=== PATIENT | female | born 1970 | race Hispanic/Latino ===

== ENCOUNTER 2017-02-16 06:41 | Inpatient (IN) | payer MEDICARE ==
[2017-02-10 08:12] VITALS: BMI 14.6
--- NOTE | 2017-02-16 07:49 | CP.PCM.HP ---
History of Present Illness - History of Present Illness History of Present Illness: 46 y/o female with PMHx of adrenal insufficiency, COPD, anxiety and history of MRSA seen in [facility] to go to OR at 12:30pm for left total knee replacement. Pt states she fell in April and fractured and displaced her tibia. Pt was treated conservatively in several rehab facilities but did not have any improvement. Pt states she has not been able to walk normally and it is difficult to ambulate or bear weight due to the displacement of her leg at her knee. Pt denies any F/C/N/V/SOB. PSH: abdominal resection, partial colon resection, repair of rectal prolapse, R knee arthroscopy, wound debridement of hands (MRSA) All: NKDA Social: (+) cigarette smoker Present on Admission - Present on Admission Any Indicators Present on Admission: No History of DVT/PE: No History of Uncontrolled Diabetes: No Urinary Catheter: No Decubitus Ulcer Present: No History Surgical Site Infection Following: None Review of Systems - Review of Systems All systems: reviewed and no additional remarkable complaints except (per HPI) - Constitutional Constitutional: As Per HPI Past Patient History - Infectious Disease Hx of Infectious Diseases: MRSA - Past Social History Smoking Status: Heavy Smoker > 10 Cigarettes Daily - CARDIAC Hx Cardiac Disorders: Yes Hx Hypertension: Yes Other/Comment: IRRAGULA HEARTBEAT - PULMONARY Hx Respiratory Disorders: Yes Hx Chronic Obstructive Pulmonary Disease (COPD): Yes Other/Comment: HX OF PNEUMONIA - NEUROLOGICAL Hx Neurological Disorder: No - HEENT Hx HEENT Problems: Yes Other/Comment: RETINA - RENAL Hx Chronic Kidney Disease: No - ENDOCRINE/METABOLIC Hx Endocrine Disorders: No - HEMATOLOGICAL/ONCOLOGICAL Hx Blood Disorders: Yes Hx Anemia: Yes - INTEGUMENTARY Hx Dermatological Problems: No - MUSCULOSKELETAL/RHEUMATOLOGICAL Hx Musculoskeletal Disorders: Yes Hx Arthritis: Yes Hx Back Pain: Yes Hx Osteoarthritis: Yes Other/Comment: MUSCLE WEAKNESS .LIMIT JOINT MOTION .RIGHT HAND WEAKNESS - GASTROINTESTINAL Hx Gastrointestinal Disorders: No Other/Comment: HX OF CONSTIPATION - GENITOURINARY/GYNECOLOGICAL Hx Genitourinary Disorders: No - PSYCHIATRIC Hx Psychophysiologic Disorder: Yes Hx Anxiety: Yes Hx Depression: Yes - SURGICAL HISTORY Hx Surgeries: Yes Hx Arthroscopy: Yes (RIGHT KNEE) Other/Comment: SX FOR BOWEL OBSTRUCTION - ANESTHESIA Hx Anesthesia: Yes Hx Anesthesia Reactions: No Hx Malignant Hyperthermia: No Has any member of the family had a problem w/ anesthesia?: No Meds Allergies/Adverse Reactions: Allergies Allergy/AdvReac Type Severity Reaction Status Date / Time No Known Allergies Allergy Verified 02/10/17 08:12 Physical Exam - Constitutional Appears: Well, Non-toxic, No Acute Distress - Extremities Exam Additional comments: Left lower extremity focused examination: Leg is laterally displaced on knee joint. No breaks in skin or soft tissue noted. No edema or ecchymosis noted. No tenderness elicited upon palpation of knee joint. Patient able to perform active flexion and extension at knee joint without difficulty. 1.0 x 1x0 x 0.1cm bruise with overlying scar noted to dorsomedial aspect of knee. Assessment & Plan - Assessment and Plan (Free Text) Assessment: 46 y/o female in SDS with left tibial plateau fracture to go to OR for L total knee replacement Plan: Pt seen and evaluated in [facility] Discussed plan in detail with attending Dr. Tinsley labs, EKG and CXR in chart Pt confirms NPO status after midnight last night All of patient's questions and concerns addressed and answered Pt to go to OR at 12:30pm for left TKR with Dr. Cole Pt to be admitted for rehab following sx Will continue to follow patient while in house
[2017-02-16] MEDS ORDERED: Lactated Ringer's 500 ML IV ONE (10:30)
--- NOTE | 2017-02-16 12:54 | RAD ---
PROCEDURE: Left Knee Radiographs. HISTORY: Pain. COMPARISON: None. FINDINGS: BONES: There is a transverse displaced impacted fracture in the proximal tibia with 1.3 cm distraction of fracture fragments and lateral angulation. There is mild sclerosis of the fracture margins. There is also a subacute healing fracture in the proximal fibula with lateral angulation. JOINTS: Normal. No osteoarthritis. JOINT EFFUSION: None. OTHER FINDINGS: None. IMPRESSION: Suspect subacute transverse distracted fracture in the proximal tibia with lateral angulation. Subacute healing laterally angulated fracture in the proximal fibula.
[2017-02-16] MEDS ORDERED: Rocuronium 10 mg/ml (5 ml) ONE (14:07)
[2017-02-16] MEDS ORDERED: Succinylcholine 200 mg/10 ml Inj IV ONE (14:07)
[2017-02-16] MEDS ORDERED: Midazolam 2 MG/2 ML VIAL ONE (14:08)
[2017-02-16] MEDS ORDERED: Ropivacaine 0.5% 30ML IV ONE (14:08)
[2017-02-16] MEDS ORDERED: Propofol 10 mg/ml Inj (20 ML) ONE (14:09)
[2017-02-16] MEDS ORDERED: Patient's Own Med (Buprenorphine Hcl/Naloxone Hcl [Suboxone 8 Mg-2 Mg Sl Film] 1 EACH) SCH (17:00)
--- NOTE | 2017-02-16 17:07 | CP.PCM.CON ---
History of Present Illness - History of Present Illness History of Present Illness: ID: 46 yo female CC: Pain and severe (approx 80 degrees varus)- deformity L lower ext; pt present sfor surgical correction HPI 46 yo ex substance abuser presents with pain and deforimity L Lower ext- pt with marked disomcfort paina and restricted ROM since a fall last eb Pt has been ambulating on fx for approx 1 yr Pt presents for surgical correction, but presents with bilateral lower ext cellulitis and ? vascular problem L lower ext Pt to be admitted for iV abios and vascular eval Past Patient History - Infectious Disease Hx of Infectious Diseases: MRSA - Past Social History Smoking Status: Heavy Smoker > 10 Cigarettes Daily - CARDIAC Hx Cardiac Disorders: Yes Hx Hypertension: Yes Other/Comment: IRRAGULA HEARTBEAT - PULMONARY Hx Respiratory Disorders: Yes Hx Chronic Obstructive Pulmonary Disease (COPD): Yes Other/Comment: HX OF PNEUMONIA - NEUROLOGICAL Hx Neurological Disorder: No - HEENT Hx HEENT Problems: Yes Other/Comment: RETINA - RENAL Hx Chronic Kidney Disease: No - ENDOCRINE/METABOLIC Hx Endocrine Disorders: No - HEMATOLOGICAL/ONCOLOGICAL Hx Blood Disorders: Yes Hx Anemia: Yes - INTEGUMENTARY Hx Dermatological Problems: No - MUSCULOSKELETAL/RHEUMATOLOGICAL Hx Musculoskeletal Disorders: Yes Hx Arthritis: Yes Hx Back Pain: Yes Hx Osteoarthritis: Yes Other/Comment: MUSCLE WEAKNESS .LIMIT JOINT MOTION .RIGHT HAND WEAKNESS - GASTROINTESTINAL Hx Gastrointestinal Disorders: No Other/Comment: HX OF CONSTIPATION - GENITOURINARY/GYNECOLOGICAL Hx Genitourinary Disorders: No - PSYCHIATRIC Hx Psychophysiologic Disorder: Yes Hx Anxiety: Yes Hx Depression: Yes - SURGICAL HISTORY Hx Surgeries: Yes Hx Arthroscopy: Yes (RIGHT KNEE) Other/Comment: SX FOR BOWEL OBSTRUCTION - ANESTHESIA Hx Anesthesia: Yes Hx Anesthesia Reactions: No Hx Malignant Hyperthermia: No Has any member of the family had a problem w/ anesthesia?: No Meds Allergies/Adverse Reactions: Allergies Allergy/AdvReac Type Severity Reaction Status Date / Time No Known Allergies Allergy Verified 02/16/17 08:07 Physical Exam - Additional Findings Additional findings: Physical exam systemic exam HEENT- poor dentition chest and lungs clear Cardiac- as per DR Luna abdominal exam benign Musculoskeletal stance/gait- defrred pt with 82 dgree varus angualtion at fx Decreased dorsalis pedis pulse L foot bilateral erythem and cellulitis L lower ext Results - Vital Signs Recent Vital Signs: Last Vital Signs Temp 98.8 F 02/16/17 16:43 Pulse 80 02/16/17 16:43 Resp 20 02/16/17 16:43 BP 123/84 02/16/17 16:43 Pulse Ox 100 02/16/17 16:43 - Labs Labs: Laboratory Results - last 24 hr 02/16/17 02/16/17 08:00 08:45 Blood Type A POSITIVE Blood Type Confirm A POSITIVE Antibody Screen Negative BBK History Checked No verified bt - Impressions Impression: Xrays- reveal non union prox tibia fx excessive varus angulation at fgx(82 degrees) Assessment & Plan - Assessment and Plan (Free Text) Assessment: A- 1) NON union L prox tibia fx 2)vascular compromise L Lower ext (?0) after corredction- DR Adames to eval\ 3) bilateral lower ext cellulitis P- vasc comsult cardiologic consult endocrine consult ID consult P- for stabilization , then clearance for possible ORIF/possible hinged joint replacement
[2017-02-16] MEDS: POLYETHYLENE GLYCOL 3350 17 GM/Dose PACKET PO SCH (17:32)
[2017-02-16] MEDS: Sodium Chloride 0.9% 1,000 ML IV SCH ×2 (18:55→18:59)
[2017-02-16] MEDS: Hydrocortisone- 100 MG in Sodium Chloride 0.9% 100 ML IV SCH (18:55)
[2017-02-17] MEDS: Hydrocortisone- 100 MG in Sodium Chloride 0.9% 100 ML IV SCH (01:56)
--- NOTE | 2017-02-17 05:23 | CP.PCM.CON ---
History of Present Illness - History of Present Illness History of Present Illness: Vascular surgery consult for Dr. Adames Consulted for: possible vascular disease of the left lower leg Patient is a 46F with PMH positive for COPD, 30pack year smoking history, HTN, and hypothyroidism with an improperly healed left tib-fib fracture. Patient states that 9 months ago she got out of bed and her leg "went out from underneath her" and she broke her leg. Since then patient has been non- weightbearing, using only a wheelchair. Patient was scheduled for an elective repair with orthopedics yesterday, but it was postponed for further evaluation. Patient report bilateral constant diffuse leg pain but otherwise denies any symptoms. Denies any history of chronic ulcers, cellulitis, paralysis, numbness , focal weakness, infections, SOB, chest pain, fevers, chills, or any other symptoms. Review of Systems - Review of Systems All systems: reviewed and no additional remarkable complaints except (as per HPI ) - Constitutional Constitutional: absent: Chills, Fever - Cardiovascular Cardiovascular: absent: Chest Pain, Chest Pain at Rest, Dyspnea - Respiratory Respiratory: absent: Cough, Dyspnea, Dyspnea on Exertion - Gastrointestinal Gastrointestinal: absent: Abdominal Pain, Nausea, Vomiting - Neurological Neurological: absent: Dizziness, Numbness Additional comments: bilateral neuropathies Past Patient History - Infectious Disease Hx of Infectious Diseases: MRSA - Past Social History Smoking Status: Heavy Smoker > 10 Cigarettes Daily - CARDIAC Hx Cardiac Disorders: Yes Hx Hypertension: Yes Other/Comment: IRREGULAR HEARTBEAT - PULMONARY Hx Respiratory Disorders: Yes Hx Chronic Obstructive Pulmonary Disease (COPD): Yes Other/Comment: HX OF PNEUMONIA - NEUROLOGICAL Hx Neurological Disorder: No - HEENT Hx HEENT Problems: Yes Other/Comment: RETINA - RENAL Hx Chronic Kidney Disease: No - ENDOCRINE/METABOLIC Hx Endocrine Disorders: No - HEMATOLOGICAL/ONCOLOGICAL Hx Blood Disorders: Yes Hx Anemia: Yes - INTEGUMENTARY Hx Dermatological Problems: No - MUSCULOSKELETAL/RHEUMATOLOGICAL Hx Musculoskeletal Disorders: Yes Hx Arthritis: Yes Hx Back Pain: Yes Hx Osteoarthritis: Yes Other/Comment: MUSCLE WEAKNESS .LIMIT JOINT MOTION .RIGHT HAND WEAKNESS - GASTROINTESTINAL Hx Gastrointestinal Disorders: No Other/Comment: HX OF CONSTIPATION - GENITOURINARY/GYNECOLOGICAL Hx Genitourinary Disorders: No - PSYCHIATRIC Hx Psychophysiologic Disorder: Yes Hx Anxiety: Yes Hx Depression: Yes - SURGICAL HISTORY Hx Surgeries: Yes Hx Arthroscopy: Yes (RIGHT KNEE) Other/Comment: SX FOR BOWEL OBSTRUCTION - ANESTHESIA Hx Anesthesia: Yes Hx Anesthesia Reactions: No Hx Malignant Hyperthermia: No Has any member of the family had a problem w/ anesthesia?: No Meds Allergies/Adverse Reactions: Allergies Allergy/AdvReac Type Severity Reaction Status Date / Time No Known Allergies Allergy Verified 02/16/17 08:07 - Medications Medications: Current Medications Acetaminophen (Tylenol 325mg Tab) 650 mg PO Q6 PRN PRN Reason: Fever >100.4 F Acetaminophen (Tylenol 325mg Tab) 650 mg PO Q4 PRN PRN Reason: Pain, moderate (4-7) Amlodipine Besylate (Norvasc) 5 mg PO DAILY [facility] Baclofen (Lioresal) 20 mg PO TID [facility] Last Admin: 02/16/17 17:32 Dose: 20 mg Bisacodyl (Dulcolax) 10 mg [place] DAILY PRN PRN Reason: Constipation Docusate Sodium (Colace) 100 mg PO BID [facility] Docusate Sodium (Colace) 100 mg PO HS [facility] Last Admin: 02/16/17 22:58 Dose: 100 mg Duloxetine HCl (Cymbalta) 60 mg PO HS [facility] Last Admin: 02/16/17 22:59 Dose: 60 mg Enoxaparin Sodium (Lovenox) 40 mg SC DAILY [facility] PRN Reason: Protocol Ferrous Sulfate (Feosol) 325 mg PO BID [facility] Last Admin: 02/16/17 17:32 Dose: 325 mg Gabapentin (Neurontin) 600 mg PO TID [facility] Last Admin: 02/16/17 17:32 Dose: 600 mg Home Med (Buprenorphine Hcl/Naloxone Hcl [Suboxone 8 Mg-2 Mg Sl Film]) 1 each .ROUTE BID [facility] Sodium Chloride (Sodium Chloride 0.9%) 1,000 mls @ 100 mls/hr IV .Q10H [facility] Last Admin: 02/16/17 18:59 Dose: 100 mls/hr Ibuprofen (Motrin Tab) 600 mg PO Q6 PRN PRN Reason: Pain, moderate (4-7) Last Admin: 02/16/17 17:34 Dose: 600 mg Levothyroxine Sodium (Synthroid) 100 mcg PO DAILY@0630 [facility] Lisinopril (Zestril) 20 mg PO DAILY [facility] Lorazepam (Ativan) 1 mg PO BID [facility] Last Admin: 02/16/17 18:54 Dose: 1 mg Multivitamins/Minerals (Therapeutic-M Tab) 1 tab PO DAILY [facility] Nicotine (Nicoderm Cq) 1 patch TD DAILY [facility] Ondansetron HCl (Zofran Inj) 4 mg IVP Q6 PRN PRN Reason: Nausea/Vomiting Pantoprazole Sodium (Protonix Ec Tab) 40 mg PO DAILY [facility] Polyethylene Glycol (Miralax) 17 gm PO BID [facility] Last Admin: 02/16/17 17:32 Dose: 17 gm Quetiapine Fumarate (Seroquel) 100 mg PO HS [facility] Last Admin: 02/16/17 23:02 Dose: Not Given Quetiapine Fumarate (Seroquel) 50 mg PO BID [facility] Last Admin: 02/16/17 17:33 Dose: 50 mg Sennosides (Senokot Tab) 8.6 mg PO BID [facility] Last Admin: 02/16/17 17:33 Dose: 8.6 mg Trazodone HCl (Desyrel) 100 mg PO HS PRN PRN Reason: Restlessness Last Admin: 02/16/17 23:03 Dose: 100 mg Physical Exam - Constitutional Appears: Non-toxic, No Acute Distress, Older Than Stated Age, Chronically Ill - Head Exam Head Exam: ATRAUMATIC, NORMOCEPHALIC - Eye Exam Eye Exam: Normal appearance. absent: Conjunctival injection, Scleral icterus - ENT Exam ENT Exam: Mucous Membranes Moist - Respiratory Exam Respiratory Exam: NORMAL BREATHING PATTERN. absent: Accessory Muscle Use, Respiratory Distress - Cardiovascular Exam Cardiovascular Exam: RRR - GI/Abdominal Exam GI & Abdominal Exam: Soft. absent: Distended, Tenderness - Extremities Exam Extremities exam: Positive for: normal capillary refill, pedal pulses present ( DP and TP present and equal bilaterally). Negative for: calf tenderness, pedal edema, tenderness Additional comments: left lower leg with gross bony deformity with distal lower leg angled medially. Feet and toes warm and normal color - Neurological Exam Neurological exam: Alert, Oriented x3 - Psychiatric Exam Psychiatric exam: Normal Affect, Normal Mood - Skin Skin Exam: Dry, Intact, Normal Color, Warm Additional comments: Negative: areas of chronic skin breakdown Results - Vital Signs Recent Vital Signs: Last Vital Signs Temp 98.5 F 02/17/17 00:00 Pulse 73 02/17/17 00:00 Resp 19 02/17/17 00:00 BP 140/68 02/17/17 00:00 Pulse Ox 96 02/17/17 00:00 - Labs Labs: Laboratory Results - last 24 hr 02/16/17 02/16/17 08:00 08:45 Blood Type A POSITIVE Blood Type Confirm A POSITIVE Antibody Screen Negative BBK History Checked No verified bt Assessment & Plan - Assessment and Plan (Free Text) Assessment: 46F with PMH of tobacco use, COPD and chronic displaced Left tib-fib fracture Plan: - No indication for vascular surgical intervention at this time - No overt signs of vascular compromise in the lower extremities - Will discuss with Dr. Adames for further work up recommendations - Continue care per primary and orthopedics at this time Thank you for this consult Will discuss with Dr. Rosangela Case, PGY2
--- NOTE | 2017-02-17 05:29 | CON ---
ENDOCRINOLOGY CONSULT LOCATION: Room 651 HISTORY OF PRESENT ILLNESS: This is a 46-year-old female who was admitted for surgical correction of a fractured and displaced patella and tibia, which has been there for almost a year to the present time and underwent surgical correction with orthopedic and is now being referred for endocrine evaluation because of known history of adrenal insufficiency and hypothyroidism. PAST MEDICAL HISTORY: As mentioned above, history of hypothyroidism, currently on levothyroxine at 100 mcg daily, history of hypoadrenalism with hydrocortisone given orally on the outpatient as Cortef taken 20 mg b.i.d. as ordered. History of hypertensive cardiovascular disease and dyslipidemia, history of generalized anxiety and depression with underlying bipolar disorder; on psychotropic medications, history of chronic obstructive lung disease with nicotine dependence, history of chronic anemia, history of peripheral polyneuropathy and muscle weakness with gait dysfunction and apparently also has left lower extremity, vasculopathy undergoing current evaluation at this time. Also history of restricted ambulation and is wheelchair-bound actually as noted. She is also scheduled for possible total left knee replacement with Dr. Cole, the orthopedic doctor with this admission. History of chronic constipation and had previous sigmoid resection 7 years ago. FAMILY HISTORY: Positive for hypertension and heart disease. SOCIAL HISTORY: The patient has supportive family and actually was in a care home for rehabilitation therapy for the last 9 months since her accidental fall a year ago. The patient admits to nicotine dependence and consumes a pack and a half of cigarettes for many years now. No other known substance use. REVIEW OF SYSTEMS: As mentioned above. Admits to generalized body weakness with easy fatigability and tiredness and suboptimal energy level. Also admits to episodic bouts of dizziness and lightheadedness with bifrontal headaches. No chest pains or palpitations, but admits to progressive shortness of breath especially with minimal exertion. Her oral intake is variable and suboptimal at this time with nausea, dyspepsia, and persistent chronic constipation. Also admits to lower extremity paresthesias especially in the left lower extremity with painful and restricted ambulation because of underlying fracture as noted and mentioned. PHYSICAL EXAMINATION: GENERAL: This is an average built female in no apparent distress. VITAL SIGNS: Blood pressure of 140/80, pulse of 70 beats per minute and regular, temperature 98, respirations 20. Height is 5 feet 5 inches, weight is 88 pounds. HEENT: Head normocephalic. Eyes anicteric with pink conjunctivae. Funduscopy not possible at this time. Ears, nose, are throat otherwise normal. NECK: Supple. Thyroid gland is normal in size. No carotid bruits or any cervical adenopathy. CARDIOPULMONARY: Some adynamic precordium. S1 and S2 is rapid and regular. LUNGS: Clear to auscultation. ABDOMEN: Flat, soft, with positive bowel sounds. EXTREMITIES: There is +1 bipedal edema. Pulses are +2 bilaterally. LABORATORY DATA: The chemistries are pending at this time. No cortisol level has been obtained otherwise. 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 She apparently has longstanding history of the upper mentioned dual entities with long-term oral replacement therapy with steroids and levothyroxine therapy as mentioned. At this time, she has been placed postoperatively on intravenous steroids as noted. As mentioned above, she has a fracture and displacement of the left patella and fibular area and underwent surgical correction today as noted. PLAN OF MANAGEMENT: We will obtain a comprehensive thyroid hormonal profile with a total T3, T4, and TSH, and also serum cortisol and ACTH level with a hemoglobin A1c for tomorrow morning. We will adjust her dose regimen accordingly depending upon her clinical and metabolic status pending the availability of her hormonal profile reports by tomorrow morning. Serial chemistries reveal pending and they will be supplemented accordingly as needed. We will also taper down her IV steroids if her clinical status improves accordingly. We will follow. Shayna Russo MD
[2017-02-17] MEDS: Levothyroxine 100 MCG TAB PO SCH (05:32)
[2017-02-17] MEDS: Sodium Chloride 0.9% 1,000 ML IV SCH ×2 (06:34→06:49)
[2017-02-17] MEDS ORDERED: Hydrocortisone- 100 MG in Sodium Chloride 0.9% 100 ML IV ONE ×2 (06:41→10:00)
[2017-02-17 06:43] LABS: ALB/GLOB RATIO 1.4 (1.0-2.1); ALKALINE PHOSPHATASE 52 U/L (38-126); ALT/SGPT 20 U/L (9-52); AST/SGOT 21 U/L (14-36); BILIRUBIN,TOTAL 0.5 mg/dl (0.2-1.3); BLOOD UREA NITROGEN 12 mg/dl (7-17); CALCIUM 8.6 mg/dL (8.4-10.2); CARBON DIOXIDE 22 mmol/L (22-30); CHLORIDE 112 mmol/L (98-107); GFR AFRICAN-AMERICAN > 60; GLUCOSE,RANDOM 97 mg/dL (65-105); SODIUM 146 mmol/l (132-148)
[2017-02-17 06:52] LABS: T4 6.22 ug/dl (5.5-11.0)
[2017-02-17 07:05] LABS: THYROID STIMULATING HORMONE 1.68 mIU/ML (0.46-4.68)
[2017-02-17] MEDS ORDERED: Enoxaparin 40 mg Syringe SC SCH (09:00)
[2017-02-17] MEDS ORDERED: Levothyroxine 100 MCG TAB PO SCH (09:00)
--- NOTE | 2017-02-17 09:27 | CP.PCM.PN ---
Addendum entered and electronically signed by Anh Dean DPM 02/17/17 15:23 : Physical Exam (continued) Resp: no rales, no wheezing. Lungs clear on auscultation Cardio: no JVD. S1 and S2 sounds normal. Derm: Extensor surface erythema to B/L hands. Discoloration of nails noted to all 4 extremities. 1.0 x 1.0cm bruise with overlying scar noted to medial aspect of L anterior knee. 3.0 x 4.0 cm ecchymosis to distal medial leg with no surrounding erythema, no breaks in skin or soft tissue. Assessment and Plan: 1) Left tibia and fibula fracture with patellar dislocation -to go to OR for left TKR with Dr. Cole, possibly pending clearance -cardiac clearance in chart -vascular sx to perform arteriogram for LLE to evaluate blood flow 2) Adrenal insufficiency and hypothyroidism with Bill syndrome -pt to receive stress dose of hydrocortisone 100 mg, will be given pre op and post op. one dose given 02/16 -currently on Cortef 20mg -Endocrine consulted -will monitor cortisol, TSH, T3 and T4 levels -continue Synthroid 3) Hypertension -HTN controlled at this time -continue home meds 4) Anemia -controlled at this time -continue ferrous sulfate supplements 5) Neuropathy -Continue gabapentin and suboxone 6) Gait dysfunction -physical therapy evaluation following left TKR surgery -pt to go to [facility] post-op for rehabilitation 7) Constipation -continue Sennosides, Dulcolax, Docusate and polyethylene glycol 8) COPD -O2 saturation good, no need for additional O2 at this time -no acute infiltrates noted on CXR 9) Bipolar disorder -continue psych meds -no suicidal ideations or depression 10) DVT prophylaxis -Continue Lovenox -Continue SCDs 11) Suspected cellulitis with erythema and excoriation of right lower leg -empiric tx with Vanco per ID 12) Cachexia -will consult porter head to evaluate and recommend supplements Original Note: Subjective - Date & Time of Evaluation Date of Evaluation: 02/17/17 Time of Evaluation: 09:26 - Subjective Subjective: 46 y/o female seen at bedside this morning, in house for medical optimization with vascular and endocrine evaluation prior to left total knee replacement surgery. Pt denies any acute events overnight. Pt states she has taken her resumed home medications. Pt states she is experiencing diffuse pain but that this is normal for her. Pt is getting relief from Motrin. Pt denies F/C/N/V/ SOB. Pt admits to constipation which is chronic. Objective - Vital Signs/Intake and Output Vital Signs (last 24 hours): Temp Pulse Resp BP Pulse Ox 98.7 F 65 20 148/79 98 02/17/17 07:55 02/17/17 07:55 02/17/17 07:55 02/17/17 07:55 02/17/17 07:55 - Medications Medications: Current Medications Acetaminophen (Tylenol 325mg Tab) 650 mg PO Q6 PRN PRN Reason: Fever >100.4 F Acetaminophen (Tylenol 325mg Tab) 650 mg PO Q4 PRN PRN Reason: Pain, moderate (4-7) Amlodipine Besylate (Norvasc) 5 mg PO DAILY [facility] Baclofen (Lioresal) 20 mg PO TID [facility] Last Admin: 02/16/17 17:32 Dose: 20 mg Bisacodyl (Dulcolax) 10 mg [place] DAILY PRN PRN Reason: Constipation Docusate Sodium (Colace) 100 mg PO BID [facility] Docusate Sodium (Colace) 100 mg PO HS [facility] Last Admin: 02/16/17 22:58 Dose: 100 mg Duloxetine HCl (Cymbalta) 60 mg PO HS [facility] Last Admin: 02/16/17 22:59 Dose: 60 mg Enoxaparin Sodium (Lovenox) 40 mg SC DAILY [facility] PRN Reason: Protocol Ferrous Sulfate (Feosol) 325 mg PO BID [facility] Last Admin: 02/16/17 17:32 Dose: 325 mg Gabapentin (Neurontin) 600 mg PO TID [facility] Last Admin: 02/16/17 17:32 Dose: 600 mg Home Med (Buprenorphine Hcl/Naloxone Hcl [Suboxone 8 Mg-2 Mg Sl Film]) 1 each .ROUTE BID [facility] Sodium Chloride (Sodium Chloride 0.9%) 1,000 mls @ 50 mls/hr IV .Q20H [facility] Last Admin: 02/17/17 06:49 Dose: Not Given Hydrocortisone Sodium Succinate 100 mg/ Sodium Chloride 100 mls @ 100 mls/hr IV ONCE ONE Stop: 02/17/17 10:59 Ibuprofen (Motrin Tab) 600 mg PO Q6 PRN PRN Reason: Pain, moderate (4-7) Last Admin: 02/17/17 05:31 Dose: 600 mg Levothyroxine Sodium (Synthroid) 100 mcg PO DAILY@0630 [facility] Last Admin: 02/17/17 05:32 Dose: 100 mcg Lisinopril (Zestril) 20 mg PO DAILY [facility] Lorazepam (Ativan) 1 mg PO BID [facility] Last Admin: 02/16/17 18:54 Dose: 1 mg Multivitamins/Minerals (Therapeutic-M Tab) 1 tab PO DAILY [facility] Nicotine (Nicoderm Cq) 1 patch TD DAILY [facility] Ondansetron HCl (Zofran Inj) 4 mg IVP Q6 PRN PRN Reason: Nausea/Vomiting Pantoprazole Sodium (Protonix Ec Tab) 40 mg PO DAILY [facility] Polyethylene Glycol (Miralax) 17 gm PO BID [facility] Last Admin: 02/16/17 17:32 Dose: 17 gm Quetiapine Fumarate (Seroquel) 100 mg PO HS [facility] Last Admin: 02/16/17 23:02 Dose: Not Given Quetiapine Fumarate (Seroquel) 50 mg PO BID [facility] Last Admin: 02/16/17 17:33 Dose: 50 mg Sennosides (Senokot Tab) 8.6 mg PO BID [facility] Last Admin: 02/16/17 17:33 Dose: 8.6 mg Trazodone HCl (Desyrel) 100 mg PO HS PRN PRN Reason: Restlessness Last Admin: 02/16/17 23:03 Dose: 100 mg - Labs Labs: 02/17/17 05:20 PT 10.6 Seconds (9.8-13.1) 02/17/17 05:20 INR 1.0 (0.9-1.2) 02/17/17 05:20 - Constitutional Appears: Well, Non-toxic, No Acute Distress, Older Than Stated Age - Head Exam Head Exam: ATRAUMATIC, NORMOCEPHALIC - Eye Exam Eye Exam: EOMI, PERRL Pupil Exam: PERRL - Respiratory Exam Respiratory Exam: NORMAL BREATHING PATTERN - Cardiovascular Exam Cardiovascular Exam: REGULAR RHYTHM - GI/Abdominal Exam GI & Abdominal Exam: Soft, Tenderness, Normal Bowel Sounds - Extremities Exam Additional comments: Neuro- gross sensation intact B/L Left lower extremity exam shows lateral 50+ degree leg displacement at knee joint. Pt able to perform active flexion and extension at knee joint without tenderness. Gait unable to assess due to pt inability to bear weight. Pulses are palpable. Right distal medial leg exhibits 3.0 x 4.0 cm ecchymosis with no open lesions, no surrounding erythema, no cellulitic changes, no increased warmth. - Neurological Exam Neurological Exam: Alert, Awake, Oriented x3 - Psychiatric Exam Psychiatric exam: Normal Affect, Normal Mood - Skin Skin Exam: Intact, Normal Color Assessment and Plan - Assessment and Plan (Free Text) Assessment: Patient seen at bedside and plan discussed with attending Dr. Tinsley Await recs from endocrine and vascular prior to surgery Pt to resume Cortef 20mg po BID as per PMD for adrenal insufficiencu will give Hydrocortisone 100 mfg IV Q8, first dose before surgery Will follow while in house
[2017-02-17] MEDS: POLYETHYLENE GLYCOL 3350 17 GM/Dose PACKET PO SCH ×2 (09:50→17:12)
[2017-02-17] MEDS: Pantoprazole 40 mg EC Tab PO SCH (09:52)
[2017-02-17] MEDS: Multivitamin With Minerals Tab PO SCH (09:53)
--- NOTE | 2017-02-17 10:17 | CP.PCM.CON ---
History of Present Illness - History of Present Illness History of Present Illness: 46 y/o female with history of fall April 2016, fractured and displaced patella and tibia , not ambulatory ( on wheelchair for the last 9 months ) presented via [facility] for left TKR by Dr. Crane Found to have left leg cellulitis ID consulted for this PMH COPD , smoker 1 and 1/2 PPD, adrenal insufficiency, hypothyroidism, anxiety , bipolar disorder , HTN,anemia,neuropathy, muscle weakness , gait dysfunction , constipation , GERD with history of fall April 2016, fractured and displaced patella and tibia Medications; ativan, seroquel, gabapentin, suboxan, baclofen, synthroid , amlodipine , colace,cymbalta, ferrous sulfate, cortef ,lisinopril, omeprazole, miralax, senna, trazodone,motrin Social history ; has 1 son and mother, surrogate decision maker is mother, has been in [place] for rehab for the last 9 months since fall, unable to walk due to left knee separation since April, smoker ,denies ETOH abuse , disability ROS ; 14 point review of system is negative except what mentioned on H&P PSH: abdominal resection, partial colon resection, repair of rectal prolapse, R knee arthroscopy, wound debridement of hands (MRSA) Review of Systems - Constitutional Constitutional: As Per HPI. absent: Chills, Fever - EENT Eyes: absent: As Per HPI, Blind Spots, Blurred Vision, Change in Vision, Decreased Night Vision, Diplopia, Discharge, Dry Eye, Exophthalmos, Floaters, Irritation, Itchy Eyes, Loss of Peripheral Vision, Pain, Photophobia, Requires Corrective Lenses, Sees Flashes, Spots in Vision, Tunnel Vision, Other Visual Disturbances, Loss of Vision, Other Ears: absent: As Per HPI, Decreased Hearing, Ear Discharge, Ear Pain, Tinnitus, Abnormal Hearing, Disequilibrium, Dizziness, Other Nose/Mouth/Throat: absent: As Per HPI, Epistaxis, Nasal Congestion, Nasal Discharge, Nasal Obstruction, Nasal Trauma, Nose Pain, Post Nasal Drip, Sinus Pain, Sinus Pressure, Bleeding Gums, Change in Voice, Dental Pain, Dry Mouth, Dysphagia, Halitosis, Hoarsness, Lip Swelling, Mouth Lesions, Mouth Pain, Odynophagia, Sore Throat, Throat Swelling, Tongue Swelling, Facial Pain, Neck Pain, Neck Mass, Other - Breasts Breasts: absent: As Per HPI, Change in Shape, Mass, Pain, Nipple Discharge, Nipple Inversion, Skin Changes, Swelling, Other - Cardiovascular Cardiovascular: absent: As Per HPI, Acrocyanosis, Chest Pain, Chest Pain at Rest , Chest Pain with Activity, Claudication, Diaphoresis, Dyspnea, Dyspnea on Exertion, Edema, Irregular Heart Rhythm, Pain Radiating to Arm/Neck/Jaw, Leg Edema, Leg Ulcers, Lightheadedness, Orthopnea, Palpitations, Paroxysmal Nocturnal Dyspnea, Pedal Edema, Radiating Pain, Rapid Heart Rate, Slow Heart Rate, Syncope, Other - Respiratory Respiratory: absent: As Per HPI, Cough, Dyspnea, Hemoptysis, Dyspnea on Exertion , Wheezing, Snoring, Stridor, Pain on Inspiration, Chest Congestion, Excessive Mucous Production, Change in Mucous Color, Pain with Coughing, Other - Gastrointestinal Gastrointestinal: absent: As Per HPI, Abdominal Pain, Belching, Bloating, Change in Bowel Habits, Change in Stool Character, Coffee Ground Emesis, Constipation, Cramping, Diarrhea, Dyspepsia, Dysphagia, Early Satiety, Excessive Flatus, Fecal Incontinence, Heartburn, Hematemesis, Hematochezia, Loose Stools, Melena, Nausea, Odynophagia, Temesmus, Vomiting, Other - Genitourinary Genitourinary: absent: As Per HPI, Change in Urinary Stream, Difficulty Urinating, Dysuria, Flank Pain, Hematuria, Pyuria, Nocturia, Urinary Incontinence, Urinary Frequency, Urinary Hesitance, Urinary Urgency, Voiding Freq/Small Amts, Freq UTI, Hx Renal/Bladder Calculi, Hx /Renal Surgery, Bladder Distension, Other - Reproductive: Female Reproductive:Female: absent: As Per HPI, Amenorrhea, Amenorrhea/ Control, Currently Menstual, Cycle <21 Days, Cycle >35 Days, Cycle Variable, Menses 1-7 Days, Menses >/= 8 Days, Menses Variable, Cycle > 4 Weeks Between, No Menses for 6 Months, Heavy Menses, Light Menses, Normal Menses, Spotting Between Cycles , S/P Hysterectomy, Menopausal, Post Menopausal, Premenarche, Abnormal Vaginal Bleeding, Dysmenorrhea, Dyspareunia, Genital Lesions, Genital Pruritis, Pelvic Pain, Prolapse Symptoms, Sexual Dysfunction, Vaginal Discharge, Vaginal Dryness , Vaginal Odor, Vaginal Pruritis, Other - Menstruation Menstruation: absent: As Per HPI, Amenorrhea, Amenorrhea/ Control, Currently Menstual, Cycle <21 Days, Cycle >35 Days, Cycle Variable, Menses 1-7 Days, Menses >/= 8 Days, Menses Variable, Cycle > 4 Weeks Between, No Menses for 6 Months, Heavy Menses, Light Menses, Normal Menses, Spotting Between Cycles , S/P Hysterectomy, Menopausal, Post Menopausal, Premenarche, Abnormal Vaginal Bleeding, Dysmenorrhea, Other - Musculoskeletal Musculoskeletal: absent: As Per HPI, Abnormal Gait, Arthralgias, Atrophy, Back Pain, Deformity, Joint Swelling, Limited Range of Motion, Loss of Height, Muscle Cramps, Muscle Weakness, Myalgias, Neck Pain, Numbness, Radiating Pain into Limb, Stiffness, Tingling, Other - Integumentary Integumentary: absent: As Per HPI, Acne, Alopecia, Bleeding Lesions, Change in Hair, Change in Nails, Change in Pigmentation, Changing Lesions, Dry Skin, Erythema, Furuncle, Hirsutism, Lesions, New Lesions, Non-Healing Lesions, Photosensitivity, Pruritus, Rash, Skin Pain, Skin Ulcer, Sores, Striae, Swelling , Unusual Bruising, Wounds, Jaundice, Other - Neurological Neurological: absent: As Per HPI, Abnormal Gait, Abnormal Hearing, Abnormal Movements, Abnormal Speech, Behavioral Changes, Burning Sensations, Confusion, Convulsions, Disequilibrium, Dizziness, Numbness, Focal Weakness, Frequent Falls , Headaches, Lack of Coordination, Loss of Vision, Memory Loss, Paresthesias, Radicular Pain, Restless Legs, Sensory Deficit, Syncope, Tingling, Tremor, Vertigo, Weakness, Other Visual Disturbances, Other - Psychiatric Psychiatric: absent: As Per HPI, Abnormal Sleep Pattern, Anhedonia, Anxiety, Auditory Hallucinations, Behavioral Changes, Change in Appetite, Change in Libido, Confusion, Depression, Difficulty Concentrating, Hallucinations, Homicidal Ideation, Hopelessness, Irritability, Memory Loss, Mood Swings, Panic Attacks, Paranoia, Suicidal Ideation, Visual Hallucinations, Tactile Hallucinations, Other - Endocrine Endocrine: absent: As Per HPI, Change in Body Appearance, Change in Libido, Cold Intolorance, Deepening of Voice, Excessive Sweating, Fatigue, Flushing, Heat Intolorance, Increase in Ring/Shoe/Hat Size, Palpitations, Polydipsia, Polyphagia, Polyuria, Other - Hematologic/Lymphatic Hematologic: absent: As Per HPI, Easy Bleeding, Easy Bruising, Lymphadenopathy, Other Past Patient History - Infectious Disease Hx of Infectious Diseases: MRSA - Past Social History Smoking Status: Heavy Smoker > 10 Cigarettes Daily - CARDIAC Hx Cardiac Disorders: Yes Hx Hypertension: Yes Other/Comment: IRREGULAR HEARTBEAT - PULMONARY Hx Respiratory Disorders: Yes Hx Chronic Obstructive Pulmonary Disease (COPD): Yes Other/Comment: HX OF PNEUMONIA - NEUROLOGICAL Hx Neurological Disorder: No - HEENT Hx HEENT Problems: Yes Other/Comment: RETINA - RENAL Hx Chronic Kidney Disease: No - ENDOCRINE/METABOLIC Hx Endocrine Disorders: No - HEMATOLOGICAL/ONCOLOGICAL Hx Blood Disorders: Yes Hx Anemia: Yes - INTEGUMENTARY Hx Dermatological Problems: No - MUSCULOSKELETAL/RHEUMATOLOGICAL Hx Musculoskeletal Disorders: Yes Hx Arthritis: Yes Hx Back Pain: Yes Hx Osteoarthritis: Yes Other/Comment: MUSCLE WEAKNESS .LIMIT JOINT MOTION .RIGHT HAND WEAKNESS - GASTROINTESTINAL Hx Gastrointestinal Disorders: No Other/Comment: HX OF CONSTIPATION - GENITOURINARY/GYNECOLOGICAL Hx Genitourinary Disorders: No - PSYCHIATRIC Hx Psychophysiologic Disorder: Yes Hx Anxiety: Yes Hx Depression: Yes - SURGICAL HISTORY Hx Surgeries: Yes Hx Arthroscopy: Yes (RIGHT KNEE) Other/Comment: SX FOR BOWEL OBSTRUCTION - ANESTHESIA Hx Anesthesia: Yes Hx Anesthesia Reactions: No Hx Malignant Hyperthermia: No Has any member of the family had a problem w/ anesthesia?: No Meds Allergies/Adverse Reactions: Allergies Allergy/AdvReac Type Severity Reaction Status Date / Time No Known Allergies Allergy Verified 02/16/17 08:07 - Medications Medications: Current Medications Acetaminophen (Tylenol 325mg Tab) 650 mg PO Q6 PRN PRN Reason: Fever >100.4 F Acetaminophen (Tylenol 325mg Tab) 650 mg PO Q4 PRN PRN Reason: Pain, moderate (4-7) Amlodipine Besylate (Norvasc) 5 mg PO DAILY [facility] Last Admin: 02/17/17 09:51 Dose: 5 mg Baclofen (Lioresal) 20 mg PO TID [facility] Last Admin: 02/17/17 09:50 Dose: 20 mg Bisacodyl (Dulcolax) 10 mg [place] DAILY PRN PRN Reason: Constipation Docusate Sodium (Colace) 100 mg PO BID [facility] Last Admin: 02/17/17 09:49 Dose: 100 mg Docusate Sodium (Colace) 100 mg PO HS [facility] Last Admin: 02/16/17 22:58 Dose: 100 mg Duloxetine HCl (Cymbalta) 60 mg PO HS [facility] Last Admin: 02/16/17 22:59 Dose: 60 mg Enoxaparin Sodium (Lovenox) 40 mg SC DAILY [facility] PRN Reason: Protocol Ferrous Sulfate (Feosol) 325 mg PO BID [facility] Last Admin: 02/17/17 09:49 Dose: 325 mg Gabapentin (Neurontin) 600 mg PO TID [facility] Last Admin: 02/17/17 09:50 Dose: 600 mg Home Med (Buprenorphine Hcl/Naloxone Hcl [Suboxone 8 Mg-2 Mg Sl Film]) 1 each .ROUTE BID [facility] Sodium Chloride (Sodium Chloride 0.9%) 1,000 mls @ 50 mls/hr IV .Q20H [facility] Last Admin: 02/17/17 06:49 Dose: Not Given Hydrocortisone Sodium Succinate 100 mg/ Sodium Chloride 100 mls @ 100 mls/hr IV ONCE ONE Stop: 02/17/17 10:59 Last Admin: 02/17/17 09:52 Dose: 100 mls/hr Ibuprofen (Motrin Tab) 600 mg PO Q6 PRN PRN Reason: Pain, moderate (4-7) Last Admin: 02/17/17 05:31 Dose: 600 mg Levothyroxine Sodium (Synthroid) 100 mcg PO DAILY@0630 [facility] Last Admin: 02/17/17 05:32 Dose: 100 mcg Lisinopril (Zestril) 20 mg PO DAILY [facility] Last Admin: 02/17/17 09:53 Dose: 20 mg Lorazepam (Ativan) 1 mg PO BID [facility] Last Admin: 02/17/17 09:49 Dose: 1 mg Multivitamins/Minerals (Therapeutic-M Tab) 1 tab PO DAILY [facility] Last Admin: 02/17/17 09:53 Dose: 1 tab Nicotine (Nicoderm Cq) 1 patch TD DAILY [facility] Last Admin: 02/17/17 09:50 Dose: 1 patch Ondansetron HCl (Zofran Inj) 4 mg IVP Q6 PRN PRN Reason: Nausea/Vomiting Pantoprazole Sodium (Protonix Ec Tab) 40 mg PO DAILY [facility] Last Admin: 02/17/17 09:52 Dose: 40 mg Polyethylene Glycol (Miralax) 17 gm PO BID [facility] Last Admin: 02/17/17 09:50 Dose: 17 gm Quetiapine Fumarate (Seroquel) 100 mg PO HS [facility] Last Admin: 02/16/17 23:02 Dose: Not Given Quetiapine Fumarate (Seroquel) 50 mg PO BID [facility] Last Admin: 02/17/17 09:52 Dose: 50 mg Sennosides (Senokot Tab) 8.6 mg PO BID [facility] Last Admin: 02/17/17 09:52 Dose: 8.6 mg Trazodone HCl (Desyrel) 100 mg PO HS PRN PRN Reason: Restlessness Last Admin: 02/16/17 23:03 Dose: 100 mg Physical Exam - Constitutional Appears: Non-toxic - Head Exam Head Exam: NORMOCEPHALIC - Eye Exam Eye Exam: PERRL - ENT Exam ENT Exam: Mucous Membranes Dry, Normal External Ear Exam - Neck Exam Neck exam: Negative for: Lymphadenopathy - Respiratory Exam Respiratory Exam: Decreased Breath Sounds, Clear to Auscultation Bilateral - Cardiovascular Exam Cardiovascular Exam: REGULAR RHYTHM, +S1, +S2 - GI/Abdominal Exam GI & Abdominal Exam: Diminished Bowel Sounds, Soft. absent: Tenderness - Rectal Exam Rectal Exam: Deferred - Exam Exam: NORMAL INSPECTION - Extremities Exam Extremities exam: Positive for: pedal pulses present. Negative for: calf tenderness, pedal edema, tenderness - Back Exam Back exam: absent: CVA tenderness (L), CVA tenderness (R) - Neurological Exam Neurological exam: Alert, CN II-XII Intact, Oriented x3, Reflexes Normal - Psychiatric Exam Psychiatric exam: Normal Mood - Skin Skin Exam: Dry - Additional Findings Additional findings: Ext ; left knee deformity with femur to tib-fib angle around 50 degree towards the right , no edema, pulses present, upper extremity bilateral hand extensor surface erythema, small area of erythema / excoraiation lower leg Results - Vital Signs Recent Vital Signs: Last Vital Signs Temp 98.7 F 02/17/17 07:55 Pulse 65 02/17/17 09:53 Resp 20 02/17/17 07:55 BP 148/79 02/17/17 09:53 Pulse Ox 98 02/17/17 07:55 - Labs Result Diagrams: 02/17/17 05:20 Labs: Laboratory Results - last 24 hr 02/17/17 02/17/17 05:20 05:20 PT 10.6 INR 1.0 Sodium 146 Potassium 4.0 Chloride 112 H Carbon Dioxide 22 Anion Gap 16 BUN 12 Creatinine 0.5 L Est GFR ( Amer) > 60 Est GFR (Non-Af Amer) > 60 Random Glucose 97 Calcium 8.6 Total Bilirubin 0.5 AST 21 ALT 20 Alkaline Phosphatase 52 Total Protein 6.0 L Albumin 3.5 Globulin 2.5 Albumin/Globulin Ratio 1.4 Thyroxine (T4) 6.22 TSH 3rd Generation 1.68 Assessment & Plan - Assessment and Plan (Free Text) Assessment: 46 y/o female with PMHx of adrenal insufficiency, COPD, anxiety and history of MRSA for left total knee replacement. Pt states she fell in April and fractured and displaced her tibia. Pt was treated conservatively in several rehab facilities but did not have any improvement. Pt states she has not been able to walk normally and it is difficult to ambulate or bear weight due to the displacement of her leg at her knee. will treat for cellulitis as per Dr Cole
--- NOTE | 2017-02-17 11:09 | CP.PCM.CON ---
History of Present Illness - History of Present Illness History of Present Illness: THE PATIENT IS A 46 YEAR OLD FEMALE WHO FELL LAST APRIL AND HAD A LEFT KNEE TIBIAL AND PATELLA FRACTURE AND WAS ADMITTED TO SAME DAY SURGERY YESTERDAY BUT SURGERY WAS DELAYED DUE TO CELLULITIS. SHE ALSO HAS A HISTORY OF HYPERTENSION, ADRENAL INSUFFICIENCY, ANXIETY AND BIPOLAR DISEASE. CARDIOLOGY WAS ASKED TO SEE AND FOLLOW HER. SHE DENIED ANY CARDIAC DISEASE TO ME SUCH CHEST PAIN OR SD IN THE PAST. BUT, SHE TOLD ANOTHER DOCTOR THAT SHE SOMETIMES FELT SKIPPED BEATS. Past Patient History - Infectious Disease Hx of Infectious Diseases: MRSA - Past Social History Smoking Status: Heavy Smoker > 10 Cigarettes Daily - CARDIAC Hx Cardiac Disorders: Yes Hx Hypertension: Yes Other/Comment: IRREGULAR HEARTBEAT - PULMONARY Hx Respiratory Disorders: Yes Hx Chronic Obstructive Pulmonary Disease (COPD): Yes Other/Comment: HX OF PNEUMONIA - NEUROLOGICAL Hx Neurological Disorder: No - HEENT Hx HEENT Problems: Yes Other/Comment: RETINA - RENAL Hx Chronic Kidney Disease: No - ENDOCRINE/METABOLIC Hx Endocrine Disorders: No - HEMATOLOGICAL/ONCOLOGICAL Hx Blood Disorders: Yes Hx Anemia: Yes - INTEGUMENTARY Hx Dermatological Problems: No - MUSCULOSKELETAL/RHEUMATOLOGICAL Hx Musculoskeletal Disorders: Yes Hx Arthritis: Yes Hx Back Pain: Yes Hx Osteoarthritis: Yes Other/Comment: MUSCLE WEAKNESS .LIMIT JOINT MOTION .RIGHT HAND WEAKNESS - GASTROINTESTINAL Hx Gastrointestinal Disorders: No Other/Comment: HX OF CONSTIPATION - GENITOURINARY/GYNECOLOGICAL Hx Genitourinary Disorders: No - PSYCHIATRIC Hx Psychophysiologic Disorder: Yes Hx Anxiety: Yes Hx Depression: Yes - SURGICAL HISTORY Hx Surgeries: Yes Hx Arthroscopy: Yes (RIGHT KNEE) Other/Comment: SX FOR BOWEL OBSTRUCTION - ANESTHESIA Hx Anesthesia: Yes Hx Anesthesia Reactions: No Hx Malignant Hyperthermia: No Has any member of the family had a problem w/ anesthesia?: No Meds Home Medications: Home Medication List Medication Instructions Recorded Confirmed Type Acetaminophen [Tylenol 325mg tab] 650 mg PO Q6 PRN tab 02/19/17 Rx Docusate [Colace] 100 mg PO BID cap 02/19/17 Rx Enoxaparin [Lovenox] 40 mg [place] DAILY syr 02/19/17 Rx Hydrocortisone [Cortef] 20 mg PO BID tab 02/19/17 Rx Nicotine 21 mg/24 hr [Nicoderm Cq] 1 patch TD DAILY patch 02/19/17 Rx Ondansetron [Zofran Inj] 4 mg IVP Q6 PRN vial 02/19/17 Rx Pantoprazole [Protonix EC Tab] 40 mg PO DAILY ect 02/19/17 Rx Vancomycin 500mg in NS 500 mg IVPB Q12 #8 bag 02/19/17 Rx Allergies/Adverse Reactions: Allergies Allergy/AdvReac Type Severity Reaction Status Date / Time No Known Allergies Allergy Verified 02/16/17 08:07 - Medications Medications: Current Medications Acetaminophen (Tylenol 325mg Tab) 650 mg PO Q6 PRN PRN Reason: Fever >100.4 F Acetaminophen (Tylenol 325mg Tab) 650 mg PO Q4 PRN PRN Reason: Pain, moderate (4-7) Amlodipine Besylate (Norvasc) 5 mg PO DAILY [facility] Last Admin: 02/17/17 09:51 Dose: 5 mg Baclofen (Lioresal) 20 mg PO TID [facility] Last Admin: 02/17/17 09:50 Dose: 20 mg Bisacodyl (Dulcolax) 10 mg [place] DAILY PRN PRN Reason: Constipation Docusate Sodium (Colace) 100 mg PO BID [facility] Last Admin: 02/17/17 09:49 Dose: 100 mg Docusate Sodium (Colace) 100 mg PO HS [facility] Last Admin: 02/16/17 22:58 Dose: 100 mg Duloxetine HCl (Cymbalta) 60 mg PO HS [facility] Last Admin: 02/16/17 22:59 Dose: 60 mg Enoxaparin Sodium (Lovenox) 40 mg SC DAILY [facility] PRN Reason: Protocol Ferrous Sulfate (Feosol) 325 mg PO BID [facility] Last Admin: 02/17/17 09:49 Dose: 325 mg Gabapentin (Neurontin) 600 mg PO TID [facility] Last Admin: 02/17/17 09:50 Dose: 600 mg Home Med (Buprenorphine Hcl/Naloxone Hcl [Suboxone 8 Mg-2 Mg Sl Film]) 1 each .ROUTE BID [facility] Sodium Chloride (Sodium Chloride 0.9%) 1,000 mls @ 50 mls/hr IV .Q20H [facility] Last Admin: 02/17/17 06:49 Dose: Not Given Vancomycin HCl 500 mg/ Sodium (Chloride) 100 mls @ 100 mls/hr IVPB Q12H [facility] Ibuprofen (Motrin Tab) 600 mg PO Q6 PRN PRN Reason: Pain, moderate (4-7) Last Admin: 02/17/17 05:31 Dose: 600 mg Levothyroxine Sodium (Synthroid) 100 mcg PO DAILY@0630 [facility] Last Admin: 02/17/17 05:32 Dose: 100 mcg Lisinopril (Zestril) 20 mg PO DAILY [facility] Last Admin: 02/17/17 09:53 Dose: 20 mg Lorazepam (Ativan) 1 mg PO BID [facility] Last Admin: 02/17/17 09:49 Dose: 1 mg Multivitamins/Minerals (Therapeutic-M Tab) 1 tab PO DAILY [facility] Last Admin: 02/17/17 09:53 Dose: 1 tab Nicotine (Nicoderm Cq) 1 patch TD DAILY [facility] Last Admin: 02/17/17 09:50 Dose: 1 patch Ondansetron HCl (Zofran Inj) 4 mg IVP Q6 PRN PRN Reason: Nausea/Vomiting Pantoprazole Sodium (Protonix Ec Tab) 40 mg PO DAILY [facility] Last Admin: 02/17/17 09:52 Dose: 40 mg Polyethylene Glycol (Miralax) 17 gm PO BID [facility] Last Admin: 02/17/17 09:50 Dose: 17 gm Quetiapine Fumarate (Seroquel) 100 mg PO HS [facility] Last Admin: 02/16/17 23:02 Dose: Not Given Quetiapine Fumarate (Seroquel) 50 mg PO BID [facility] Last Admin: 02/17/17 09:52 Dose: 50 mg Sennosides (Senokot Tab) 8.6 mg PO BID [facility] Last Admin: 02/17/17 09:52 Dose: 8.6 mg Trazodone HCl (Desyrel) 100 mg PO HS PRN PRN Reason: Restlessness Last Admin: 02/16/17 23:03 Dose: 100 mg Physical Exam - Respiratory Exam Respiratory Exam: Clear to Auscultation Bilateral - Cardiovascular Exam Cardiovascular Exam: REGULAR RHYTHM, +S1, +S2 - Extremities Exam Additional comments: LEFT KNEE DEFORMITY MILD CELLULITIS - Additional Findings Additional findings: EKG NSR, POOR R WAVE PROGRESSION IN THE CHEST LEADS ORTHO NOTE REVIEWED ID NOTE REVIEWED Results - Vital Signs Recent Vital Signs: Last Vital Signs Temp 98.7 F 02/17/17 07:55 Pulse 65 02/17/17 09:53 Resp 20 02/17/17 07:55 BP 148/79 02/17/17 09:53 Pulse Ox 98 02/17/17 07:55 - Labs Result Diagrams: 02/19/17 05:25 02/19/17 05:25 Labs: Laboratory Results - last 24 hr 02/17/17 02/17/17 05:20 05:20 PT 10.6 INR 1.0 Sodium 146 Potassium 4.0 Chloride 112 H Carbon Dioxide 22 Anion Gap 16 BUN 12 Creatinine 0.5 L Est GFR ( Amer) > 60 Est GFR (Non-Af Amer) > 60 Random Glucose 97 Calcium 8.6 Total Bilirubin 0.5 AST 21 ALT 20 Alkaline Phosphatase 52 Total Protein 6.0 L Albumin 3.5 Globulin 2.5 Albumin/Globulin Ratio 1.4 Thyroxine (T4) 6.22 TSH 3rd Generation 1.68 Assessment & Plan - Assessment and Plan (Free Text) Assessment: FALL WITH LEFT KNEE FRACTURE HYPERTENSION ANXIETY BIPOLAR DISEASE Plan: CONTINUE LISINOPRIL AND ATORVASTATIN SHE IS ON STEROIDS, LOVENOX AND ANTIBIOTICS ID HAS SEEN PATIENT ENDOCRINE TO SEE SHE IS CLEARED FOR SURGERY FROM THE CARDIAC VIEWPOINT
[2017-02-17] MEDS: Enoxaparin 40 mg Syringe SC SCH (12:16)
[2017-02-17 12:45] LABS: CORTISOL AM 52.8 ug/dL (4.46-22.7)
--- NOTE | 2017-02-17 14:52 | PQF GENQUE ---
Dr. Tinsley, 2(two) queries as follows: In agreement with the BMI:14.6? listed in the EMR; if yes: (1) Please include the BMI in your next progress note (2) Please include an associated diagnosis: i.e Underweight etc. OR: Disagree OR: Other explanation of clinical finding EMR: 5ft 5 in BMI:14.6 Heart Healthy Diet This form is a permanent part of the medical record Clarification of your documentation is requested to better reflect the severity of illness and intensity of treatment of your patient. Indicators present [] Specify: [] [] Specify: [] [] Specify: [] [] Specify: [] Location in the medical record that reflects the above clinical findings: [] Treatment Provided: [] PHYSICIAN'S RESPONSE Based on your medical judgment of the clinical indicators outlined above please clarify the following: [] Practitioner response [] If unable to determine, please check the box, sign and date. Present On Admission (POA) Indicator: [] Present at the time of admission [] Not present at the time of admission [] Clinically Undetermined In responding to this query, please exercise your independent professional judgment. The fact that a question is asked does not imply that any particular answer is desired or expected. Thank you for your clarification on this documentation. If you have any questions please call. * Thank you, Mary Adame RN ext. #[phone]: Nu Galan RN MTDD
--- NOTE | 2017-02-17 22:08 | PN ---
ENDO FOLLOWUP NOTE LOCATION: Room #651. SUBJECTIVE: This is a 46-year-old female with known history of hypothyroidism and hypoadrenalism, on long-term replacement therapy, admitted here for surgical correction of a left patellar and tibial displaced fracture and is now being followed closely for metabolic management. Her electrolytes levels have improved and the latest chemistry today showed a BUN of 12, sodium 146, potassium 4.0, chloride 112, CO2 of 22, glucose 97, and creatinine 0.5. Her serum cortisol level is now 52.8 mcg/dL with a T4 of 6.22 and a TSH of 1.68. Her liver function studies are normal as noted. Her hemoglobin A1c is 5.9 indicative of early prediabetes, expected with long-term thyroid replacement therapy. So, at this time, we will taper down her IV steroid therapy and switch her over to oral steroid, starting tonight as ordered. We will start her with hydrocortisone, given 20 mg p.o. b.i.d. as ordered. We will obtain serial chemistries and supplement accordingly as needed. We will also continue the same dose regimen of levothyroxine, given 100 mcg daily as ordered. We will follow. Shayna Russo MD
--- NOTE | 2017-02-18 01:17 | CARD ---
APPROVED REPORT EKG Measurement Heart [id number] CT [id number] <Conclusion> Normal sinus rhythm Possible Anterior infarct, age undetermined Abnormal ECG
[2017-02-18] MEDS: Sodium Chloride 0.9% 1,000 ML IV SCH (03:00)
[2017-02-18] MEDS: Levothyroxine 100 MCG TAB PO SCH (06:07)
[2017-02-18 06:30] LABS: HEMATOCRIT 34.8 % (34.0-47.0); MEAN CELL VOLUME 99.3 fl (81.0-99.0); MEAN CORPUSCULAR HEMOGLOBIN 33.1 pg (27.0-31.0); MEAN CORPUSCULAR HGB CONC 33.4 g/dL (33.0-37.0); RED CELL DISTRIBUTION WIDTH 15.1 % (11.5-14.5); WHITE BLOOD COUNT 11.5 K/uL (4.8-10.8)
[2017-02-18 06:52] LABS: BLOOD UREA NITROGEN 12 mg/dl (7-17); CALCIUM 8.7 mg/dL (8.4-10.2); CARBON DIOXIDE 22 mmol/L (22-30); CHLORIDE 111 mmol/L (98-107); GFR AFRICAN-AMERICAN > 60; GLUCOSE,RANDOM 84 mg/dL (65-105); POTASSIUM 3.8 MMOL/L (3.6-5.0); SODIUM 145 mmol/l (132-148)
[2017-02-18] MEDS: Enoxaparin 40 mg Syringe SC SCH ×3 (08:41→16:41)
[2017-02-18] MEDS: POLYETHYLENE GLYCOL 3350 17 GM/Dose PACKET PO SCH ×2 (08:41→16:50)
[2017-02-18] MEDS: Pantoprazole 40 mg EC Tab PO SCH ×2 (08:42→15:03)
[2017-02-18] MEDS: Multivitamin With Minerals Tab PO SCH ×3 (08:42→16:46)
--- NOTE | 2017-02-18 08:43 | CP.PCM.PN ---
Subjective - Date & Time of Evaluation Date of Evaluation: 02/18/17 Time of Evaluation: 08:43 - Subjective Subjective: 46 y/o female seen at bedside this morning, currently in house for medical optimization with vascular and endocrine evaluation prior to left total knee replacement surgery. Pt understands that she is not supposed to eat or drink anything prior to her vascular test this morning but states that she wants coffee and may go ahead and drink it anyway. Pt states she is feeling overall unwell at this time, stating this is her normal level of discomfort. Pt denies any acute events overnight. Pt states she was able to pass a bowel movement yesterday afternoon, but is still experiencing a moderate level of constipation. Pt denies being able to pass gas, which is normal for her. Pt denies any F/C/N/V/SOB/CP at this time. Objective - Vital Signs/Intake and Output Vital Signs (last 24 hours): Temp Pulse Resp BP Pulse Ox 97.1 F L 62 19 114/73 98 02/18/17 07:36 02/18/17 07:36 02/18/17 07:36 02/18/17 07:36 02/18/17 07:36 - Medications Medications: Current Medications Acetaminophen (Tylenol 325mg Tab) 650 mg PO Q6 PRN PRN Reason: Fever >100.4 F Acetaminophen (Tylenol 325mg Tab) 650 mg PO Q4 PRN PRN Reason: Pain, moderate (4-7) Amlodipine Besylate (Norvasc) 5 mg PO DAILY [facility] Last Admin: 02/17/17 09:51 Dose: 5 mg Baclofen (Lioresal) 20 mg PO TID [facility] Last Admin: 02/18/17 08:41 Dose: Not Given Bisacodyl (Dulcolax) 10 mg [place] DAILY PRN PRN Reason: Constipation Docusate Sodium (Colace) 100 mg PO BID [facility] Last Admin: 02/18/17 08:41 Dose: Not Given Docusate Sodium (Colace) 100 mg PO HS [facility] Last Admin: 02/17/17 21:39 Dose: 100 mg Duloxetine HCl (Cymbalta) 60 mg PO HS [facility] Last Admin: 02/17/17 21:40 Dose: 60 mg Enoxaparin Sodium (Lovenox) 40 mg SC DAILY [facility] PRN Reason: Protocol Last Admin: 02/18/17 08:41 Dose: Not Given Ferrous Sulfate (Feosol) 325 mg PO BID [facility] Last Admin: 02/18/17 08:41 Dose: Not Given Gabapentin (Neurontin) 600 mg PO TID [facility] Last Admin: 02/18/17 08:42 Dose: Not Given Home Med (Buprenorphine Hcl/Naloxone Hcl [Suboxone 8 Mg-2 Mg Sl Film]) 1 each .ROUTE BID [facility] Hydrocortisone (Cortef) 20 mg PO BID [facility] Last Admin: 02/18/17 08:41 Dose: Not Given Sodium Chloride (Sodium Chloride 0.9%) 1,000 mls @ 50 mls/hr IV .Q20H [facility] Last Admin: 02/18/17 03:00 Dose: Not Given Vancomycin HCl 500 mg/ Sodium (Chloride) 100 mls @ 100 mls/hr IVPB Q12H [facility] Last Admin: 02/17/17 21:53 Dose: 100 mls/hr Ibuprofen (Motrin Tab) 600 mg PO Q6 PRN PRN Reason: Pain, moderate (4-7) Last Admin: 02/18/17 06:07 Dose: 600 mg Levothyroxine Sodium (Synthroid) 100 mcg PO DAILY@0630 [facility] Last Admin: 02/18/17 06:07 Dose: 100 mcg Lisinopril (Zestril) 20 mg PO DAILY [facility] Last Admin: 02/18/17 08:42 Dose: Not Given Lorazepam (Ativan) 1 mg PO BID [facility] Last Admin: 02/18/17 08:42 Dose: Not Given Multivitamins/Minerals (Therapeutic-M Tab) 1 tab PO DAILY [facility] Last Admin: 02/18/17 08:42 Dose: Not Given Nicotine (Nicoderm Cq) 1 patch TD DAILY [facility] Last Admin: 02/17/17 09:50 Dose: 1 patch Ondansetron HCl (Zofran Inj) 4 mg IVP Q6 PRN PRN Reason: Nausea/Vomiting Pantoprazole Sodium (Protonix Ec Tab) 40 mg PO DAILY [facility] Last Admin: 02/18/17 08:42 Dose: Not Given Polyethylene Glycol (Miralax) 17 gm PO BID [facility] Last Admin: 02/18/17 08:41 Dose: Not Given Quetiapine Fumarate (Seroquel) 100 mg PO HS [facility] Last Admin: 02/17/17 21:52 Dose: Not Given Quetiapine Fumarate (Seroquel) 50 mg PO BID [facility] Last Admin: 02/18/17 08:42 Dose: Not Given Sennosides (Senokot Tab) 8.6 mg PO BID [facility] Last Admin: 02/18/17 08:42 Dose: Not Given Trazodone HCl (Desyrel) 100 mg PO HS PRN PRN Reason: Restlessness Last Admin: 02/17/17 21:52 Dose: 100 mg - Labs Labs: 02/18/17 05:35 02/18/17 05:35 PT 10.6 Seconds (9.8-13.1) 02/17/17 05:20 INR 1.0 (0.9-1.2) 02/17/17 05:20 - Constitutional Appears: Well, Non-toxic, No Acute Distress, Older Than Stated Age, Cachectic - Head Exam Head Exam: ATRAUMATIC, NORMOCEPHALIC - Eye Exam Eye Exam: EOMI, PERRL - ENT Exam ENT Exam: Mucous Membranes Moist - Neck Exam Neck Exam: Full ROM, Normal Inspection Additional comments: no JVD present. Neck supple on exam - Respiratory Exam Respiratory Exam: NORMAL BREATHING PATTERN Additional comments: negative for rales or wheezing. Breathing is normal and not labored at this time. - Cardiovascular Exam Cardiovascular Exam: REGULAR RHYTHM, +S1, +S2 Additional comments: no abnormal heart sounds, no murmurs - GI/Abdominal Exam GI & Abdominal Exam: Soft, Tenderness, Normal Bowel Sounds Additional comments: Constipated - Extremities Exam Additional comments: Vasc: pulses are palpable to B/L lower extremities. Temperature gradient warm to cool from proximal at knee joint extending distally down leg and foot B/L. Ortho/MSK: Left lower extremity shows lateral 50+ degree leg displacement at knee joint. Pt able to perform active flexion and extension at knee joint without tenderness. Gait unable to assess due to pt inability to bear weight. Derm: Extensor surface erythema to B/L hands. Discoloration of nails noted to all 4 extremities. 1.0 x 1.0cm bruise with overlying scar noted to medial aspect of L anterior knee. 3.0 x 4.0 cm ecchymosis to distal medial right leg with no surrounding erythema, no breaks in skin or soft tissue, no increased warmth, no cellulitic changes to peripheral skin. Neuro- gross protective sensation intact B/L - Neurological Exam Neurological Exam: Alert, Awake, Oriented x3 - Psychiatric Exam Psychiatric exam: Normal Affect, Normal Mood - Skin Additional comments: Extensor surface erythema to B/L hands. Discoloration of nails noted to all 4 extremities. 1.0 x 1.0cm bruise with overlying scar noted to medial aspect of L anterior knee. 3.0 x 4.0 cm ecchymosis to distal medial right leg with no surrounding erythema, no breaks in skin or soft tissue, no increased warmth, no cellulitic changes to peripheral skin. Assessment and Plan (1) Closed fracture of left tibia and fibula Assessment & Plan: Subacute fracture of left proximal tibia and fibula with lateral angulation over 50 degrees Plan: -Pt to go to OR for left TKR with Dr. Cole, possibly pending clearance -cardiac clearance in chart -vascular sx to perform arteriogram today to evaluate vascularity of lower extremities prior to surgery Status: Acute (2) Bill syndrome Assessment & Plan: -pt to resume hydrocortisone 20mg po BID due to elevated cortisol levels -continue levothyroxine 100mcg daily -endocrine on board -will monitor cortisol, TSH, T3 and T4 levels Status: Chronic (3) Cachexia Assessment & Plan: BMI at 14.6 program management analyst consult Status: Chronic (4) DVT prophylaxis Assessment & Plan: -Continue Lovenox 40mg SC daily -Continue SCDs Status: Acute (5) Constipation Assessment & Plan: -continue Sennosides, Dulcolax, Docusate and polyethylene glycol Status: Chronic (6) COPD (chronic obstructive pulmonary disease) Assessment & Plan: -O2 saturation good, no need for additional O2 currently -no acute infiltrates noted on CXR, no active disease Status: Chronic (7) Bipolar disorder Assessment & Plan: -continue psych meds -no suicidal ideations or depression Status: Chronic (8) Anemia, iron deficiency Assessment & Plan: -controlled at this time -continue ferrous sulfate supplements Status: Chronic (9) Hypertension Assessment & Plan: HTN controlled at this time -continue home meds Status: Chronic (10) Neuropathy Assessment & Plan: -Continue gabapentin and suboxone Status: Chronic - Assessment and Plan (Free Text) Assessment: Additional diagnoses: 1)Gait dysfunction -physical therapy evaluation following left TKR surgery -pt to go to [facility] post-op for rehabilitation 2_ Suspected cellulitis with erythema and excoriation of right lower leg -empiric tx with Vanco per ID -continue to monitor site
--- NOTE | 2017-02-18 11:50 | CP.PCM.PN ---
Subjective - Date & Time of Evaluation Date of Evaluation: 02/18/17 Time of Evaluation: 09:30 - Subjective Subjective: NO COMPLAINTS OF CHEST PAIN OR SOB Objective - Vital Signs/Intake and Output Vital Signs (last 24 hours): Temp Pulse Resp BP Pulse Ox 97.1 F L 62 19 114/73 98 02/18/17 07:36 02/18/17 07:36 02/18/17 07:36 02/18/17 07:36 02/18/17 07:36 - Medications Medications: Current Medications Acetaminophen (Tylenol 325mg Tab) 650 mg PO Q6 PRN PRN Reason: Fever >100.4 F Acetaminophen (Tylenol 325mg Tab) 650 mg PO Q4 PRN PRN Reason: Pain, moderate (4-7) Amlodipine Besylate (Norvasc) 5 mg PO DAILY [facility] Last Admin: 02/18/17 10:32 Dose: Not Given Baclofen (Lioresal) 20 mg PO TID [facility] Last Admin: 02/18/17 08:41 Dose: Not Given Bisacodyl (Dulcolax) 10 mg [place] DAILY PRN PRN Reason: Constipation Docusate Sodium (Colace) 100 mg PO BID [facility] Last Admin: 02/18/17 08:41 Dose: Not Given Docusate Sodium (Colace) 100 mg PO [facility] Last Admin: 02/17/17 21:39 Dose: 100 mg Duloxetine HCl (Cymbalta) 60 mg PO HS [facility] Last Admin: 02/17/17 21:40 Dose: 60 mg Enoxaparin Sodium (Lovenox) 40 mg SC DAILY [facility] PRN Reason: Protocol Last Admin: 02/18/17 08:41 Dose: Not Given Ferrous Sulfate (Feosol) 325 mg PO BID [facility] Last Admin: 02/18/17 08:41 Dose: Not Given Gabapentin (Neurontin) 600 mg PO TID [facility] Last Admin: 02/18/17 08:42 Dose: Not Given Home Med (Buprenorphine Hcl/Naloxone Hcl [Suboxone 8 Mg-2 Mg Sl Film]) 1 each .ROUTE BID [facility] Hydrocortisone (Cortef) 20 mg PO BID [facility] Last Admin: 02/18/17 08:41 Dose: Not Given Sodium Chloride (Sodium Chloride 0.9%) 1,000 mls @ 50 mls/hr IV .Q20H [facility] Last Admin: 02/18/17 03:00 Dose: Not Given Vancomycin HCl 500 mg/ Sodium (Chloride) 100 mls @ 100 mls/hr IVPB Q12H [facility] Last Admin: 02/18/17 10:36 Dose: 100 mls/hr Ibuprofen (Motrin Tab) 600 mg PO Q6 PRN PRN Reason: Pain, moderate (4-7) Last Admin: 02/18/17 11:32 Dose: 600 mg Levothyroxine Sodium (Synthroid) 100 mcg PO DAILY@0630 [facility] Last Admin: 02/18/17 06:07 Dose: 100 mcg Lisinopril (Zestril) 20 mg PO DAILY [facility] Last Admin: 02/18/17 08:42 Dose: Not Given Lorazepam (Ativan) 1 mg PO BID [facility] Last Admin: 02/18/17 08:42 Dose: Not Given Multivitamins/Minerals (Therapeutic-M Tab) 1 tab PO DAILY [facility] Last Admin: 02/18/17 08:42 Dose: Not Given Nicotine (Nicoderm Cq) 1 patch TD DAILY [facility] Last Admin: 02/18/17 08:44 Dose: 1 patch Ondansetron HCl (Zofran Inj) 4 mg IVP Q6 PRN PRN Reason: Nausea/Vomiting Pantoprazole Sodium (Protonix Ec Tab) 40 mg PO DAILY [facility] Last Admin: 02/18/17 08:42 Dose: Not Given Polyethylene Glycol (Miralax) 17 gm PO BID [facility] Last Admin: 02/18/17 08:41 Dose: Not Given Quetiapine Fumarate (Seroquel) 100 mg PO HS [facility] Last Admin: 02/17/17 21:52 Dose: Not Given Quetiapine Fumarate (Seroquel) 50 mg PO BID [facility] Last Admin: 02/18/17 08:42 Dose: Not Given Sennosides (Senokot Tab) 8.6 mg PO BID [facility] Last Admin: 02/18/17 08:42 Dose: Not Given Trazodone HCl (Desyrel) 100 mg PO HS PRN PRN Reason: Restlessness Last Admin: 02/17/17 21:52 Dose: 100 mg - Labs Labs: 02/18/17 05:35 02/18/17 05:35 PT 10.6 Seconds (9.8-13.1) 02/17/17 05:20 INR 1.0 (0.9-1.2) 02/17/17 05:20 - Respiratory Exam Respiratory Exam: Clear to Ausculation Bilateral - Cardiovascular Exam Cardiovascular Exam: REGULAR RHYTHM, +S1, +S4 Assessment and Plan - Assessment and Plan (Free Text) Assessment: LEFT KNEE FRACTURE CELLULITIS HYPERTENSION ADRENAL INSUFFICIENCY Plan: CONTINUE ATORVASTATIN, LISINOPRIL, LOVENOX AND ANTIBIOTICS FOR LEFT KNEE SURGERY
--- NOTE | 2017-02-18 13:45 | CP.PCM.PN ---
Subjective - Date & Time of Evaluation Date of Evaluation: 02/18/17 Time of Evaluation: 08:00 - Subjective Subjective: events noted vascular exam pending iv rx in progress Objective - Vital Signs/Intake and Output Vital Signs (last 24 hours): Temp Pulse Resp BP Pulse Ox 97.1 F L 62 19 114/73 98 02/18/17 07:36 02/18/17 07:36 02/18/17 07:36 02/18/17 07:36 02/18/17 07:36 - Medications Medications: Current Medications Acetaminophen (Tylenol 325mg Tab) 650 mg PO Q6 PRN PRN Reason: Fever >100.4 F Acetaminophen (Tylenol 325mg Tab) 650 mg PO Q4 PRN PRN Reason: Pain, moderate (4-7) Amlodipine Besylate (Norvasc) 5 mg PO DAILY [facility] Last Admin: 02/18/17 10:32 Dose: Not Given Baclofen (Lioresal) 20 mg PO TID [facility] Last Admin: 02/18/17 08:41 Dose: Not Given Bisacodyl (Dulcolax) 10 mg [place] DAILY PRN PRN Reason: Constipation Docusate Sodium (Colace) 100 mg PO BID [facility] Last Admin: 02/18/17 08:41 Dose: Not Given Docusate Sodium (Colace) 100 mg PO [facility] Last Admin: 02/17/17 21:39 Dose: 100 mg Duloxetine HCl (Cymbalta) 60 mg PO HS [facility] Last Admin: 02/17/17 21:40 Dose: 60 mg Enoxaparin Sodium (Lovenox) 40 mg SC DAILY [facility] PRN Reason: Protocol Last Admin: 02/18/17 08:41 Dose: Not Given Ferrous Sulfate (Feosol) 325 mg PO BID [facility] Last Admin: 02/18/17 08:41 Dose: Not Given Gabapentin (Neurontin) 600 mg PO TID [facility] Last Admin: 02/18/17 08:42 Dose: Not Given Home Med (Buprenorphine Hcl/Naloxone Hcl [Suboxone 8 Mg-2 Mg Sl Film]) 1 each .ROUTE BID [facility] Hydrocortisone (Cortef) 20 mg PO BID [facility] Last Admin: 02/18/17 08:41 Dose: Not Given Vancomycin HCl 500 mg/ Sodium (Chloride) 100 mls @ 100 mls/hr IVPB Q12H [facility] Last Admin: 02/18/17 10:36 Dose: 100 mls/hr Dextrose/Sodium Chloride (Dextrose 5%-0.45% Ns 500 Ml) 500 mls @ 80 mls/hr IV .Q6H15M [facility] Stop: 02/19/17 13:04 Ibuprofen (Motrin Tab) 600 mg PO Q6 PRN PRN Reason: Pain, moderate (4-7) Last Admin: 02/18/17 11:32 Dose: 600 mg Levothyroxine Sodium (Synthroid) 100 mcg PO DAILY@0630 [facility] Last Admin: 02/18/17 06:07 Dose: 100 mcg Lisinopril (Zestril) 20 mg PO DAILY [facility] Last Admin: 02/18/17 08:42 Dose: Not Given Lorazepam (Ativan) 1 mg PO BID [facility] Last Admin: 02/18/17 08:42 Dose: Not Given Multivitamins/Minerals (Therapeutic-M Tab) 1 tab PO DAILY [facility] Last Admin: 02/18/17 08:42 Dose: Not Given Nicotine (Nicoderm Cq) 1 patch TD DAILY [facility] Last Admin: 02/18/17 08:44 Dose: 1 patch Ondansetron HCl (Zofran Inj) 4 mg IVP Q6 PRN PRN Reason: Nausea/Vomiting Pantoprazole Sodium (Protonix Ec Tab) 40 mg PO DAILY [facility] Last Admin: 02/18/17 08:42 Dose: Not Given Polyethylene Glycol (Miralax) 17 gm PO BID [facility] Last Admin: 02/18/17 08:41 Dose: Not Given Quetiapine Fumarate (Seroquel) 100 mg PO HS [facility] Last Admin: 02/17/17 21:52 Dose: Not Given Quetiapine Fumarate (Seroquel) 50 mg PO BID [facility] Last Admin: 02/18/17 08:42 Dose: Not Given Sennosides (Senokot Tab) 8.6 mg PO BID [facility] Last Admin: 02/18/17 08:42 Dose: Not Given Trazodone HCl (Desyrel) 100 mg PO HS PRN PRN Reason: Restlessness Last Admin: 02/17/17 21:52 Dose: 100 mg - Labs Labs: 02/18/17 05:35 02/18/17 05:35 PT 10.6 Seconds (9.8-13.1) 02/17/17 05:20 INR 1.0 (0.9-1.2) 02/17/17 05:20 - Constitutional Appears: Non-toxic, Chronically Ill - Head Exam Head Exam: NORMOCEPHALIC - Eye Exam Eye Exam: PERRL - ENT Exam ENT Exam: Mucous Membranes Dry - Neck Exam Neck Exam: absent: Lymphadenopathy - Respiratory Exam Respiratory Exam: Decreased Breath Sounds - Cardiovascular Exam Cardiovascular Exam: REGULAR RHYTHM - GI/Abdominal Exam GI & Abdominal Exam: Distended, Soft - Rectal Exam Rectal Exam: Deferred - Exam Exam: NORMAL INSPECTION Assessment and Plan (1) Closed fracture of left tibia and fibula Status: Acute
--- NOTE | 2017-02-18 14:29 | PN ---
ENDOCRINOLOGY FOLLOWUP NOTE LOCATION: Room #651. SUMMARY: This is a 46-year-old female with recent surgical correction of her left patellar fracture and tibial and fibular bone fracture, and is now being followed closely postoperatively for metabolic and endocrine followup. 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 She was initially started on IV hydrocortisone given as 100 mg every 8 hours pre and postoperatively as noted. Her repeat chemistries are much improved at this time with a serum cortisol done showing a level of 52.8 mcg/dL. Her thyroid study showed a T4 of 6.22 with a TSH of 1.68 and she really remains clinically and biochemically euthyroid at this time. Her latest chemistry showed a BUN of 12, sodium 145, potassium 3.8, chloride 111, CO2 22, glucose 84, and creatinine 0.5. So at this time, we will discontinue the IV steroid therapy and switch her over to oral steroids given as hydrocortisone at 20 mg p.o. b.i.d. after meals as ordered. We will also continue the levothyroxine given as 100 mcg once daily before breakfast as ordered. We will titrate incrementally as indicated to optimize metabolic control. We will also continue the serial chemistries to be obtained and we will supplement accordingly as needed. We will follow. Shayna Russo MD
--- NOTE | 2017-02-18 16:07 | CP.PCM.PN ---
Subjective - Date & Time of Evaluation Date of Evaluation: 02/18/17 Time of Evaluation: 15:00 - Subjective Subjective: Vascular Surgery Pt S&E, NAEO. Complaining about wanting to eat. Smoking cigarettes in room yesterday. No other complaints at this time. Objective - Vital Signs/Intake and Output Vital Signs (last 24 hours): Temp Pulse Resp BP Pulse Ox 97.1 F L 62 19 114/73 98 02/18/17 07:36 02/18/17 15:02 02/18/17 07:36 02/18/17 15:02 02/18/17 07:36 - Medications Medications: Current Medications Acetaminophen (Tylenol 325mg Tab) 650 mg PO Q6 PRN PRN Reason: Fever >100.4 F Acetaminophen (Tylenol 325mg Tab) 650 mg PO Q4 PRN PRN Reason: Pain, moderate (4-7) Amlodipine Besylate (Norvasc) 5 mg PO DAILY [facility] Last Admin: 02/18/17 15:02 Dose: 5 mg Baclofen (Lioresal) 20 mg PO TID [facility] Last Admin: 02/18/17 15:03 Dose: 20 mg Bisacodyl (Dulcolax) 10 mg [place] DAILY PRN PRN Reason: Constipation Docusate Sodium (Colace) 100 mg PO BID [facility] Last Admin: 02/18/17 08:41 Dose: Not Given Docusate Sodium (Colace) 100 mg PO [facility] Last Admin: 02/17/17 21:39 Dose: 100 mg Duloxetine HCl (Cymbalta) 60 mg PO [facility] Last Admin: 02/17/17 21:40 Dose: 60 mg Enoxaparin Sodium (Lovenox) 40 mg SC DAILY [facility] PRN Reason: Protocol Last Admin: 02/18/17 15:01 Dose: 40 mg Ferrous Sulfate (Feosol) 325 mg PO BID [facility] Last Admin: 02/18/17 08:41 Dose: Not Given Gabapentin (Neurontin) 600 mg PO TID [facility] Last Admin: 02/18/17 15:04 Dose: 600 mg Home Med (Buprenorphine Hcl/Naloxone Hcl [Suboxone 8 Mg-2 Mg Sl Film]) 1 each .ROUTE BID [facility] Hydrocortisone (Cortef) 20 mg PO BID [facility] Last Admin: 02/18/17 15:03 Dose: 20 mg Vancomycin HCl 500 mg/ Sodium (Chloride) 100 mls @ 100 mls/hr IVPB Q12H [facility] Last Admin: 02/18/17 10:36 Dose: 100 mls/hr Dextrose/Sodium Chloride (Dextrose 5%-0.45% Ns 500 Ml) 500 mls @ 80 mls/hr IV .Q6H15M [facility] Stop: 02/19/17 13:04 Last Admin: 02/18/17 14:07 Dose: 80 mls/hr Ibuprofen (Motrin Tab) 600 mg PO Q6 PRN PRN Reason: Pain, moderate (4-7) Last Admin: 02/18/17 11:32 Dose: 600 mg Levothyroxine Sodium (Synthroid) 100 mcg PO DAILY@0630 [facility] Last Admin: 02/18/17 06:07 Dose: 100 mcg Lisinopril (Zestril) 20 mg PO DAILY [facility] Last Admin: 02/18/17 08:42 Dose: Not Given Lorazepam (Ativan) 1 mg PO BID [facility] Last Admin: 02/18/17 16:01 Dose: Not Given Multivitamins/Minerals (Therapeutic-M Tab) 1 tab PO DAILY [facility] Last Admin: 02/18/17 15:03 Dose: 1 tab Nicotine (Nicoderm Cq) 1 patch TD DAILY [facility] Last Admin: 02/18/17 08:44 Dose: 1 patch Ondansetron HCl (Zofran Inj) 4 mg IVP Q6 PRN PRN Reason: Nausea/Vomiting Pantoprazole Sodium (Protonix Ec Tab) 40 mg PO DAILY [facility] Last Admin: 02/18/17 15:03 Dose: 40 mg Polyethylene Glycol (Miralax) 17 gm PO BID [facility] Last Admin: 02/18/17 08:41 Dose: Not Given Quetiapine Fumarate (Seroquel) 100 mg PO HS [facility] Last Admin: 02/17/17 21:52 Dose: Not Given Quetiapine Fumarate (Seroquel) 50 mg PO BID [facility] Last Admin: 02/18/17 16:03 Dose: Not Given Sennosides (Senokot Tab) 8.6 mg PO BID [facility] Last Admin: 02/18/17 08:42 Dose: Not Given Trazodone HCl (Desyrel) 100 mg PO HS PRN PRN Reason: Restlessness Last Admin: 02/17/17 21:52 Dose: 100 mg - Labs Labs: 02/18/17 05:35 10/04/17 05:35 PT 10.6 Seconds (9.8-13.1) 02/17/17 05:20 INR 1.0 (0.9-1.2) 02/17/17 05:20 - Constitutional Appears: Non-toxic, No Acute Distress - Head Exam Head Exam: ATRAUMATIC, NORMOCEPHALIC - Eye Exam Eye Exam: EOMI. absent: Scleral icterus - Respiratory Exam Respiratory Exam: NORMAL BREATHING PATTERN. absent: Respiratory Distress - GI/Abdominal Exam GI & Abdominal Exam: Soft. absent: Tenderness - Extremities Exam Additional comments: left lower leg with gross bony deformity with distal lower leg angled medially. Feet and toes warm and normal color. Palpable pulses. - Neurological Exam Neurological Exam: Alert, Awake - Skin Skin Exam: Dry, Warm Assessment and Plan - Assessment and Plan (Free Text) Assessment: 46F with chronic displaced Left tib-fib fracture for vascular evaluation for surgery. Plan: Great Saphenous vein mapping CT of LLE with contrast For pts orthopedic surgery, vascular surgery should be on site to respond if there are any issues. D/W Dr. Rosangela Rader PGY4
--- NOTE | 2017-02-18 19:03 | US ---
PROCEDURE: Bilateral lower extremity venous duplex Doppler. HISTORY: vein mapping of great saphenous vein COMPARISON: None available. TECHNIQUE: Bilateral common femoral, superficial femoral, popliteal and posterior tibial veins were evaluated. Flow was assessed with color Doppler, compressibility, assessment of phasic flow and augmentation response. FINDINGS: COMMON FEMORAL VEIN: Right CFV: Unremarkable. Left CFV: Unremarkable. SUPERFICIAL FEMORAL VEIN: Right SFV: Unremarkable. Left SFV: Unremarkable. POPLITEAL VEIN: Right Popliteal: Unremarkable. Left Popliteal: Unremarkable. POSTERIOR TIBIAL VEIN: Right PTV: Unremarkable. Left PTV: Unremarkable. OTHER FINDINGS: The right great saphenous vein measures at the proximal portion 58 millimeter, midportion 45 millimeter and distal portion 37 millimeter in the upper leg. The right great saphenous vein measures in the lower portion of the right leg 27 millimeter in the proximal portion. The left great saphenous vein measures in the upper leg 51 millimeter in the proximal portion 42 millimeter in the midportion and 35 millimeter in the distal portion. IMPRESSION: No evidence of deep venous thrombosis. The bilateral great saphenous veins have good diameter in the upper legs as described above.
--- NOTE | 2017-02-18 20:08 | CP.PCM.PN ---
Subjective - Date & Time of Evaluation Date of Evaluation: 02/18/17 Time of Evaluation: 08:05 - Subjective Subjective: +S- pain and restricted ROM L knee/pt wants a cigarette Objective - Vital Signs/Intake and Output Vital Signs (last 24 hours): Temp Pulse Resp BP Pulse Ox 98.8 F 77 20 129/75 96 02/18/17 16:27 02/18/17 16:27 02/18/17 16:27 02/18/17 16:27 02/18/17 16:27 - Medications Medications: Current Medications Acetaminophen (Tylenol 325mg Tab) 650 mg PO Q6 PRN PRN Reason: Fever >100.4 F Acetaminophen (Tylenol 325mg Tab) 650 mg PO Q4 PRN PRN Reason: Pain, moderate (4-7) Amlodipine Besylate (Norvasc) 5 mg PO DAILY [facility] Last Admin: 02/18/17 15:02 Dose: 5 mg Baclofen (Lioresal) 20 mg PO TID [facility] Last Admin: 02/18/17 16:49 Dose: 20 mg Bisacodyl (Dulcolax) 10 mg [place] DAILY PRN PRN Reason: Constipation Docusate Sodium (Colace) 100 mg PO BID [facility] Last Admin: 02/18/17 16:49 Dose: 100 mg Docusate Sodium (Colace) 100 mg PO [facility] Last Admin: 02/17/17 21:39 Dose: 100 mg Duloxetine HCl (Cymbalta) 60 mg PO HS [facility] Last Admin: 02/17/17 21:40 Dose: 60 mg Enoxaparin Sodium (Lovenox) 40 mg SC DAILY [facility] PRN Reason: Protocol Last Admin: 02/18/17 16:41 Dose: Not Given Ferrous Sulfate (Feosol) 325 mg PO BID [facility] Last Admin: 02/18/17 16:51 Dose: Not Given Gabapentin (Neurontin) 600 mg PO TID [facility] Last Admin: 02/18/17 16:49 Dose: 600 mg Home Med (Buprenorphine Hcl/Naloxone Hcl [Suboxone 8 Mg-2 Mg Sl Film]) 1 each .ROUTE BID [facility] Hydrocortisone (Cortef) 20 mg PO BID [facility] Last Admin: 02/18/17 16:49 Dose: 20 mg Vancomycin HCl 500 mg/ Sodium (Chloride) 100 mls @ 100 mls/hr IVPB Q12H [facility] Last Admin: 02/18/17 10:36 Dose: 100 mls/hr Dextrose/Sodium Chloride (Dextrose 5%-0.45% Ns 500 Ml) 500 mls @ 80 mls/hr IV .Q6H15M [facility] Stop: 02/19/17 13:04 Last Admin: 02/18/17 14:07 Dose: 80 mls/hr Ibuprofen (Motrin Tab) 600 mg PO Q6 PRN PRN Reason: Pain, moderate (4-7) Last Admin: 02/18/17 18:30 Dose: 600 mg Levothyroxine Sodium (Synthroid) 100 mcg PO DAILY@0630 [facility] Last Admin: 02/18/17 06:07 Dose: 100 mcg Lisinopril (Zestril) 20 mg PO DAILY [facility] Last Admin: 02/18/17 08:42 Dose: Not Given Lorazepam (Ativan) 1 mg PO BID [facility] Last Admin: 02/18/17 16:01 Dose: Not Given Multivitamins/Minerals (Therapeutic-M Tab) 1 tab PO DAILY [facility] Last Admin: 02/17/17 09:53 Dose: 1 tab Nicotine (Nicoderm Cq) 1 patch TD DAILY [facility] Last Admin: 02/18/17 08:44 Dose: 1 patch Ondansetron HCl (Zofran Inj) 4 mg IVP Q6 PRN PRN Reason: Nausea/Vomiting Pantoprazole Sodium (Protonix Ec Tab) 40 mg PO DAILY [facility] Last Admin: 02/18/17 15:03 Dose: 40 mg Polyethylene Glycol (Miralax) 17 gm PO BID [facility] Last Admin: 02/18/17 16:50 Dose: 17 gm Quetiapine Fumarate (Seroquel) 100 mg PO HS [facility] Last Admin: 02/17/17 21:52 Dose: Not Given Quetiapine Fumarate (Seroquel) 50 mg PO BID [facility] Last Admin: 02/18/17 16:03 Dose: Not Given Sennosides (Senokot Tab) 8.6 mg PO BID [facility] Last Admin: 02/18/17 16:50 Dose: 8.6 mg Trazodone HCl (Desyrel) 100 mg PO HS PRN PRN Reason: Restlessness Last Admin: 02/17/17 21:52 Dose: 100 mg - Labs Labs: 02/18/17 05:35 02/18/17 05:35 PT 10.6 Seconds (9.8-13.1) 02/17/17 05:20 INR 1.0 (0.9-1.2) 02/17/17 05:20 - Skin Additional comments: Obj systemic-unchanged pt severely depressed Musculosleltal unchaged sever varus dformity L knee and prox tibial plateau fx site N/V intact Pt still with cellulitis both lower extrfem,ities case discussed with vascular (DR Mancini) Assessment and Plan - Assessment and Plan (Free Text) Assessment: A- Nonunion/malunion tibial plateau fx with possible impenidng vasc compropmise when fx is corrected/and or knee repl;aced cellulits pewrsists P- case discussed with Dr Gab Busby- wishes surg to be done when cellulitis resolves and vascular can be in attendance/ availbel attiome of surg - continue IV abios surgery cancelled for tomorrow- DR Gab Mancini in agreement -
[2017-02-19] MEDS: Levothyroxine 100 MCG TAB PO SCH (05:59)
[2017-02-19 06:24] LABS: HEMATOCRIT 35.1 % (34.0-47.0); MEAN CELL VOLUME 99.6 fl (81.0-99.0); MEAN CORPUSCULAR HEMOGLOBIN 32.7 pg (27.0-31.0); MEAN CORPUSCULAR HGB CONC 32.9 g/dL (33.0-37.0); RED CELL DISTRIBUTION WIDTH 15.2 % (11.5-14.5); WHITE BLOOD COUNT 13.3 K/uL (4.8-10.8)
[2017-02-19] MEDS: Patient's Own Med (Buprenorphine Hcl/Naloxone Hcl [Suboxone 8 Mg-2 Mg Sl Film] 1 EACH) SCH ×2 (09:56→16:37)
[2017-02-19 09:58] LABS: ALB/GLOB RATIO 1.4 (1.0-2.1); ALKALINE PHOSPHATASE 46 U/L (38-126); ALT/SGPT 27 U/L (9-52); AST/SGOT 39 U/L (14-36); BILIRUBIN,TOTAL 0.4 mg/dl (0.2-1.3); BLOOD UREA NITROGEN 22 mg/dl (7-17); CALCIUM 8.9 mg/dL (8.4-10.2); CARBON DIOXIDE 22 mmol/L (22-30); CHLORIDE 112 mmol/L (98-107); GFR AFRICAN-AMERICAN > 60; GLUCOSE,RANDOM 99 mg/dL (65-105); POTASSIUM 3.4 MMOL/L (3.6-5.0); SODIUM 148 mmol/l (132-148); TOTAL PROTEIN 5.8 G/DL (6.3-8.2)
[2017-02-19] MEDS: Enoxaparin 40 mg Syringe SC SCH (09:58)
[2017-02-19] MEDS: POLYETHYLENE GLYCOL 3350 17 GM/Dose PACKET PO SCH ×2 (09:59→16:35)
[2017-02-19] MEDS: Pantoprazole 40 mg EC Tab PO SCH (10:00)
[2017-02-19] MEDS: Multivitamin With Minerals Tab PO SCH (10:00)
[2017-02-19 10:14] LABS: T4 6.88 ug/dl (5.5-11.0)
--- NOTE | 2017-02-19 10:18 | CP.PCM.PN ---
Subjective - Date & Time of Evaluation Date of Evaluation: 02/19/17 Time of Evaluation: 09:00 - Subjective Subjective: 46 y/o female seen at bedside this morning with attending Dr. Srinivasan. Pt in house for medical optimization prior to left total knee replacement surgery and left lower extremity cellulitis. Pt is frustrated that the surgery is not going today and says that the antibiotics are making it even harder for her to pass a bowel movement. Pt says she does not want to stay until Thursday and is tired of waiting for her surgery to be done so she can walk again. Pt is experiencing discomfort in the knee and continues to experience chronic constipation. Pt denies any F/C/N/V/SOB/CP at this time. Objective - Vital Signs/Intake and Output Vital Signs (last 24 hours): Temp Pulse Resp BP Pulse Ox 99.4 F 65 18 150/77 96 02/19/17 08:38 02/19/17 08:47 02/19/17 08:38 02/19/17 08:47 02/19/17 08:38 - Medications Medications: Current Medications Acetaminophen (Tylenol 325mg Tab) 650 mg PO Q6 PRN PRN Reason: Fever >100.4 F Acetaminophen (Tylenol 325mg Tab) 650 mg PO Q4 PRN PRN Reason: Pain, moderate (4-7) Amlodipine Besylate (Norvasc) 5 mg PO DAILY [facility] Last Admin: 02/19/17 08:43 Dose: 5 mg Baclofen (Lioresal) 20 mg PO TID [facility] Last Admin: 02/19/17 09:58 Dose: 20 mg Bisacodyl (Dulcolax) 10 mg [place] DAILY PRN PRN Reason: Constipation Docusate Sodium (Colace) 100 mg PO BID [facility] Last Admin: 02/19/17 09:57 Dose: 100 mg Docusate Sodium (Colace) 100 mg PO HS [facility] Last Admin: 02/18/17 21:19 Dose: 100 mg Duloxetine HCl (Cymbalta) 60 mg PO HS [facility] Last Admin: 02/18/17 21:18 Dose: 60 mg Enoxaparin Sodium (Lovenox) 40 mg SC DAILY [facility] PRN Reason: Protocol Last Admin: 02/19/17 09:58 Dose: 40 mg Ferrous Sulfate (Feosol) 325 mg PO BID [facility] Last Admin: 02/19/17 09:58 Dose: 325 mg Gabapentin (Neurontin) 600 mg PO TID [facility] Last Admin: 02/19/17 09:59 Dose: 600 mg Home Med (Buprenorphine Hcl/Naloxone Hcl [Suboxone 8 Mg-2 Mg Sl Film]) 1 each .ROUTE BID [facility] Last Admin: 02/19/17 09:56 Dose: 1 each Hydrocortisone (Cortef) 20 mg PO BID [facility] Last Admin: 02/19/17 09:58 Dose: 20 mg Vancomycin HCl 500 mg/ Sodium (Chloride) 100 mls @ 100 mls/hr IVPB Q12H [facility] Last Admin: 02/19/17 10:01 Dose: 100 mls/hr Dextrose/Sodium Chloride (Dextrose 5%-0.45% Ns 500 Ml) 500 mls @ 80 mls/hr IV .Q6H15M [facility] Stop: 02/19/17 13:04 Last Admin: 02/19/17 09:58 Dose: Not Given Ibuprofen (Motrin Tab) 600 mg PO Q6 PRN PRN Reason: Pain, moderate (4-7) Last Admin: 02/19/17 10:11 Dose: 600 mg Levothyroxine Sodium (Synthroid) 100 mcg PO DAILY@0630 [facility] Last Admin: 02/19/17 05:59 Dose: Not Given Lisinopril (Zestril) 20 mg PO DAILY [facility] Last Admin: 02/19/17 08:47 Dose: 20 mg Lorazepam (Ativan) 1 mg PO BID [facility] Last Admin: 02/19/17 09:56 Dose: 1 mg Multivitamins/Minerals (Therapeutic-M Tab) 1 tab PO DAILY [facility] Last Admin: 02/19/17 10:00 Dose: 1 tab Nicotine (Nicoderm Cq) 1 patch TD DAILY [facility] Last Admin: 02/19/17 08:43 Dose: 1 patch Ondansetron HCl (Zofran Inj) 4 mg IVP Q6 PRN PRN Reason: Nausea/Vomiting Pantoprazole Sodium (Protonix Ec Tab) 40 mg PO DAILY [facility] Last Admin: 02/19/17 10:00 Dose: 40 mg Polyethylene Glycol (Miralax) 17 gm PO BID [facility] Last Admin: 02/19/17 09:59 Dose: 17 gm Quetiapine Fumarate (Seroquel) 100 mg PO HS [facility] Last Admin: 02/18/17 23:01 Dose: 100 mg Quetiapine Fumarate (Seroquel) 50 mg PO BID [facility] Last Admin: 02/19/17 10:00 Dose: 50 mg Sennosides (Senokot Tab) 8.6 mg PO BID [facility] Last Admin: 02/19/17 10:00 Dose: 8.6 mg Trazodone HCl (Desyrel) 100 mg PO HS PRN PRN Reason: Restlessness Last Admin: 02/18/17 21:59 Dose: 100 mg - Labs Labs: 02/19/17 05:25 02/19/17 05:25 PT 10.6 Seconds (9.8-13.1) 02/17/17 05:20 INR 1.0 (0.9-1.2) 02/17/17 05:20 - Constitutional Appears: Well, Non-toxic, Older Than Stated Age, Agitated, Cachectic - Head Exam Head Exam: ATRAUMATIC, NORMOCEPHALIC - Eye Exam Eye Exam: EOMI, Normal appearance, PERRL Pupil Exam: PERRL - ENT Exam ENT Exam: Mucous Membranes Moist - Neck Exam Additional comments: supple, non tender, no swollen lymph nodes - Respiratory Exam Respiratory Exam: NORMAL BREATHING PATTERN Additional comments: (-) for rales or wheezing. breathing normal, not labored - Cardiovascular Exam Cardiovascular Exam: REGULAR RHYTHM, +S1, +S2 Additional comments: no murmur, no gallop - GI/Abdominal Exam GI & Abdominal Exam: Soft, Normal Bowel Sounds Additional comments: non-tender - Extremities Exam Additional comments: Vasc: pulses are palpable to B/L lower extremities. Temperature gradient warm to cool from proximal at knee joint extending distally down leg and foot B/L. Ortho/MSK: Left lower extremity shows lateral 50+ degree leg displacement at knee joint. Pt able to perform active flexion and extension at knee joint without tenderness. Gait unable to assess due to pt inability to bear weight. Derm: Extensor surface erythema to B/L hands. Discoloration of nails noted to all 4 extremities. 1.0 x 1.0cm bruise with overlying scar noted to medial aspect of L anterior knee. Mild cellulitis noted to anterior aspect of L leg distal to knee joint, extending to level of ankle. 3.0 x 4.0 cm ecchymosis to distal medial right leg with no surrounding erythema, no breaks in skin or soft tissue, no increased warmth, no cellulitic changes to peripheral skin. Neuro- gross protective sensation intact B/L Assessment and Plan (1) Closed fracture of left tibia and fibula Assessment & Plan: Vasc sx on board - to perform Great Saphenous vein mapping Vasc ordered CT of LLE with contrast Orthopedic surgery for left TKR to be performed Thursday pending results of vascular tests Status: Acute (2) Bill syndrome Status: Chronic (3) Cachexia Status: Chronic (4) DVT prophylaxis Status: Acute (5) Constipation Status: Chronic (6) COPD (chronic obstructive pulmonary disease) Status: Chronic (7) Bipolar disorder Status: Chronic (8) Anemia, iron deficiency Status: Chronic (9) Hypertension Status: Chronic (10) Neuropathy Status: Chronic
[2017-02-19 10:30] LABS: THYROID STIMULATING HORMONE 4.51 mIU/ML (0.46-4.68)
--- NOTE | 2017-02-19 11:10 | CP.PCM.PN ---
Subjective - Date & Time of Evaluation Date of Evaluation: 02/19/17 Time of Evaluation: 10:00 - Subjective Subjective: NO CHEST PAIN OR SOB Objective - Vital Signs/Intake and Output Vital Signs (last 24 hours): Temp Pulse Resp BP Pulse Ox 99.4 F 65 18 150/77 96 02/19/17 08:38 02/19/17 08:47 02/19/17 08:38 02/19/17 08:47 02/19/17 08:38 - Medications Medications: Current Medications Acetaminophen (Tylenol 325mg Tab) 650 mg PO Q6 PRN PRN Reason: Fever >100.4 F Acetaminophen (Tylenol 325mg Tab) 650 mg PO Q4 PRN PRN Reason: Pain, moderate (4-7) Amlodipine Besylate (Norvasc) 5 mg PO DAILY [facility] Last Admin: 02/19/17 08:43 Dose: 5 mg Baclofen (Lioresal) 20 mg PO TID [facility] Last Admin: 02/19/17 09:58 Dose: 20 mg Bisacodyl (Dulcolax) 10 mg [place] DAILY PRN PRN Reason: Constipation Docusate Sodium (Colace) 100 mg PO BID [facility] Last Admin: 02/19/17 09:57 Dose: 100 mg Docusate Sodium (Colace) 100 mg PO HS [facility] Last Admin: 02/18/17 21:19 Dose: 100 mg Duloxetine HCl (Cymbalta) 60 mg PO HS [facility] Last Admin: 02/18/17 21:18 Dose: 60 mg Enoxaparin Sodium (Lovenox) 40 mg SC DAILY [facility] PRN Reason: Protocol Last Admin: 02/19/17 09:58 Dose: 40 mg Ferrous Sulfate (Feosol) 325 mg PO BID [facility] Last Admin: 02/19/17 09:58 Dose: 325 mg Gabapentin (Neurontin) 600 mg PO TID [facility] Last Admin: 02/19/17 09:59 Dose: 600 mg Home Med (Buprenorphine Hcl/Naloxone Hcl [Suboxone 8 Mg-2 Mg Sl Film]) 1 each .ROUTE BID [facility] Last Admin: 02/19/17 09:56 Dose: 1 each Hydrocortisone (Cortef) 20 mg PO BID [facility] Last Admin: 02/19/17 09:58 Dose: 20 mg Vancomycin HCl 500 mg/ Sodium (Chloride) 100 mls @ 100 mls/hr IVPB Q12H [facility] Last Admin: 02/19/17 10:01 Dose: 100 mls/hr Dextrose/Sodium Chloride (Dextrose 5%-0.45% Ns 500 Ml) 500 mls @ 80 mls/hr IV .Q6H15M [facility] Stop: 02/19/17 13:04 Last Admin: 02/19/17 09:58 Dose: Not Given Ibuprofen (Motrin Tab) 600 mg PO Q6 PRN PRN Reason: Pain, moderate (4-7) Last Admin: 02/19/17 10:11 Dose: 600 mg Levothyroxine Sodium (Synthroid) 100 mcg PO DAILY@0630 [facility] Last Admin: 02/19/17 05:59 Dose: Not Given Lisinopril (Zestril) 20 mg PO DAILY [facility] Last Admin: 02/19/17 08:47 Dose: 20 mg Lorazepam (Ativan) 1 mg PO BID [facility] Last Admin: 02/19/17 09:56 Dose: 1 mg Multivitamins/Minerals (Therapeutic-M Tab) 1 tab PO DAILY [facility] Last Admin: 02/19/17 10:00 Dose: 1 tab Nicotine (Nicoderm Cq) 1 patch TD DAILY [facility] Last Admin: 02/19/17 08:43 Dose: 1 patch Ondansetron HCl (Zofran Inj) 4 mg IVP Q6 PRN PRN Reason: Nausea/Vomiting Pantoprazole Sodium (Protonix Ec Tab) 40 mg PO DAILY [facility] Last Admin: 02/19/17 10:00 Dose: 40 mg Polyethylene Glycol (Miralax) 17 gm PO BID [facility] Last Admin: 02/19/17 09:59 Dose: 17 gm Quetiapine Fumarate (Seroquel) 100 mg PO HS [facility] Last Admin: 02/18/17 23:01 Dose: 100 mg Quetiapine Fumarate (Seroquel) 50 mg PO BID [facility] Last Admin: 02/19/17 10:00 Dose: 50 mg Sennosides (Senokot Tab) 8.6 mg PO BID [facility] Last Admin: 02/19/17 10:00 Dose: 8.6 mg Trazodone HCl (Desyrel) 100 mg PO HS PRN PRN Reason: Restlessness Last Admin: 02/18/17 21:59 Dose: 100 mg - Labs Labs: 02/19/17 05:25 02/19/17 05:25 PT 10.6 Seconds (9.8-13.1) 02/17/17 05:20 INR 1.0 (0.9-1.2) 02/17/17 05:20 - Respiratory Exam Respiratory Exam: Clear to Ausculation Bilateral - Cardiovascular Exam Cardiovascular Exam: REGULAR RHYTHM - Additional Findings Additional findings: DR MANRIQUEZ'S NOTE SEEN Assessment and Plan - Assessment and Plan (Free Text) Assessment: HYPERTENSION LEFT KNEE FRACTURE CELLULITIS Plan: CONTINUE AMLODIPINE, LISINOPRIL AND ANTIBIOTICS
--- NOTE | 2017-02-19 11:49 | CP.PCM.PN ---
Subjective - Date & Time of Evaluation Date of Evaluation: 02/19/17 Time of Evaluation: 09:40 - Subjective Subjective: Patient seen and examined this AM. NAEO. Patient denies any pain at this time. No other symptoms. Objective - Vital Signs/Intake and Output Vital Signs (last 24 hours): Temp Pulse Resp BP Pulse Ox 99.4 F 65 18 150/77 96 02/19/17 08:38 02/19/17 08:47 02/19/17 08:38 02/19/17 08:47 02/19/17 08:38 - Medications Medications: Current Medications Acetaminophen (Tylenol 325mg Tab) 650 mg PO Q6 PRN PRN Reason: Fever >100.4 F Acetaminophen (Tylenol 325mg Tab) 650 mg PO Q4 PRN PRN Reason: Pain, moderate (4-7) Amlodipine Besylate (Norvasc) 5 mg PO DAILY [facility] Last Admin: 02/19/17 08:43 Dose: 5 mg Baclofen (Lioresal) 20 mg PO TID [facility] Last Admin: 02/19/17 09:58 Dose: 20 mg Bisacodyl (Dulcolax) 10 mg [place] DAILY PRN PRN Reason: Constipation Docusate Sodium (Colace) 100 mg PO BID [facility] Last Admin: 02/19/17 09:57 Dose: 100 mg Docusate Sodium (Colace) 100 mg PO HS [facility] Last Admin: 02/18/17 21:19 Dose: 100 mg Duloxetine HCl (Cymbalta) 60 mg PO HS [facility] Last Admin: 02/18/17 21:18 Dose: 60 mg Enoxaparin Sodium (Lovenox) 40 mg SC DAILY [facility] PRN Reason: Protocol Last Admin: 02/19/17 09:58 Dose: 40 mg Ferrous Sulfate (Feosol) 325 mg PO BID [facility] Last Admin: 02/19/17 09:58 Dose: 325 mg Gabapentin (Neurontin) 600 mg PO TID [facility] Last Admin: 02/19/17 09:59 Dose: 600 mg Home Med (Buprenorphine Hcl/Naloxone Hcl [Suboxone 8 Mg-2 Mg Sl Film]) 1 each .ROUTE BID [facility] Last Admin: 02/19/17 09:56 Dose: 1 each Hydrocortisone (Cortef) 20 mg PO BID [facility] Last Admin: 02/19/17 09:58 Dose: 20 mg Vancomycin HCl 500 mg/ Sodium (Chloride) 100 mls @ 100 mls/hr IVPB Q12H [facility] Last Admin: 02/19/17 10:01 Dose: 100 mls/hr Dextrose/Sodium Chloride (Dextrose 5%-0.45% Ns 500 Ml) 500 mls @ 80 mls/hr IV .Q6H15M [facility] Stop: 02/19/17 13:04 Last Admin: 02/19/17 09:58 Dose: Not Given Ibuprofen (Motrin Tab) 600 mg PO Q6 PRN PRN Reason: Pain, moderate (4-7) Last Admin: 02/19/17 10:11 Dose: 600 mg Levothyroxine Sodium (Synthroid) 100 mcg PO DAILY@0630 [facility] Last Admin: 02/19/17 05:59 Dose: Not Given Lisinopril (Zestril) 20 mg PO DAILY [facility] Last Admin: 02/19/17 08:47 Dose: 20 mg Lorazepam (Ativan) 1 mg PO BID [facility] Last Admin: 02/19/17 09:56 Dose: 1 mg Multivitamins/Minerals (Therapeutic-M Tab) 1 tab PO DAILY [facility] Last Admin: 02/19/17 10:00 Dose: 1 tab Nicotine (Nicoderm Cq) 1 patch TD DAILY [facility] Last Admin: 02/19/17 08:43 Dose: 1 patch Ondansetron HCl (Zofran Inj) 4 mg IVP Q6 PRN PRN Reason: Nausea/Vomiting Pantoprazole Sodium (Protonix Ec Tab) 40 mg PO DAILY [facility] Last Admin: 02/19/17 10:00 Dose: 40 mg Polyethylene Glycol (Miralax) 17 gm PO BID [facility] Last Admin: 02/19/17 09:59 Dose: 17 gm Quetiapine Fumarate (Seroquel) 100 mg PO HS [facility] Last Admin: 02/18/17 23:01 Dose: 100 mg Quetiapine Fumarate (Seroquel) 50 mg PO BID [facility] Last Admin: 02/19/17 10:00 Dose: 50 mg Sennosides (Senokot Tab) 8.6 mg PO BID [facility] Last Admin: 02/19/17 10:00 Dose: 8.6 mg Trazodone HCl (Desyrel) 100 mg PO HS PRN PRN Reason: Restlessness Last Admin: 02/18/17 21:59 Dose: 100 mg - Labs Labs: 02/19/17 05:25 02/19/17 05:25 PT 10.6 Seconds (9.8-13.1) 02/17/17 05:20 INR 1.0 (0.9-1.2) 02/17/17 05:20 - Constitutional Appears: Non-toxic, No Acute Distress - Head Exam Head Exam: ATRAUMATIC, NORMOCEPHALIC - Eye Exam Eye Exam: Normal appearance. absent: Conjunctival injection, Scleral icterus - ENT Exam ENT Exam: Mucous Membranes Moist, Normal Oropharynx - Respiratory Exam Respiratory Exam: NORMAL BREATHING PATTERN. absent: Accessory Muscle Use, Respiratory Distress - GI/Abdominal Exam GI & Abdominal Exam: absent: Distended - Extremities Exam Extremities Exam: absent: Pedal Edema Additional comments: Mild superficial skin breakdown in small areas of the left lower leg. Left lower leg with gross bony protrusion of the proximal tibia and extreme varus angle. - Neurological Exam Neurological Exam: Alert, Awake, Oriented x3 - Psychiatric Exam Psychiatric exam: Agitated, Normal Affect - Skin Skin Exam: Dry, Normal Color, Warm Assessment and Plan - Assessment and Plan (Free Text) Assessment: 46F with improperly healed chronic tib/fib fracture of left leg Plan: -Follow CT angiogram of the lower extremities to evaluate vascular anatomy and condition. Further surgical recs after report -Follow up with Ortho recs regarding possible corrective surgery on the left lower leg -Continue current medical management -Follow up BMP tomorrow AM -PRN pain medication Further recs per Dr. Rosangela Case, PGY2
--- NOTE | 2017-02-19 13:10 | CT ---
PROCEDURE: CT left knee HISTORY: plateau L with sever angulation COMPARISON: Left knee radiograph 02/16/2017 TECHNIQUE: 2.5 mm contiguous axial sections were acquired through the knee. Sagittal and coronal images were reformatted. FINDINGS: There is an impacted comminuted fracture of the proximal tibia with severe varus angulation. There are multiple bony fragments seen at the fracture site. The margins of the major fragments appear somewhat smooth indicating subacute nature of the fracture. There is curvilinear calcifications last ossification about the medial aspect of the proximal tibia. This may represent displaced bony fragments or may represent calcifications/ossification of adjacent soft tissues. There is a healing fracture of the proximal fibular diaphysis with varus angulation. There is callus seen about the medial side of the fibular fracture. There is no joint effusion evident. IMPRESSION: Comminuted transverse proximal tibial fracture with severe varus angulation, likely subacute. Healing fracture of the proximal fibular diaphysis with varus angulation.
[2017-02-19] MEDS ORDERED: Potassium Chloride 20 mEq ER Tab PO ONE (15:04)
--- NOTE | 2017-02-19 15:16 | PN ---
ENDOCRINOLOGY FOLLOWUP NOTE DATE: LOCATION: Room #651. 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 Currently on long-term oral steroid and thyroid replacement as given. She underwent a recent surgical correction of the left tibial fracture and patellar fracture and displacement and is now being followed closely for metabolic management. LABORATORY DATA: Her latest chemistry showed BUN of 22, sodium 148, potassium 3.4, chloride 112, CO2 of 22, glucose 99, and creatinine 0.7. Her ACTH level is less than 5 with a cortisol level that is still pending, it was just obtained today as noted. The last cortisol level was 52.8 mcg/dL. PLAN: So at this time, we will continue the same levothyroxine given as 100 mcg daily as ordered. We will also continue the oral steroid replacement of hydrocortisone given as 20 mg b.i.d. as ordered. She was previously on IV steroid, which has since then been discontinued and tapered down. We will obtain serial chemistries and supplement accordingly as needed. We will follow. Shayna Russo MD
--- NOTE | 2017-02-19 16:37 | CP.PCM.DIS ---
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 Comment: malunion of Tibial Plateau fracture with poss vasculature compromise (2) Cellulitis of left lower leg Status: Acute (3) Hypothyroidism Status: Chronic (4) Bipolar disorder Status: Chronic (5) COPD (chronic obstructive pulmonary disease) Status: Chronic (6) Cachexia Status: Chronic (7) Anemia, iron deficiency Status: Chronic (8) Hypertension Status: Chronic (9) DVT prophylaxis Status: Acute (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 (11) Constipation Status: Chronic (12) Neuropathy Status: Chronic Hospital Course - Lab Results Lab Results: Most Recent Lab Values WBC 13.3 K/uL (4.8-10.8) H 02/19/17 05:25 RBC 3.53 Mil/uL (3.80-5.20) L 02/19/17 05:25 Hgb 11.5 g/dL (12.0-16.0) L 02/19/17 05:25 Hct 35.1 % (34.0-47.0) 02/19/17 05:25 MCV 99.6 fl (81.0-99.0) H 02/19/17 05:25 MCH 32.7 pg (27.0-31.0) H 02/19/17 05:25 MCHC 32.9 g/dL (33.0-37.0) L 02/19/17 05:25 RDW 15.2 % (11.5-14.5) H 02/19/17 05:25 Plt Count 302 K/uL (130-400) 02/19/17 05:25 PT 10.6 Seconds (9.8-13.1) 02/17/17 05:20 INR 1.0 (0.9-1.2) 02/17/17 05:20 Sodium 148 mmol/l (132-148) 02/19/17 05:25 Potassium 3.4 MMOL/L (3.6-5.0) L 02/19/17 05:25 Chloride 112 mmol/L (98-107) H 02/19/17 05:25 Carbon Dioxide 22 mmol/L (22-30) 02/19/17 05:25 Anion Gap 17 (10-20) 02/19/17 05:25 BUN 22 mg/dl (7-17) H 02/19/17 05:25 Creatinine 0.7 mg/dL (0.7-1.2) 02/19/17 05:25 Est GFR ( Amer) > 60 02/19/17 05:25 Est GFR (Non-Af Amer) > 60 02/19/17 05:25 POC Glucose (mg/dL) 71 mg/dL (65-110) 02/18/17 13:00 Random Glucose 99 mg/dL (65-105) 02/19/17 05:25 Hemoglobin A1c 5.9 % (4.2-6.5) 02/17/17 05:20 Calcium 8.9 mg/dL (8.4-10.2) 02/19/17 05:25 Total Bilirubin 0.4 mg/dl (0.2-1.3) 02/19/17 05:25 AST 39 U/L (14-36) H D 02/19/17 05:25 ALT 27 U/L (9-52) 02/19/17 05:25 Alkaline Phosphatase 46 U/L (38-126) 02/19/17 05:25 Total Protein 5.8 G/DL (6.3-8.2) L 02/19/17 05:25 Albumin 3.4 g/dL (3.5-5.0) L 02/19/17 05:25 Globulin 2.4 gm/dL (2.2-3.9) 02/19/17 05:25 Albumin/Globulin Ratio 1.4 (1.0-2.1) 02/19/17 05:25 Thyroxine (T4) 6.88 ug/dl (5.5-11.0) 02/19/17 05:25 TSH 3rd Generation 4.51 mIU/ML (0.46-4.68) 02/19/17 05:25 Cortisol AM Sample 52.8 ug/dL (4.46-22.7) H 02/17/17 05:20 ACTH <5 pg/mL (6-50) L 02/17/17 05:20 Blood Type A POSITIVE 02/16/17 08:00 Blood Type Confirm A POSITIVE 02/16/17 08:45 Antibody Screen Negative 02/16/17 08:00 BBK History Checked No verified bt 02/16/17 08:00 - Hospital Course Hospital Course: (1) Maunion/Nonunion of Tibial Plateau Fracture Subacute fracture of left proximal tibia and fibula with lateral angulation over 50 degrees ? vasculature compromise Ortho consulted- dr Cole - plan for Surgery on Thursday after tx of Cellulitis and eval by Vascular Surgery Vascular Surgery consult - Dr Veronica Mancini 2. Cellulitis LLE LLE with erythema and excoriations cont IV vanco ID consulted - Dr Ventura (3) Bill syndrome -pt to resume hydrocortisone 20mg po BID due to elevated cortisol levels -continue levothyroxine 100mcg daily -endocrine on board -will monitor cortisol, TSH, T3 and T4 levels (4) Cachexia BMI at 14.6 temperature logging operator consult (5) Constipation -continue Sennosides, Dulcolax, Docusate and polyethylene glycol (6) COPD (chronic obstructive pulmonary disease), chronic , stable -O2 saturation good, no need for additional O2 currently -no acute infiltrates noted on CXR, no active disease (7) Bipolar disorder -continue psych meds -no suicidal ideations or depression (8) Anemia, iron deficiency -controlled at this time -continue ferrous sulfate supplements (9) Hypertension HTN controlled at this time -continue home meds (10) Neuropathy -Continue gabapentin and suboxone 11. Gait Dysfunction due to Deformity of LLE - PT consult - will d/c to TCU for Rehab 12.DVT Proph - Lovenox Discharge Exam - Head Exam Head Exam: ATRAUMATIC, NORMAL INSPECTION, NORMOCEPHALIC - Eye Exam Eye Exam: EOMI, Normal appearance, PERRL Pupil Exam: NORMAL ACCOMODATION - ENT Exam ENT Exam: Mucous Membranes Moist, Normal External Ear Exam - Neck Exam Neck exam: Full Rom - Respiratory Exam Respiratory Exam: NORMAL BREATHING PATTERN. absent: Wheezes, Respiratory Distress - Cardiovascular Exam Cardiovascular Exam: REGULAR RHYTHM, +S1, +S2 - GI/Abdominal Exam GI & Abdominal Exam: Normal Bowel Sounds, Soft. absent: Tenderness - Extremities Exam Extremities exam: normal capillary refill, pedal pulses present Additional comments: Left LLE deformity: malunion of tibial fracture mild erythema Left lower leg - Back Exam Back exam: FULL ROM. absent: CVA tenderness (L), CVA tenderness (R) - Neurological Exam Neurological exam: Alert, CN II-XII Intact, Oriented x3, Reflexes Normal - Psychiatric Exam Psychiatric exam: Normal Affect, Normal Mood - Skin Skin Exam: Dry, Normal Color, Warm Additional comments: excoriation left lower leg Discharge Plan - Discharge Medications Prescriptions: Vancomycin 500mg in NS 500 mg IVPB Q12 #8 bag - Follow Up Plan Condition: GOOD Disposition: TRANSF TO SNF Instructions: Knee Replacement (DC) Additional Instructions: d/c pt to TCU for IV abx and Rehab Referrals: Brando Cole III, MD [Primary Care Provider] -
[2017-02-19 17:15] VITALS: BP 105/75; PULSE 111; RESP 20; TEMP 99; O2SAT 97
[2017-02-19 20:59] LABS: CORTISOL AM 7.9 ug/dL (4.46-22.7)
== END 2017-02-19 18:15 | DRG 563 ==
LOC: H.OPSURG 06:41 → H.MEDSURG1 08:16 → H.OPSURG 15:40 → H.MEDSURG1 15:40 → H.OPSURG 17:03
PROVIDERS: ADMIT Hospitalist; ATTEND Hospitalist
DX: S82.142A Displaced bicondylar fracture of left tibia, initial encounter for closed fracture (principal); R64 Cachexia; E31.0 Autoimmune polyglandular failure; E27.40 Unspecified adrenocortical insufficiency; L03.116 Cellulitis of left lower limb; I11.9 Hypertensive heart disease without heart failure; Z68.1 Body mass index [BMI] 19.9 or less, adult; G62.9 Polyneuropathy, unspecified; E03.9 Hypothyroidism, unspecified; D50.9 Iron deficiency anemia, unspecified; J44.9 Chronic obstructive pulmonary disease, unspecified; K21.9 Gastro-esophageal reflux disease without esophagitis; E78.5 Hyperlipidemia, unspecified; W19.XXXA Unspecified fall, initial encounter; F41.1 Generalized anxiety disorder; F31.9 Bipolar disorder, unspecified; K59.09 Other constipation; Z53.8 Procedure and treatment not carried out for other reasons; R26.89 Other abnormalities of gait and mobility; F17.210 Nicotine dependence, cigarettes, uncomplicated; Z86.14 Personal history of Methicillin resistant Staphylococcus aureus infection; Z87.01 Personal history of pneumonia (recurrent); Z91.81 History of falling; Z99.3 Dependence on wheelchair; Y92.9 Unspecified place or not applicable

== ENCOUNTER 2017-02-19 17:29 | Inpatient (IN) | payer OTHER ==
[2017-02-19 18:37] VITALS: BMI 15.7
[2017-02-19 22:31] VITALS: RESP 20
[2017-02-20 05:37] LABS: BLOOD UREA NITROGEN 14 mg/dl (7-17); CALCIUM 8.8 mg/dL (8.4-10.2); CARBON DIOXIDE 27 mmol/L (22-30); CHLORIDE 108 mmol/L (98-107); GFR AFRICAN-AMERICAN > 60; GLUCOSE,RANDOM 128 mg/dL (65-105); POTASSIUM 3.8 MMOL/L (3.6-5.0); SODIUM 144 mmol/l (132-148)
[2017-02-20] MEDS: Levothyroxine 100 MCG TAB PO SCH (05:51)
--- NOTE | 2017-02-20 07:44 | CP.PCM.HP ---
<Anh Dean - Last Filed: 02/20/17 08:25> History of Present Illness - History of Present Illness History of Present Illness: 46 y/o female elderly looking for her age with PMH COPD , smoker 1 and 1/2 PPD, adrenal insufficiency, hypothyroidism, anxiety, bipolar disorder , HTN,anemia, neuropathy, muscle weakness , gait dysfunction , constipation , GERD with history of fall April 2016, fractured and displaced patella and tibia , not ambulatory ( on wheelchair for the last 9 months ) seen in TCU prior to surgery on Thursday for left TKR by Dr. Cole. Pt is currently irritable and agitated that the surgery has not been done yet. Patient has medical clearance in the chart. At present she denies any CP, SOB, palpitations, PND, orthopnea, urinary symptoms. Gives history of chronic constipation and has history of sigmoid resection years ago.Last BM was 2 days ago, last meal was last night. She is a smoker but denies any SOB, has chronic cough, clearing throat, denies sputum production and not on any bronchodilators or steroid INH, saturation 100 % in RA. Family history: son has asthma Meds: ativan, seroquel, gabapentin, suboxan, baclofen, synthroid , amlodipine , colace,cymbalta, ferrous sulfate, cortef ,lisinopril, omeprazole, miralax, senna , trazodone,motrin Social history: Current smoker, denies EtOH. History of substance abuse. Pt has 1 son and mother, surrogate decision maker is mother, has been in [place] for rehab for the last 9 months since fall, unable to walk due to left knee separation since April Present on Admission - Present on Admission Any Indicators Present on Admission: No History of DVT/PE: No History of Uncontrolled Diabetes: No Review of Systems - Constitutional Constitutional: As Per HPI, Weakness - EENT Eyes: As Per HPI Ears: As Per HPI Nose/Mouth/Throat: As Per HPI - Breasts Breasts: As Per HPI - Cardiovascular Cardiovascular: As Per HPI - Respiratory Respiratory: As Per HPI - Gastrointestinal Gastrointestinal: Constipation - Genitourinary Genitourinary: As Per HPI - Reproductive: Female Reproductive:Female: As Per HPI - Menstruation Menstruation: As Per HPI - Musculoskeletal Musculoskeletal: Abnormal Gait, Deformity, Limited Range of Motion, Muscle Weakness - Integumentary Integumentary: Change in Nails, Lesions - Neurological Neurological: As Per HPI - Psychiatric Psychiatric: Depression - Endocrine Endocrine: As Per HPI Past Patient History - Infectious Disease Hx of Infectious Diseases: MRSA - Past Social History Smoking Status: Heavy Smoker > 10 Cigarettes Daily - CARDIAC Hx Cardiac Disorders: Yes Hx Hypertension: Yes Other/Comment: IRREGULAR HEARTBEAT - PULMONARY Hx Respiratory Disorders: Yes Hx Chronic Obstructive Pulmonary Disease (COPD): Yes Other/Comment: HX OF PNEUMONIA - NEUROLOGICAL Hx Neurological Disorder: No - HEENT Hx HEENT Problems: Yes Other/Comment: RETINA - RENAL Hx Chronic Kidney Disease: No - ENDOCRINE/METABOLIC Hx Endocrine Disorders: No - HEMATOLOGICAL/ONCOLOGICAL Hx Blood Disorders: Yes Hx AIDS: No Hx Anemia: Yes Hx Human Immunodeficiency Virus (HIV): No - INTEGUMENTARY Hx Dermatological Problems: No - MUSCULOSKELETAL/RHEUMATOLOGICAL Hx Musculoskeletal Disorders: Yes Hx Arthritis: Yes Hx Back Pain: Yes Hx Falls: Yes Hx Osteoarthritis: Yes Other/Comment: MUSCLE WEAKNESS .LIMIT JOINT MOTION .RIGHT HAND WEAKNESS - GASTROINTESTINAL Hx Gastrointestinal Disorders: No Hx Constipation: Yes Other/Comment: HX OF CONSTIPATION - GENITOURINARY/GYNECOLOGICAL Hx Genitourinary Disorders: No - PSYCHIATRIC Hx Psychophysiologic Disorder: Yes Hx Anxiety: Yes Hx Depression: Yes Hx Substance Use: No - SURGICAL HISTORY Hx Surgeries: Yes Hx Arthroscopy: Yes (RIGHT KNEE) Other/Comment: SX FOR BOWEL OBSTRUCTION - ANESTHESIA Hx Anesthesia: Yes Hx Anesthesia Reactions: No Hx Malignant Hyperthermia: No Meds Allergies/Adverse Reactions: Allergies Allergy/AdvReac Type Severity Reaction Status Date / Time No Known Allergies Allergy Verified 02/16/17 08:07 Physical Exam - Constitutional Appears: Well, Non-toxic, Older Than Stated Age, Agitated, Cachectic - Head Exam Head Exam: ATRAUMATIC, NORMOCEPHALIC - Eye Exam Eye Exam: EOMI, Normal appearance, PERRL Pupil Exam: PERRL - ENT Exam ENT Exam: Mucous Membranes Moist - Neck Exam Neck exam: Positive for: Normal Inspection Additional comments: supple, non tender, no JVD - Respiratory Exam Respiratory Exam: NORMAL BREATHING PATTERN Additional comments: (-) for wheezing or rales. normal breathing, not labored - Cardiovascular Exam Cardiovascular Exam: REGULAR RHYTHM, +S1, +S2 - GI/Abdominal Exam GI & Abdominal Exam: Normal Bowel Sounds, Soft - Extremities Exam Additional comments: Vasc: pulses are palpable to B/L lower extremities. Temperature gradient warm to cool from proximal at knee joint extending distally down leg and foot B/L. Ortho/MSK: Left lower extremity shows lateral 50+ degree leg displacement at knee joint. Pt able to perform active flexion and extension at knee joint without tenderness. Gait unable to assess due to pt inability to bear weight. Derm: Extensor surface erythema to B/L hands. Discoloration of nails noted to all 4 extremities. 1.0 x 1.0cm bruise with overlying scar noted to medial aspect of L anterior knee. 3.0 x 4.0 cm ecchymosis to distal medial right leg with no surrounding erythema, no breaks in skin or soft tissue. Mild increase in skin temperature with mild cellulitic changes to peripheral skin of anterior leg between L knee and L ankle. Neuro- gross protective sensation intact B/L - Neurological Exam Neurological exam: Alert, Oriented x3 - Psychiatric Exam Psychiatric exam: Agitated, Normal Affect - Skin Skin Exam: Intact, Warm Additional comments: Extensor surface erythema to B/L hands. Discoloration of nails noted to all 4 extremities. 1.0 x 1.0cm bruise with overlying scar noted to medial aspect of L anterior knee. Mild increase in skin temperature with mild cellulitic changes to peripheral skin of anterior leg between L knee and L ankle. 3.0 x 4.0 cm ecchymosis to distal medial right leg with no surrounding erythema, no breaks in skin or soft tissue, no cellulitic changes, no increased warmth. Results - Vital Signs Recent Vital Signs: Last Vital Signs Temp Pulse Resp 20 02/19/17 22:06 BP Pulse Ox 96 02/19/17 22:06 - Labs Result Diagrams: 02/20/17 04:50 Labs: Laboratory Results - last 24 hr 02/20/17 02/20/17 04:50 04:50 Sodium 144 Potassium 3.8 Chloride 108 H Carbon Dioxide 27 Anion Gap 13 BUN 14 Creatinine 0.6 L Est GFR ( Amer) > 60 Est GFR (Non-Af Amer) > 60 Random Glucose 128 H Calcium 8.8 Vancomycin Trough < 5.0 L Assessment & Plan (1) Closed fracture of left tibia and fibula Assessment and Plan: Subacute fracture of left proximal tibia and fibula with lateral angulation over 50 degrees Plan: -cardiac clearance in chart -vascular input to assess LLE vascularity with CT w/ contrast -surgery delayed due to cellulitic changes of LLE, for which pt is receiving IV Vanco --Pt to go to OR for left TKR with Dr. 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 (4) DVT prophylaxis Assessment and Plan: -Continue Lovenox 40mg SC daily -Continue SCDs Status: Acute (5) Constipation Assessment and Plan: -continue Sennosides, Dulcolax, Docusate and polyethylene glycol Status: Chronic (6) COPD (chronic obstructive pulmonary disease) Assessment and Plan: -O2 saturation good, no need for additional O2 currently -pt asymptomatic at this time -no acute infiltrates noted on CXR, no active disease Status: Chronic (7) Anemia, iron deficiency Assessment and Plan: -controlled at this time -continue ferrous sulfate supplements Status: Chronic (8) Bipolar disorder Assessment and Plan: -continue psych meds -no suicidal ideations or depression Status: Chronic (9) Cellulitis of left lower leg Assessment and Plan: -empiric tx with Vanco per ID -continue to monitor site Status: Acute (10) Hypertension Assessment and Plan: HTN controlled at this time -continue home meds Status: Chronic (11) Neuropathy Assessment and Plan: -Continue gabapentin and suboxone Status: Chronic - Assessment and Plan (Free Text) Assessment: Additional diagnosis: 1)Gait dysfunction -physical therapy evaluation following left TKR surgery -pt to go to [facility] post-op for rehabilitation <Tala Srinivasan - Last Filed: 02/20/17 18:33> Present on Admission - Present on Admission Any Indicators Present on Admission: No Results - Vital Signs Recent Vital Signs: Last Vital Signs Temp 99.0 F 02/20/17 16:16 Pulse 83 02/20/17 16:16 Resp 20 02/20/17 16:16 BP 137/86 02/20/17 16:16 Pulse Ox 98 02/20/17 16:16 - Labs Result Diagrams: 02/20/17 04:50 Labs: Laboratory Results - last 24 hr 02/20/17 02/20/17 04:50 04:50 Sodium 144 Potassium 3.8 Chloride 108 H Carbon Dioxide 27 Anion Gap 13 BUN 14 Creatinine 0.6 L Est GFR ( Amer) > 60 Est GFR (Non-Af Amer) > 60 Random Glucose 128 H Calcium 8.8 Vancomycin Trough < 5.0 L Attending/Attestation - Attestation I have personally seen and examined this patient.: Yes I have fully participated in the care of the patient.: Yes I have reviewed all pertinent clinical information: Yes
[2017-02-20] MEDS: Multivitamin With Minerals Tab PO SCH (09:16)
[2017-02-20] MEDS: Enoxaparin 40 mg Syringe SC SCH (09:17)
[2017-02-20] MEDS: Pantoprazole 40 mg EC Tab PO SCH (09:17)
[2017-02-20] MEDS: POLYETHYLENE GLYCOL 3350 17 GM/Dose PACKET PO SCH ×2 (09:18→16:33)
[2017-02-20] MEDS: Patient's Own Med (Buprenorphine Hcl/Naloxone Hcl [Suboxone 8 Mg-2 Mg Sl Film] 1 EACH) SCH ×2 (10:26→16:30)
--- NOTE | 2017-02-20 10:42 | CP.PCM.CON ---
History of Present Illness - History of Present Illness History of Present Illness: Vascular surgery consult for Dr. Adames Re: Pre Op Vasculature Evaluation HPI: 46F with an improperly healed left tib-fib fracture x ~11 months. Pt is non -weight bearing, using only a wheelchair. Came in for an elective repair with orthopedics, but it was postponed for further evaluation due to concerns of vascular issues. Currently only complains of chronic pain issues. No other symptoms. PMH: COPD, HTN, hypothyroidism, chronic pain PSH: Arthroscopy, SH: Current smoker, occasional EtOH. Denies Drug use All: NKDA Meds: See MAR Review of Systems - Review of Systems All systems: reviewed and no additional remarkable complaints except (as per HPI ) Past Patient History - Infectious Disease Hx of Infectious Diseases: MRSA - Past Social History Smoking Status: Heavy Smoker > 10 Cigarettes Daily - CARDIAC Hx Cardiac Disorders: Yes Hx Hypertension: Yes Other/Comment: IRREGULAR HEARTBEAT - PULMONARY Hx Respiratory Disorders: Yes Hx Chronic Obstructive Pulmonary Disease (COPD): Yes Other/Comment: HX OF PNEUMONIA - NEUROLOGICAL Hx Neurological Disorder: No - HEENT Hx HEENT Problems: Yes Other/Comment: RETINA - RENAL Hx Chronic Kidney Disease: No - ENDOCRINE/METABOLIC Hx Endocrine Disorders: No - HEMATOLOGICAL/ONCOLOGICAL Hx Blood Disorders: Yes Hx AIDS: No Hx Anemia: Yes Hx Human Immunodeficiency Virus (HIV): No - INTEGUMENTARY Hx Dermatological Problems: No - MUSCULOSKELETAL/RHEUMATOLOGICAL Hx Musculoskeletal Disorders: Yes Hx Arthritis: Yes Hx Back Pain: Yes Hx Falls: Yes Hx Osteoarthritis: Yes Other/Comment: MUSCLE WEAKNESS .LIMIT JOINT MOTION .RIGHT HAND WEAKNESS - GASTROINTESTINAL Hx Gastrointestinal Disorders: No Hx Constipation: Yes Other/Comment: HX OF CONSTIPATION - GENITOURINARY/GYNECOLOGICAL Hx Genitourinary Disorders: No - PSYCHIATRIC Hx Psychophysiologic Disorder: Yes Hx Anxiety: Yes Hx Depression: Yes Hx Substance Use: No - SURGICAL HISTORY Hx Surgeries: Yes Hx Arthroscopy: Yes (RIGHT KNEE) Other/Comment: SX FOR BOWEL OBSTRUCTION - ANESTHESIA Hx Anesthesia: Yes Hx Anesthesia Reactions: No Hx Malignant Hyperthermia: No Meds Allergies/Adverse Reactions: Allergies Allergy/AdvReac Type Severity Reaction Status Date / Time No Known Allergies Allergy Verified 02/16/17 08:07 - Medications Medications: Current Medications Acetaminophen (Tylenol 325mg Tab) 650 mg PO Q6 PRN PRN Reason: Fever >100.4 F Acetaminophen (Tylenol 325mg Tab) 650 mg PO Q4 PRN PRN Reason: Pain, moderate (4-7) Amlodipine Besylate (Norvasc) 5 mg PO DAILY [facility] Last Admin: 02/20/17 09:15 Dose: 5 mg Baclofen (Lioresal) 20 mg PO TID [facility] Last Admin: 02/20/17 09:16 Dose: 20 mg Bisacodyl (Dulcolax) 10 mg [place] DAILY PRN PRN Reason: Constipation Docusate Sodium (Colace) 100 mg PO BID [facility] Last Admin: 02/20/17 09:17 Dose: 100 mg Docusate Sodium (Colace) 100 mg PO HS [facility] Last Admin: 02/19/17 21:36 Dose: 100 mg Duloxetine HCl (Cymbalta) 60 mg PO HS [facility] Last Admin: 02/19/17 21:38 Dose: 60 mg Enoxaparin Sodium (Lovenox) 40 mg SC DAILY [facility] PRN Reason: Protocol Last Admin: 02/20/17 09:17 Dose: 40 mg Ferrous Sulfate (Feosol) 325 mg PO BID [facility] Last Admin: 02/20/17 09:16 Dose: 325 mg Gabapentin (Neurontin) 600 mg PO TID [facility] Last Admin: 02/20/17 09:15 Dose: 600 mg Home Med (Buprenorphine Hcl/Naloxone Hcl [Suboxone 8 Mg-2 Mg Sl Film]) 1 each .ROUTE BID [facility] Last Admin: 02/20/17 10:26 Dose: 1 each Hydrocortisone (Cortef) 20 mg PO BID [facility] Last Admin: 02/20/17 09:16 Dose: 20 mg Vancomycin HCl 500 mg/ Sodium (Chloride) 100 mls @ 100 mls/hr IVPB Q12@0500, 1700 [facility] PRN Reason: Protocol Last Admin: 02/20/17 05:48 Dose: 100 mls/hr Ibuprofen (Motrin Tab) 600 mg PO Q6 PRN PRN Reason: Muscle spasm Last Admin: 02/20/17 05:51 Dose: 600 mg Levothyroxine Sodium (Synthroid) 100 mcg PO DAILY@0630 [facility] Last Admin: 02/20/17 05:51 Dose: 100 mcg Lisinopril (Zestril) 20 mg PO DAILY [facility] Last Admin: 02/20/17 09:17 Dose: 20 mg Lorazepam (Ativan) 1 mg PO BID [facility] Last Admin: 10/06/17 09:20 Dose: 1 mg Multivitamins/Minerals (Therapeutic-M Tab) 1 tab PO DAILY [facility] Last Admin: 02/20/17 09:16 Dose: 1 tab Nicotine (Nicoderm Cq) 1 patch TD DAILY [facility] Last Admin: 02/20/17 09:15 Dose: 1 patch Ondansetron HCl (Zofran Inj) 4 mg IVP Q6 PRN PRN Reason: Nausea/Vomiting Pantoprazole Sodium (Protonix Ec Tab) 40 mg PO DAILY [facility] Last Admin: 02/20/17 09:17 Dose: 40 mg Polyethylene Glycol (Miralax) 17 gm PO BID [facility] Last Admin: 02/20/17 09:18 Dose: 17 gm Quetiapine Fumarate (Seroquel) 100 mg PO HS [facility] Last Admin: 02/19/17 21:38 Dose: 100 mg Quetiapine Fumarate (Seroquel) 50 mg PO BID [facility] Last Admin: 02/20/17 09:16 Dose: 50 mg Sennosides (Senokot Tab) 8.6 mg PO BID [facility] Last Admin: 02/20/17 09:28 Dose: 8.6 mg Trazodone HCl (Desyrel) 100 mg PO HS PRN PRN Reason: Restlessness Last Admin: 02/19/17 21:37 Dose: 100 mg Physical Exam - Constitutional Appears: Non-toxic, No Acute Distress - Head Exam Head Exam: ATRAUMATIC, NORMOCEPHALIC - Eye Exam Eye Exam: EOMI. absent: Scleral icterus - ENT Exam ENT Exam: Mucous Membranes Moist Additional comments: trachea midline - Respiratory Exam Respiratory Exam: NORMAL BREATHING PATTERN. absent: Respiratory Distress - Cardiovascular Exam Cardiovascular Exam: RRR, +S1, +S2 - GI/Abdominal Exam GI & Abdominal Exam: Soft. absent: Distended, Tenderness - Rectal Exam Rectal Exam: Deferred - Extremities Exam Extremities exam: Positive for: normal capillary refill, pedal pulses present. Negative for: calf tenderness, pedal edema Additional comments: LLE with gross bony deformity with distal lower leg angled medially. Feet and toes warm and normal color - Back Exam Back exam: absent: CVA tenderness (L), CVA tenderness (R) - Neurological Exam Neurological exam: Alert, Oriented x3 - Psychiatric Exam Psychiatric exam: Normal Affect, Normal Mood - Skin Skin Exam: Dry, Warm Results - Vital Signs Recent Vital Signs: Last Vital Signs Temp Pulse 66 02/20/17 09:17 Resp 20 02/19/17 22:06 BP 136/70 02/20/17 09:17 Pulse Ox 96 02/19/17 22:06 - Labs Result Diagrams: 02/20/17 04:50 Labs: Laboratory Results - last 24 hr 02/20/17 02/20/17 04:50 04:50 Sodium 144 Potassium 3.8 Chloride 108 H Carbon Dioxide 27 Anion Gap 13 BUN 14 Creatinine 0.6 L Est GFR ( Amer) > 60 Est GFR (Non-Af Amer) > 60 Random Glucose 128 H Calcium 8.8 Vancomycin Trough < 5.0 L - Imaging and Cardiology US - LE dopplers Status: Image reviewed by me Assessment & Plan - Assessment and Plan (Free Text) Assessment: 46F with chronic Left tib-fib fracture Plan: Awaiting CT with contrast for evaluation of vasculature. Script in chart Pt requested to go down later in the day. US venous doppler completed Recommending Vascular surgery on site during ortho surgery to be able to help with any vascular issues that may arise. D/W Dr. Rosangela Rader PGY4
--- NOTE | 2017-02-20 11:24 | CP.PCM.CON ---
History of Present Illness - History of Present Illness History of Present Illness: THE PATIENT IS A 46 YEAR OLD FEMALE WHO WAS ADMITTED TO [facility] A FEW DAYS AGO TO REPAIR A LEFT KNEE FRACTURE BUT WAS FOUND TO HAVE CELLULITIS AND IT WAS DECIDED TO DISCHARGE HER TO TCU TO FINISH A COURSE OF IV ANTIBIOTICS PRIOR TO KNEE SURGERY. SHE ALSO HAS A HISTORY OF HYPERTENSION, ANXIETY AND BIPOLAR DISEASE. CARDIOLOGY WAS ASKED TO FOLLOW HER. SHE DENIES CHEST PAIN, PALPITATIONS OR SOB. Past Patient History - Infectious Disease Hx of Infectious Diseases: MRSA - Past Social History Smoking Status: Heavy Smoker > 10 Cigarettes Daily - CARDIAC Hx Cardiac Disorders: Yes Hx Hypertension: Yes Other/Comment: IRREGULAR HEARTBEAT - PULMONARY Hx Respiratory Disorders: Yes Hx Chronic Obstructive Pulmonary Disease (COPD): Yes Other/Comment: HX OF PNEUMONIA - NEUROLOGICAL Hx Neurological Disorder: No - HEENT Hx HEENT Problems: Yes Other/Comment: RETINA - RENAL Hx Chronic Kidney Disease: No - ENDOCRINE/METABOLIC Hx Endocrine Disorders: No - HEMATOLOGICAL/ONCOLOGICAL Hx Blood Disorders: Yes Hx AIDS: No Hx Anemia: Yes Hx Human Immunodeficiency Virus (HIV): No - INTEGUMENTARY Hx Dermatological Problems: No - MUSCULOSKELETAL/RHEUMATOLOGICAL Hx Musculoskeletal Disorders: Yes Hx Arthritis: Yes Hx Back Pain: Yes Hx Falls: Yes Hx Osteoarthritis: Yes Other/Comment: MUSCLE WEAKNESS .LIMIT JOINT MOTION .RIGHT HAND WEAKNESS - GASTROINTESTINAL Hx Gastrointestinal Disorders: No Hx Constipation: Yes Other/Comment: HX OF CONSTIPATION - GENITOURINARY/GYNECOLOGICAL Hx Genitourinary Disorders: No - PSYCHIATRIC Hx Psychophysiologic Disorder: Yes Hx Anxiety: Yes Hx Depression: Yes Hx Substance Use: No - SURGICAL HISTORY Hx Surgeries: Yes Hx Arthroscopy: Yes (RIGHT KNEE) Other/Comment: SX FOR BOWEL OBSTRUCTION - ANESTHESIA Hx Anesthesia: Yes Hx Anesthesia Reactions: No Hx Malignant Hyperthermia: No Meds Allergies/Adverse Reactions: Allergies Allergy/AdvReac Type Severity Reaction Status Date / Time No Known Allergies Allergy Verified 02/16/17 08:07 - Medications Medications: Current Medications Acetaminophen (Tylenol 325mg Tab) 650 mg PO Q6 PRN PRN Reason: Fever >100.4 F Acetaminophen (Tylenol 325mg Tab) 650 mg PO Q4 PRN PRN Reason: Pain, moderate (4-7) Amlodipine Besylate (Norvasc) 5 mg PO DAILY [facility] Last Admin: 02/20/17 09:15 Dose: 5 mg Baclofen (Lioresal) 20 mg PO TID [facility] Last Admin: 02/20/17 09:16 Dose: 20 mg Bisacodyl (Dulcolax) 10 mg [place] DAILY PRN PRN Reason: Constipation Docusate Sodium (Colace) 100 mg PO BID [facility] Last Admin: 02/20/17 09:17 Dose: 100 mg Docusate Sodium (Colace) 100 mg PO HS [facility] Last Admin: 02/19/17 21:36 Dose: 100 mg Duloxetine HCl (Cymbalta) 60 mg PO HS [facility] Last Admin: 02/19/17 21:38 Dose: 60 mg Enoxaparin Sodium (Lovenox) 40 mg SC DAILY [facility] PRN Reason: Protocol Last Admin: 02/20/17 09:17 Dose: 40 mg Ferrous Sulfate (Feosol) 325 mg PO BID [facility] Last Admin: 02/20/17 09:16 Dose: 325 mg Gabapentin (Neurontin) 600 mg PO TID [facility] Last Admin: 02/20/17 09:15 Dose: 600 mg Home Med (Buprenorphine Hcl/Naloxone Hcl [Suboxone 8 Mg-2 Mg Sl Film]) 1 each .ROUTE BID [facility] Last Admin: 02/20/17 10:26 Dose: 1 each Hydrocortisone (Cortef) 20 mg PO BID [facility] Last Admin: 02/20/17 09:16 Dose: 20 mg Vancomycin HCl 500 mg/ Sodium (Chloride) 100 mls @ 100 mls/hr IVPB Q12@0500, 1700 [facility] PRN Reason: Protocol Last Admin: 02/20/17 05:48 Dose: 100 mls/hr Ibuprofen (Motrin Tab) 600 mg PO Q6 PRN PRN Reason: Muscle spasm Last Admin: 02/20/17 05:51 Dose: 600 mg Levothyroxine Sodium (Synthroid) 100 mcg PO DAILY@0630 [facility] Last Admin: 02/20/17 05:51 Dose: 100 mcg Lisinopril (Zestril) 20 mg PO DAILY [facility] Last Admin: 02/20/17 09:17 Dose: 20 mg Lorazepam (Ativan) 1 mg PO BID [facility] Last Admin: 02/20/17 09:20 Dose: 1 mg Multivitamins/Minerals (Therapeutic-M Tab) 1 tab PO DAILY [facility] Last Admin: 02/20/17 09:16 Dose: 1 tab Nicotine (Nicoderm Cq) 1 patch TD DAILY [facility] Last Admin: 02/20/17 09:15 Dose: 1 patch Ondansetron HCl (Zofran Inj) 4 mg IVP Q6 PRN PRN Reason: Nausea/Vomiting Pantoprazole Sodium (Protonix Ec Tab) 40 mg PO DAILY [facility] Last Admin: 02/20/17 09:17 Dose: 40 mg Polyethylene Glycol (Miralax) 17 gm PO BID [facility] Last Admin: 02/20/17 09:18 Dose: 17 gm Quetiapine Fumarate (Seroquel) 100 mg PO HS [facility] Last Admin: 02/19/17 21:38 Dose: 100 mg Quetiapine Fumarate (Seroquel) 50 mg PO BID [facility] Last Admin: 02/20/17 09:16 Dose: 50 mg Sennosides (Senokot Tab) 8.6 mg PO BID [facility] Last Admin: 02/20/17 09:28 Dose: 8.6 mg Trazodone HCl (Desyrel) 100 mg PO HS PRN PRN Reason: Restlessness Last Admin: 02/19/17 21:37 Dose: 100 mg Physical Exam - Respiratory Exam Respiratory Exam: Clear to Auscultation Bilateral - Cardiovascular Exam Cardiovascular Exam: REGULAR RHYTHM, +S1, +S2 Results - Vital Signs Recent Vital Signs: Last Vital Signs Temp Pulse 66 02/20/17 09:17 Resp 20 02/19/17 22:06 BP 136/70 02/20/17 09:17 Pulse Ox 96 02/19/17 22:06 - Labs Result Diagrams: 02/20/17 04:50 Labs: Laboratory Results - last 24 hr 02/20/17 02/20/17 04:50 04:50 Sodium 144 Potassium 3.8 Chloride 108 H Carbon Dioxide 27 Anion Gap 13 BUN 14 Creatinine 0.6 L Est GFR ( Amer) > 60 Est GFR (Non-Af Amer) > 60 Random Glucose 128 H Calcium 8.8 Vancomycin Trough < 5.0 L Assessment & Plan - Assessment and Plan (Free Text) Assessment: LEFT KNEE FRACTURE CELLULITIS HYPERTENSION Plan: CONTINUE AMLODIPINE 5 MGG DAILY AND LISINOPRIL 20 MGS DAILY
--- NOTE | 2017-02-20 15:01 | PN ---
ENDO FOLLOWUP NOTE DATE: LOCATION: Room [facility]. SUBJECTIVE: This is a 46-year-old female with recent surgical correction of her left tibial fracture and now is being followed postoperatively for endocrine evaluation and management. She has also known history of Bill's syndrome with combination of both hypothyroidism and hypoadrenalism, currently on hormonal replacement therapy. She has improved clinically and hemodynamically as noted thereof. Her latest chemistry showed a BUN of 14, sodium 144, potassium 3.8, chloride 108, CO2 of 27, glucose 128, and creatinine 0.6. So, at this time, we will continue the same combination of levothyroxine given as 100 mcg daily before breakfast as ordered. We will also continue the hydrocortisone given as 20 mg p.o. b.i.d. after meals as ordered. We will obtain serial cortisol and thyroid studies and will adjust her dose regimen accordingly to optimize metabolic control. We will also obtain serial chemistries and supplement accordingly as needed. We will follow. Shayna Russo MD
[2017-02-20] MEDS ORDERED: Magnesium Citrate Oral SOL (300 ml) PO ONE (20:03)
[2017-02-21] MEDS: Levothyroxine 100 MCG TAB PO SCH (05:58)
--- NOTE | 2017-02-21 07:32 | CP.PCM.PN ---
Subjective - Date & Time of Evaluation Date of Evaluation: 02/21/17 Time of Evaluation: 06:00 - Subjective Subjective: Vascular Surgery Pt S&E, NAEO. No complaints at this time. Objective - Vital Signs/Intake and Output Vital Signs (last 24 hours): Temp Pulse Resp BP Pulse Ox 98.6 F 70 20 132/81 97 02/20/17 20:40 02/20/17 20:40 02/20/17 20:40 02/20/17 20:40 02/20/17 20:40 - Medications Medications: Current Medications Acetaminophen (Tylenol 325mg Tab) 650 mg PO Q6 PRN PRN Reason: Fever >100.4 F Acetaminophen (Tylenol 325mg Tab) 650 mg PO Q4 PRN PRN Reason: Pain, moderate (4-7) Amlodipine Besylate (Norvasc) 5 mg PO DAILY [facility] Last Admin: 02/20/17 09:15 Dose: 5 mg Baclofen (Lioresal) 20 mg PO TID [facility] Last Admin: 02/20/17 16:32 Dose: 20 mg Bisacodyl (Dulcolax) 10 mg [place] DAILY PRN PRN Reason: Constipation Docusate Sodium (Colace) 100 mg PO BID [facility] Last Admin: 02/20/17 16:31 Dose: 100 mg Duloxetine HCl (Cymbalta) 60 mg PO HS [facility] Last Admin: 02/20/17 22:16 Dose: 60 mg Enoxaparin Sodium (Lovenox) 40 mg SC DAILY [facility] PRN Reason: Protocol Last Admin: 02/20/17 09:17 Dose: 40 mg Ferrous Sulfate (Feosol) 325 mg PO BID [facility] Last Admin: 02/20/17 16:31 Dose: 325 mg Gabapentin (Neurontin) 600 mg PO TID [facility] Last Admin: 02/20/17 16:32 Dose: 600 mg Home Med (Buprenorphine Hcl/Naloxone Hcl [Suboxone 8 Mg-2 Mg Sl Film]) 1 each .ROUTE BID [facility] Last Admin: 02/20/17 16:30 Dose: 1 each Hydrocortisone (Cortef) 20 mg PO BID [facility] Last Admin: 02/20/17 16:32 Dose: 20 mg Vancomycin HCl 500 mg/ Sodium (Chloride) 100 mls @ 100 mls/hr IVPB Q12@0500, 1700 [facility] PRN Reason: Protocol Last Admin: 02/21/17 05:57 Dose: 100 mls/hr Ibuprofen (Motrin Tab) 600 mg PO Q6 PRN PRN Reason: Muscle spasm Last Admin: 02/21/17 06:00 Dose: 600 mg Levothyroxine Sodium (Synthroid) 100 mcg PO DAILY@0630 [facility] Last Admin: 02/21/17 05:58 Dose: 100 mcg Lisinopril (Zestril) 20 mg PO DAILY [facility] Last Admin: 02/20/17 09:17 Dose: 20 mg Lorazepam (Ativan) 1 mg PO BID [facility] Last Admin: 02/20/17 16:35 Dose: 1 mg Multivitamins/Minerals (Therapeutic-M Tab) 1 tab PO DAILY [facility] Last Admin: 02/20/17 09:16 Dose: 1 tab Nicotine (Nicoderm Cq) 1 patch TD DAILY [facility] Last Admin: 02/20/17 09:15 Dose: 1 patch Ondansetron HCl (Zofran Inj) 4 mg IVP Q6 PRN PRN Reason: Nausea/Vomiting Pantoprazole Sodium (Protonix Ec Tab) 40 mg PO DAILY [facility] Last Admin: 02/20/17 09:17 Dose: 40 mg Polyethylene Glycol (Miralax) 17 gm PO BID [facility] Last Admin: 02/20/17 16:33 Dose: 17 gm Quetiapine Fumarate (Seroquel) 100 mg PO HS [facility] Last Admin: 02/20/17 22:16 Dose: 100 mg Quetiapine Fumarate (Seroquel) 50 mg PO BID [facility] Last Admin: 02/20/17 16:32 Dose: 50 mg Sennosides (Senokot Tab) 8.6 mg PO BID [facility] Last Admin: 02/20/17 16:34 Dose: 8.6 mg Trazodone HCl (Desyrel) 100 mg PO HS PRN PRN Reason: Restlessness Last Admin: 02/20/17 22:19 Dose: 100 mg - Labs Labs: 02/20/17 04:50 - Constitutional Appears: Non-toxic, No Acute Distress - Head Exam Head Exam: ATRAUMATIC, NORMOCEPHALIC - Eye Exam Eye Exam: absent: EOMI - Respiratory Exam Respiratory Exam: NORMAL BREATHING PATTERN. absent: Respiratory Distress - GI/Abdominal Exam GI & Abdominal Exam: Soft. absent: Tenderness - Extremities Exam Extremities Exam: absent: Calf Tenderness, Pedal Edema Additional comments: LLE with gross bony deformity with distal lower leg angled medially. Feet and toes warm and normal color - Neurological Exam Neurological Exam: Alert, Awake - Skin Skin Exam: Dry, Warm Assessment and Plan - Assessment and Plan (Free Text) Assessment: 46F with chronic Left tib-fib fracture Plan: US venous doppler and LE CT completed Recommending Vascular surgery on site during ortho surgery to be able to help with any vascular issues that may arise. D/W Dr. Rosangela Rader PGY4
[2017-02-21 07:43] LABS: ALB/GLOB RATIO 1.5 (1.0-2.1); ALKALINE PHOSPHATASE 47 U/L (38-126); ALT/SGPT 30 U/L (9-52); AST/SGOT 20 U/L (14-36); BILIRUBIN,TOTAL 0.2 mg/dl (0.2-1.3); BLOOD UREA NITROGEN 11 mg/dl (7-17); CARBON DIOXIDE 31 mmol/L (22-30); CHLORIDE 105 mmol/L (98-107); GFR AFRICAN-AMERICAN > 60; GLUCOSE,RANDOM 79 mg/dL (65-105); POTASSIUM 4.2 MMOL/L (3.6-5.0); SODIUM 146 mmol/l (132-148); TOTAL PROTEIN 5.9 G/DL (6.3-8.2)
[2017-02-21 08:00] LABS: T4 6.76 ug/dl (5.5-11.0)
[2017-02-21 08:14] LABS: THYROID STIMULATING HORMONE 7.09 mIU/ML (0.46-4.68)
[2017-02-21] MEDS: POLYETHYLENE GLYCOL 3350 17 GM/Dose PACKET PO SCH ×2 (08:40→16:04)
[2017-02-21] MEDS: Multivitamin With Minerals Tab PO SCH (08:41)
[2017-02-21] MEDS: Enoxaparin 40 mg Syringe SC SCH ×2 (08:44→16:16)
[2017-02-21] MEDS: Pantoprazole 40 mg EC Tab PO SCH (08:45)
[2017-02-21] MEDS: Patient's Own Med (Buprenorphine Hcl/Naloxone Hcl [Suboxone 8 Mg-2 Mg Sl Film] 1 EACH) SCH ×2 (10:10→16:15)
--- NOTE | 2017-02-21 16:43 | PN ---
ENDO FOLLOWUP NOTE DATE: LOCATION: Room 709. SUBJECTIVE: This is a 46-year-old female with recent surgical correction for a patellar and tibial fracture and is now being followed closely for metabolic management. 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 Her latest chemistry showed a BUN of 11, sodium 146, potassium 4.2, chloride 105, CO2 of 31, glucose 79, and creatinine 0.6. Her thyroid studies showed a T4 of 6.76 and a TSH of 7.09. Her serum cortisol level is pending at this time. So, at this time, we will continue the dual combination of Cortef or hydrocortisone given as 20 mg b.i.d. and levothyroxine given as 100 mcg once daily as ordered. We will obtain serial chemistries and supplement accordingly as needed. Shayna Russo MD
[2017-02-21] MEDS: Bacitracin OINT 15GM TOP SCH (22:11)
[2017-02-22] MEDS: Levothyroxine 100 MCG TAB PO SCH (06:04)
[2017-02-22] MEDS: Bacitracin OINT 15GM TOP SCH ×2 (08:52→16:12)
[2017-02-22] MEDS: Patient's Own Med (Buprenorphine Hcl/Naloxone Hcl [Suboxone 8 Mg-2 Mg Sl Film] 1 EACH) SCH ×2 (08:52→16:29)
[2017-02-22] MEDS: POLYETHYLENE GLYCOL 3350 17 GM/Dose PACKET PO SCH ×2 (08:54→16:12)
[2017-02-22] MEDS: Enoxaparin 40 mg Syringe SC SCH (08:54)
[2017-02-22] MEDS: Multivitamin With Minerals Tab PO SCH (08:55)
[2017-02-22] MEDS: Pantoprazole 40 mg EC Tab PO SCH (08:55)
--- NOTE | 2017-02-22 10:20 | CP.PCM.PN ---
Subjective - Date & Time of Evaluation Date of Evaluation: 02/22/17 Time of Evaluation: 07:35 - Subjective Subjective: Patient seen and examined this AM. MARIANO. Patient states she has persistent pain in her legs BL unchanged but denies any other symptoms. Objective - Vital Signs/Intake and Output Vital Signs (last 24 hours): Temp Pulse Resp BP Pulse Ox 98.2 F 88 20 124/79 97 02/22/17 08:34 02/22/17 08:55 02/22/17 08:34 02/22/17 08:55 02/22/17 08:34 - Medications Medications: Current Medications Acetaminophen (Tylenol 325mg Tab) 650 mg PO Q6 PRN PRN Reason: Fever >100.4 F Acetaminophen (Tylenol 325mg Tab) 650 mg PO Q4 PRN PRN Reason: Pain, moderate (4-7) Amlodipine Besylate (Norvasc) 5 mg PO DAILY [facility] Last Admin: 02/22/17 08:55 Dose: 5 mg Bacitracin (Bacitracin Oint) 1 applic TOP BID [facility] Last Admin: 02/22/17 08:52 Dose: 1 applic Baclofen (Lioresal) 20 mg PO TID [facility] Last Admin: 02/22/17 08:53 Dose: 20 mg Bisacodyl (Dulcolax) 10 mg [place] DAILY PRN PRN Reason: Constipation Docusate Sodium (Colace) 100 mg PO BID [facility] Last Admin: 02/22/17 08:52 Dose: 100 mg Duloxetine HCl (Cymbalta) 60 mg PO HS [facility] Last Admin: 02/21/17 22:12 Dose: 60 mg Enoxaparin Sodium (Lovenox) 40 mg SC DAILY [facility] PRN Reason: Protocol Last Admin: 02/22/17 08:54 Dose: Not Given Ferrous Sulfate (Feosol) 325 mg PO BID [facility] Last Admin: 02/22/17 08:53 Dose: 325 mg Gabapentin (Neurontin) 600 mg PO TID [facility] Last Admin: 02/22/17 08:54 Dose: 600 mg Home Med (Buprenorphine Hcl/Naloxone Hcl [Suboxone 8 Mg-2 Mg Sl Film]) 1 each .ROUTE BID [facility] Last Admin: 02/22/17 08:52 Dose: 1 each Hydrocortisone (Cortef) 20 mg PO BID [facility] Last Admin: 02/22/17 08:53 Dose: 20 mg Vancomycin HCl 500 mg/ Sodium (Chloride) 100 mls @ 100 mls/hr IVPB Q12@0500, 1700 [facility] PRN Reason: Protocol Last Admin: 02/22/17 06:00 Dose: 100 mls/hr Ibuprofen (Motrin Tab) 600 mg PO Q6 PRN PRN Reason: Muscle spasm Last Admin: 02/22/17 06:03 Dose: 600 mg Levothyroxine Sodium (Synthroid) 100 mcg PO DAILY@0630 [facility] Last Admin: 02/22/17 06:04 Dose: 100 mcg Lisinopril (Zestril) 20 mg PO DAILY [facility] Last Admin: 02/22/17 08:55 Dose: 20 mg Lorazepam (Ativan) 1 mg PO BID [facility] Last Admin: 02/22/17 08:57 Dose: 1 mg Multivitamins/Minerals (Therapeutic-M Tab) 1 tab PO DAILY [facility] Last Admin: 02/22/17 08:55 Dose: 1 tab Nicotine (Nicoderm Cq) 1 patch TD DAILY [facility] Last Admin: 02/22/17 08:52 Dose: 1 patch Ondansetron HCl (Zofran Inj) 4 mg IVP Q6 PRN PRN Reason: Nausea/Vomiting Pantoprazole Sodium (Protonix Ec Tab) 40 mg PO DAILY [facility] Last Admin: 02/22/17 08:55 Dose: 40 mg Polyethylene Glycol (Miralax) 17 gm PO BID [facility] Last Admin: 02/22/17 08:54 Dose: 17 gm Quetiapine Fumarate (Seroquel) 100 mg PO HS [facility] Last Admin: 02/21/17 22:12 Dose: 100 mg Quetiapine Fumarate (Seroquel) 50 mg PO BID [facility] Last Admin: 02/22/17 08:55 Dose: 50 mg Sennosides (Senokot Tab) 8.6 mg PO BID [facility] Last Admin: 02/22/17 08:55 Dose: 8.6 mg Trazodone HCl (Desyrel) 100 mg PO HS PRN PRN Reason: Restlessness Last Admin: 02/20/17 22:19 Dose: 100 mg - Labs Labs: 02/21/17 06:30 - Constitutional Appears: Non-toxic, No Acute Distress - Head Exam Head Exam: ATRAUMATIC, NORMOCEPHALIC - Eye Exam Eye Exam: Normal appearance. absent: Conjunctival injection, Scleral icterus - ENT Exam ENT Exam: Mucous Membranes Moist, Normal Oropharynx - Respiratory Exam Respiratory Exam: NORMAL BREATHING PATTERN. absent: Accessory Muscle Use, Respiratory Distress - GI/Abdominal Exam GI & Abdominal Exam: absent: Distended - Extremities Exam Extremities Exam: absent: Calf Tenderness, Pedal Edema Additional comments: left lower leg with gross kelli abnormality - Neurological Exam Neurological Exam: Alert, Awake, Oriented x3 - Psychiatric Exam Psychiatric exam: Normal Affect, Normal Mood - Skin Skin Exam: Dry, Normal Color, Warm Assessment and Plan - Assessment and Plan (Free Text) Assessment: 46F with chronic Left tib-fib fracture Plan: US venous doppler and LE CT completed. Patient appears to have patent vasculature in the lower extremities Recommending Vascular surgery on site during ortho surgery to be able to help with any vascular issues that may arise. Will discuss with Dr. Adames--further recs per him Yesy Case, PGY2
--- NOTE | 2017-02-22 11:07 | CP.PCM.CON ---
History of Present Illness - History of Present Illness History of Present Illness: ID: [id number] yo femle substance abuser CC: PT NOW 10 MOS S/P l TIBIAL PLATEAU FX; pt has been non compliant and as aresult, was not treated down the [place] where she has been living with her Dominic Zurita. I consulted this case as a favor to Mr Melgar. I thoroughly discussed th egrave nature of the surgical ntervention. Possiibilioty of secoindary or tertiary surgery discussed. Possibility of vascularcompromise discussed. Pt has been non compliant even during her hospital stay, refusing CT scan and other diagnostic tests, and smolking against advice Pt scheduled for ORIF possibl;e TKR L Thursday Past Patient History - Infectious Disease Hx of Infectious Diseases: MRSA - Past Social History Smoking Status: Heavy Smoker > 10 Cigarettes Daily - CARDIAC Hx Cardiac Disorders: Yes Hx Hypertension: Yes Other/Comment: IRREGULAR HEARTBEAT - PULMONARY Hx Respiratory Disorders: Yes Hx Chronic Obstructive Pulmonary Disease (COPD): Yes Other/Comment: HX OF PNEUMONIA - NEUROLOGICAL Hx Neurological Disorder: No - HEENT Hx HEENT Problems: Yes Other/Comment: RETINA - RENAL Hx Chronic Kidney Disease: No - ENDOCRINE/METABOLIC Hx Endocrine Disorders: No - HEMATOLOGICAL/ONCOLOGICAL Hx Blood Disorders: Yes Hx AIDS: No Hx Anemia: Yes Hx Human Immunodeficiency Virus (HIV): No - INTEGUMENTARY Hx Dermatological Problems: No - MUSCULOSKELETAL/RHEUMATOLOGICAL Hx Musculoskeletal Disorders: Yes Hx Arthritis: Yes Hx Back Pain: Yes Hx Falls: Yes Hx Osteoarthritis: Yes Other/Comment: MUSCLE WEAKNESS .LIMIT JOINT MOTION .RIGHT HAND WEAKNESS - GASTROINTESTINAL Hx Gastrointestinal Disorders: No Hx Constipation: Yes Other/Comment: HX OF CONSTIPATION - GENITOURINARY/GYNECOLOGICAL Hx Genitourinary Disorders: No - PSYCHIATRIC Hx Psychophysiologic Disorder: Yes Hx Anxiety: Yes Hx Depression: Yes Hx Substance Use: No - SURGICAL HISTORY Hx Surgeries: Yes Hx Arthroscopy: Yes (RIGHT KNEE) Other/Comment: SX FOR BOWEL OBSTRUCTION - ANESTHESIA Hx Anesthesia: Yes Hx Anesthesia Reactions: No Hx Malignant Hyperthermia: No Meds Allergies/Adverse Reactions: Allergies Allergy/AdvReac Type Severity Reaction Status Date / Time No Known Allergies Allergy Verified 02/16/17 08:07 - Medications Medications: Current Medications Acetaminophen (Tylenol 325mg Tab) 650 mg PO Q6 PRN PRN Reason: Fever >100.4 F Acetaminophen (Tylenol 325mg Tab) 650 mg PO Q4 PRN PRN Reason: Pain, moderate (4-7) Amlodipine Besylate (Norvasc) 5 mg PO DAILY [facility] Last Admin: 02/22/17 08:55 Dose: 5 mg Bacitracin (Bacitracin Oint) 1 applic TOP BID [facility] Last Admin: 02/22/17 08:52 Dose: 1 applic Baclofen (Lioresal) 20 mg PO TID [facility] Last Admin: 02/22/17 08:53 Dose: 20 mg Bisacodyl (Dulcolax) 10 mg [place] DAILY PRN PRN Reason: Constipation Docusate Sodium (Colace) 100 mg PO BID [facility] Last Admin: 02/22/17 08:52 Dose: 100 mg Duloxetine HCl (Cymbalta) 60 mg PO HS [facility] Last Admin: 02/21/17 22:12 Dose: 60 mg Enoxaparin Sodium (Lovenox) 40 mg SC DAILY [facility] PRN Reason: Protocol Last Admin: 02/22/17 08:54 Dose: Not Given Ferrous Sulfate (Feosol) 325 mg PO BID [facility] Last Admin: 02/22/17 08:53 Dose: 325 mg Gabapentin (Neurontin) 600 mg PO TID [facility] Last Admin: 02/22/17 08:54 Dose: 600 mg Home Med (Buprenorphine Hcl/Naloxone Hcl [Suboxone 8 Mg-2 Mg Sl Film]) 1 each .ROUTE BID [facility] Last Admin: 02/22/17 08:52 Dose: 1 each Hydrocortisone (Cortef) 20 mg PO BID [facility] Last Admin: 02/22/17 08:53 Dose: 20 mg Vancomycin HCl 500 mg/ Sodium (Chloride) 100 mls @ 100 mls/hr IVPB Q12@0500, 1700 [facility] PRN Reason: Protocol Last Admin: 02/22/17 06:00 Dose: 100 mls/hr Ibuprofen (Motrin Tab) 600 mg PO Q6 PRN PRN Reason: Muscle spasm Last Admin: 02/22/17 06:03 Dose: 600 mg Levothyroxine Sodium (Synthroid) 100 mcg PO DAILY@0630 [facility] Last Admin: 02/22/17 06:04 Dose: 100 mcg Lisinopril (Zestril) 20 mg PO DAILY [facility] Last Admin: 02/22/17 08:55 Dose: 20 mg Lorazepam (Ativan) 1 mg PO BID [facility] Last Admin: 02/22/17 08:57 Dose: 1 mg Multivitamins/Minerals (Therapeutic-M Tab) 1 tab PO DAILY [facility] Last Admin: 02/22/17 08:55 Dose: 1 tab Nicotine (Nicoderm Cq) 1 patch TD DAILY [facility] Last Admin: 02/22/17 08:52 Dose: 1 patch Ondansetron HCl (Zofran Inj) 4 mg IVP Q6 PRN PRN Reason: Nausea/Vomiting Pantoprazole Sodium (Protonix Ec Tab) 40 mg PO DAILY [facility] Last Admin: 02/22/17 08:55 Dose: 40 mg Polyethylene Glycol (Miralax) 17 gm PO BID [facility] Last Admin: 02/22/17 08:54 Dose: 17 gm Quetiapine Fumarate (Seroquel) 100 mg PO HS [facility] Last Admin: 02/21/17 22:12 Dose: 100 mg Quetiapine Fumarate (Seroquel) 50 mg PO BID [facility] Last Admin: 02/22/17 08:55 Dose: 50 mg Sennosides (Senokot Tab) 8.6 mg PO BID [facility] Last Admin: 02/22/17 08:55 Dose: 8.6 mg Trazodone HCl (Desyrel) 100 mg PO HS PRN PRN Reason: Restlessness Last Admin: 02/20/17 22:19 Dose: 100 mg Physical Exam - Additional Findings Additional findings: Musculoskekltal Both l;ower exts- evdience for resolved cellulitis( last Mondays surgery cancelled as a resuilt) ROM L knee rerstitec pt with > 75 degree varus deformity Results - Vital Signs Recent Vital Signs: Last Vital Signs Temp 98.2 F 02/22/17 08:34 Pulse 88 02/22/17 08:55 Resp 20 02/22/17 08:34 BP 124/79 02/22/17 08:55 Pulse Ox 97 02/22/17 08:34 - Labs Result Diagrams: 02/21/17 06:30 Labs: Laboratory Results - last 24 hr 02/21/17 02/22/17 06:30 07:15 Cortisol AM Sample 3.2 L Blood Type A POSITIVE Antibody Screen Negative BBK History Checked Patient has bt - Impressions Impression: Xray- established non-uni9on/malunionj prox tibia fx CT sacn- confirmatory Assessment & Plan - Assessment and Plan (Free Text) Assessment: 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
--- NOTE | 2017-02-22 13:04 | CP.PCM.CON ---
History of Present Illness - History of Present Illness History of Present Illness: 46 y/o female seen in TCU prior to surgery for left TKR by Dr. Cole. Patient had been started on IV Vanco for celliulitis left leg last week for which surgery was postponed . today Patients surgery was cancelled again due to irritation/inflammation left leg caused by skin tear from wheelchair Patient has hx of noncompliance PMH COPD , smoker 1 and 1/2 PPD, adrenal insufficiency, hypothyroidism, anxiety , bipolar disorder , HTN,anemia,neuropathy, muscle weakness , gait dysfunction , constipation , GERD with history of fall April 2016, fractured and displaced patella and tibia , not ambulatory ( on wheelchair for the last 9 months ) Family history: son has asthma Meds: ativan, seroquel, gabapentin, suboxan, baclofen, synthroid , amlodipine , colace,cymbalta, ferrous sulfate, cortef ,lisinopril, omeprazole, miralax, senna , trazodone,motrin Social history: Current smoker, denies EtOH. History of substance abuse. Pt has 1 son and mother, surrogate decision maker is mother, has been in [place] for rehab for the last 9 months since fall, unable to walk due to left knee separation since April Review of Systems - Constitutional Constitutional: As Per HPI - EENT Eyes: absent: As Per HPI, Blind Spots, Blurred Vision, Change in Vision, Decreased Night Vision, Diplopia, Discharge, Dry Eye, Exophthalmos, Floaters, Irritation, Itchy Eyes, Loss of Peripheral Vision, Pain, Photophobia, Requires Corrective Lenses, Sees Flashes, Spots in Vision, Tunnel Vision, Other Visual Disturbances, Loss of Vision, Other Ears: absent: As Per HPI, Decreased Hearing, Ear Discharge, Ear Pain, Tinnitus, Abnormal Hearing, Disequilibrium, Dizziness, Other Nose/Mouth/Throat: absent: As Per HPI, Epistaxis, Nasal Congestion, Nasal Discharge, Nasal Obstruction, Nasal Trauma, Nose Pain, Post Nasal Drip, Sinus Pain, Sinus Pressure, Bleeding Gums, Change in Voice, Dental Pain, Dry Mouth, Dysphagia, Halitosis, Hoarsness, Lip Swelling, Mouth Lesions, Mouth Pain, Odynophagia, Sore Throat, Throat Swelling, Tongue Swelling, Facial Pain, Neck Pain, Neck Mass, Other - Breasts Breasts: absent: As Per HPI, Change in Shape, Mass, Pain, Nipple Discharge, Nipple Inversion, Skin Changes, Swelling, Other - Cardiovascular Cardiovascular: absent: As Per HPI, Acrocyanosis, Chest Pain, Chest Pain at Rest , Chest Pain with Activity, Claudication, Diaphoresis, Dyspnea, Dyspnea on Exertion, Edema, Irregular Heart Rhythm, Pain Radiating to Arm/Neck/Jaw, Leg Edema, Leg Ulcers, Lightheadedness, Orthopnea, Palpitations, Paroxysmal Nocturnal Dyspnea, Pedal Edema, Radiating Pain, Rapid Heart Rate, Slow Heart Rate, Syncope, Other - Respiratory Respiratory: absent: As Per HPI, Cough, Dyspnea, Hemoptysis, Dyspnea on Exertion , Wheezing, Snoring, Stridor, Pain on Inspiration, Chest Congestion, Excessive Mucous Production, Change in Mucous Color, Pain with Coughing, Other - Gastrointestinal Gastrointestinal: absent: As Per HPI, Abdominal Pain, Belching, Bloating, Change in Bowel Habits, Change in Stool Character, Coffee Ground Emesis, Constipation, Cramping, Diarrhea, Dyspepsia, Dysphagia, Early Satiety, Excessive Flatus, Fecal Incontinence, Heartburn, Hematemesis, Hematochezia, Loose Stools, Melena, Nausea, Odynophagia, Temesmus, Vomiting, Other - Genitourinary Genitourinary: absent: As Per HPI, Change in Urinary Stream, Difficulty Urinating, Dysuria, Flank Pain, Hematuria, Pyuria, Nocturia, Urinary Incontinence, Urinary Frequency, Urinary Hesitance, Urinary Urgency, Voiding Freq/Small Amts, Freq UTI, Hx Renal/Bladder Calculi, Hx /Renal Surgery, Bladder Distension, Other - Reproductive: Female Reproductive:Female: absent: As Per HPI, Amenorrhea, Amenorrhea/ Control, Currently Menstual, Cycle <21 Days, Cycle >35 Days, Cycle Variable, Menses 1-7 Days, Menses >/= 8 Days, Menses Variable, Cycle > 4 Weeks Between, No Menses for 6 Months, Heavy Menses, Light Menses, Normal Menses, Spotting Between Cycles , S/P Hysterectomy, Menopausal, Post Menopausal, Premenarche, Abnormal Vaginal Bleeding, Dysmenorrhea, Dyspareunia, Genital Lesions, Genital Pruritis, Pelvic Pain, Prolapse Symptoms, Sexual Dysfunction, Vaginal Discharge, Vaginal Dryness , Vaginal Odor, Vaginal Pruritis, Other - Menstruation Menstruation: absent: As Per HPI, Amenorrhea, Amenorrhea/ Control, Currently Menstual, Cycle <21 Days, Cycle >35 Days, Cycle Variable, Menses 1-7 Days, Menses >/= 8 Days, Menses Variable, Cycle > 4 Weeks Between, No Menses for 6 Months, Heavy Menses, Light Menses, Normal Menses, Spotting Between Cycles , S/P Hysterectomy, Menopausal, Post Menopausal, Premenarche, Abnormal Vaginal Bleeding, Dysmenorrhea, Other - Musculoskeletal Musculoskeletal: As Per HPI - Integumentary Integumentary: As Per HPI - Neurological Neurological: absent: As Per HPI, Abnormal Gait, Abnormal Hearing, Abnormal Movements, Abnormal Speech, Behavioral Changes, Burning Sensations, Confusion, Convulsions, Disequilibrium, Dizziness, Numbness, Focal Weakness, Frequent Falls , Headaches, Lack of Coordination, Loss of Vision, Memory Loss, Paresthesias, Radicular Pain, Restless Legs, Sensory Deficit, Syncope, Tingling, Tremor, Vertigo, Weakness, Other Visual Disturbances, Other - Psychiatric Psychiatric: absent: As Per HPI, Abnormal Sleep Pattern, Anhedonia, Anxiety, Auditory Hallucinations, Behavioral Changes, Change in Appetite, Change in Libido, Confusion, Depression, Difficulty Concentrating, Hallucinations, Homicidal Ideation, Hopelessness, Irritability, Memory Loss, Mood Swings, Panic Attacks, Paranoia, Suicidal Ideation, Visual Hallucinations, Tactile Hallucinations, Other - Endocrine Endocrine: absent: As Per HPI, Change in Body Appearance, Change in Libido, Cold Intolorance, Deepening of Voice, Excessive Sweating, Fatigue, Flushing, Heat Intolorance, Increase in Ring/Shoe/Hat Size, Palpitations, Polydipsia, Polyphagia, Polyuria, Other - Hematologic/Lymphatic Hematologic: absent: As Per HPI, Easy Bleeding, Easy Bruising, Lymphadenopathy, Other Past Patient History - Infectious Disease Hx of Infectious Diseases: MRSA - Past Social History Smoking Status: Heavy Smoker > 10 Cigarettes Daily - CARDIAC Hx Cardiac Disorders: Yes Hx Hypertension: Yes Other/Comment: IRREGULAR HEARTBEAT - PULMONARY Hx Respiratory Disorders: Yes Hx Chronic Obstructive Pulmonary Disease (COPD): Yes Other/Comment: HX OF PNEUMONIA - NEUROLOGICAL Hx Neurological Disorder: No - HEENT Hx HEENT Problems: Yes Other/Comment: RETINA - RENAL Hx Chronic Kidney Disease: No - ENDOCRINE/METABOLIC Hx Endocrine Disorders: No - HEMATOLOGICAL/ONCOLOGICAL Hx Blood Disorders: Yes Hx AIDS: No Hx Anemia: Yes Hx Human Immunodeficiency Virus (HIV): No - INTEGUMENTARY Hx Dermatological Problems: No - MUSCULOSKELETAL/RHEUMATOLOGICAL Hx Musculoskeletal Disorders: Yes Hx Arthritis: Yes Hx Back Pain: Yes Hx Falls: Yes Hx Osteoarthritis: Yes Other/Comment: MUSCLE WEAKNESS .LIMIT JOINT MOTION .RIGHT HAND WEAKNESS - GASTROINTESTINAL Hx Gastrointestinal Disorders: No Hx Constipation: Yes Other/Comment: HX OF CONSTIPATION - GENITOURINARY/GYNECOLOGICAL Hx Genitourinary Disorders: No - PSYCHIATRIC Hx Psychophysiologic Disorder: Yes Hx Anxiety: Yes Hx Depression: Yes Hx Substance Use: No - SURGICAL HISTORY Hx Surgeries: Yes Hx Arthroscopy: Yes (RIGHT KNEE) Other/Comment: SX FOR BOWEL OBSTRUCTION - ANESTHESIA Hx Anesthesia: Yes Hx Anesthesia Reactions: No Hx Malignant Hyperthermia: No Meds Allergies/Adverse Reactions: Allergies Allergy/AdvReac Type Severity Reaction Status Date / Time No Known Allergies Allergy Verified 02/16/17 08:07 - Medications Medications: Current Medications Acetaminophen (Tylenol 325mg Tab) 650 mg PO Q6 PRN PRN Reason: Fever >100.4 F Acetaminophen (Tylenol 325mg Tab) 650 mg PO Q4 PRN PRN Reason: Pain, moderate (4-7) Amlodipine Besylate (Norvasc) 5 mg PO DAILY [facility] Last Admin: 02/22/17 08:55 Dose: 5 mg Bacitracin (Bacitracin Oint) 1 applic TOP BID [facility] Last Admin: 02/22/17 08:52 Dose: 1 applic Baclofen (Lioresal) 20 mg PO TID [facility] Last Admin: 02/22/17 12:05 Dose: 20 mg Bisacodyl (Dulcolax) 10 mg [place] DAILY PRN PRN Reason: Constipation Docusate Sodium (Colace) 100 mg PO BID [facility] Last Admin: 02/22/17 08:52 Dose: 100 mg Duloxetine HCl (Cymbalta) 60 mg PO HS [facility] Last Admin: 02/21/17 22:12 Dose: 60 mg Enoxaparin Sodium (Lovenox) 40 mg [place] DAILY [facility] PRN Reason: Protocol Last Admin: 02/22/17 08:54 Dose: Not Given Ferrous Sulfate (Feosol) 325 mg PO BID [facility] Last Admin: 02/22/17 08:53 Dose: 325 mg Gabapentin (Neurontin) 600 mg PO TID [facility] Last Admin: 02/22/17 12:06 Dose: 600 mg Home Med (Buprenorphine Hcl/Naloxone Hcl [Suboxone 8 Mg-2 Mg Sl Film]) 1 each .ROUTE BID [facility] Last Admin: 02/22/17 08:52 Dose: 1 each Hydrocortisone (Cortef) 20 mg PO BID [facility] Last Admin: 02/22/17 08:53 Dose: 20 mg Vancomycin HCl 500 mg/ Sodium (Chloride) 100 mls @ 100 mls/hr IVPB Q12@0500, 1700 [facility] PRN Reason: Protocol Last Admin: 02/22/17 06:00 Dose: 100 mls/hr Ibuprofen (Motrin Tab) 600 mg PO Q6 PRN PRN Reason: Muscle spasm Last Admin: 02/22/17 12:11 Dose: 600 mg Levothyroxine Sodium (Synthroid) 100 mcg PO DAILY@0630 [facility] Last Admin: 02/22/17 06:04 Dose: 100 mcg Lisinopril (Zestril) 20 mg PO DAILY [facility] Last Admin: 02/22/17 08:55 Dose: 20 mg Lorazepam (Ativan) 1 mg PO BID [facility] Last Admin: 02/22/17 08:57 Dose: 1 mg Multivitamins/Minerals (Therapeutic-M Tab) 1 tab PO DAILY [facility] Last Admin: 02/22/17 08:55 Dose: 1 tab Nicotine (Nicoderm Cq) 1 patch TD DAILY [facility] Last Admin: 02/22/17 08:52 Dose: 1 patch Ondansetron HCl (Zofran Inj) 4 mg IVP Q6 PRN PRN Reason: Nausea/Vomiting Pantoprazole Sodium (Protonix Ec Tab) 40 mg PO DAILY [facility] Last Admin: 02/22/17 08:55 Dose: 40 mg Polyethylene Glycol (Miralax) 17 gm PO BID [facility] Last Admin: 02/22/17 08:54 Dose: 17 gm Quetiapine Fumarate (Seroquel) 100 mg PO HS [facility] Last Admin: 02/21/17 22:12 Dose: 100 mg Quetiapine Fumarate (Seroquel) 50 mg PO BID [facility] Last Admin: 02/22/17 08:55 Dose: 50 mg Sennosides (Senokot Tab) 8.6 mg PO BID [facility] Last Admin: 02/22/17 08:55 Dose: 8.6 mg Trazodone HCl (Desyrel) 100 mg PO HS PRN PRN Reason: Restlessness Last Admin: 02/20/17 22:19 Dose: 100 mg Physical Exam - Constitutional Appears: Non-toxic, Chronically Ill - Head Exam Head Exam: NORMOCEPHALIC - Eye Exam Eye Exam: PERRL. absent: Scleral icterus - ENT Exam ENT Exam: Mucous Membranes Dry, Normal External Ear Exam - Neck Exam Neck exam: Negative for: Lymphadenopathy - Respiratory Exam Respiratory Exam: Decreased Breath Sounds, Clear to Auscultation Bilateral - Cardiovascular Exam Cardiovascular Exam: REGULAR RHYTHM, +S1, +S2 - GI/Abdominal Exam GI & Abdominal Exam: Diminished Bowel Sounds, Soft. absent: Tenderness - Rectal Exam Rectal Exam: Deferred - Exam Exam: NORMAL INSPECTION - Extremities Exam Extremities exam: Positive for: pedal pulses present. Negative for: calf tenderness, pedal edema, tenderness Additional comments: deformity left leg noted - Back Exam Back exam: absent: CVA tenderness (L), CVA tenderness (R) - Neurological Exam Neurological exam: Alert, CN II-XII Intact, Oriented x3, Reflexes Normal - Psychiatric Exam Psychiatric exam: Normal Mood - Skin Skin Exam: Dry Additional comments: small skin tear left leg / mild erythema Results - Vital Signs Recent Vital Signs: Last Vital Signs Temp 98.2 F 02/22/17 08:34 Pulse 88 02/22/17 08:55 Resp 20 02/22/17 08:34 BP 124/79 02/22/17 08:55 Pulse Ox 97 02/22/17 08:34 - Labs Result Diagrams: 02/21/17 06:30 Labs: Laboratory Results - last 24 hr 02/21/17 02/22/17 06:30 07:15 Cortisol AM Sample 3.2 L Blood Type A POSITIVE Antibody Screen Negative BBK History Checked Patient has bt Assessment & Plan (1) Cellulitis of left lower leg Status: Acute (2) Closed fracture of left tibia and fibula Status: Acute (3) DVT prophylaxis Status: Acute (4) Anemia, iron deficiency Status: Chronic (5) Bipolar disorder Status: Chronic (6) COPD (chronic obstructive pulmonary disease) Status: Chronic (7) Cachexia Status: Chronic (8) Constipation Status: Chronic (9) Hypothyroidism Status: Chronic (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
--- NOTE | 2017-02-22 13:27 | CP.PCM.CON ---
History of Present Illness - History of Present Illness History of Present Illness: This is a 46 yr old female with h/o HTN,adrenal insuffuciency ,bipolar disorder and s/p a fall in april 2016, has nathanael in a nursing facility and admitted for TKR of left side and psychiatry consult called because pt has been upset and easily irritible that surgery is not done yet.pt is currently prescribed , cymbalta 60 mg daily and seroquel 50 mg bid and 100 mg hs Past Patient History - Infectious Disease Hx of Infectious Diseases: MRSA - Past Social History Smoking Status: Heavy Smoker > 10 Cigarettes Daily - CARDIAC Hx Cardiac Disorders: Yes Hx Hypertension: Yes Other/Comment: IRREGULAR HEARTBEAT - PULMONARY Hx Respiratory Disorders: Yes Hx Chronic Obstructive Pulmonary Disease (COPD): Yes Other/Comment: HX OF PNEUMONIA - NEUROLOGICAL Hx Neurological Disorder: No - HEENT Hx HEENT Problems: Yes Other/Comment: RETINA - RENAL Hx Chronic Kidney Disease: No - ENDOCRINE/METABOLIC Hx Endocrine Disorders: No - HEMATOLOGICAL/ONCOLOGICAL Hx Blood Disorders: Yes Hx AIDS: No Hx Anemia: Yes Hx Human Immunodeficiency Virus (HIV): No - INTEGUMENTARY Hx Dermatological Problems: No - MUSCULOSKELETAL/RHEUMATOLOGICAL Hx Musculoskeletal Disorders: Yes Hx Arthritis: Yes Hx Back Pain: Yes Hx Falls: Yes Hx Osteoarthritis: Yes Other/Comment: MUSCLE WEAKNESS .LIMIT JOINT MOTION .RIGHT HAND WEAKNESS - GASTROINTESTINAL Hx Gastrointestinal Disorders: No Hx Constipation: Yes Other/Comment: HX OF CONSTIPATION - GENITOURINARY/GYNECOLOGICAL Hx Genitourinary Disorders: No - PSYCHIATRIC Hx Psychophysiologic Disorder: Yes Hx Anxiety: Yes Hx Depression: Yes Hx Substance Use: No - SURGICAL HISTORY Hx Surgeries: Yes Hx Arthroscopy: Yes (RIGHT KNEE) Other/Comment: SX FOR BOWEL OBSTRUCTION - ANESTHESIA Hx Anesthesia: Yes Hx Anesthesia Reactions: No Hx Malignant Hyperthermia: No Meds Allergies/Adverse Reactions: Allergies Allergy/AdvReac Type Severity Reaction Status Date / Time No Known Allergies Allergy Verified 02/16/17 08:07 - Medications Medications: Current Medications Acetaminophen (Tylenol 325mg Tab) 650 mg PO Q6 PRN PRN Reason: Fever >100.4 F Acetaminophen (Tylenol 325mg Tab) 650 mg PO Q4 PRN PRN Reason: Pain, moderate (4-7) Amlodipine Besylate (Norvasc) 5 mg PO DAILY [facility] Last Admin: 02/22/17 08:55 Dose: 5 mg Bacitracin (Bacitracin Oint) 1 applic TOP BID [facility] Last Admin: 02/22/17 08:52 Dose: 1 applic Baclofen (Lioresal) 20 mg PO TID [facility] Last Admin: 02/22/17 12:05 Dose: 20 mg Bisacodyl (Dulcolax) 10 mg [place] DAILY PRN PRN Reason: Constipation Docusate Sodium (Colace) 100 mg PO BID [facility] Last Admin: 02/22/17 08:52 Dose: 100 mg Duloxetine HCl (Cymbalta) 60 mg PO HS [facility] Last Admin: 02/21/17 22:12 Dose: 60 mg Enoxaparin Sodium (Lovenox) 40 mg [place] DAILY [facility] PRN Reason: Protocol Last Admin: 02/22/17 08:54 Dose: Not Given Ferrous Sulfate (Feosol) 325 mg PO BID [facility] Last Admin: 02/22/17 08:53 Dose: 325 mg Gabapentin (Neurontin) 600 mg PO TID [facility] Last Admin: 02/22/17 12:06 Dose: 600 mg Home Med (Buprenorphine Hcl/Naloxone Hcl [Suboxone 8 Mg-2 Mg Sl Film]) 1 each .ROUTE BID [facility] Last Admin: 02/22/17 08:52 Dose: 1 each Hydrocortisone (Cortef) 20 mg PO BID [facility] Last Admin: 02/22/17 08:53 Dose: 20 mg Vancomycin HCl 750 mg/ Sodium (Chloride) 250 mls @ 250 mls/hr IVPB Q12H [facility] PRN Reason: Protocol Last Admin: 02/22/17 13:19 Dose: Not Given Ibuprofen (Motrin Tab) 600 mg PO Q6 PRN PRN Reason: Muscle spasm Last Admin: 02/22/17 12:11 Dose: 600 mg Levothyroxine Sodium (Synthroid) 100 mcg PO DAILY@0630 [facility] Last Admin: 02/22/17 06:04 Dose: 100 mcg Lisinopril (Zestril) 20 mg PO DAILY [facility] Last Admin: 02/22/17 08:55 Dose: 20 mg Lorazepam (Ativan) 1 mg PO BID [facility] Last Admin: 02/22/17 08:57 Dose: 1 mg Multivitamins/Minerals (Therapeutic-M Tab) 1 tab PO DAILY [facility] Last Admin: 02/22/17 08:55 Dose: 1 tab Nicotine (Nicoderm Cq) 1 patch TD DAILY [facility] Last Admin: 02/22/17 08:52 Dose: 1 patch Ondansetron HCl (Zofran Inj) 4 mg IVP Q6 PRN PRN Reason: Nausea/Vomiting Pantoprazole Sodium (Protonix Ec Tab) 40 mg PO DAILY [facility] Last Admin: 02/22/17 08:55 Dose: 40 mg Polyethylene Glycol (Miralax) 17 gm PO BID [facility] Last Admin: 02/22/17 08:54 Dose: 17 gm Quetiapine Fumarate (Seroquel) 100 mg PO HS [facility] Last Admin: 02/21/17 22:12 Dose: 100 mg Quetiapine Fumarate (Seroquel) 50 mg PO BID [facility] Last Admin: 02/22/17 08:55 Dose: 50 mg Sennosides (Senokot Tab) 8.6 mg PO BID [facility] Last Admin: 02/22/17 08:55 Dose: 8.6 mg Trazodone HCl (Desyrel) 100 mg PO HS PRN PRN Reason: Restlessness Last Admin: 02/20/17 22:19 Dose: 100 mg Results - Vital Signs Recent Vital Signs: Last Vital Signs Temp 98.2 F 02/22/17 08:34 Pulse 88 02/22/17 08:55 Resp 20 02/22/17 08:34 BP 124/79 02/22/17 08:55 Pulse Ox 97 02/22/17 08:34 - Labs Result Diagrams: 02/21/17 06:30 Labs: Laboratory Results - last 24 hr 02/21/17 02/22/17 06:30 07:15 Cortisol AM Sample 3.2 L Blood Type A POSITIVE Antibody Screen Negative BBK History Checked Patient has bt
--- NOTE | 2017-02-22 15:44 | PN ---
ENDO FOLLOWUP NOTE LOCATION: Room 709. SUBJECTIVE: This is a 46-year-old female with ongoing IV steroid management given and expected mild hyperglycemic acceleration as noted. She also has Bill's syndrome with supervening abnormal thyroid studies as noted. LABORATORY DATA: The latest chemistry showed a BUN of 41, sodium 146, potassium 4.2, chloride 105, CO2 of 31, glucose 79, and creatinine 0.6. Her latest thyroid study showed a T4 of 6.76 with a TSH of 7.09 and a repeat T4 of 1.05 as noted. ASSESSMENT AND PLAN: So, at this time, we will continue the same levothyroxine given as 100 mcg daily with metformin given as a higher dose, Solu-Medrol given as q.12 hours as ordered. We will obtain serial chemistries and supplement accordingly as needed. We will follow the patient. Shayna Russo MD
[2017-02-22 16:01] LABS: RBC URINE 1 /hpf (0-3); URINE BACTERIA RARE (<OCC); URINE BILIRUBIN NEGATIVE (NEGATIVE); URINE BLOOD NEGATIVE (NEGATIVE); URINE COLOR YELLOW (YELLOW); URINE GLUCOSE (UA) NEG (Normal); URINE KETONE NEGATIVE (NEGATIVE); URINE LEUKOCYTE ESTERASE NEG Leu/uL (Negative); URINE PROTEIN NEGATIVE (NEGATIVE); URINE UROBILINOGEN 0.2-1.0 mg/dL (0.2-1.0); WBC URINE 1 /hpf (0-5)
[2017-02-23 06:10] LABS: HEMATOCRIT 34.2 % (34.0-47.0); MEAN CELL VOLUME 100.8 fl (81.0-99.0); MEAN CORPUSCULAR HEMOGLOBIN 33.2 pg (27.0-31.0); MEAN CORPUSCULAR HGB CONC 32.9 g/dL (33.0-37.0); RED CELL DISTRIBUTION WIDTH 15.2 % (11.5-14.5); WHITE BLOOD COUNT 11.6 K/uL (4.8-10.8)
[2017-02-23 06:12] LABS: BLOOD UREA NITROGEN 13 mg/dl (7-17); CALCIUM 9.3 mg/dL (8.4-10.2); CARBON DIOXIDE 28 mmol/L (22-30); CHLORIDE 106 mmol/L (98-107); GFR AFRICAN-AMERICAN > 60; GLUCOSE,RANDOM 101 mg/dL (65-105); POTASSIUM 3.3 MMOL/L (3.6-5.0); SODIUM 147 mmol/l (132-148)
[2017-02-23] MEDS: Levothyroxine 100 MCG TAB PO SCH (06:19)
[2017-02-23] MEDS: POLYETHYLENE GLYCOL 3350 17 GM/Dose PACKET PO SCH ×2 (08:48→16:02)
[2017-02-23] MEDS: Bacitracin OINT 15GM TOP SCH ×2 (08:51→16:02)
[2017-02-23] MEDS: Patient's Own Med (Buprenorphine Hcl/Naloxone Hcl [Suboxone 8 Mg-2 Mg Sl Film] 1 EACH) SCH ×2 (08:52→16:10)
[2017-02-23] MEDS: Pantoprazole 40 mg EC Tab PO SCH (08:54)
[2017-02-23] MEDS: Multivitamin With Minerals Tab PO SCH (08:55)
--- NOTE | 2017-02-23 09:19 | CP.PCM.PN ---
Subjective - Date & Time of Evaluation Date of Evaluation: 02/23/17 Time of Evaluation: 08:15 - Subjective Subjective: NO CHEST PAIN OR SOB Objective - Vital Signs/Intake and Output Vital Signs (last 24 hours): Temp Pulse Resp BP Pulse Ox 97.3 F L 72 20 147/81 99 02/22/17 20:14 02/23/17 08:55 02/22/17 20:14 02/23/17 08:55 02/22/17 20:14 - Medications Medications: Current Medications Acetaminophen (Tylenol 325mg Tab) 650 mg PO Q6 PRN PRN Reason: Fever >100.4 F Acetaminophen (Tylenol 325mg Tab) 650 mg PO Q4 PRN PRN Reason: Pain, moderate (4-7) Amlodipine Besylate (Norvasc) 5 mg PO DAILY [facility] Last Admin: 02/23/17 08:54 Dose: 5 mg Bacitracin (Bacitracin Oint) 1 applic TOP BID [facility] Last Admin: 02/23/17 08:51 Dose: 1 applic Baclofen (Lioresal) 20 mg PO TID [facility] Last Admin: 02/23/17 08:53 Dose: 20 mg Bisacodyl (Dulcolax) 10 mg [place] DAILY PRN PRN Reason: Constipation Docusate Sodium (Colace) 100 mg PO BID [facility] Last Admin: 02/23/17 08:52 Dose: 100 mg Duloxetine HCl (Cymbalta) 60 mg PO HS [facility] Last Admin: 02/22/17 21:40 Dose: 60 mg Enoxaparin Sodium (Lovenox) 40 mg [place] DAILY [facility] PRN Reason: Protocol Last Admin: 02/22/17 08:54 Dose: Not Given Ferrous Sulfate (Feosol) 325 mg PO BID [facility] Last Admin: 02/23/17 08:53 Dose: 325 mg Gabapentin (Neurontin) 600 mg PO TID [facility] Last Admin: 02/23/17 08:53 Dose: 600 mg Home Med (Buprenorphine Hcl/Naloxone Hcl [Suboxone 8 Mg-2 Mg Sl Film]) 1 each .ROUTE BID [facility] Last Admin: 02/23/17 08:52 Dose: 1 each Hydrocortisone (Cortef) 20 mg PO BID [facility] Last Admin: 02/23/17 08:53 Dose: 20 mg Vancomycin HCl 750 mg/ Sodium (Chloride) 250 mls @ 250 mls/hr IVPB Q12@0500, 1700 [facility] PRN Reason: Protocol Last Admin: 02/23/17 04:49 Dose: 250 mls/hr Ibuprofen (Motrin Tab) 600 mg PO Q6 PRN PRN Reason: Muscle spasm Last Admin: 02/23/17 04:48 Dose: 600 mg Levothyroxine Sodium (Synthroid) 100 mcg PO DAILY@0630 [facility] Last Admin: 02/23/17 06:19 Dose: 100 mcg Lisinopril (Zestril) 20 mg PO DAILY [facility] Last Admin: 02/23/17 08:55 Dose: 20 mg Lorazepam (Ativan) 1 mg PO BID [facility] Last Admin: 02/23/17 08:58 Dose: 1 mg Multivitamins/Minerals (Therapeutic-M Tab) 1 tab PO DAILY [facility] Last Admin: 02/23/17 08:55 Dose: 1 tab Nicotine (Nicoderm Cq) 1 patch TD DAILY [facility] Last Admin: 02/23/17 08:48 Dose: 1 patch Ondansetron HCl (Zofran Inj) 4 mg IVP Q6 PRN PRN Reason: Nausea/Vomiting Pantoprazole Sodium (Protonix Ec Tab) 40 mg PO DAILY [facility] Last Admin: 02/23/17 08:54 Dose: 40 mg Polyethylene Glycol (Miralax) 17 gm PO BID [facility] Last Admin: 02/23/17 08:48 Dose: 17 gm Quetiapine Fumarate (Seroquel) 100 mg PO HS [facility] Last Admin: 02/22/17 21:42 Dose: 100 mg Quetiapine Fumarate (Seroquel) 50 mg PO BID [facility] Last Admin: 02/23/17 08:54 Dose: 50 mg Sennosides (Senokot Tab) 8.6 mg PO BID [facility] Last Admin: 02/23/17 08:54 Dose: 8.6 mg Trazodone HCl (Desyrel) 100 mg PO HS PRN PRN Reason: Restlessness Last Admin: 02/22/17 21:42 Dose: 100 mg - Labs Labs: 02/23/17 05:40 02/23/17 05:40 - Respiratory Exam Respiratory Exam: Clear to Ausculation Bilateral - Cardiovascular Exam Cardiovascular Exam: REGULAR RHYTHM, +S1, +S2 Assessment and Plan - Assessment and Plan (Free Text) Assessment: LEFT KNEE FRACTURE HYPERTENSION Plan: CONTINUE AMLODIPINE AND LISINOPRIL FOR LEFT KNEE SURGERY
--- NOTE | 2017-02-23 10:28 | CP.PCM.PN ---
Subjective - Date & Time of Evaluation Date of Evaluation: 02/23/17 Time of Evaluation: 10:26 - Subjective Subjective: Surgery cancelled today per Dr. Cole Patient has sustained abrasion to left lower leg noted yesterday by Dr. Cole. Patient offers no new complaints today. Aware surgery was cancelled. Objective - Vital Signs/Intake and Output Vital Signs (last 24 hours): Temp Pulse Resp BP Pulse Ox 97.3 F L 72 20 147/81 99 02/22/17 20:14 02/23/17 08:55 02/22/17 20:14 02/23/17 08:55 02/22/17 20:14 - Medications Medications: Current Medications Acetaminophen (Tylenol 325mg Tab) 650 mg PO Q6 PRN PRN Reason: Fever >100.4 F Acetaminophen (Tylenol 325mg Tab) 650 mg PO Q4 PRN PRN Reason: Pain, moderate (4-7) Amlodipine Besylate (Norvasc) 5 mg PO DAILY [facility] Last Admin: 02/23/17 08:54 Dose: 5 mg Bacitracin (Bacitracin Oint) 1 applic TOP BID [facility] Last Admin: 02/23/17 08:51 Dose: 1 applic Baclofen (Lioresal) 20 mg PO TID [facility] Last Admin: 02/23/17 08:53 Dose: 20 mg Bisacodyl (Dulcolax) 10 mg [place] DAILY PRN PRN Reason: Constipation Docusate Sodium (Colace) 100 mg PO BID [facility] Last Admin: 02/23/17 08:52 Dose: 100 mg Duloxetine HCl (Cymbalta) 60 mg PO HS [facility] Last Admin: 02/22/17 21:40 Dose: 60 mg Enoxaparin Sodium (Lovenox) 40 mg SC DAILY [facility] PRN Reason: Protocol Last Admin: 02/22/17 08:54 Dose: Not Given Ferrous Sulfate (Feosol) 325 mg PO BID [facility] Last Admin: 02/23/17 08:53 Dose: 325 mg Gabapentin (Neurontin) 600 mg PO TID [facility] Last Admin: 02/23/17 08:53 Dose: 600 mg Home Med (Buprenorphine Hcl/Naloxone Hcl [Suboxone 8 Mg-2 Mg Sl Film]) 1 each .ROUTE BID [facility] Last Admin: 02/23/17 08:52 Dose: 1 each Hydrocortisone (Cortef) 20 mg PO BID [facility] Last Admin: 10/09/17 08:53 Dose: 20 mg Vancomycin HCl 750 mg/ Sodium (Chloride) 250 mls @ 250 mls/hr IVPB Q12@0500, 1700 [facility] PRN Reason: Protocol Last Admin: 02/23/17 04:49 Dose: 250 mls/hr Ibuprofen (Motrin Tab) 600 mg PO Q6 PRN PRN Reason: Muscle spasm Last Admin: 02/23/17 04:48 Dose: 600 mg Levothyroxine Sodium (Synthroid) 100 mcg PO DAILY@0630 [facility] Last Admin: 02/23/17 06:19 Dose: 100 mcg Lisinopril (Zestril) 20 mg PO DAILY [facility] Last Admin: 02/23/17 08:55 Dose: 20 mg Lorazepam (Ativan) 1 mg PO BID [facility] Last Admin: 02/23/17 08:58 Dose: 1 mg Multivitamins/Minerals (Therapeutic-M Tab) 1 tab PO DAILY [facility] Last Admin: 02/23/17 08:55 Dose: 1 tab Nicotine (Nicoderm Cq) 1 patch TD DAILY [facility] Last Admin: 02/23/17 08:48 Dose: 1 patch Ondansetron HCl (Zofran Inj) 4 mg IVP Q6 PRN PRN Reason: Nausea/Vomiting Pantoprazole Sodium (Protonix Ec Tab) 40 mg PO DAILY [facility] Last Admin: 02/23/17 08:54 Dose: 40 mg Polyethylene Glycol (Miralax) 17 gm PO BID [facility] Last Admin: 02/23/17 08:48 Dose: 17 gm Quetiapine Fumarate (Seroquel) 100 mg PO HS [facility] Last Admin: 02/22/17 21:42 Dose: 100 mg Quetiapine Fumarate (Seroquel) 50 mg PO BID [facility] Last Admin: 02/23/17 08:54 Dose: 50 mg Sennosides (Senokot Tab) 8.6 mg PO BID [facility] Last Admin: 02/23/17 08:54 Dose: 8.6 mg Trazodone HCl (Desyrel) 100 mg PO HS PRN PRN Reason: Restlessness Last Admin: 02/22/17 21:42 Dose: 100 mg - Labs Labs: 02/23/17 05:40 02/23/17 05:40 - Extremities Exam Additional comments: Patient calm, pleasant LLE: noted 3cm x 0.5cm deep abrasion to left anterior lower leg with area of surrounding erythema approx 3cm around all sides of wound. Awaiting wound cx. TTP to same. No erythema to knee, continued deformity, no effusion. Calves soft NT neg homans sensation intact. Assessment and Plan (1) Cellulitis of left lower leg Assessment & Plan: surgery to be delayed until wound healed ID consult appreciated, on vanco f/u cultures repeat u/a negative d/w Dr. Cole, agrees with above Status: Acute (2) Closed fracture of left tibia and fibula Assessment & Plan: for TKR/ORIF when wound healed Status: Acute
[2017-02-23] MEDS ORDERED: Potassium Chloride 20 mEq ER Tab PO ONE (11:24)
--- NOTE | 2017-02-23 15:10 | CP.PCM.PN ---
Subjective - Date & Time of Evaluation Date of Evaluation: 02/23/17 Time of Evaluation: 15:10 - Subjective Subjective: I D NOTE SAW PATIENT ON 02/22/17 HAVE REVIEWED PATIENT c DEFORMITY OF LLE PATIENT HAS ABRASION RECEIVING IV VANCOMCIN NEEDS TKR/ORIF AFTER WOUND HEALED Objective - Vital Signs/Intake and Output Vital Signs (last 24 hours): Temp Pulse Resp BP Pulse Ox 97.4 F L 72 20 147/81 94 L 02/23/17 07:00 02/23/17 08:55 02/23/17 07:00 02/23/17 08:55 02/23/17 07:00 - Medications Medications: Current Medications Acetaminophen (Tylenol 325mg Tab) 650 mg PO Q6 PRN PRN Reason: Fever >100.4 F Acetaminophen (Tylenol 325mg Tab) 650 mg PO Q4 PRN PRN Reason: Pain, moderate (4-7) Amlodipine Besylate (Norvasc) 5 mg PO DAILY [facility] Last Admin: 02/23/17 08:54 Dose: 5 mg Bacitracin (Bacitracin Oint) 1 applic TOP BID [facility] Last Admin: 02/23/17 08:51 Dose: 1 applic Baclofen (Lioresal) 20 mg PO TID [facility] Last Admin: 02/23/17 12:01 Dose: 20 mg Bisacodyl (Dulcolax) 10 mg [place] DAILY PRN PRN Reason: Constipation Docusate Sodium (Colace) 100 mg PO BID [facility] Last Admin: 02/23/17 08:52 Dose: 100 mg Duloxetine HCl (Cymbalta) 60 mg PO HS [facility] Last Admin: 02/22/17 21:40 Dose: 60 mg Enoxaparin Sodium (Lovenox) 40 mg SC DAILY [facility] PRN Reason: Protocol Last Admin: 02/22/17 08:54 Dose: Not Given Ferrous Sulfate (Feosol) 325 mg PO BID [facility] Last Admin: 02/23/17 08:53 Dose: 325 mg Gabapentin (Neurontin) 600 mg PO TID [facility] Last Admin: 02/23/17 12:01 Dose: 600 mg Home Med (Buprenorphine Hcl/Naloxone Hcl [Suboxone 8 Mg-2 Mg Sl Film]) 1 each .ROUTE BID [facility] Last Admin: 02/23/17 08:52 Dose: 1 each Hydrocortisone (Cortef) 20 mg PO BID [facility] Last Admin: 02/23/17 08:53 Dose: 20 mg Vancomycin HCl 750 mg/ Sodium (Chloride) 250 mls @ 250 mls/hr IVPB Q12@0500, 1700 [facility] PRN Reason: Protocol Last Admin: 02/23/17 04:49 Dose: 250 mls/hr Ibuprofen (Motrin Tab) 600 mg PO Q6 PRN PRN Reason: Muscle spasm Last Admin: 02/23/17 12:01 Dose: 600 mg Levothyroxine Sodium (Synthroid) 100 mcg PO DAILY@0630 [facility] Last Admin: 02/23/17 06:19 Dose: 100 mcg Lisinopril (Zestril) 20 mg PO DAILY [facility] Last Admin: 02/23/17 08:55 Dose: 20 mg Lorazepam (Ativan) 1 mg PO BID [facility] Last Admin: 02/23/17 08:58 Dose: 1 mg Multivitamins/Minerals (Therapeutic-M Tab) 1 tab PO DAILY [facility] Last Admin: 02/23/17 08:55 Dose: 1 tab Nicotine (Nicoderm Cq) 1 patch TD DAILY [facility] Last Admin: 02/23/17 08:48 Dose: 1 patch Ondansetron HCl (Zofran Inj) 4 mg IVP Q6 PRN PRN Reason: Nausea/Vomiting Pantoprazole Sodium (Protonix Ec Tab) 40 mg PO DAILY [facility] Last Admin: 02/23/17 08:54 Dose: 40 mg Polyethylene Glycol (Miralax) 17 gm PO BID [facility] Last Admin: 02/23/17 08:48 Dose: 17 gm Quetiapine Fumarate (Seroquel) 100 mg PO HS [facility] Last Admin: 02/22/17 21:42 Dose: 100 mg Quetiapine Fumarate (Seroquel) 50 mg PO BID [facility] Last Admin: 02/23/17 08:54 Dose: 50 mg Sennosides (Senokot Tab) 8.6 mg PO BID [facility] Last Admin: 02/23/17 08:54 Dose: 8.6 mg Trazodone HCl (Desyrel) 100 mg PO HS PRN PRN Reason: Restlessness Last Admin: 02/22/17 21:42 Dose: 100 mg - Labs Labs: 02/23/17 05:40 02/23/17 05:40
--- NOTE | 2017-02-23 16:13 | PN ---
ENDO FOLLOWUP NOTE Room #709 HISTORY: This is a 46-year-old female with recent surgical correction for a displaced patella fracture with underlying poorly healing tibial fracture and is now undergoing physical, occupational therapy as noted thereof. She is also being followed closely for metabolic management because of underlying hypothyroidism and hypoadrenalism. Her latest chemistry showed a BUN of 13, sodium 147, potassium 3.3, chloride 106, CO2 28, glucose 101, and creatinine 0.6. Her cortisol level is 3.2, which is still very low at this time and the TSH is 7.09 with a T4 of 6.76. So at this time, we will once again repeat the thyroid studies and determine the need for dose adjustment accordingly, especially in the light of underlying physical stressors as noted. We will also repeat the serum cortisol level and we will modify her hydrocortisone accordingly as needed. For this time, we will continue her levothyroxine given as 100 mcg daily as ordered. We will also continue the hydrocortisone given as 20 mg p.o. b.i.d. after meals as ordered. We will titrate incremental as indicated to optimize metabolic control. We will follow and advise accordingly. Shayna Russo MD
[2017-02-24] MEDS: Levothyroxine 100 MCG TAB PO SCH (06:22)
[2017-02-24 06:30] LABS: ALB/GLOB RATIO 1.5 (1.0-2.1); ALKALINE PHOSPHATASE 48 U/L (38-126); ALT/SGPT 26 U/L (9-52); AST/SGOT 16 U/L (14-36); BILIRUBIN,TOTAL 0.2 mg/dl (0.2-1.3); BLOOD UREA NITROGEN 13 mg/dl (7-17); CALCIUM 9.1 mg/dL (8.4-10.2); CARBON DIOXIDE 25 mmol/L (22-30); CHLORIDE 108 mmol/L (98-107); GFR AFRICAN-AMERICAN > 60; GLUCOSE,RANDOM 115 mg/dL (65-105); POTASSIUM 3.1 MMOL/L (3.6-5.0); SODIUM 143 mmol/l (132-148); TOTAL PROTEIN 5.5 G/DL (6.3-8.2)
[2017-02-24 06:43] LABS: T4 6.55 ug/dl (5.5-11.0)
[2017-02-24 06:57] LABS: THYROID STIMULATING HORMONE 4.37 mIU/ML (0.46-4.68)
--- NOTE | 2017-02-24 08:35 | CP.PCM.PN ---
<Anh Dean - Last Filed: 02/24/17 13:13> Subjective - Date & Time of Evaluation Date of Evaluation: 02/24/17 Time of Evaluation: 08:35 - Subjective Subjective: 46 y/o female seen at bedside this morning in TCU. Pt is currently receiving IV Vancomycin for left LE cellulitis with abrasion. Pt has been scheduled on multiple different days for left TKR surgery with Dr. Cole but it has been delayed due to presence of cellulitis and concern for infection. Pt states she bumped her leg on her wheelchair two days ago and sustained a new wound to the left lower leg. Pt states she is experiencing her normal level of constipation but overall feels alright today. Pt denies any acute events overnight. Pt denies any F/C/N/V/SOB/CP at this time. Objective - Vital Signs/Intake and Output Vital Signs (last 24 hours): Temp Pulse Resp BP Pulse Ox 97.9 F 68 20 137/83 99 02/24/17 08:10 02/24/17 08:10 02/24/17 08:10 02/24/17 08:10 02/24/17 08:10 - Medications Medications: Current Medications Acetaminophen (Tylenol 325mg Tab) 650 mg PO Q6 PRN PRN Reason: Fever >100.4 F Acetaminophen (Tylenol 325mg Tab) 650 mg PO Q4 PRN PRN Reason: Pain, moderate (4-7) Amlodipine Besylate (Norvasc) 5 mg PO DAILY [facility] Last Admin: 02/23/17 08:54 Dose: 5 mg Bacitracin (Bacitracin Oint) 1 applic TOP BID [facility] Last Admin: 02/23/17 16:02 Dose: 1 applic Baclofen (Lioresal) 20 mg PO TID [facility] Last Admin: 02/23/17 16:02 Dose: 20 mg Bisacodyl (Dulcolax) 10 mg [place] DAILY PRN PRN Reason: Constipation Docusate Sodium (Colace) 100 mg PO BID [facility] Last Admin: 02/23/17 16:02 Dose: 100 mg Duloxetine HCl (Cymbalta) 60 mg PO HS [facility] Last Admin: 02/23/17 21:03 Dose: 60 mg Enoxaparin Sodium (Lovenox) 40 mg SC DAILY [facility] PRN Reason: Protocol Last Admin: 02/22/17 08:54 Dose: Not Given Ferrous Sulfate (Feosol) 325 mg PO BID [facility] Last Admin: 02/23/17 16:02 Dose: 325 mg Gabapentin (Neurontin) 600 mg PO TID [facility] Last Admin: 02/23/17 16:02 Dose: 600 mg Home Med (Buprenorphine Hcl/Naloxone Hcl [Suboxone 8 Mg-2 Mg Sl Film]) 1 each .ROUTE BID [facility] Last Admin: 02/23/17 16:10 Dose: 1 each Hydrocortisone (Cortef) 20 mg PO BID [facility] Last Admin: 02/23/17 16:02 Dose: 20 mg Vancomycin HCl 750 mg/ Sodium (Chloride) 250 mls @ 250 mls/hr IVPB Q12@0500, 1700 [facility] PRN Reason: Protocol Last Admin: 02/24/17 04:37 Dose: 250 mls/hr Ibuprofen (Motrin Tab) 600 mg PO Q6 PRN PRN Reason: Muscle spasm Last Admin: 02/24/17 04:39 Dose: 600 mg Levothyroxine Sodium (Synthroid) 100 mcg PO DAILY@0630 [facility] Last Admin: 02/24/17 06:22 Dose: 100 mcg Lisinopril (Zestril) 20 mg PO DAILY [facility] Last Admin: 02/23/17 08:55 Dose: 20 mg Lorazepam (Ativan) 1 mg PO BID [facility] Last Admin: 02/23/17 16:02 Dose: 1 mg Multivitamins/Minerals (Therapeutic-M Tab) 1 tab PO DAILY [facility] Last Admin: 02/23/17 08:55 Dose: 1 tab Nicotine (Nicoderm Cq) 1 patch TD DAILY [facility] Last Admin: 02/23/17 08:48 Dose: 1 patch Ondansetron HCl (Zofran Inj) 4 mg IVP Q6 PRN PRN Reason: Nausea/Vomiting Pantoprazole Sodium (Protonix Ec Tab) 40 mg PO DAILY [facility] Last Admin: 02/23/17 08:54 Dose: 40 mg Polyethylene Glycol (Miralax) 17 gm PO BID [facility] Last Admin: 02/23/17 16:02 Dose: 17 gm Quetiapine Fumarate (Seroquel) 100 mg PO HS [facility] Last Admin: 02/23/17 21:03 Dose: 100 mg Quetiapine Fumarate (Seroquel) 50 mg PO BID [facility] Last Admin: 02/23/17 16:03 Dose: 50 mg Sennosides (Senokot Tab) 8.6 mg PO BID [facility] Last Admin: 02/23/17 16:03 Dose: 8.6 mg Trazodone HCl (Desyrel) 100 mg PO HS PRN PRN Reason: Restlessness Last Admin: 02/23/17 21:03 Dose: 100 mg - Labs Labs: 02/23/17 05:40 02/24/17 05:30 - Constitutional Appears: Well, Non-toxic, No Acute Distress, Older Than Stated Age, Cachectic - Head Exam Head Exam: ATRAUMATIC, NORMOCEPHALIC - Eye Exam Eye Exam: EOMI, Normal appearance, PERRL Pupil Exam: PERRL - ENT Exam ENT Exam: Mucous Membranes Moist - Neck Exam Neck Exam: Full ROM, Normal Inspection Additional comments: supple, non tender, no JVD - Respiratory Exam Respiratory Exam: NORMAL BREATHING PATTERN Additional comments: no wheezing, no rales - Cardiovascular Exam Cardiovascular Exam: REGULAR RHYTHM, +S1, +S2 Additional comments: no JVD, no murmur, no gallop - GI/Abdominal Exam GI & Abdominal Exam: Soft, Normal Bowel Sounds Additional comments: non tender - Rectal Exam Rectal Exam: Deferred - Exam Exam: absent: NORMAL INSPECTION - Extremities Exam Extremities Exam: Normal Capillary Refill Additional comments: left distal anterior leg exhibits 3 cm x 0.5cm x 0.1cm open wound secondary to abrasion. Surrounding skin is slightly warm and erythematous. No ascending cellulitis, no drainage, no purulence, no malodor. - Back Exam Back Exam: NORMAL INSPECTION - Neurological Exam Neurological Exam: Alert, Awake, Oriented x3 - Psychiatric Exam Psychiatric exam: Normal Affect, Normal Mood Assessment and Plan (1) Closed fracture of left tibia and fibula Assessment & Plan: -subacute fracture due to fall in Apr 2016 -cardiac clearance in chart -vascular on board and ok with surgery -surgery delayed due to cellulitic changes of LLE with distal leg wound, for which pt is receiving IV Vanco -Pt to go to OR for left TKR with Dr. Cole once wound has healed and cellulitis resolved Status: Acute (2) Cellulitis of left lower leg Assessment & Plan: -empiric tx with Vanco per ID -wound culture from distal anterior leg wound results pending -changed dressing to LLE distal leg wound with bacitracin, Telfa, and DSD -continue to monitor cellulitis -last WBC 11.6 -hold off on elective TKR surgery until resolved Status: Acute (3) Bill syndrome Assessment & Plan: -pt on at home regimen of hydrocortisone 20mg po BID due to elevated cortisol levels -continue levothyroxine 100mcg daily -endocrine on board -will monitor cortisol, TSH, T3 and T4 levels Status: Chronic (4) Cachexia Assessment & Plan: BMI at 14.6 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 (5) DVT prophylaxis Assessment & Plan: -Continue Lovenox 40mg SC daily -Continue SCDs Status: Acute (6) Constipation Assessment & Plan: -continue Sennosides, Dulcolax, Docusate and polyethylene glycol Status: Chronic (7) COPD (chronic obstructive pulmonary disease) Assessment & Plan: -O2 saturation good, no need for additional O2 currently -pt asymptomatic at this time -no acute infiltrates noted on CXR, no active disease Status: Chronic (8) Anemia, iron deficiency Assessment & Plan: -controlled at this time -continue ferrous sulfate supplements Status: Chronic (9) Bipolar disorder Assessment & Plan: -continue psych meds -no suicidal ideations or depression Status: Chronic (10) Hypertension Assessment & Plan: HTN controlled at this time -continue home meds Status: Chronic (11) Neuropathy Assessment & Plan: -Continue gabapentin and suboxone Status: Chronic (12) Gait instability Assessment & Plan: -physical therapy evaluation following left TKR surgery -pt to go to [facility] post-op for rehabilitation Status: Acute (13) Hypokalemia Assessment & Plan: K+ today at 3.1 pt given potassium chloride single dose will continue to monitor K+ Status: Acute <Tala Srinivasan - Last Filed: 02/24/17 15:31> Objective - Vital Signs/Intake and Output Vital Signs (last 24 hours): Temp Pulse Resp BP Pulse Ox 97.9 F 68 20 137/83 99 02/24/17 09:00 02/24/17 09:00 02/24/17 09:00 02/24/17 09:00 02/24/17 09:00 - Medications Medications: Current Medications Acetaminophen (Tylenol 325mg Tab) 650 mg PO Q6 PRN PRN Reason: Fever >100.4 F Acetaminophen (Tylenol 325mg Tab) 650 mg PO Q4 PRN PRN Reason: Pain, moderate (4-7) Amlodipine Besylate (Norvasc) 5 mg PO DAILY [facility] Last Admin: 02/24/17 08:54 Dose: 5 mg Bacitracin (Bacitracin Oint) 1 applic TOP BID [facility] Last Admin: 02/24/17 08:59 Dose: 1 applic Baclofen (Lioresal) 20 mg PO TID [facility] Last Admin: 02/24/17 12:46 Dose: 20 mg Bisacodyl (Dulcolax) 10 mg [place] DAILY PRN PRN Reason: Constipation Docusate Sodium (Colace) 100 mg PO BID [facility] Last Admin: 02/24/17 08:55 Dose: 100 mg Duloxetine HCl (Cymbalta) 60 mg PO HS [facility] Last Admin: 02/23/17 21:03 Dose: 60 mg Enoxaparin Sodium (Lovenox) 40 mg SC DAILY [facility] PRN Reason: Protocol Last Admin: 02/22/17 08:54 Dose: Not Given Ferrous Sulfate (Feosol) 325 mg PO BID [facility] Last Admin: 02/24/17 08:56 Dose: 325 mg Gabapentin (Neurontin) 600 mg PO TID [facility] Last Admin: 02/24/17 12:46 Dose: 600 mg Home Med (Buprenorphine Hcl/Naloxone Hcl [Suboxone 8 Mg-2 Mg Sl Film]) 1 each .ROUTE BID [facility] Last Admin: 02/24/17 08:53 Dose: 1 each Hydrocortisone (Cortef) 20 mg PO BID [facility] Last Admin: 02/24/17 08:55 Dose: 20 mg Vancomycin HCl 750 mg/ Sodium (Chloride) 250 mls @ 250 mls/hr IVPB Q12@0500, 1700 [facility] PRN Reason: Protocol Last Admin: 02/24/17 04:37 Dose: 250 mls/hr Cefepime HCl 1 gm/ Sodium (Chloride) 100 mls @ 100 mls/hr IVPB Q12 [facility] PRN Reason: Protocol Ibuprofen (Motrin Tab) 600 mg PO Q6 PRN PRN Reason: Muscle spasm Last Admin: 02/24/17 11:34 Dose: 600 mg Levothyroxine Sodium (Synthroid) 100 mcg PO DAILY@0630 [facility] Last Admin: 02/24/17 06:22 Dose: 100 mcg Lisinopril (Zestril) 20 mg PO DAILY [facility] Last Admin: 02/24/17 08:54 Dose: 20 mg Lorazepam (Ativan) 1 mg PO BID [facility] Last Admin: 02/24/17 08:58 Dose: 1 mg Multivitamins/Minerals (Therapeutic-M Tab) 1 tab PO DAILY [facility] Last Admin: 02/24/17 08:54 Dose: 1 tab Nicotine (Nicoderm Cq) 1 patch TD DAILY [facility] Last Admin: 02/24/17 08:57 Dose: 1 patch Ondansetron HCl (Zofran Inj) 4 mg IVP Q6 PRN PRN Reason: Nausea/Vomiting Pantoprazole Sodium (Protonix Ec Tab) 40 mg PO DAILY [facility] Last Admin: 02/24/17 08:55 Dose: 40 mg Polyethylene Glycol (Miralax) 17 gm PO BID [facility] Last Admin: 02/24/17 08:56 Dose: 17 gm Quetiapine Fumarate (Seroquel) 100 mg PO HS [facility] Last Admin: 02/23/17 21:03 Dose: 100 mg Quetiapine Fumarate (Seroquel) 50 mg PO BID [facility] Last Admin: 02/24/17 08:55 Dose: 50 mg Sennosides (Senokot Tab) 8.6 mg PO BID [facility] Last Admin: 02/24/17 08:55 Dose: 8.6 mg Trazodone HCl (Desyrel) 100 mg PO HS PRN PRN Reason: Restlessness Last Admin: 02/24/17 08:55 Dose: 100 mg - Labs Labs: 02/23/17 05:40 02/24/17 05:30 Attending/Attestation - Attestation I have personally seen and examined this patient.: Yes I have fully participated in the care of the patient.: Yes I have reviewed all pertinent clinical information, including history, physical exam and plan: Yes Notes (Text): Wound looks better Pt is afebrile Plan for Ortho Surgery tomorrow by DR Cole NPO from [facility] CBC, CMP, PT, PTT , Type and Cross in am
--- NOTE | 2017-02-24 08:38 | CP.PCM.PN ---
Subjective - Date & Time of Evaluation Date of Evaluation: 02/24/17 Time of Evaluation: 08:15 - Subjective Subjective: NO COMPLAINTS Objective - Vital Signs/Intake and Output Vital Signs (last 24 hours): Temp Pulse Resp BP Pulse Ox 97.9 F 68 20 137/83 99 02/24/17 08:10 02/24/17 08:10 02/24/17 08:10 02/24/17 08:10 02/24/17 08:10 - Medications Medications: Current Medications Acetaminophen (Tylenol 325mg Tab) 650 mg PO Q6 PRN PRN Reason: Fever >100.4 F Acetaminophen (Tylenol 325mg Tab) 650 mg PO Q4 PRN PRN Reason: Pain, moderate (4-7) Amlodipine Besylate (Norvasc) 5 mg PO DAILY [facility] Last Admin: 02/23/17 08:54 Dose: 5 mg Bacitracin (Bacitracin Oint) 1 applic TOP BID [facility] Last Admin: 02/23/17 16:02 Dose: 1 applic Baclofen (Lioresal) 20 mg PO TID [facility] Last Admin: 02/23/17 16:02 Dose: 20 mg Bisacodyl (Dulcolax) [address] DAILY PRN PRN Reason: Constipation Docusate Sodium (Colace) 100 mg PO BID [facility] Last Admin: 02/23/17 16:02 Dose: 100 mg Duloxetine HCl (Cymbalta) 60 mg PO HS [facility] Last Admin: 02/23/17 21:03 Dose: 60 mg Enoxaparin Sodium (Lovenox) 40 mg SC DAILY [facility] PRN Reason: Protocol Last Admin: 02/22/17 08:54 Dose: Not Given Ferrous Sulfate (Feosol) 325 mg PO BID [facility] Last Admin: 02/23/17 16:02 Dose: 325 mg Gabapentin (Neurontin) 600 mg PO TID [facility] Last Admin: 02/23/17 16:02 Dose: 600 mg Home Med (Buprenorphine Hcl/Naloxone Hcl [Suboxone 8 Mg-2 Mg Sl Film]) 1 each .ROUTE BID [facility] Last Admin: 02/23/17 16:10 Dose: 1 each Hydrocortisone (Cortef) 20 mg PO BID [facility] Last Admin: 02/23/17 16:02 Dose: 20 mg Vancomycin HCl 750 mg/ Sodium (Chloride) 250 mls @ 250 mls/hr IVPB Q12@0500, 1700 [facility] PRN Reason: Protocol Last Admin: 02/24/17 04:37 Dose: 250 mls/hr Ibuprofen (Motrin Tab) 600 mg PO Q6 PRN PRN Reason: Muscle spasm Last Admin: 02/24/17 04:39 Dose: 600 mg Levothyroxine Sodium (Synthroid) 100 mcg PO DAILY@0630 [facility] Last Admin: 02/24/17 06:22 Dose: 100 mcg Lisinopril (Zestril) 20 mg PO DAILY [facility] Last Admin: 02/23/17 08:55 Dose: 20 mg Lorazepam (Ativan) 1 mg PO BID [facility] Last Admin: 02/23/17 16:02 Dose: 1 mg Multivitamins/Minerals (Therapeutic-M Tab) 1 tab PO DAILY [facility] Last Admin: 02/23/17 08:55 Dose: 1 tab Nicotine (Nicoderm Cq) 1 patch TD DAILY [facility] Last Admin: 02/23/17 08:48 Dose: 1 patch Ondansetron HCl (Zofran Inj) 4 mg IVP Q6 PRN PRN Reason: Nausea/Vomiting Pantoprazole Sodium (Protonix Ec Tab) 40 mg PO DAILY [facility] Last Admin: 02/23/17 08:54 Dose: 40 mg Polyethylene Glycol (Miralax) 17 gm PO BID [facility] Last Admin: 02/23/17 16:02 Dose: 17 gm Quetiapine Fumarate (Seroquel) 100 mg PO HS [facility] Last Admin: 02/23/17 21:03 Dose: 100 mg Quetiapine Fumarate (Seroquel) 50 mg PO BID [facility] Last Admin: 02/23/17 16:03 Dose: 50 mg Sennosides (Senokot Tab) 8.6 mg PO BID [facility] Last Admin: 02/23/17 16:03 Dose: 8.6 mg Trazodone HCl (Desyrel) 100 mg PO HS PRN PRN Reason: Restlessness Last Admin: 02/23/17 21:03 Dose: 100 mg - Labs Labs: 02/23/17 05:40 02/24/17 05:30 - Respiratory Exam Respiratory Exam: Clear to Ausculation Bilateral - Cardiovascular Exam Cardiovascular Exam: REGULAR RHYTHM, +S1, +S2 Assessment and Plan - Assessment and Plan (Free Text) Assessment: LEFT KNEE FRACTURE AND DEFORMITY HYPERTENSION CELLULITIS AND ABRASION Plan: CONTINUE ANTIBIOTICS, LISINOPRIL AND AMLODIPINE
[2017-02-24] MEDS: Patient's Own Med (Buprenorphine Hcl/Naloxone Hcl [Suboxone 8 Mg-2 Mg Sl Film] 1 EACH) SCH ×2 (08:53→16:37)
[2017-02-24] MEDS: Multivitamin With Minerals Tab PO SCH (08:54)
[2017-02-24] MEDS: Pantoprazole 40 mg EC Tab PO SCH (08:55)
[2017-02-24] MEDS: POLYETHYLENE GLYCOL 3350 17 GM/Dose PACKET PO SCH ×2 (08:56→16:05)
[2017-02-24] MEDS: Bacitracin OINT 15GM TOP SCH ×2 (08:59→16:05)
--- NOTE | 2017-02-24 09:12 | CP.PCM.PN ---
Subjective - Date & Time of Evaluation Date of Evaluation: 02/24/17 Time of Evaluation: 09:10 - Subjective Subjective: Patient offers no complaints Objective - Vital Signs/Intake and Output Vital Signs (last 24 hours): Temp Pulse Resp BP Pulse Ox 97.9 F 68 20 137/83 99 02/24/17 08:10 02/24/17 08:54 02/24/17 08:10 02/24/17 08:54 02/24/17 08:10 - Medications Medications: Current Medications Acetaminophen (Tylenol 325mg Tab) 650 mg PO Q6 PRN PRN Reason: Fever >100.4 F Acetaminophen (Tylenol 325mg Tab) 650 mg PO Q4 PRN PRN Reason: Pain, moderate (4-7) Amlodipine Besylate (Norvasc) 5 mg PO DAILY [facility] Last Admin: 02/24/17 08:54 Dose: 5 mg Bacitracin (Bacitracin Oint) 1 applic TOP BID [facility] Last Admin: 02/24/17 08:59 Dose: 1 applic Baclofen (Lioresal) 20 mg PO TID [facility] Last Admin: 02/24/17 08:55 Dose: 20 mg Bisacodyl (Dulcolax) 10 mg [place] DAILY PRN PRN Reason: Constipation Docusate Sodium (Colace) 100 mg PO BID [facility] Last Admin: 02/24/17 08:55 Dose: 100 mg Duloxetine HCl (Cymbalta) 60 mg PO HS [facility] Last Admin: 02/23/17 21:03 Dose: 60 mg Enoxaparin Sodium (Lovenox) 40 mg SC DAILY [facility] PRN Reason: Protocol Last Admin: 02/22/17 08:54 Dose: Not Given Ferrous Sulfate (Feosol) 325 mg PO BID [facility] Last Admin: 02/24/17 08:56 Dose: 325 mg Gabapentin (Neurontin) 600 mg PO TID [facility] Last Admin: 02/24/17 08:54 Dose: 600 mg Home Med (Buprenorphine Hcl/Naloxone Hcl [Suboxone 8 Mg-2 Mg Sl Film]) 1 each .ROUTE BID [facility] Last Admin: 02/24/17 08:53 Dose: 1 each Hydrocortisone (Cortef) 20 mg PO BID [facility] Last Admin: 02/24/17 08:55 Dose: 20 mg Vancomycin HCl 750 mg/ Sodium (Chloride) 250 mls @ 250 mls/hr IVPB Q12@0500, 1700 [facility] PRN Reason: Protocol Last Admin: 02/24/17 04:37 Dose: 250 mls/hr Ibuprofen (Motrin Tab) 600 mg PO Q6 PRN PRN Reason: Muscle spasm Last Admin: 02/24/17 04:39 Dose: 600 mg Levothyroxine Sodium (Synthroid) 100 mcg PO DAILY@0630 [facility] Last Admin: 02/24/17 06:22 Dose: 100 mcg Lisinopril (Zestril) 20 mg PO DAILY [facility] Last Admin: 02/24/17 08:54 Dose: 20 mg Lorazepam (Ativan) 1 mg PO BID [facility] Last Admin: 02/24/17 08:58 Dose: 1 mg Multivitamins/Minerals (Therapeutic-M Tab) 1 tab PO DAILY [facility] Last Admin: 02/24/17 08:54 Dose: 1 tab Nicotine (Nicoderm Cq) 1 patch TD DAILY [facility] Last Admin: 02/24/17 08:57 Dose: 1 patch Ondansetron HCl (Zofran Inj) 4 mg IVP Q6 PRN PRN Reason: Nausea/Vomiting Pantoprazole Sodium (Protonix Ec Tab) 40 mg PO DAILY [facility] Last Admin: 02/24/17 08:55 Dose: 40 mg Polyethylene Glycol (Miralax) 17 gm PO BID [facility] Last Admin: 02/24/17 08:56 Dose: 17 gm Quetiapine Fumarate (Seroquel) 100 mg PO HS [facility] Last Admin: 02/23/17 21:03 Dose: 100 mg Quetiapine Fumarate (Seroquel) 50 mg PO BID [facility] Last Admin: 02/24/17 08:55 Dose: 50 mg Sennosides (Senokot Tab) 8.6 mg PO BID [facility] Last Admin: 02/24/17 08:55 Dose: 8.6 mg Trazodone HCl (Desyrel) 100 mg PO HS PRN PRN Reason: Restlessness Last Admin: 02/24/17 08:55 Dose: 100 mg - Labs Labs: 02/23/17 05:40 02/24/17 05:30 - Extremities Exam Additional comments: LLE: area of erythema surrounding wound has worsened. Scant serous drainage from abrasion site. Per RN, patient removed dressing. Mild swelling to same. Calves soft NT neg homans, sensation intact Assessment and Plan (1) Cellulitis of left lower leg Assessment & Plan: worsening awaiting wound cx no elective surgery will be planned until infection resolved and wound healed d/w Dr. yu, agrees with above Status: Acute (2) Closed fracture of left tibia and fibula Status: Acute
[2017-02-24] MEDS ORDERED: Potassium Chloride 20 mEq ER Tab PO ONE (11:30)
--- NOTE | 2017-02-24 15:41 | CP.PCM.PN ---
Subjective - Date & Time of Evaluation Date of Evaluation: 02/24/17 Time of Evaluation: 15:35 - Subjective Subjective: I D NOTE PATIENT EXAMINED AGAIN HAS OPEN ABRASION DISCUSSED C AND PATIENT WILL DO TKR IN VIEW OF ALL ISSUES FEEL THAT SHE IS HIGH RISK FOR I INFECTION AND SHOULD Rx at least 4 weeks C iv antibiotics have also added maxipeme Objective - Vital Signs/Intake and Output Vital Signs (last 24 hours): Temp Pulse Resp BP Pulse Ox 97.9 F 68 20 137/83 99 02/24/17 09:00 02/24/17 09:00 02/24/17 09:00 02/24/17 09:00 02/24/17 09:00 - Medications Medications: Current Medications Acetaminophen (Tylenol 325mg Tab) 650 mg PO Q6 PRN PRN Reason: Fever >100.4 F Acetaminophen (Tylenol 325mg Tab) 650 mg PO Q4 PRN PRN Reason: Pain, moderate (4-7) Amlodipine Besylate (Norvasc) 5 mg PO DAILY [facility] Last Admin: 02/24/17 08:54 Dose: 5 mg Bacitracin (Bacitracin Oint) 1 applic TOP BID [facility] Last Admin: 02/24/17 08:59 Dose: 1 applic Baclofen (Lioresal) 20 mg PO TID [facility] Last Admin: 02/24/17 12:46 Dose: 20 mg Bisacodyl (Dulcolax) 10 mg [place] DAILY PRN PRN Reason: Constipation Docusate Sodium (Colace) 100 mg PO BID [facility] Last Admin: 02/24/17 08:55 Dose: 100 mg Duloxetine HCl (Cymbalta) 60 mg PO HS [facility] Last Admin: 02/23/17 21:03 Dose: 60 mg Enoxaparin Sodium (Lovenox) 40 mg SC DAILY [facility] PRN Reason: Protocol Last Admin: 02/22/17 08:54 Dose: Not Given Ferrous Sulfate (Feosol) 325 mg PO BID [facility] Last Admin: 02/24/17 08:56 Dose: 325 mg Gabapentin (Neurontin) 600 mg PO TID [facility] Last Admin: 02/24/17 12:46 Dose: 600 mg Home Med (Buprenorphine Hcl/Naloxone Hcl [Suboxone 8 Mg-2 Mg Sl Film]) 1 each .ROUTE BID [facility] Last Admin: 02/24/17 08:53 Dose: 1 each Hydrocortisone (Cortef) 20 mg PO BID [facility] Last Admin: 02/24/17 08:55 Dose: 20 mg Vancomycin HCl 750 mg/ Sodium (Chloride) 250 mls @ 250 mls/hr IVPB Q12@0500, 1700 [facility] PRN Reason: Protocol Last Admin: 02/24/17 04:37 Dose: 250 mls/hr Cefepime HCl 1 gm/ Sodium (Chloride) 100 mls @ 100 mls/hr IVPB Q12 [facility] PRN Reason: Protocol Ibuprofen (Motrin Tab) 600 mg PO Q6 PRN PRN Reason: Muscle spasm Last Admin: 02/24/17 11:34 Dose: 600 mg Levothyroxine Sodium (Synthroid) 100 mcg PO DAILY@0630 [facility] Last Admin: 02/24/17 06:22 Dose: 100 mcg Lisinopril (Zestril) 20 mg PO DAILY [facility] Last Admin: 02/24/17 08:54 Dose: 20 mg Lorazepam (Ativan) 1 mg PO BID [facility] Last Admin: 02/24/17 08:58 Dose: 1 mg Multivitamins/Minerals (Therapeutic-M Tab) 1 tab PO DAILY [facility] Last Admin: 02/24/17 08:54 Dose: 1 tab Nicotine (Nicoderm Cq) 1 patch TD DAILY [facility] Last Admin: 02/24/17 08:57 Dose: 1 patch Ondansetron HCl (Zofran Inj) 4 mg IVP Q6 PRN PRN Reason: Nausea/Vomiting Pantoprazole Sodium (Protonix Ec Tab) 40 mg PO DAILY [facility] Last Admin: 02/24/17 08:55 Dose: 40 mg Polyethylene Glycol (Miralax) 17 gm PO BID [facility] Last Admin: 02/24/17 08:56 Dose: 17 gm Quetiapine Fumarate (Seroquel) 100 mg PO HS [facility] Last Admin: 02/23/17 21:03 Dose: 100 mg Quetiapine Fumarate (Seroquel) 50 mg PO BID [facility] Last Admin: 02/24/17 08:55 Dose: 50 mg Sennosides (Senokot Tab) 8.6 mg PO BID [facility] Last Admin: 02/24/17 08:55 Dose: 8.6 mg Trazodone HCl (Desyrel) 100 mg PO HS PRN PRN Reason: Restlessness Last Admin: 02/24/17 08:55 Dose: 100 mg - Labs Labs: 02/23/17 05:40 02/24/17 05:30
--- NOTE | 2017-02-24 18:43 | PN ---
ENDO FOLLOWUP NOTE DATE: LOCATION: Room 709. 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 Her latest chemistry showed a BUN of 13, sodium 143, potassium 3.1, chloride 108, CO2 of 25, glucose 150 and creatinine 0.6. Her repeat cortisol level is 1.5 mcg/dL with a T4 of 6.55 and a TSH of 4.37 and free T4 of 0.95. So, at this time, we will actually continue the new oral thyroid therapy as given with hydrocortisone given at 20 mg p.o. b.i.d. as ordered. We will continue the levothyroxine given at 100 mcg once daily as ordered. We will titrate incremental as indicated to optimize metabolic control. We will obtain serial chemistries and supplement accordingly as needed. We will follow. Shayna Russo MD
[2017-02-24 19:59] VITALS: BP 137/77; PULSE 96; TEMP 98.2; O2SAT 95
[2017-02-24] MEDS ORDERED: Cefepime 1 GM in Sodium Chloride 0.9% 100 ML IVPB SCH (21:00)
[2017-02-25 05:15] LABS: BASO # 0.1 K/uL (0.0-0.2); BASO % 0.4 % (0.0-2.0); EOS # 0.2 K/uL (0.0-0.7); EOS % 1.8 % (0.0-4.0); HEMATOCRIT 31.2 % (34.0-47.0); LYMPH # 2.7 K/uL (1.0-4.3); LYMPH % 21.1 % (20.0-40.0); MEAN CELL VOLUME 101.3 fl (81.0-99.0); MEAN CORPUSCULAR HEMOGLOBIN 33.8 pg (27.0-31.0); MEAN CORPUSCULAR HGB CONC 33.4 g/dL (33.0-37.0); MEAN PLATELET VOLUME 7.4 fl (7.2-11.7); MONO # 1.3 K/uL (0.0-0.8); MONO % 10.1 % (0.0-10.0); NEUT # 8.6 K/uL (1.8-7.0); NEUT % 66.6 % (50.0-75.0); RED CELL DISTRIBUTION WIDTH 15.5 % (11.5-14.5)
[2017-02-25 05:19] LABS: BLOOD UREA NITROGEN 16 mg/dl (7-17); CALCIUM 9.1 mg/dL (8.4-10.2); CARBON DIOXIDE 26 mmol/L (22-30); CHLORIDE 108 mmol/L (98-107); GFR AFRICAN-AMERICAN > 60; GLUCOSE,RANDOM 112 mg/dL (65-105); POTASSIUM 3.3 MMOL/L (3.6-5.0); SODIUM 145 mmol/l (132-148)
[2017-02-25 05:37] LABS: PARTIAL THROMBOPLASTIN TIME 30.1 Seconds (25.6-37.1)
--- NOTE | 2017-02-25 16:10 | CP.PCM.DIS ---
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 (2) Bill syndrome Status: Chronic (3) Cellulitis of left lower leg Status: Acute (4) Gait instability Status: Acute (5) Hypokalemia Status: Acute (6) Anemia, iron deficiency Status: Chronic (7) Bipolar disorder Status: Chronic (8) COPD (chronic obstructive pulmonary disease) Status: Chronic (9) Cachexia Status: Chronic (10) Constipation Status: Chronic (11) Hypertension Status: Chronic (12) Hypothyroidism Status: Chronic (13) DVT prophylaxis Status: Acute Hospital Course - Lab Results Lab Results: Micro Results 02/22/17 17:09 Leg - Left Gram Stain - Final 02/22/17 17:09 Leg - Left Wound Culture - Preliminary No growth. Most Recent Lab Values WBC 13.0 K/uL (4.8-10.8) H 02/25/17 05:00 RBC 3.08 Mil/uL (3.80-5.20) L 02/25/17 05:00 Hgb 10.4 g/dL (12.0-16.0) L 02/25/17 05:00 Hct 31.2 % (34.0-47.0) L 02/25/17 05:00 MCV 101.3 fl (81.0-99.0) H 02/25/17 05:00 MCH 33.8 pg (27.0-31.0) H 02/25/17 05:00 MCHC 33.4 g/dL (33.0-37.0) 02/25/17 05:00 RDW 15.5 % (11.5-14.5) H 02/25/17 05:00 Plt Count 307 K/uL (130-400) 02/25/17 05:00 MPV 7.4 fl (7.2-11.7) 02/25/17 05:00 Neut % (Auto) 66.6 % (50.0-75.0) 02/25/17 05:00 Lymph % (Auto) 21.1 % (20.0-40.0) 02/25/17 05:00 [place] % (Auto) 10.1 % (0.0-10.0) H 02/25/17 05:00 Eos % (Auto) 1.8 % (0.0-4.0) 02/25/17 05:00 Baso % (Auto) 0.4 % (0.0-2.0) 02/25/17 05:00 Neut # 8.6 K/uL (1.8-7.0) H 02/25/17 05:00 Lymph # 2.7 K/uL (1.0-4.3) 02/25/17 05:00 [place] # 1.3 K/uL (0.0-0.8) H 02/25/17 05:00 Eos # 0.2 K/uL (0.0-0.7) 02/25/17 05:00 Baso # 0.1 K/uL (0.0-0.2) 02/25/17 05:00 PT 10.0 Seconds (9.8-13.1) 02/25/17 05:00 INR 0.9 (0.9-1.2) 02/25/17 05:00 APTT 30.1 Seconds (25.6-37.1) 02/25/17 05:00 Sodium 145 mmol/l (132-148) 02/25/17 05:00 Potassium 3.3 MMOL/L (3.6-5.0) L 02/25/17 05:00 Chloride 108 mmol/L (98-107) H 02/25/17 05:00 Carbon Dioxide 26 mmol/L (22-30) 02/25/17 05:00 Anion Gap 14 (10-20) 02/25/17 05:00 BUN 16 mg/dl (7-17) 02/25/17 05:00 Creatinine 0.8 mg/dL (0.7-1.2) 02/25/17 05:00 Est GFR ( Amer) > 60 02/25/17 05:00 Est GFR (Non-Af Amer) > 60 02/25/17 05:00 Random Glucose 112 mg/dL (65-105) H 02/25/17 05:00 Calcium 9.1 mg/dL (8.4-10.2) 02/25/17 05:00 Total Bilirubin 0.2 mg/dl (0.2-1.3) 02/24/17 05:30 AST 16 U/L (14-36) 02/24/17 05:30 ALT 26 U/L (9-52) 02/24/17 05:30 Alkaline Phosphatase 48 U/L (38-126) 02/24/17 05:30 Total Protein 5.5 G/DL (6.3-8.2) L 02/24/17 05:30 Albumin 3.3 g/dL (3.5-5.0) L 02/24/17 05:30 Globulin 2.2 gm/dL (2.2-3.9) 02/24/17 05:30 Albumin/Globulin Ratio 1.5 (1.0-2.1) 02/24/17 05:30 Free T4 0.95 ng/dL (0.78-2.19) 02/24/17 05:30 Thyroxine (T4) 6.55 ug/dl (5.5-11.0) 02/24/17 05:30 TSH 3rd Generation 4.37 mIU/ML (0.46-4.68) 02/24/17 05:30 Cortisol AM Sample 1.5 ug/dL (4.46-22.7) L 02/24/17 05:30 Urine Color Yellow (YELLOW) 02/22/17 15:51 Urine Clarity Clear (Clear) 02/22/17 15:51 Urine pH 7.0 (5.0-8.0) 02/22/17 15:51 Ur Specific [place] 1.005 (1.003-1.030) 02/22/17 15:51 Urine Protein Negative mg/dL (NEGATIVE) 02/22/17 15:51 Urine Glucose (UA) Neg mg/dL (Normal) 02/22/17 15:51 Urine Ketones Negative mg/dL (NEGATIVE) 02/22/17 15:51 Urine Blood Negative (NEGATIVE) 02/22/17 15:51 Urine Nitrate Negative (NEGATIVE) 02/22/17 15:51 Urine Bilirubin Negative (NEGATIVE) 02/22/17 15:51 Urine Urobilinogen 0.2-1.0 mg/dL (0.2-1.0) 02/22/17 15:51 Ur Leukocyte Esterase Neg [place]/uL (Negative) 02/22/17 15:51 Urine RBC (Auto) 1 /hpf (0-3) 02/22/17 15:51 Urine Microscopic WBC 1 /hpf (0-5) 02/22/17 15:51 Urine Bacteria Rare (<OCC) 02/22/17 15:51 Vancomycin Trough 9.3 ug/mL (5.0-10.0) 02/23/17 05:40 Blood Type A POSITIVE 02/25/17 05:00 Antibody Screen Negative 02/25/17 05:00 Crossmatch See Detail 02/25/17 05:00 BBK History Checked Patient has bt 02/25/17 05:00 - Hospital Course Hospital Course: (1) Maunion/Nonunion of Tibial Plateau Fracture Subacute fracture of left proximal tibia and fibula with lateral angulation over 50 degrees Ortho consulted- dr Cole - plan for Surgery today , will d/c pt to [facility] for surgery NPO Pt was cleared by Cardio 2. Cellulitis LLE, improving LLE with erythema and excoriations cont IV vanco, added IV Cefepime ID consulted - Dr Singer (3) Bill syndrome - Hydrocortisone stress dose prior to surgery -continue levothyroxine 100mcg daily -endocrine on board (4) Cachexia BMI at 14.6 valve mechanic consult (5) Constipation -continue Sennosides, Dulcolax, Docusate and polyethylene glycol (6) COPD (chronic obstructive pulmonary disease), chronic , stable -O2 saturation good, no need for additional O2 currently -no acute infiltrates noted on CXR, no active disease (7) Bipolar disorder -continue psych meds -no suicidal ideations or depression (8) Anemia, iron deficiency -controlled at this time -continue ferrous sulfate supplements (9) Hypertension HTN controlled at this time -continue home meds (10) Neuropathy -Continue gabapentin 11. Gait Dysfunction due to Deformity of LLE - PT consult - 12. hx of Opiate Abuse - on Suboxone- will hold for now 13.DVT Proph - Lovenox- hold due to surgery Discharge Exam - Head Exam Head Exam: ATRAUMATIC, NORMAL INSPECTION, NORMOCEPHALIC - Eye Exam Eye Exam: EOMI, Normal appearance, PERRL Pupil Exam: NORMAL ACCOMODATION - ENT Exam ENT Exam: Mucous Membranes Moist, Normal External Ear Exam - Neck Exam Neck exam: Full Rom - Respiratory Exam Respiratory Exam: NORMAL BREATHING PATTERN. absent: Respiratory Distress - Cardiovascular Exam Cardiovascular Exam: REGULAR RHYTHM, +S1, +S2 - GI/Abdominal Exam GI & Abdominal Exam: Normal Bowel Sounds, Soft. absent: Tenderness - Extremities Exam Extremities exam: normal capillary refill Additional comments: left leg deformity from fracture left lower lef erythema , abrasion - Back Exam Back exam: FULL ROM. absent: CVA tenderness (L), CVA tenderness (R) - Neurological Exam Neurological exam: Alert, CN II-XII Intact, Oriented x3, Reflexes Normal - Psychiatric Exam Psychiatric exam: Normal Affect, Normal Mood - Skin Skin Exam: Dry, Normal Color, Warm Discharge Plan - Follow Up Plan Condition: GOOD Disposition: Trans to Other Acute Care Hosp Instructions: Cellulitis (DC), Cellulitis (GEN), Weakness (GEN) Additional Instructions: d/c to [facility] for Ortho surgery Referrals: Brando Cole III, MD [Primary Care Provider] -
--- NOTE | 2017-02-25 21:13 | PN ---
ENDO FOLLOWUP NOTE LOCATION: Room 709, [facility]. SUBJECTIVE: This is a 46-year-old female with recent surgical correction for her left tibial fracture and now being followed closely for metabolic management. She also has hypothyroidism and hypoadrenalism, currently tolerating her oral hormonal replacement therapy as given. Her latest chemistry showed a BUN of 16, sodium 145, potassium 3.3, chloride 108, CO2 of 26, glucose 112, and creatinine 0.8. Her serum cortisol level is still 1.5, which is quite low as noted. Her TSH is 4.37 with a T4 of 6.55. So, at this time, we will continue the oral cortisone replacement given as 20 mg b.i.d. after meals and levothyroxine given as 100 mcg daily as ordered. We will obtain serial chemistries and supplement accordingly as needed. We will follow. Shayna Russo MD
== END 2017-02-25 06:20 | disposition short-term general hospital (02) | DRG 603 ==
LOC: H.TCU 18:38
PROVIDERS: ADMIT Internal Medicine; ATTEND Internal Medicine
PROC: F07M6FZ Therapeutic Exercise Treatment of Musculoskeletal System - Whole Body using Assistive, Adaptive, Supportive or Protective Equipment (ICD-10-PCS; principal; 2017-02-19)
PROC: F07Z9FZ Gait Training/Functional Ambulation Treatment using Assistive, Adaptive, Supportive or Protective Equipment (ICD-10-PCS; 2017-02-19)
PROC: F08Z4FZ Home Management Treatment using Assistive, Adaptive, Supportive or Protective Equipment (ICD-10-PCS; 2017-02-19)
DX: L03.116 Cellulitis of left lower limb (principal); R64 Cachexia; E27.40 Unspecified adrenocortical insufficiency; I10 Essential (primary) hypertension; D50.9 Iron deficiency anemia, unspecified; F17.200 Nicotine dependence, unspecified, uncomplicated; S82.142K Displaced bicondylar fracture of left tibia, subsequent encounter for closed fracture with nonunion; G62.9 Polyneuropathy, unspecified; E03.9 Hypothyroidism, unspecified; F31.9 Bipolar disorder, unspecified; G89.29 Other chronic pain; J44.9 Chronic obstructive pulmonary disease, unspecified; K21.9 Gastro-esophageal reflux disease without esophagitis; K59.00 Constipation, unspecified; M19.90 Unspecified osteoarthritis, unspecified site; X58.XXXD Exposure to other specified factors, subsequent encounter; Z53.9 Procedure and treatment not carried out, unspecified reason; Z79.890 Hormone replacement therapy; Z79.899 Other long term (current) drug therapy; Z87.01 Personal history of pneumonia (recurrent); Z91.19 Patient's noncompliance with other medical treatment and regimen; D64.9 Anemia, unspecified; F32.9 Major depressive disorder, single episode, unspecified; F41.9 Anxiety disorder, unspecified; R26.9 Unspecified abnormalities of gait and mobility; E31.0 Autoimmune polyglandular failure

== ENCOUNTER 2017-03-09 07:16 | Inpatient (IN) | payer MEDICARE ==
[2017-03-09 07:16] VITALS: BMI 15.7
[2017-03-09 08:10] LABS: BASO # 0.1 K/uL (0.0-0.2); BASO % 0.4 % (0.0-2.0); EOS # 0.5 K/uL (0.0-0.7); EOS % 2.3 % (0.0-4.0); LYMPH # 3.4 K/uL (1.0-4.3); LYMPH % 16.8 % (20.0-40.0); MEAN CELL VOLUME 95.5 fl (81.0-99.0); MEAN CORPUSCULAR HEMOGLOBIN 31.3 pg (27.0-31.0); MEAN CORPUSCULAR HGB CONC 32.8 g/dL (33.0-37.0); MEAN PLATELET VOLUME 6.8 fl (7.2-11.7); MONO # 1.4 K/uL (0.0-0.8); MONO % 7.1 % (0.0-10.0); NEUT # 14.9 K/uL (1.8-7.0); NEUT % 73.4 % (50.0-75.0); RED CELL DISTRIBUTION WIDTH 17.7 % (11.5-14.5); WHITE BLOOD COUNT 20.3 K/uL (4.8-10.8)
--- NOTE | 2017-03-09 08:13 | ED PDOC ---
Lower Extremity Pain/Injury Time Seen by Provider: 03/09/17 07:22 Chief Complaint (Nursing): Wound Check Chief Complaint (Provider): Left lower extremity pain History Per: Patient History/Exam Limitations: no limitations Onset/Duration Of Symptoms: Days Current Symptoms Are (Timing): Still Present Additional Complaint(s): 46yo female, past medical history of hyperthyroidism, COPD, bipolar disorder, anemia, presents to the ED for evaluation of her surgical site on her left lower extremity. Patient states 10 months ago, she broke her left tibia and 10 days ago, she had a procedure done by Dr. Cole on her left lower extremity ( she had malunion of the tib fracture sp ORIG 02/27). Patient denies any fever, chills, chest pain, shortness of breath. She offers no other medical complaints. Past Medical History Reviewed: Historical Data, Nursing Documentation, Vital Signs Vital Signs: Last Vital Signs Temp 98.9 F 03/09/17 07:37 Pulse 106 H 03/09/17 07:37 Resp 20 03/09/17 07:37 BP 124/82 03/09/17 07:37 Pulse Ox 93 L 03/09/17 07:37 - Medical History PMH: Anemia, Anxiety, Arthritis, COPD, Depression, HTN Denies: HIV, Chronic Kidney Disease Other PMH: chronic back pain - Surgical History Surgical History: No Surg Hx - Family History Family History: States: No Known Family Hx - Social History Current smoker - smoking cessation education provided: No Alcohol: None Drugs: Denies - Home Medications Home Medications: Ambulatory Orders Medication Instructions Recorded Baclofen [Lioresal] 20 mg PO TID 02/16/17 Bisacodyl [Dulcolax] 10 mg [place] DAILY PRN 02/16/17 DULoxetine [Cymbalta] 60 mg PO HS 02/16/17 Ferrous Sulfate [Feosol] 325 mg PO BID 02/16/17 Gabapentin [Neurontin] 600 mg PO TID 02/16/17 Levothyroxine [Synthroid] 100 mcg PO DAILY 02/16/17 Lisinopril [Zestril] 20 mg PO DAILY 02/16/17 Lorazepam [Ativan] 1 mg PO BID 02/16/17 Mvit-Mins/Folic Acid/Soy Isofl 1 each PO DAILY 02/16/17 [One-A-Day Menopause Formula Tb] Polyethylene Glycol 3350 [Miralax] 17 gm PO BID PRN 02/16/17 QUEtiapine [SEROquel] 100 mg PO HS 02/16/17 Quetiapine Fumarate [Seroquel] 50 mg PO BID 02/16/17 Sennosides [Senna] 2 tab PO HS 02/16/17 Trazodone HCl 100 mg PO HS PRN 02/16/17 amLODIPine [Norvasc] 5 mg PO DAILY 02/16/17 Enoxaparin [Lovenox] 40 mg SC DAILY syr 02/19/17 Pantoprazole [Protonix EC Tab] 40 mg PO DAILY ect 02/19/17 Cefepime 1gm in NS 100ml [Maxipime 1 gm IVPB Q8 #1 bag 02/28/17 1gm] Docusate [Colace] 100 mg PO BID cap 02/28/17 Hydrocortisone [Cortef] 20 mg PO BID tab 02/28/17 Lactobacillus Acidophilus [Bacid 1 cap PO BID #1 cap 02/28/17 Acidophilus] Vancomycin/0.9 % Sod Chloride 750 mg IV Q12 #1 plast..bag 02/28/17 [Vanco 750 mg/250 ml-0.9% NaCl] Acetaminophen [Tylenol 325mg tab] 650 mg PO Q4H PRN 03/09/17 Acetaminophen [Tylenol 325mg tab] 650 mg PO Q6 PRN 03/09/17 Mag Hydrox/Aluminum Hyd/Simeth 30 ml PO Q6H PRN 03/09/17 [Maalox Advanced Suspension] Magnesium Hydroxide [Milk Of 30 ml PO HS PRN 03/09/17 Magnesia] Oxycodone HCl [Oxycontin] 30 mg PO Q8H 03/09/17 Phosphate Enema [Fleet Enema] 135 ml AR HS PRN 03/09/17 - Allergies Allergies/Adverse Reactions: Allergies Allergy/AdvReac Type Severity Reaction Status Date / Time No Known Allergies Allergy Verified 02/16/17 08:07 Review of Systems ROS Statement: Except As Marked, All Systems Reviewed And Found Negative Constitutional: Negative for: Fever, Chills Cardiovascular: Negative for: Chest Pain Respiratory: Negative for: Shortness of Breath Musculoskeletal: Positive for: Leg Pain (left ) Physical Exam - Reviewed Nursing Documentation Reviewed: Yes Vital Signs Reviewed: Yes - Physical Exam Appears: Positive for: Non-toxic Head Exam: Positive for: ATRAUMATIC, NORMAL INSPECTION, NORMOCEPHALIC Skin: Positive for: Warm, Dry Neck: Positive for: Supple Cardiovascular/Chest: Positive for: Regular Rate, Rhythm Respiratory: Positive for: Normal Breath Sounds. Negative for: Respiratory Distress Gastrointestinal/Abdominal: Positive for: Soft Extremity: Positive for: Other (left lower extremity with multiple sanket on place; swelling and erythema noted at the site. neurovascular intact. limited range of motion secondary to pain.). Negative for: Normal ROM Neurologic/Psych: Positive for: Alert, Oriented - Laboratory Results Result Diagrams: 03/09/17 07:55 03/09/17 07:55 - ECG O2 Sat by Pulse Oximetry: 93 Medical Decision Making Medical Decision Making: Time: Impression: Left lower extremity pain at surgical site s/p ORIF Plan: -- Labs -- Chest x-ray -- XR Left knee Reassess Time: [address] Cole; patient to be admitted for left knee reconstruction and serosanguinouos wound drainage. Dr Srinivasan made aware (hospitalist) - she will admit the patient Scribe Attestation: Documented by Cady Mills acting as a scribe for Larry Chase MD. Provider Attestation: All medical record entries made by the Scribe were at my direction and personally dictated by me. I have reviewed the chart and agree that the record accurately reflects my personal performance of the history, physical exam, medical decision making, and the department course for this patient. I have also personally directed, reviewed, and agree with the discharge instructions and disposition. Disposition - Clinical Impression Clinical Impression: Wound drainage - Patient ED Disposition Is Patient to be Admitted: Yes Counseled Patient/Family Regarding: Studies Performed, Diagnosis - Disposition Disposition Time: 07:50 Condition: STABLE
[2017-03-09 08:29] LABS: ALB/GLOB RATIO 1.3 (1.0-2.1); ALKALINE PHOSPHATASE 66 U/L (38-126); ALT/SGPT 31 U/L (9-52); AST/SGOT 21 U/L (14-36); BILIRUBIN,TOTAL 0.2 mg/dl (0.2-1.3); BLOOD UREA NITROGEN 18 mg/dl (7-17); CALCIUM 9.4 mg/dL (8.4-10.2); CARBON DIOXIDE 24 mmol/L (22-30); CHLORIDE 108 mmol/L (98-107); GFR AFRICAN-AMERICAN > 60; GLUCOSE,RANDOM 85 mg/dL (65-105); POTASSIUM 3.8 MMOL/L (3.6-5.0); SODIUM 141 mmol/l (132-148); TOTAL PROTEIN 6.4 G/DL (6.3-8.2)
--- NOTE | 2017-03-09 08:43 | CARD ---
APPROVED REPORT EKG Measurement Heart [id number] <Conclusion> Normal sinus rhythm with sinus arrhythmia Normal ECG
--- NOTE | 2017-03-09 08:48 | CP.PCM.HP ---
History of Present Illness - History of Present Illness History of Present Illness: Chief Complaint : presented to the ED for eval of her left knee, serosanguinous drainage HPI: 46 y/o lady with Hx of Malunion of Tibial Fracture s/p ORIF on 02/25 and was discharged to a [facility] for physical therapy, presented to the ED for evaluation of her left knee. Patient states she has been doing well with physical therapy at the [facility]. She denies fever, no chills however noted some serosanguinous drainage from the wound. She still has some pain for which she takes Oxycontin. Denies any other symptoms. Present on Admission - Present on Admission Any Indicators Present on Admission: No History of DVT/PE: No History of Uncontrolled Diabetes: No Urinary Catheter: No Decubitus Ulcer Present: No Review of Systems - Review of Systems All systems: reviewed and no additional remarkable complaints except - Constitutional Constitutional: absent: Fever - EENT Eyes: absent: Blurred Vision, Dry Eye Ears: absent: Decreased Hearing, Ear Discharge Nose/Mouth/Throat: absent: Nasal Congestion, Nasal Discharge, Neck Pain - Cardiovascular Cardiovascular: absent: Chest Pain, Dyspnea, Orthopnea - Respiratory Respiratory: absent: Cough, Dyspnea, Hemoptysis, Dyspnea on Exertion - Gastrointestinal Gastrointestinal: Constipation. absent: Abdominal Pain, Nausea, Vomiting - Genitourinary Genitourinary: absent: Dysuria, Hematuria, Pyuria - Musculoskeletal Musculoskeletal: Abnormal Gait, Arthralgias, Joint Swelling - Integumentary Integumentary: Dry Skin. absent: Rash - Neurological Neurological: absent: Abnormal Movements, Confusion, Dizziness, Focal Weakness, Headaches - Psychiatric Psychiatric: Abnormal Sleep Pattern, Anxiety, Depression, Mood Swings - Endocrine Endocrine: absent: Polydipsia, Polyphagia, Polyuria - Hematologic/Lymphatic Hematologic: absent: Easy Bleeding, Easy Bruising Past Patient History - Infectious Disease Hx of Infectious Diseases: MRSA - Tetanus Immunizations Tetanus Immunization: Unknown - Past Medical History & Family History Past Medical History?: Yes Past Family History: Reviewed and not pertinent - Past Social History Smoking Status: Heavy Smoker > 10 Cigarettes Daily Alcohol: None Drugs: Denies Domestic Violence: Negative - CARDIAC Hx Hypertension: Yes - PULMONARY Hx Chronic Obstructive Pulmonary Disease (COPD): Yes - NEUROLOGICAL Hx Neurological Disorder: No - HEENT Hx HEENT Problems: Yes Other/Comment: RETINA - RENAL Hx Chronic Kidney Disease: No - ENDOCRINE/METABOLIC Hx Endocrine Disorders: No - HEMATOLOGICAL/ONCOLOGICAL Hx Anemia: Yes Hx Human Immunodeficiency Virus (HIV): No - INTEGUMENTARY Hx Dermatological Problems: No - MUSCULOSKELETAL/RHEUMATOLOGICAL Hx Arthritis: Yes - GASTROINTESTINAL Hx Gastrointestinal Disorders: No Other/Comment: HX OF CONSTIPATION - GENITOURINARY/GYNECOLOGICAL Hx Genitourinary Disorders: No - PSYCHIATRIC Hx Anxiety: Yes Hx Depression: Yes - SURGICAL HISTORY Hx Surgeries: Yes Hx Arthroscopy: Yes (RIGHT KNEE) Hx Musculoskeletal Surgery: Yes (Left knee ORIF for Malunion Fracture Tibia) Other/Comment: SX FOR BOWEL OBSTRUCTION - ANESTHESIA Hx Anesthesia: Yes Hx Anesthesia Reactions: No Hx Malignant Hyperthermia: No Has any member of the family had a problem w/ anesthesia?: No Meds Allergies/Adverse Reactions: Allergies Allergy/AdvReac Type Severity Reaction Status Date / Time No Known Allergies Allergy Verified 02/16/17 08:07 Physical Exam - Constitutional Appears: No Acute Distress, Older Than Stated Age - Head Exam Head Exam: NORMAL INSPECTION, NORMOCEPHALIC - Eye Exam Eye Exam: EOMI, Normal appearance, PERRL Pupil Exam: NORMAL ACCOMODATION - ENT Exam ENT Exam: Mucous Membranes Moist, Normal External Ear Exam - Neck Exam Neck exam: Positive for: Full Rom. Negative for: Meningismus - Respiratory Exam Respiratory Exam: NORMAL BREATHING PATTERN. absent: Respiratory Distress - Cardiovascular Exam Cardiovascular Exam: REGULAR RHYTHM, +S1, +S2 - GI/Abdominal Exam GI & Abdominal Exam: Normal Bowel Sounds, Soft. absent: Tenderness - Extremities Exam Extremities exam: Positive for: normal capillary refill, pedal pulses present. Negative for: calf tenderness Additional comments: Left knee surical wound looks clean, some serodsanguinous drainage noted, sanket intact immobilizer placed after clean dressing applied Results - Vital Signs Recent Vital Signs: Last Vital Signs Temp 98.9 F 03/09/17 07:37 Pulse 106 H 03/09/17 07:37 Resp 20 03/09/17 07:37 BP 124/82 03/09/17 07:37 Pulse Ox 93 L 03/09/17 08:26 - Labs Result Diagrams: 03/09/17 07:55 03/09/17 07:55 Labs: Laboratory Results - last 24 hr 03/09/17 03/09/17 03/09/17 07:55 07:55 07:55 WBC 20.3 H RBC 3.67 L Hgb 11.5 L Hct 35.0 MCV 95.5 D MCH 31.3 H MCHC 32.8 L RDW 17.7 H Plt Count 683 H D MPV 6.8 L Neut % (Auto) 73.4 Lymph % (Auto) 16.8 L [place] % (Auto) 7.1 Eos % (Auto) 2.3 Baso % (Auto) 0.4 Neut # 14.9 H Lymph # 3.4 [place] # 1.4 H Eos # 0.5 Baso # 0.1 Sodium 141 Potassium 3.8 Chloride 108 H Carbon Dioxide 24 Anion Gap 13 BUN 18 H Creatinine 0.6 L Est GFR ( Amer) > 60 Est GFR (Non-Af Amer) > 60 Random Glucose 85 Calcium 9.4 Total Bilirubin 0.2 AST 21 ALT 31 Alkaline Phosphatase 66 Total Protein 6.4 Albumin 3.6 Globulin 2.8 Albumin/Globulin Ratio 1.3 BBK History Checked Patient has bt - EKG Data EKG Interpreted by: Myself EKG shows normal: Sinus rhythm Rate: Normal Assessment & Plan - Assessment and Plan (Free Text) Assessment: 46 y/o lady with hx of Left Tibial Fracture with malunion , s/p ORIF and recent treatment for Cellulitis of the Left leg , presented to the ED from [facility] for eval of left knee wound, noted serosanguinous drainage. No fever, no chills (1) s/p ORIF for Malunion/Non union of Closed fracture of left tibia and fibula -s/p ORIF proximal tibia and fibula with allograft/autograft, LCL and patellar ligament repair, and peroneal nerve decompression done 02/25 -Surgical Wound looks clean , sanket intact , noted some serosanguinous drainage - leukocytosis likely sec to steroids - Ortho consult: Dr Cole _pain mgt -PT/OT (2) History of Cellulitis of left lower leg treated on previous admission -Cont Vancomycin and Cefepime IV to complete 1 month as rec by Dr Corado on previous admission (3) Bipolar disorder -continue psych meds -no suicidal ideations or depression Status: Chronic (4) COPD (chronic obstructive pulmonary disease) -pt currently asymptomatic - Duoneb prn - pt active smoker Status: Chronic (5) Hypertension Continue Amlodipine and Lisinopril (home meds) Will monitor BP closely Status: Chronic (6) Hypothyroidism Continue Levothyroxine 100 mcg daily Status: Chronic (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 Bed Request Type: Med/Surg Admitting Physician: Tala Srinivasan
[2017-03-09 08:56] LABS: PARTIAL THROMBOPLASTIN TIME 33.2 Seconds (25.6-37.1)
--- NOTE | 2017-03-09 09:28 | CP.PCM.CON ---
History of Present Illness - History of Present Illness History of Present Illness: Orthopedic consultation Dr. Cole 46F POD#12 s/p left knee ORIF/reconstruction s/p malunion/nonunion proximal tib/ fib fracture. Patient has been in [facility] since discharge. Patient was seen by Dr. Cole in the office and was noted to have continued serosang drainage from wound. Patient states she has continued pain in her left knee that keeps her up at night. Patient advised that pain should be improving post op, and that due to prior narcotic and suboxone use, that her pain will be difficult to control. Will continue the pain medication as per prior admit. Denies CP/SOB/dizziness/ numbness/tingling. Review of Systems - Review of Systems All systems: reviewed and no additional remarkable complaints except - Cardiovascular Cardiovascular: As Per HPI - Respiratory Respiratory: As Per HPI - Gastrointestinal Gastrointestinal: As Per HPI - Musculoskeletal Musculoskeletal: As Per HPI - Neurological Neurological: As Per HPI Past Patient History - Infectious Disease Hx of Infectious Diseases: MRSA - Past Medical History & Family History Past Medical History?: Yes - Past Social History Smoking Status: Heavy Smoker > 10 Cigarettes Daily - CARDIAC Hx Hypertension: Yes - PULMONARY Hx Chronic Obstructive Pulmonary Disease (COPD): Yes - NEUROLOGICAL Hx Neurological Disorder: No - HEENT Hx HEENT Problems: Yes Other/Comment: RETINA - RENAL Hx Chronic Kidney Disease: No - ENDOCRINE/METABOLIC Hx Endocrine Disorders: No - HEMATOLOGICAL/ONCOLOGICAL Hx Anemia: Yes Hx Human Immunodeficiency Virus (HIV): No - INTEGUMENTARY Hx Dermatological Problems: No - MUSCULOSKELETAL/RHEUMATOLOGICAL Hx Arthritis: Yes - GASTROINTESTINAL Hx Gastrointestinal Disorders: No Other/Comment: HX OF CONSTIPATION - GENITOURINARY/GYNECOLOGICAL Hx Genitourinary Disorders: No - PSYCHIATRIC Hx Anxiety: Yes Hx Depression: Yes - SURGICAL HISTORY Hx Surgeries: Yes Hx Arthroscopy: Yes (RIGHT KNEE) Other/Comment: SX FOR BOWEL OBSTRUCTION - ANESTHESIA Hx Anesthesia: Yes Hx Anesthesia Reactions: No Hx Malignant Hyperthermia: No Meds Allergies/Adverse Reactions: Allergies Allergy/AdvReac Type Severity Reaction Status Date / Time No Known Allergies Allergy Verified 02/16/17 08:07 Physical Exam - Constitutional Appears: Well, No Acute Distress - Head Exam Head Exam: ATRAUMATIC - Respiratory Exam Respiratory Exam: NORMAL BREATHING PATTERN - Extremities Exam Additional comments: calves soft NT neg homans +DP/PT pulses sensation intact - Neurological Exam Neurological exam: Alert, Oriented x3 - Psychiatric Exam Psychiatric exam: Normal Affect, Normal Mood - Skin Skin Exam: Warm Additional comments: Left knee: incisions intact, +serosang drainage from anterior incision with small eschar around knee. lateral incision intact, dry. Post operative swelling still noted. +ROM ankle/toes, DF improving, less pain than last exam, sensation intact, +DP pulse, calves soft NT neg homans, dressing changed, knee immobilizer intact. Results - Vital Signs Recent Vital Signs: Last Vital Signs Temp 98.9 F 03/09/17 07:37 Pulse 106 H 03/09/17 07:37 Resp 20 03/09/17 07:37 BP 124/82 03/09/17 07:37 Pulse Ox 93 L 03/09/17 08:26 - Labs Result Diagrams: 03/09/17 07:55 03/09/17 07:55 Labs: Laboratory Results - last 24 hr 03/09/17 03/09/17 03/09/17 07:55 07:55 07:55 WBC 20.3 H RBC 3.67 L Hgb 11.5 L Hct 35.0 MCV 95.5 D MCH 31.3 H MCHC 32.8 L RDW 17.7 H Plt Count 683 H D MPV 6.8 L Neut % (Auto) 73.4 Lymph % (Auto) 16.8 L [place] % (Auto) 7.1 Eos % (Auto) 2.3 Baso % (Auto) 0.4 Neut # 14.9 H Lymph # 3.4 [place] # 1.4 H Eos # 0.5 Baso # 0.1 PT 10.2 INR 0.9 APTT 33.2 Sodium 141 Potassium 3.8 Chloride 108 H Carbon Dioxide 24 Anion Gap 13 BUN 18 H Creatinine 0.6 L Est GFR ( Amer) > 60 Est GFR (Non-Af Amer) > 60 Random Glucose 85 Calcium 9.4 Total Bilirubin 0.2 AST 21 ALT 31 Alkaline Phosphatase 66 Total Protein 6.4 Albumin 3.6 Globulin 2.8 Albumin/Globulin Ratio 1.3 Blood Type Antibody Screen BBK History Checked 03/09/17 07:55 WBC RBC Hgb Hct MCV MCH MCHC RDW Plt Count MPV Neut % (Auto) Lymph % (Auto) [place] % (Auto) Eos % (Auto) Baso % (Auto) Neut # Lymph # [place] # Eos # Baso # PT INR APTT Sodium Potassium Chloride Carbon Dioxide Anion Gap BUN Creatinine Est GFR ( Amer) Est GFR (Non-Af Amer) Random Glucose Calcium Total Bilirubin AST ALT Alkaline Phosphatase Total Protein Albumin Globulin Albumin/Globulin Ratio Blood Type A POSITIVE Antibody Screen Negative BBK History Checked Patient has bt Assessment & Plan (1) S/P knee surgery Assessment and Plan: d/w Dr. Cole NPO for dressing change/wound vac application in OR today xrays f/u labs for OR Status: Acute
[2017-03-09] MEDS ORDERED: cefOXitin IV 1 gm in Dextrose 1 GM/50 ML BAG IVPB SCH (09:30)
[2017-03-09] MEDS ORDERED: Hydrocortisone- 50 MG in Sodium Chloride 0.9% 100 ML IV SCH ×2 (09:45→10:00)
[2017-03-09 10:55] LABS: RBC URINE 1 /hpf (0-3); URINE BILIRUBIN NEGATIVE (NEGATIVE); URINE BLOOD NEGATIVE (NEGATIVE); URINE COLOR YELLOW (YELLOW); URINE GLUCOSE (UA) NEG (Normal); URINE KETONE NEGATIVE (NEGATIVE); URINE LEUKOCYTE ESTERASE TRACE Leu/uL (Negative); URINE PROTEIN NEGATIVE (NEGATIVE); URINE UROBILINOGEN 0.2-1.0 mg/dL (0.2-1.0); WBC URINE 3 /hpf (0-5)
[2017-03-09] MEDS: HYDROmorphone 0.5 mg/0.5 ml ISec IVP PRN ×2 (13:03→17:07)
--- NOTE | 2017-03-09 13:03 | CP.PCM.CON ---
History of Present Illness - History of Present Illness History of Present Illness: THE PATIENT IS A 46 YEAR OLD FEMALE WHO HAD RECENT ORIF OF THE LEFT KNEE FOR MALUNION OF A TIBIAL FRACTURE AND WAS SENT TO [facility]. SHE NOW IS READMITTED FOLLOWING AN ER VISIT FOR A SEROSANGUINOUS DISCHARGE AT THE WOUND SITE. SHE ALSO HAS A HISTORY OF HYPERTENSION. CARDIOLOGY WAS ASKED TO FOLLOW HER ON THIS ADMISSION. SHE DENIES CHEST PAIN OR A CAD HISTORY. Past Patient History - Infectious Disease Hx of Infectious Diseases: MRSA - Tetanus Immunizations Tetanus Immunization: Unknown - Past Medical History & Family History Past Medical History?: Yes Past Family History: Reviewed and not pertinent - Past Social History Smoking Status: Heavy Smoker > 10 Cigarettes Daily Alcohol: None Drugs: Denies Domestic Violence: Negative - CARDIAC Hx Hypertension: Yes - PULMONARY Hx Chronic Obstructive Pulmonary Disease (COPD): Yes - NEUROLOGICAL Hx Neurological Disorder: No - HEENT Hx HEENT Problems: Yes - RENAL Hx Chronic Kidney Disease: No - ENDOCRINE/METABOLIC Hx Endocrine Disorders: No - HEMATOLOGICAL/ONCOLOGICAL Hx Anemia: Yes Hx Human Immunodeficiency Virus (HIV): No - INTEGUMENTARY Hx Dermatological Problems: No - MUSCULOSKELETAL/RHEUMATOLOGICAL Hx Arthritis: Yes - GASTROINTESTINAL Hx Gastrointestinal Disorders: No Other/Comment: HX OF CONSTIPATION - GENITOURINARY/GYNECOLOGICAL Hx Genitourinary Disorders: No - PSYCHIATRIC Hx Anxiety: Yes Hx Depression: Yes - SURGICAL HISTORY Hx Surgeries: Yes Hx Arthroscopy: Yes (RIGHT KNEE) Hx Musculoskeletal Surgery: Yes (Left knee ORIF for Malunion Fracture Tibia) Other/Comment: SX FOR BOWEL OBSTRUCTION - ANESTHESIA Hx Anesthesia: Yes Hx Anesthesia Reactions: No Hx Malignant Hyperthermia: No Has any member of the family had a problem w/ anesthesia?: No Meds Allergies/Adverse Reactions: Allergies Allergy/AdvReac Type Severity Reaction Status Date / Time No Known Allergies Allergy Verified 02/16/17 08:07 - Medications Medications: Current Medications Hydrocortisone Sodium Succinate (Solu-Cortef) 50 mg IV Q12 [facility] Hydromorphone HCl (Dilaudid) 1 mg IVP Q4 PRN PRN Reason: Pain, moderate (4-7) Vancomycin HCl 750 mg/ Sodium (Chloride) 250 mls @ 166.667 mls/hr IVPB Q12 [facility] PRN Reason: Protocol Last Admin: 03/09/17 10:33 Dose: 166.667 mls/hr Dextrose/Sodium Chloride (Dextrose 5%-0.9% Ns 500 Ml) 500 mls @ 70 mls/hr IV .Q7H9M [facility] Stop: 03/10/17 09:42 Last Admin: 03/09/17 10:14 Dose: 70 mls/hr Cefepime HCl 1 gm/ Sodium (Chloride) 100 mls @ 100 mls/hr IVPB Q8 [facility] PRN Reason: Protocol Oxycodone HCl (Oxycontin Extended Release Tab) 30 mg PO Q12 [facility] Stop: 03/12/17 21:01 Physical Exam - Respiratory Exam Respiratory Exam: Clear to Auscultation Bilateral - Cardiovascular Exam Cardiovascular Exam: REGULAR RHYTHM, +S1, +S2 - Additional Findings Additional findings: EKG NSR Results - Vital Signs Recent Vital Signs: Last Vital Signs Temp 98.9 F 03/09/17 11:51 Pulse 98 H 03/09/17 11:51 Resp 18 03/09/17 11:51 BP 113/72 03/09/17 11:51 Pulse Ox 93 L 03/09/17 11:51 - Labs Result Diagrams: 03/09/17 07:55 03/09/17 07:55 Labs: Laboratory Results - last 24 hr 03/09/17 03/09/17 03/09/17 07:55 07:55 07:55 WBC 20.3 H RBC 3.67 L Hgb 11.5 L Hct 35.0 MCV 95.5 D MCH 31.3 H MCHC 32.8 L RDW 17.7 H Plt Count 683 H D MPV 6.8 L Neut % (Auto) 73.4 Lymph % (Auto) 16.8 L [place] % (Auto) 7.1 Eos % (Auto) 2.3 Baso % (Auto) 0.4 Neut # 14.9 H Lymph # 3.4 [place] # 1.4 H Eos # 0.5 Baso # 0.1 PT 10.2 INR 0.9 APTT 33.2 Sodium 141 Potassium 3.8 Chloride 108 H Carbon Dioxide 24 Anion Gap 13 BUN 18 H Creatinine 0.6 L Est GFR ( Amer) > 60 Est GFR (Non-Af Amer) > 60 Random Glucose 85 Calcium 9.4 Total Bilirubin 0.2 AST 21 ALT 31 Alkaline Phosphatase 66 Total Protein 6.4 Albumin 3.6 Globulin 2.8 Albumin/Globulin Ratio 1.3 Urine Color Urine Clarity Urine pH Ur Specific [place] Urine Protein Urine Glucose (UA) Urine Ketones Urine Blood Urine Nitrate Urine Bilirubin Urine Urobilinogen Ur Leukocyte Esterase Urine RBC (Auto) Urine Microscopic WBC Ur Squamous Epith Cells Amorphous Sediment Urine HCG, Qual Blood Type Antibody Screen BBK History Checked 03/09/17 03/09/17 07:55 10:30 WBC RBC Hgb Hct MCV MCH MCHC RDW Plt Count MPV Neut % (Auto) Lymph % (Auto) [place] % (Auto) Eos % (Auto) Baso % (Auto) Neut # Lymph # [place] # Eos # Baso # PT INR APTT Sodium Potassium Chloride Carbon Dioxide Anion Gap BUN Creatinine Est GFR ( Amer) Est GFR (Non-Af Amer) Random Glucose Calcium Total Bilirubin AST ALT Alkaline Phosphatase Total Protein Albumin Globulin Albumin/Globulin Ratio Urine Color Yellow Urine Clarity Clear Urine pH 6.0 Ur Specific [place] 1.013 Urine Protein Negative Urine Glucose (UA) Neg Urine Ketones Negative Urine Blood Negative Urine Nitrate Negative Urine Bilirubin Negative Urine Urobilinogen 0.2-1.0 Ur Leukocyte Esterase Trace Urine RBC (Auto) 1 Urine Microscopic WBC 3 Ur Squamous Epith Cells 4 Amorphous Sediment Rare H Urine HCG, Qual Negative Blood Type A POSITIVE Antibody Screen Negative BBK History Checked Patient has bt Assessment & Plan - Assessment and Plan (Free Text) Assessment: S/P ORIF LEFT TIBIAL FRACTURE HYPERTENSION HYPERLIPIDEMIA Plan: THE PATIENT IS CLEARED FOR SURGERY FROM THE CARDIAC VIEWPOINT
[2017-03-09] MEDS: Cefepime 1 GM in Sodium Chloride 0.9% 100 ML IVPB SCH ×3 (13:04→20:28)
--- NOTE | 2017-03-09 13:21 | RAD ---
PROCEDURE: Radiographs of the left tibia and fibula. HISTORY: s/p ORIF left prox tibia COMPARISON: Left tibia-fibula radiographs 02/25/2017. TECHNIQUE: Frontal and lateral views obtained. FINDINGS: BONES: No interval acute fractures appreciated however splint obscures soft tissue and bony detail. Pain status post open reduction internal fixation of proximal tibial fracture with 2 compression plates and multiple screws again seen in position reducing the fracture of the proximal tibial level. Proximal left fibular osteotomy again noted. Skin sanket are again seen anteriorly as well as laterally. JOINT SPACES: Unremarkable. OTHER FINDINGS: None. IMPRESSION: Status oriented proximal left tibia again evident with 2 compression plates transfixing the proximal left tibial fracture once again with numerous compression screws. Two of the screws are independent of either compression plate. Fracture is likely at an intermediate stage of healing.
--- NOTE | 2017-03-09 13:41 | RAD ---
HISTORY: knee COMPARISON: 02/25/2017 FINDINGS: LUNGS: No active pulmonary disease. PLEURA: No significant pleural effusion identified, no pneumothorax apparent. CARDIOVASCULAR: Normal. OSSEOUS STRUCTURES: Old left rib fractures VISUALIZED UPPER ABDOMEN: Normal. OTHER FINDINGS: None. IMPRESSION: No active disease.
--- NOTE | 2017-03-09 14:11 | RAD ---
PROCEDURE: Left Knee Radiographs. HISTORY: Pain. COMPARISON: Left knee radiographs 02/25/2017. FINDINGS: BONES: No destructive lesion or acute fracture seen at the visualized distal femur and the patella with proximal tibia seen to be status post open reduction internal fixation by 2 compression plates and numerous compression screws. Prior proximal left fibular osteotomy again noted without reduction. Skin sanket are again seen the anterior as well as lateral knee soft tissues. JOINTS: Mild medial compartment joint space narrowing compatible degenerative joint disease. JOINT EFFUSION: Mild suprapatellar bursa effusion is suggested. OTHER FINDINGS: None. IMPRESSION: Status post ORIF proximal right tibial fracture/ osteotomy with ununited osteotomy of the proximal left fibula again evident. Hardware appears unchanged in position. Prior surgical drain has been removed.
[2017-03-09] MEDS ORDERED: HYDROmorphone 0.5 mg/0.5 ml ISec IVP STA (15:11)
[2017-03-09] MEDS ORDERED: Magnesium Hydroxide Susp 30 ml UD PO PRN (17:49)
[2017-03-09] MEDS ORDERED: Alum-Mag Hydrox-Simethicone Susp (30 mL) PO PRN (17:49)
[2017-03-09] MEDS: oxyCODONE 10 mg ER Tab (oxyCONTIN) PO SCH (18:10)
[2017-03-09] MEDS ORDERED: VANCOMYCIN IV SCH (21:00)
[2017-03-09] MEDS ORDERED: [UNRECOGNIZED DRUG - OTHER] IV SCH (21:00)
[2017-03-09] MEDS ORDERED: SOD CHLORIDE IV SCH (21:00)
[2017-03-09] MEDS ORDERED: oxyCODONE 10 mg ER Tab (oxyCONTIN) PO SCH (21:00)
[2017-03-10] MEDS ORDERED: Patient's Own Med (Cefepime 1gm In Ns 100ml [Maxipime 1gm] 1 GM) IVPB SCH (01:00)
[2017-03-10] MEDS ORDERED: oxyCODONE 10 mg ER Tab (oxyCONTIN) PO ONE (02:00)
[2017-03-10] MEDS ORDERED: oxyCODONE 10 mg ER Tab (oxyCONTIN) PO SCH (06:00)
[2017-03-10] MEDS: Levothyroxine 100 MCG TAB PO SCH (06:23)
[2017-03-10 06:44] LABS: BASO # 0.1 K/uL (0.0-0.2); BASO % 0.7 % (0.0-2.0); EOS # 0.1 K/uL (0.0-0.7); EOS % 0.5 % (0.0-4.0); HEMATOCRIT 34.7 % (34.0-47.0); LYMPH # 2.6 K/uL (1.0-4.3); LYMPH % 12.7 % (20.0-40.0); MEAN CELL VOLUME 94.3 fl (81.0-99.0); MEAN CORPUSCULAR HEMOGLOBIN 30.6 pg (27.0-31.0); MEAN CORPUSCULAR HGB CONC 32.4 g/dL (33.0-37.0); MEAN PLATELET VOLUME 7.1 fl (7.2-11.7); MONO # 0.8 K/uL (0.0-0.8); MONO % 3.8 % (0.0-10.0); NEUT % 82.3 % (50.0-75.0); WHITE BLOOD COUNT 20.6 K/uL (4.8-10.8)
[2017-03-10 06:46] LABS: BLOOD UREA NITROGEN 16 mg/dl (7-17); CALCIUM 8.8 mg/dL (8.4-10.2); CARBON DIOXIDE 28 mmol/L (22-30); CHLORIDE 109 mmol/L (98-107); GFR AFRICAN-AMERICAN > 60; GLUCOSE,RANDOM 98 mg/dL (65-105); POTASSIUM 3.9 MMOL/L (3.6-5.0); SODIUM 142 mmol/l (132-148)
[2017-03-10] MEDS: Lactobacillus Acidophilus 500 MU Cap PO SCH ×2 (08:15→17:35)
[2017-03-10] MEDS: POLYETHYLENE GLYCOL 3350 17 GM/Dose PACKET PO PRN ×2 (08:16→16:34)
[2017-03-10] MEDS: Pantoprazole 40 mg EC Tab PO SCH (08:17)
[2017-03-10] MEDS: Multivitamin With Minerals Tab PO SCH (08:18)
--- NOTE | 2017-03-10 09:36 | CP.PCM.PN ---
Subjective - Date & Time of Evaluation Date of Evaluation: 03/10/17 Time of Evaluation: 09:33 - Subjective Subjective: Surgery cancelled yesterday as patient ate. Patient said she didn't eat all day and she didn't want to wait anymore. Still complains of pain in her leg. Objective - Vital Signs/Intake and Output Vital Signs (last 24 hours): Temp Pulse Resp BP Pulse Ox 98.1 F 110 H 20 165/95 H 99 03/10/17 09:00 03/10/17 08:18 03/10/17 07:26 03/10/17 08:18 03/10/17 07:26 - Medications Medications: Current Medications Acetaminophen (Tylenol 325mg Tab) 650 mg PO Q6 PRN PRN Reason: Temp over 100 Acetaminophen (Tylenol 325mg Tab) 650 mg PO Q4H PRN PRN Reason: Pain, Mild (1-3) Al Hydrox/Mg Hydrox/Simethicone (Maalox Plus 30 Ml) 30 ml PO Q6H PRN PRN Reason: GI upset Amlodipine Besylate (Norvasc) 5 mg PO DAILY [facility] Baclofen (Lioresal) 20 mg PO TID [facility] Last Admin: 03/10/17 08:16 Dose: 20 mg Bisacodyl (Dulcolax) 10 mg MT DAILY PRN PRN Reason: Constipation Docusate Sodium (Colace) 100 mg PO BID [facility] Last Admin: 03/10/17 08:15 Dose: 100 mg Duloxetine HCl (Cymbalta) 60 mg PO HS [facility] Last Admin: 03/09/17 20:59 Dose: 60 mg Ferrous Sulfate (Feosol) 325 mg PO BID [facility] Last Admin: 03/10/17 08:16 Dose: 325 mg Gabapentin (Neurontin) 600 mg PO TID [facility] Last Admin: 03/10/17 08:16 Dose: 600 mg Hydrocortisone Sodium Succinate (Solu-Cortef) 50 mg IV Q12 [facility] Last Admin: 03/10/17 08:17 Dose: 50 mg Vancomycin HCl 750 mg/ Sodium (Chloride) 250 mls @ 166.667 mls/hr IVPB Q12 [facility] PRN Reason: Protocol Last Admin: 03/09/17 21:44 Dose: 166.667 mls/hr Cefepime HCl 1 gm/ Sodium (Chloride) 100 mls @ 100 mls/hr IVPB Q8@0500,1300, 2100 [facility] PRN Reason: Protocol Last Admin: 03/09/17 20:28 Dose: 100 mls/hr Lactobacillus Acidophilus (Bacid Acidophilus) 1 cap PO BID [facility] Last Admin: 03/10/17 08:15 Dose: 1 cap Levothyroxine Sodium (Synthroid) 100 mcg PO DAILY@0630 [facility] Last Admin: 03/10/17 06:23 Dose: Not Given Lisinopril (Zestril) 20 mg PO DAILY [facility] Last Admin: 03/10/17 08:18 Dose: 20 mg Lorazepam (Ativan) 1 mg PO BID [facility] Last Admin: 03/10/17 08:15 Dose: 1 mg Magnesium Hydroxide (Milk Of Magnesia) 30 ml PO HS PRN PRN Reason: Constipation Multivitamins/Minerals (Therapeutic-M Tab) 1 tab PO DAILY [facility] Last Admin: 03/10/17 08:18 Dose: 1 tab Nicotine (Nicoderm Cq) 1 patch TD DAILY [facility] Last Admin: 03/10/17 08:17 Dose: 1 patch Oxycodone HCl (Oxycontin Extended Release Tab) 30 mg PO Q8H [facility] Last Admin: 03/09/17 18:10 Dose: Not Given Pantoprazole Sodium (Protonix Ec Tab) 40 mg PO DAILY [facility] Last Admin: 03/10/17 08:17 Dose: 40 mg Polyethylene Glycol (Miralax) 17 gm PO BID PRN PRN Reason: Constipation Last Admin: 03/10/17 08:16 Dose: 17 gm Quetiapine Fumarate (Seroquel) 100 mg PO HS [facility] Last Admin: 03/09/17 20:59 Dose: 100 mg Quetiapine Fumarate (Seroquel) 50 mg PO BID [facility] Last Admin: 03/10/17 08:17 Dose: 50 mg Sennosides (Senokot Tab) 17.2 mg PO HS [facility] Last Admin: 03/09/17 20:59 Dose: 17.2 mg Sodium Phosphate (Fleet Enema) 135 ml MT HS PRN PRN Reason: If bisacodyl uneffective Trazodone HCl (Desyrel) 100 mg PO HS PRN PRN Reason: Insomnia Last Admin: 03/09/17 20:54 Dose: 100 mg - Labs Labs: 03/10/17 06:00 03/10/17 06:00 PT 10.2 Seconds (9.8-13.1) 03/09/17 07:55 INR 0.9 (0.9-1.2) 03/09/17 07:55 APTT 33.2 Seconds (25.6-37.1) 03/09/17 07:55 - Extremities Exam Additional comments: Left leg: no change in serous drainage, +ROM ankle/toes, improving. Sensation intact. +DP/PT pulses Assessment and Plan (1) S/P knee surgery Assessment & Plan: for wound evaluation by plastics as per Dr. Cole Status: Acute
[2017-03-10] MEDS: oxyCODONE 10 mg ER Tab (oxyCONTIN) PO SCH ×2 (09:46→19:47)
--- NOTE | 2017-03-10 09:57 | CP.PCM.PN ---
Subjective - Date & Time of Evaluation Date of Evaluation: 03/10/17 Time of Evaluation: 09:30 - Subjective Subjective: NO COMPLAINTS OF CHEST PAIN OR SOB Objective - Vital Signs/Intake and Output Vital Signs (last 24 hours): Temp Pulse Resp BP Pulse Ox 98.1 F 110 H 20 165/95 H 99 03/10/17 09:00 03/10/17 09:46 03/10/17 07:26 03/10/17 09:46 03/10/17 07:26 - Medications Medications: Current Medications Acetaminophen (Tylenol 325mg Tab) 650 mg PO Q6 PRN PRN Reason: Temp over 100 Acetaminophen (Tylenol 325mg Tab) 650 mg PO Q4H PRN PRN Reason: Pain, Mild (1-3) Al Hydrox/Mg Hydrox/Simethicone (Maalox Plus 30 Ml) 30 ml PO Q6H PRN PRN Reason: GI upset Amlodipine Besylate (Norvasc) 5 mg PO DAILY [facility] Last Admin: 03/10/17 09:46 Dose: 5 mg Baclofen (Lioresal) 20 mg PO TID [facility] Last Admin: 03/10/17 08:16 Dose: 20 mg Bisacodyl (Dulcolax) 10 mg [place] DAILY PRN PRN Reason: Constipation Docusate Sodium (Colace) 100 mg PO BID [facility] Last Admin: 03/10/17 08:15 Dose: 100 mg Duloxetine HCl (Cymbalta) 60 mg PO HS [facility] Last Admin: 03/09/17 20:59 Dose: 60 mg Ferrous Sulfate (Feosol) 325 mg PO BID [facility] Last Admin: 03/10/17 08:16 Dose: 325 mg Gabapentin (Neurontin) 600 mg PO TID [facility] Last Admin: 03/10/17 08:16 Dose: 600 mg Hydrocortisone Sodium Succinate (Solu-Cortef) 50 mg IV Q12 [facility] Last Admin: 03/10/17 08:17 Dose: 50 mg Vancomycin HCl 750 mg/ Sodium (Chloride) 250 mls @ 166.667 mls/hr IVPB Q12 [facility] PRN Reason: Protocol Last Admin: 03/10/17 09:47 Dose: 166.667 mls/hr Cefepime HCl 1 gm/ Sodium (Chloride) 100 mls @ 100 mls/hr IVPB Q8@0500,1300, 2100 [facility] PRN Reason: Protocol Last Admin: 03/09/17 20:28 Dose: 100 mls/hr Lactobacillus Acidophilus (Bacid Acidophilus) 1 cap PO BID [facility] Last Admin: 03/10/17 08:15 Dose: 1 cap Levothyroxine Sodium (Synthroid) 100 mcg PO DAILY@0630 [facility] Last Admin: 03/10/17 06:23 Dose: Not Given Lisinopril (Zestril) 20 mg PO DAILY [facility] Last Admin: 03/10/17 08:18 Dose: 20 mg Lorazepam (Ativan) 1 mg PO BID [facility] Last Admin: 03/10/17 08:15 Dose: 1 mg Magnesium Hydroxide (Milk Of Magnesia) 30 ml PO HS PRN PRN Reason: Constipation Multivitamins/Minerals (Therapeutic-M Tab) 1 tab PO DAILY [facility] Last Admin: 03/10/17 08:18 Dose: 1 tab Nicotine (Nicoderm Cq) 1 patch TD DAILY [facility] Last Admin: 03/10/17 08:17 Dose: 1 patch Oxycodone HCl (Oxycontin Extended Release Tab) 30 mg PO Q8H [facility] Last Admin: 03/10/17 09:46 Dose: 30 mg Pantoprazole Sodium (Protonix Ec Tab) 40 mg PO DAILY [facility] Last Admin: 03/10/17 08:17 Dose: 40 mg Polyethylene Glycol (Miralax) 17 gm PO BID PRN PRN Reason: Constipation Last Admin: 03/10/17 08:16 Dose: 17 gm Quetiapine Fumarate (Seroquel) 100 mg PO HS [facility] Last Admin: 03/09/17 20:59 Dose: 100 mg Quetiapine Fumarate (Seroquel) 50 mg PO BID [facility] Last Admin: 03/10/17 08:17 Dose: 50 mg Sennosides (Senokot Tab) 17.2 mg PO HS [facility] Last Admin: 03/09/17 20:59 Dose: 17.2 mg Sodium Phosphate (Fleet Enema) 135 ml [place] HS PRN PRN Reason: If bisacodyl uneffective Trazodone HCl (Desyrel) 100 mg PO HS PRN PRN Reason: Insomnia Last Admin: 03/09/17 20:54 Dose: 100 mg - Labs Labs: 03/10/17 06:00 03/10/17 06:00 PT 10.2 Seconds (9.8-13.1) 03/09/17 07:55 INR 0.9 (0.9-1.2) 03/09/17 07:55 APTT 33.2 Seconds (25.6-37.1) 03/09/17 07:55 - Respiratory Exam Respiratory Exam: Clear to Ausculation Bilateral - Cardiovascular Exam Cardiovascular Exam: REGULAR RHYTHM, +S1, +S2 Assessment and Plan - Assessment and Plan (Free Text) Assessment: S/P RECENT ORIF OF LEFT TIBIAL FRACTURE WITH SEROSANGUINOUS WOUND SITE DISCHARGE HYPERTENSION Plan: CONTINUE ANTIBIOTICS, AMLODIPINE AND LISINOPRIL PLASTIC SURGERY TO SEE
--- NOTE | 2017-03-10 11:23 | CP.PCM.PN ---
Subjective - Date & Time of Evaluation Date of Evaluation: 03/10/17 Time of Evaluation: 11:00 - Subjective Subjective: No fever pain controlled denies CP no SOB no abd pain Objective - Vital Signs/Intake and Output Vital Signs (last 24 hours): Temp Pulse Resp BP Pulse Ox 98.1 F 110 H 20 165/95 H 99 03/10/17 09:00 03/10/17 09:46 03/10/17 07:26 03/10/17 09:46 03/10/17 07:26 - Medications Medications: Current Medications Acetaminophen (Tylenol 325mg Tab) 650 mg PO Q6 PRN PRN Reason: Temp over 100 Acetaminophen (Tylenol 325mg Tab) 650 mg PO Q4H PRN PRN Reason: Pain, Mild (1-3) Al Hydrox/Mg Hydrox/Simethicone (Maalox Plus 30 Ml) 30 ml PO Q6H PRN PRN Reason: GI upset Amlodipine Besylate (Norvasc) 5 mg PO DAILY [facility] Last Admin: 03/10/17 09:46 Dose: 5 mg Baclofen (Lioresal) 20 mg PO TID [facility] Last Admin: 03/10/17 08:16 Dose: 20 mg Bisacodyl (Dulcolax) 10 mg [place] DAILY PRN PRN Reason: Constipation Docusate Sodium (Colace) 100 mg PO BID [facility] Last Admin: 03/10/17 08:15 Dose: 100 mg Duloxetine HCl (Cymbalta) 60 mg PO HS [facility] Last Admin: 03/09/17 20:59 Dose: 60 mg Ferrous Sulfate (Feosol) 325 mg PO BID [facility] Last Admin: 03/10/17 08:16 Dose: 325 mg Gabapentin (Neurontin) 600 mg PO TID [facility] Last Admin: 03/10/17 08:16 Dose: 600 mg Hydrocortisone Sodium Succinate (Solu-Cortef) 50 mg IV Q12 [facility] Last Admin: 03/10/17 08:17 Dose: 50 mg Vancomycin HCl 750 mg/ Sodium (Chloride) 250 mls @ 166.667 mls/hr IVPB Q12 [facility] PRN Reason: Protocol Last Admin: 03/10/17 09:47 Dose: 166.667 mls/hr Cefepime HCl 1 gm/ Sodium (Chloride) 100 mls @ 100 mls/hr IVPB Q8@0500,1300, 2100 [facility] PRN Reason: Protocol Last Admin: 03/09/17 20:28 Dose: 100 mls/hr Lactobacillus Acidophilus (Bacid Acidophilus) 1 cap PO BID [facility] Last Admin: 03/10/17 08:15 Dose: 1 cap Levothyroxine Sodium (Synthroid) 100 mcg PO DAILY@0630 [facility] Last Admin: 03/10/17 06:23 Dose: Not Given Lisinopril (Zestril) 20 mg PO DAILY [facility] Last Admin: 03/10/17 08:18 Dose: 20 mg Lorazepam (Ativan) 1 mg PO BID [facility] Last Admin: 03/10/17 08:15 Dose: 1 mg Magnesium Hydroxide (Milk Of Magnesia) 30 ml PO HS PRN PRN Reason: Constipation Multivitamins/Minerals (Therapeutic-M Tab) 1 tab PO DAILY [facility] Last Admin: 03/10/17 08:18 Dose: 1 tab Nicotine (Nicoderm Cq) 1 patch TD DAILY [facility] Last Admin: 03/10/17 08:17 Dose: 1 patch Oxycodone HCl (Oxycontin Extended Release Tab) 30 mg PO Q8H [facility] Last Admin: 03/10/17 09:46 Dose: 30 mg Pantoprazole Sodium (Protonix Ec Tab) 40 mg PO DAILY [facility] Last Admin: 03/10/17 08:17 Dose: 40 mg Polyethylene Glycol (Miralax) 17 gm PO BID PRN PRN Reason: Constipation Last Admin: 03/10/17 08:16 Dose: 17 gm Quetiapine Fumarate (Seroquel) 100 mg PO HS [facility] Last Admin: 03/09/17 20:59 Dose: 100 mg Quetiapine Fumarate (Seroquel) 50 mg PO BID [facility] Last Admin: 03/10/17 08:17 Dose: 50 mg Sennosides (Senokot Tab) 17.2 mg PO HS [facility] Last Admin: 03/09/17 20:59 Dose: 17.2 mg Sodium Phosphate (Fleet Enema) 135 ml [place] HS PRN PRN Reason: If bisacodyl uneffective Trazodone HCl (Desyrel) 100 mg PO HS PRN PRN Reason: Insomnia Last Admin: 03/09/17 20:54 Dose: 100 mg - Labs Labs: 03/10/17 06:00 03/10/17 06:00 PT 10.2 Seconds (9.8-13.1) 03/09/17 07:55 INR 0.9 (0.9-1.2) 03/09/17 07:55 APTT 33.2 Seconds (25.6-37.1) 03/09/17 07:55 - Constitutional Appears: No Acute Distress, Older Than Stated Age - Head Exam Head Exam: NORMAL INSPECTION, NORMOCEPHALIC - Eye Exam Eye Exam: EOMI, Normal appearance, PERRL Pupil Exam: NORMAL ACCOMODATION - ENT Exam ENT Exam: Mucous Membranes Moist, Normal External Ear Exam - Neck Exam Neck exam: Positive for: Full Rom. Negative for: Meningismus - Respiratory Exam Respiratory Exam: NORMAL BREATHING PATTERN. absent: Respiratory Distress - Cardiovascular Exam Cardiovascular Exam: REGULAR RHYTHM, +S1, +S2 - GI/Abdominal Exam GI & Abdominal Exam: Normal Bowel Sounds, Soft. absent: Tenderness - Extremities Exam Extremities exam: Positive for: normal capillary refill, pedal pulses present. Negative for: calf tenderness Additional comments: Left knee surgical wound with dressing, immobilizer in place sanket intact , some serosanguinous drainage - Neuro Exam no focal deficit, MMT 5/5 Assessment and Plan - Assessment and Plan (Free Text) Assessment: 46 y/o lady with hx of Left Tibial Fracture with malunion , s/p ORIF and recent treatment for Cellulitis of the Left lower leg , presented to the ED from [facility] for eval of her left knee surgical wound, noted serosanguinous drainage. No fever, no chills (1) s/p ORIF for Malunion/Non union of Closed fracture of left tibia and fibula -s/p ORIF proximal tibia and fibula with allograft/autograft, LCL and patellar ligament repair, and peroneal nerve decompression done 02/25 -Surgical Wound looks clean , sanket intact , noted some serosanguinous drainage and blistering lateral to the surgical wound - leukocytosis likely sec to steroids - Ortho consult: Dr Cole -Plastic Surgery consult to eval wound _pain mgt -PT/OT - will continue to observe pt's wound in the hospital and monitor it closely (2) History of Cellulitis of left lower leg treated on previous admission -Cont Vancomycin and Cefepime IV to complete 1 month as rec by Dr Corado on previous admission (3) Bipolar disorder -continue psych meds -no suicidal ideations or depression Status: Chronic (4) COPD (chronic obstructive pulmonary disease) -pt currently asymptomatic - Duoneb prn - pt active smoker Status: Chronic (5) Hypertension Continue Amlodipine and Lisinopril (home meds) Will monitor BP closely Status: Chronic (6) Hypothyroidism Continue Levothyroxine 100 mcg daily Status: Chronic (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
--- NOTE | 2017-03-10 11:42 | PQF GENQUE ---
Dr. Srinivasan, 2 (two) queries as follows: (1 )In agreement with the BMI: 16.3 listed in the EMR? if in agreement please include the BMI in your progress note (2) If in agreement: Is there an associated diagnosis to go along with the BMI? RD consult pending This form is a permanent part of the medical record Clarification of your documentation is requested to better reflect the severity of illness and intensity of treatment of your patient. Indicators present [] Specify: [] [] Specify: [] [] Specify: [] [] Specify: [] Location in the medical record that reflects the above clinical findings: [] Treatment Provided: [] PHYSICIAN'S RESPONSE Underweight , BMI =16 Based on your medical judgment of the clinical indicators outlined above please clarify the following: [] Practitioner response [] If unable to determine, please check the box, sign and date. Present On Admission (POA) Indicator: [] Present at the time of admission [] Not present at the time of admission [] Clinically Undetermined In responding to this query, please exercise your independent professional judgment. The fact that a question is asked does not imply that any particular answer is desired or expected. Thank you for your clarification on this documentation. If you have any questions please call. * Thank you, Mary Adame RN ext. #[phone]: Nu HOWARDD
[2017-03-10] MEDS: Cefepime 1 GM in Sodium Chloride 0.9% 100 ML IVPB SCH ×2 (12:50→20:23)
[2017-03-10] MEDS: Silver Sulfadiazine 1% Cream (20 gm) TOP SCH (13:21)
--- NOTE | 2017-03-10 13:35 | CP.PCM.CON ---
History of Present Illness - History of Present Illness History of Present Illness: Kyleigh Fay is a 46 year old female who is S/P revision of a right tib- fib fx non-union. She was admitted due to serous drainage from her right leg. 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 She has no allergies to medications. She is on steroids to treat the Bill Syndrome. Physical Examination the right leg demonstrates an intact staple line beginning from above the knee to the lower 1/3 of the tibia. There is an extensive area of blistering extending 4 cm to each side of the staple line. There is no blistering by the medial-most staple line. Excellent posterior tibial and dorsalis pedis pulses. Today's T = 98.6 (No spikes); and the WBC = 20.3. IMP: I believe the blistering has more of vascular origin than infectious and is most likely secondary to her autoimmune disorder. PLAN: Conservative care only at the present time. Recommend Silvadene occlusive dressings qDay. Will F/U on . Thank you, Lucas Goodson M.D. Past Patient History - Infectious Disease Hx of Infectious Diseases: MRSA - Tetanus Immunizations Tetanus Immunization: Unknown - Past Medical History & Family History Past Medical History?: Yes - Past Social History Smoking Status: Heavy Smoker > 10 Cigarettes Daily - CARDIAC Hx Hypertension: Yes - PULMONARY Hx Chronic Obstructive Pulmonary Disease (COPD): Yes - NEUROLOGICAL Hx Neurological Disorder: No - HEENT Hx HEENT Problems: Yes Other/Comment: RETINA - RENAL Hx Chronic Kidney Disease: No - ENDOCRINE/METABOLIC Hx Endocrine Disorders: No - HEMATOLOGICAL/ONCOLOGICAL Hx Anemia: Yes Hx Human Immunodeficiency Virus (HIV): No - INTEGUMENTARY Hx Dermatological Problems: No - MUSCULOSKELETAL/RHEUMATOLOGICAL Hx Arthritis: Yes - GASTROINTESTINAL Hx Gastrointestinal Disorders: No Other/Comment: HX OF CONSTIPATION - GENITOURINARY/GYNECOLOGICAL Hx Genitourinary Disorders: No - PSYCHIATRIC Hx Anxiety: Yes Hx Depression: Yes - SURGICAL HISTORY Hx Surgeries: Yes Hx Arthroscopy: Yes (RIGHT KNEE) Other/Comment: SX FOR BOWEL OBSTRUCTION - ANESTHESIA Hx Anesthesia: Yes Hx Anesthesia Reactions: No Hx Malignant Hyperthermia: No Meds Allergies/Adverse Reactions: Allergies Allergy/AdvReac Type Severity Reaction Status Date / Time No Known Allergies Allergy Verified 02/16/17 08:07 - Medications Medications: Current Medications Acetaminophen (Tylenol 325mg Tab) 650 mg PO Q6 PRN PRN Reason: Temp over 100 Acetaminophen (Tylenol 325mg Tab) 650 mg PO Q4H PRN PRN Reason: Pain, Mild (1-3) Al Hydrox/Mg Hydrox/Simethicone (Maalox Plus 30 Ml) 30 ml PO Q6H PRN PRN Reason: GI upset Amlodipine Besylate (Norvasc) 5 mg PO DAILY [facility] Last Admin: 03/10/17 09:46 Dose: 5 mg Baclofen (Lioresal) 20 mg PO TID [facility] Last Admin: 03/10/17 12:49 Dose: 20 mg Bisacodyl (Dulcolax) 10 mg [place] DAILY PRN PRN Reason: Constipation Docusate Sodium (Colace) 100 mg PO BID [facility] Last Admin: 03/10/17 08:15 Dose: 100 mg Duloxetine HCl (Cymbalta) 60 mg PO HS [facility] Last Admin: 03/09/17 20:59 Dose: 60 mg Ferrous Sulfate (Feosol) 325 mg PO BID [facility] Last Admin: 03/10/17 08:16 Dose: 325 mg Gabapentin (Neurontin) 600 mg PO TID [facility] Last Admin: 03/10/17 12:49 Dose: 600 mg Hydrocortisone Sodium Succinate (Solu-Cortef) 50 mg IV Q12 [facility] Last Admin: 03/10/17 08:17 Dose: 50 mg Vancomycin HCl 750 mg/ Sodium (Chloride) 250 mls @ 166.667 mls/hr IVPB Q12 [facility] PRN Reason: Protocol Last Admin: 03/10/17 09:47 Dose: 166.667 mls/hr Cefepime HCl 1 gm/ Sodium (Chloride) 100 mls @ 100 mls/hr IVPB Q8@0500,1300, 2100 [facility] PRN Reason: Protocol Last Admin: 03/10/17 12:50 Dose: 100 mls/hr Lactobacillus Acidophilus (Bacid Acidophilus) 1 cap PO BID [facility] Last Admin: 03/10/17 08:15 Dose: 1 cap Levothyroxine Sodium (Synthroid) 100 mcg PO DAILY@0630 [facility] Last Admin: 03/10/17 06:23 Dose: Not Given Lisinopril (Zestril) 20 mg PO DAILY [facility] Last Admin: 03/10/17 08:18 Dose: 20 mg Lorazepam (Ativan) 1 mg PO BID [facility] Last Admin: 03/10/17 08:15 Dose: 1 mg Magnesium Hydroxide (Milk Of Magnesia) 30 ml PO HS PRN PRN Reason: Constipation Multivitamins/Minerals (Therapeutic-M Tab) 1 tab PO DAILY [facility] Last Admin: 03/10/17 08:18 Dose: 1 tab Nicotine (Nicoderm Cq) 1 patch TD DAILY [facility] Last Admin: 03/10/17 08:17 Dose: 1 patch Oxycodone HCl (Oxycontin Extended Release Tab) 30 mg PO Q8H [facility] Last Admin: 03/10/17 09:46 Dose: 30 mg Pantoprazole Sodium (Protonix Ec Tab) 40 mg PO DAILY [facility] Last Admin: 03/10/17 08:17 Dose: 40 mg Polyethylene Glycol (Miralax) 17 gm PO BID PRN PRN Reason: Constipation Last Admin: 03/10/17 08:16 Dose: 17 gm Quetiapine Fumarate (Seroquel) 100 mg PO HS [facility] Last Admin: 03/09/17 20:59 Dose: 100 mg Quetiapine Fumarate (Seroquel) 50 mg PO BID [facility] Last Admin: 03/10/17 08:17 Dose: 50 mg Sennosides (Senokot Tab) 17.2 mg PO HS [facility] Last Admin: 03/09/17 20:59 Dose: 17.2 mg Silver Sulfadiazine (Silvadene 1% 20 Gm) 1 ea TOP DAILY [facility] Last Admin: 03/10/17 13:21 Dose: 1 applic Sodium Phosphate (Fleet Enema) 135 ml [place] HS PRN PRN Reason: If bisacodyl uneffective Trazodone HCl (Desyrel) 100 mg PO HS PRN PRN Reason: Insomnia Last Admin: 03/09/17 20:54 Dose: 100 mg Results - Vital Signs Recent Vital Signs: Last Vital Signs Temp 98.1 F 03/10/17 09:00 Pulse 110 H 03/10/17 09:46 Resp 20 03/10/17 07:26 BP 165/95 H 03/10/17 09:46 Pulse Ox 99 03/10/17 07:26 - Labs Result Diagrams: 03/10/17 06:00 03/10/17 06:00 Labs: Laboratory Results - last 24 hr 03/10/17 03/10/17 06:00 06:00 WBC 20.6 H RBC 3.68 L Hgb 11.2 L Hct 34.7 MCV 94.3 MCH 30.6 MCHC 32.4 L RDW 18.0 H Plt Count 667 H MPV 7.1 L Neut % (Auto) 82.3 H Lymph % (Auto) 12.7 L Mckenzie % (Auto) 3.8 Eos % (Auto) 0.5 Baso % (Auto) 0.7 Neut # 17.0 H Lymph # 2.6 Mckenzie # 0.8 Eos # 0.1 Baso # 0.1 Sodium 142 Potassium 3.9 Chloride 109 H Carbon Dioxide 28 Anion Gap 9 L BUN 16 Creatinine 0.6 L Est GFR ( Amer) > 60 Est GFR (Non-Af Amer) > 60 Random Glucose 98 Calcium 8.8
[2017-03-11] MEDS: oxyCODONE 10 mg ER Tab (oxyCONTIN) PO SCH ×2 (04:14→12:06)
[2017-03-11] MEDS: Cefepime 1 GM in Sodium Chloride 0.9% 100 ML IVPB SCH ×2 (04:15→13:43)
[2017-03-11] MEDS: Levothyroxine 100 MCG TAB PO SCH (06:17)
[2017-03-11 08:11] VITALS: BP 147/84; PULSE 76; RESP 18; TEMP 98.7; O2SAT 97
[2017-03-11] MEDS: Lactobacillus Acidophilus 500 MU Cap PO SCH (08:20)
[2017-03-11] MEDS: Pantoprazole 40 mg EC Tab PO SCH (08:24)
[2017-03-11] MEDS: Multivitamin With Minerals Tab PO SCH (08:24)
[2017-03-11] MEDS: POLYETHYLENE GLYCOL 3350 17 GM/Dose PACKET PO PRN (08:33)
[2017-03-11 08:54] LABS: BASO % 0.2 % (0.0-2.0); EOS # 0.3 K/uL (0.0-0.7); EOS % 1.6 % (0.0-4.0); HEMATOCRIT 36.2 % (34.0-47.0); LYMPH # 3.5 K/uL (1.0-4.3); LYMPH % 18.6 % (20.0-40.0); MEAN CELL VOLUME 94.1 fl (81.0-99.0); MEAN CORPUSCULAR HEMOGLOBIN 30.7 pg (27.0-31.0); MEAN CORPUSCULAR HGB CONC 32.6 g/dL (33.0-37.0); MEAN PLATELET VOLUME 6.6 fl (7.2-11.7); MONO # 1.1 K/uL (0.0-0.8); MONO % 6.1 % (0.0-10.0); NEUT # 13.7 K/uL (1.8-7.0); NEUT % 73.5 % (50.0-75.0); WHITE BLOOD COUNT 18.7 K/uL (4.8-10.8)
--- NOTE | 2017-03-11 10:19 | CP.PCM.PN ---
Subjective - Date & Time of Evaluation Date of Evaluation: 03/11/17 Time of Evaluation: 10:19 - Subjective Subjective: Patient not complaining of pain. She is anxious to go back to rehab. No new complaints Objective - Vital Signs/Intake and Output Vital Signs (last 24 hours): Temp Pulse Resp BP Pulse Ox 98.7 F 76 18 147/84 97 03/11/17 08:11 03/11/17 08:24 03/11/17 08:11 03/11/17 08:24 03/11/17 08:11 - Medications Medications: Current Medications Acetaminophen (Tylenol 325mg Tab) 650 mg PO Q6 PRN PRN Reason: Temp over 100 Acetaminophen (Tylenol 325mg Tab) 650 mg PO Q4H PRN PRN Reason: Pain, Mild (1-3) Al Hydrox/Mg Hydrox/Simethicone (Maalox Plus 30 Ml) 30 ml PO Q6H PRN PRN Reason: GI upset Amlodipine Besylate (Norvasc) 5 mg PO DAILY [facility] Last Admin: 03/11/17 08:24 Dose: 5 mg Baclofen (Lioresal) 20 mg PO TID [facility] Last Admin: 03/11/17 08:22 Dose: 20 mg Bisacodyl (Dulcolax) 10 mg [place] DAILY PRN PRN Reason: Constipation Docusate Sodium (Colace) 100 mg PO BID [facility] Last Admin: 03/11/17 08:21 Dose: 100 mg Duloxetine HCl (Cymbalta) 60 mg PO HS [facility] Last Admin: 03/10/17 21:39 Dose: 60 mg Ferrous Sulfate (Feosol) 325 mg PO BID [facility] Last Admin: 03/11/17 08:22 Dose: 325 mg Gabapentin (Neurontin) 600 mg PO TID [facility] Last Admin: 03/11/17 08:23 Dose: 600 mg Hydrocortisone (Cortef) 20 mg PO BID [facility] Last Admin: 03/11/17 08:22 Dose: 20 mg Vancomycin HCl 750 mg/ Sodium (Chloride) 250 mls @ 166.667 mls/hr IVPB Q12 [facility] PRN Reason: Protocol Last Admin: 03/11/17 08:36 Dose: 166.667 mls/hr Cefepime HCl 1 gm/ Sodium (Chloride) 100 mls @ 100 mls/hr IVPB Q8@0500,1300, 2100 [facility] PRN Reason: Protocol Last Admin: 03/11/17 04:15 Dose: 100 mls/hr Lactobacillus Acidophilus (Bacid Acidophilus) 1 cap PO BID [facility] Last Admin: 03/11/17 08:20 Dose: 1 cap Levothyroxine Sodium (Synthroid) 100 mcg PO DAILY@0630 [facility] Last Admin: 03/11/17 06:17 Dose: 100 mcg Lisinopril (Zestril) 20 mg PO DAILY [facility] Last Admin: 03/11/17 08:23 Dose: 20 mg Lorazepam (Ativan) 1 mg PO BID [facility] Last Admin: 03/11/17 08:20 Dose: 1 mg Magnesium Hydroxide (Milk Of Magnesia) 30 ml PO HS PRN PRN Reason: Constipation Multivitamins/Minerals (Therapeutic-M Tab) 1 tab PO DAILY [facility] Last Admin: 03/11/17 08:24 Dose: 1 tab Nicotine (Nicoderm Cq) 1 patch TD DAILY [facility] Last Admin: 03/11/17 08:23 Dose: 1 patch Oxycodone HCl (Oxycontin Extended Release Tab) 30 mg PO Q8@0400,1200,2000 [facility] Stop: 03/12/17 18:01 Last Admin: 03/11/17 04:14 Dose: 30 mg Pantoprazole Sodium (Protonix Ec Tab) 40 mg PO DAILY [facility] Last Admin: 03/11/17 08:24 Dose: 40 mg Polyethylene Glycol (Miralax) 17 gm PO BID PRN PRN Reason: Constipation Last Admin: 03/11/17 08:33 Dose: 17 gm Quetiapine Fumarate (Seroquel) 100 mg PO HS [facility] Last Admin: 03/10/17 21:31 Dose: 100 mg Quetiapine Fumarate (Seroquel) 50 mg PO BID [facility] Last Admin: 03/11/17 08:25 Dose: 50 mg Sennosides (Senokot Tab) 17.2 mg PO HS [facility] Last Admin: 03/10/17 21:32 Dose: 17.2 mg Silver Sulfadiazine (Silvadene 1% 20 Gm) 1 ea TOP DAILY [facility] Last Admin: 03/10/17 13:21 Dose: 1 applic Sodium Phosphate (Fleet Enema) 135 ml [place] HS PRN PRN Reason: If bisacodyl uneffective Trazodone HCl (Desyrel) 100 mg PO HS PRN PRN Reason: Insomnia Last Admin: 03/10/17 21:32 Dose: 100 mg - Labs Labs: 03/11/17 08:30 03/10/17 06:00 PT 10.2 Seconds (9.8-13.1) 03/09/17 07:55 INR 0.9 (0.9-1.2) 03/09/17 07:55 APTT 33.2 Seconds (25.6-37.1) 03/09/17 07:55 - Extremities Exam Additional comments: LLE: dreessing/immobilizer intact, +ROM ankle/toes, sensation intact, +DP pulse Assessment and Plan (1) S/P knee surgery Assessment & Plan: plastics consultation appreciated, f/u daily silvadene dressing changes no surgical intervention planned PT/OT VTE proph plan d/c back to [facility], ortho stable for d/c per Dr. Cole, f/u in office 7-10 days Status: Chronic
[2017-03-11] MEDS: Silver Sulfadiazine 1% Cream (20 gm) TOP SCH (10:29)
--- NOTE | 2017-03-11 11:31 | CP.PCM.DIS ---
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 Hospital Course - Lab Results Lab Results: Most Recent Lab Values WBC 18.7 K/uL (4.8-10.8) H 03/11/17 08:30 RBC 3.84 Mil/uL (3.80-5.20) 03/11/17 08:30 Hgb 11.8 g/dL (12.0-16.0) L 03/11/17 08:30 Hct 36.2 % (34.0-47.0) 03/11/17 08:30 MCV 94.1 fl (81.0-99.0) 03/11/17 08:30 MCH 30.7 pg (27.0-31.0) 03/11/17 08:30 MCHC 32.6 g/dL (33.0-37.0) L 03/11/17 08:30 RDW 18.0 % (11.5-14.5) H 03/11/17 08:30 Plt Count 608 K/uL (130-400) H 03/11/17 08:30 MPV 6.6 fl (7.2-11.7) L 03/11/17 08:30 Neut % (Auto) 73.5 % (50.0-75.0) 03/11/17 08:30 Lymph % (Auto) 18.6 % (20.0-40.0) L 03/11/17 08:30 [place] % (Auto) 6.1 % (0.0-10.0) 03/11/17 08:30 Eos % (Auto) 1.6 % (0.0-4.0) 03/11/17 08:30 Baso % (Auto) 0.2 % (0.0-2.0) 03/11/17 08:30 Neut # 13.7 K/uL (1.8-7.0) H 03/11/17 08:30 Lymph # 3.5 K/uL (1.0-4.3) 03/11/17 08:30 [place] # 1.1 K/uL (0.0-0.8) H 03/11/17 08:30 Eos # 0.3 K/uL (0.0-0.7) 03/11/17 08:30 Baso # 0.0 K/uL (0.0-0.2) 03/11/17 08:30 PT 10.2 Seconds (9.8-13.1) 03/09/17 07:55 INR 0.9 (0.9-1.2) 03/09/17 07:55 APTT 33.2 Seconds (25.6-37.1) 03/09/17 07:55 Sodium 142 mmol/l (132-148) 03/10/17 06:00 Potassium 3.9 MMOL/L (3.6-5.0) 03/10/17 06:00 Chloride 109 mmol/L (98-107) H 03/10/17 06:00 Carbon Dioxide 28 mmol/L (22-30) 03/10/17 06:00 Anion Gap 9 (10-20) L 03/10/17 06:00 BUN 16 mg/dl (7-17) 03/10/17 06:00 Creatinine 0.6 mg/dL (0.7-1.2) L 03/10/17 06:00 Est GFR ( Amer) > 60 03/10/17 06:00 Est GFR (Non-Af Amer) > 60 03/10/17 06:00 Random Glucose 98 mg/dL (65-105) 03/10/17 06:00 Calcium 8.8 mg/dL (8.4-10.2) 03/10/17 06:00 Total Bilirubin 0.2 mg/dl (0.2-1.3) 03/09/17 07:55 AST 21 U/L (14-36) 03/09/17 07:55 ALT 31 U/L (9-52) 03/09/17 07:55 Alkaline Phosphatase 66 U/L (38-126) 03/09/17 07:55 Total Protein 6.4 G/DL (6.3-8.2) 03/09/17 07:55 Albumin 3.6 g/dL (3.5-5.0) 03/09/17 07:55 Globulin 2.8 gm/dL (2.2-3.9) 03/09/17 07:55 Albumin/Globulin Ratio 1.3 (1.0-2.1) 03/09/17 07:55 Urine Color Yellow (YELLOW) 03/09/17 10:30 Urine Clarity Clear (Clear) 03/09/17 10:30 Urine pH 6.0 (5.0-8.0) 03/09/17 10:30 Ur Specific [place] 1.013 (1.003-1.030) 03/09/17 10:30 Urine Protein Negative mg/dL (NEGATIVE) 03/09/17 10:30 Urine Glucose (UA) Neg mg/dL (Normal) 03/09/17 10:30 Urine Ketones Negative mg/dL (NEGATIVE) 03/09/17 10:30 Urine Blood Negative (NEGATIVE) 03/09/17 10:30 Urine Nitrate Negative (NEGATIVE) 03/09/17 10:30 Urine Bilirubin Negative (NEGATIVE) 03/09/17 10:30 Urine Urobilinogen 0.2-1.0 mg/dL (0.2-1.0) 03/09/17 10:30 Ur Leukocyte Esterase Trace [place]cell[place]/uL (Negative) 03/09/17 10:30 Urine RBC (Auto) 1 /hpf (0-3) 03/09/17 10:30 Urine Microscopic WBC 3 /hpf (0-5) 03/09/17 10:30 Ur Squamous Epith Cells 4 /hpf (0-5) 03/09/17 10:30 Amorphous Sediment Rare /ul (<OCC) H 03/09/17 10:30 Urine HCG, Qual Negative (NEGATIVE) 03/09/17 10:30 Blood Type A POSITIVE 03/09/17 07:55 Antibody Screen Negative 03/09/17 07:55 BBK History Checked Patient has bt 03/09/17 07:55 - Hospital Course Hospital Course: 46 y/o lady with hx of Left Tibial Fracture with malunion , s/p ORIF and recent treatment for Cellulitis of the Left lower leg , presented to the ED from [facility] for eval of her left knee surgical wound, noted serosanguinous drainage. No fever, no chills (1) Left Lower Extremity blister (POA) blister noted close to surgical wound, serosanguinous drainage noted Pt was monitored closely in the hospital to r/o infection as the blister is close to her surgical wound Plastic surgery consulted- recommended Silvadene cream daily, no need for Wound Vac cont IV Cefepime and Vanco accdg to dr Goodson - blistering prob vascular due to her Autoimmune condition 2. s/p recent ORIF for Malunion/Non union of Closed fracture of left tibia and fibula -s/p ORIF proximal tibia and fibula with allograft/autograft, LCL and patellar ligament repair, and peroneal nerve decompression done 02/25 -Surgical Wound looks clean , sanket intact , noted some serosanguinous drainage and blistering lateral to the surgical wound - leukocytosis likely sec to steroids, pt is afebrile - Ortho consult: Dr Cole : rec Plastic Surgery consult to eval wound -pain mgt -PT/OT (3) History of Cellulitis of left lower leg treated on previous admission -Cont Vancomycin and Cefepime IV to complete 1 month as rec by Dr Corado on previous admission (4) Bipolar disorder -continue psych meds -no suicidal ideations or depression Status: Chronic (5) COPD (chronic obstructive pulmonary disease) -pt currently asymptomatic - Duoneb prn - pt active smoker Status: Chronic (6) Hypertension Continue Amlodipine and Lisinopril (home meds) Will monitor BP closely Status: Chronic (7) Hypothyroidism Continue Levothyroxine 100 mcg daily Status: Chronic (8) Bill syndrome discussed with Dr Russo - Endo - rec to cont Hydrocortisone -initially started on IV at 50 mg q12 - change to her previous PO med (9) Constipation -continue Sennosides, Dulcolax, Docusate and polyethylene glycol Status: Chronic (10) Neuropathy Continue Gabapentin Status: Chronic 11. Underweight BMI=16 12) DVT proph SCD for now Discharge Exam - Head Exam Head Exam: ATRAUMATIC, NORMAL INSPECTION, NORMOCEPHALIC - Eye Exam Eye Exam: EOMI, Normal appearance, PERRL Pupil Exam: NORMAL ACCOMODATION - ENT Exam ENT Exam: Mucous Membranes Moist - Respiratory Exam Respiratory Exam: NORMAL BREATHING PATTERN. absent: Respiratory Distress - Cardiovascular Exam Cardiovascular Exam: REGULAR RHYTHM, +S1, +S2 - GI/Abdominal Exam GI & Abdominal Exam: Normal Bowel Sounds, Soft. absent: Tenderness - Extremities Exam Extremities exam: normal capillary refill, pedal pulses present Additional comments: no calf tenderness left knee with dressing and Immobilizer - Back Exam Back exam: FULL ROM. absent: CVA tenderness (L), CVA tenderness (R) - Neurological Exam Neurological exam: Alert, CN II-XII Intact, Oriented x3, Reflexes Normal Discharge Plan - Follow Up Plan Condition: GOOD Disposition: TRANSF TO SNF Instructions: Knee Replacement (DC) Additional Instructions: d/c to [facility] apply Silvadene cream to blisters only NWB to left leg Keep immobilizer on at all times Weekly Vanco level and BMP cont IV antibiotics till 03/[address] Cole in [address] Goodson in 1 wk
--- NOTE | 2017-03-11 12:19 | CP.PCM.PN ---
Subjective - Date & Time of Evaluation Date of Evaluation: 03/11/17 Time of Evaluation: 10:30 - Subjective Subjective: NO CHEST PAIN OR SOB Objective - Vital Signs/Intake and Output Vital Signs (last 24 hours): Temp Pulse Resp BP Pulse Ox 98.7 F 76 18 147/84 97 03/11/17 08:11 03/11/17 08:24 03/11/17 08:11 03/11/17 08:24 03/11/17 08:11 - Medications Medications: Current Medications Acetaminophen (Tylenol 325mg Tab) 650 mg PO Q6 PRN PRN Reason: Temp over 100 Acetaminophen (Tylenol 325mg Tab) 650 mg PO Q4H PRN PRN Reason: Pain, Mild (1-3) Al Hydrox/Mg Hydrox/Simethicone (Maalox Plus 30 Ml) 30 ml PO Q6H PRN PRN Reason: GI upset Amlodipine Besylate (Norvasc) 5 mg PO DAILY [facility] Last Admin: 03/11/17 08:24 Dose: 5 mg Baclofen (Lioresal) 20 mg PO TID [facility] Last Admin: 03/11/17 12:07 Dose: 20 mg Bisacodyl (Dulcolax) 10 mg [place] DAILY PRN PRN Reason: Constipation Docusate Sodium (Colace) 100 mg PO BID [facility] Last Admin: 03/11/17 08:21 Dose: 100 mg Duloxetine HCl (Cymbalta) 60 mg PO HS [facility] Last Admin: 03/10/17 21:39 Dose: 60 mg Ferrous Sulfate (Feosol) 325 mg PO BID [facility] Last Admin: 03/11/17 08:22 Dose: 325 mg Gabapentin (Neurontin) 600 mg PO TID [facility] Last Admin: 03/11/17 12:07 Dose: 600 mg Hydrocortisone (Cortef) 20 mg PO BID [facility] Last Admin: 03/11/17 08:22 Dose: 20 mg Vancomycin HCl 750 mg/ Sodium (Chloride) 250 mls @ 166.667 mls/hr IVPB Q12 [facility] PRN Reason: Protocol Last Admin: 03/11/17 08:36 Dose: 166.667 mls/hr Cefepime HCl 1 gm/ Sodium (Chloride) 100 mls @ 100 mls/hr IVPB Q8@0500,1300, 2100 [facility] PRN Reason: Protocol Last Admin: 03/11/17 04:15 Dose: 100 mls/hr Ibuprofen (Motrin Tab) 400 mg PO Q6 PRN PRN Reason: Pain, moderate (4-7) Lactobacillus Acidophilus (Bacid Acidophilus) 1 cap PO BID [facility] Last Admin: 03/11/17 08:20 Dose: 1 cap Levothyroxine Sodium (Synthroid) 100 mcg PO DAILY@0630 [facility] Last Admin: 03/11/17 06:17 Dose: 100 mcg Lisinopril (Zestril) 20 mg PO DAILY [facility] Last Admin: 03/11/17 08:23 Dose: 20 mg Lorazepam (Ativan) 1 mg PO BID [facility] Last Admin: 03/11/17 08:20 Dose: 1 mg Magnesium Hydroxide (Milk Of Magnesia) 30 ml PO HS PRN PRN Reason: Constipation Multivitamins/Minerals (Therapeutic-M Tab) 1 tab PO DAILY [facility] Last Admin: 03/11/17 08:24 Dose: 1 tab Nicotine (Nicoderm Cq) 1 patch TD DAILY [facility] Last Admin: 03/11/17 08:23 Dose: 1 patch Oxycodone HCl (Oxycontin Extended Release Tab) 30 mg PO Q8@0400,1200,2000 [facility] Stop: 03/12/17 18:01 Last Admin: 03/11/17 12:06 Dose: 30 mg Pantoprazole Sodium (Protonix Ec Tab) 40 mg PO DAILY [facility] Last Admin: 03/11/17 08:24 Dose: 40 mg Polyethylene Glycol (Miralax) 17 gm PO BID PRN PRN Reason: Constipation Last Admin: 03/11/17 08:33 Dose: 17 gm Quetiapine Fumarate (Seroquel) 100 mg PO HS [facility] Last Admin: 03/10/17 21:31 Dose: 100 mg Quetiapine Fumarate (Seroquel) 50 mg PO BID [facility] Last Admin: 03/11/17 08:25 Dose: 50 mg Sennosides (Senokot Tab) 17.2 mg PO HS [facility] Last Admin: 03/10/17 21:32 Dose: 17.2 mg Silver Sulfadiazine (Silvadene 1% 20 Gm) 1 ea TOP DAILY [facility] Last Admin: 03/11/17 10:29 Dose: 1 applic Sodium Phosphate (Fleet Enema) 135 ml WI HS PRN PRN Reason: If bisacodyl uneffective Trazodone HCl (Desyrel) 100 mg PO HS PRN PRN Reason: Insomnia Last Admin: 03/10/17 21:32 Dose: 100 mg - Labs Labs: 03/11/17 08:30 03/10/17 06:00 PT 10.2 Seconds (9.8-13.1) 03/09/17 07:55 INR 0.9 (0.9-1.2) 03/09/17 07:55 APTT 33.2 Seconds (25.6-37.1) 03/09/17 07:55 - Respiratory Exam Respiratory Exam: Clear to Ausculation Bilateral - Cardiovascular Exam Cardiovascular Exam: REGULAR RHYTHM, +S1, +S2 - Additional Findings Additional findings: PLASTIC SURGERY NOTE REVIEWED-CONSERVATIVE TREATMENT RECOMMENDED WITH SILVADENE CREAM Assessment and Plan - Assessment and Plan (Free Text) Assessment: RECENT ORIF OF KNEE FRACTURE PRESENTLY WITH BLISTERING AND DISCHARGE HYPERTENSION Plan: CONTINUE AMLODIPINE, LISINOPRIL, ANTIBIOTICS AND SILVADENE
== END 2017-03-11 13:56 | DRG 607 ==
LOC: H.ER 07:16 → INTOOBSV 08:07 → H.ERHOLD 08:07 → OBSVTOIN 08:07 → H.MEDSURG1 12:49
PROVIDERS: ADMIT Internal Medicine; ATTEND Internal Medicine
DX: S80.222A Blister (nonthermal), left knee, initial encounter (principal); L03.116 Cellulitis of left lower limb; E31.0 Autoimmune polyglandular failure; E27.49 Other adrenocortical insufficiency; G62.89 Other specified polyneuropathies; Z68.1 Body mass index [BMI] 19.9 or less, adult; E06.3 Autoimmune thyroiditis; T38.0X5A Adverse effect of glucocorticoids and synthetic analogues, initial encounter; D72.828 Other elevated white blood cell count; E03.9 Hypothyroidism, unspecified; I10 Essential (primary) hypertension; E78.5 Hyperlipidemia, unspecified; J44.9 Chronic obstructive pulmonary disease, unspecified; D64.9 Anemia, unspecified; K59.09 Other constipation; R63.6 Underweight; Z53.8 Procedure and treatment not carried out for other reasons; Z98.890 Other specified postprocedural states; G89.29 Other chronic pain; F32.9 Major depressive disorder, single episode, unspecified; F41.9 Anxiety disorder, unspecified; M19.90 Unspecified osteoarthritis, unspecified site; Z87.81 Personal history of (healed) traumatic fracture; F17.210 Nicotine dependence, cigarettes, uncomplicated; X58.XXXA Exposure to other specified factors, initial encounter; Y92.89 Other specified places as the place of occurrence of the external cause

== ENCOUNTER 2017-08-19 05:57 | Inpatient (IN) | payer MEDICARE, OTHER ==
[2017-08-19 06:36] VITALS: BMI 19.5
[2017-08-19 07:13] LABS: BASO # 0.1 K/uL (0.0-0.2); BASO % 0.6 % (0.0-2.0); EOS # 0.1 K/uL (0.0-0.7); EOS % 0.3 % (0.0-4.0); HEMOGLOBIN 11.6 g/dL (12.0-16.0); LYMPH # 2.6 K/uL (1.0-4.3); LYMPH % 13.2 % (20.0-40.0); MEAN CORPUSCULAR HEMOGLOBIN 30.4 pg (27.0-31.0); MEAN CORPUSCULAR HGB CONC 32.6 g/dL (33.0-37.0); MEAN PLATELET VOLUME 6.9 fl (7.2-11.7); MONO # 1.3 K/uL (0.0-0.8); MONO % 6.6 % (0.0-10.0); NEUT # 15.5 K/uL (1.8-7.0); NEUT % 79.3 % (50.0-75.0); RBC 3.82 Mil/uL (3.80-5.20); RED CELL DISTRIBUTION WIDTH 16.5 % (11.5-14.5); WHITE BLOOD COUNT 19.5 K/uL (4.8-10.8)
[2017-08-19 07:20] LABS: ALBUMIN 3.3 g/dL (3.5-5.0); ALT/SGPT 23 U/L (9-52); AST/SGOT 14 U/L (14-36); BLOOD UREA NITROGEN 11 mg/dl (7-17); CALCIUM 9.1 mg/dL (8.4-10.2); GFR AFRICAN-AMERICAN > 60; GFR NON-AFRICAN AMERICAN > 60
[2017-08-19 07:37] LABS: INR 0.9 (0.9-1.2); PARTIAL THROMBOPLASTIN TIME 32.8 Seconds (25.6-37.1); PROTHROMBIN TIME 9.7 Seconds (9.8-13.1)
[2017-08-19 09:59] LABS: SQUAMOUS EPITHIAL 4 /hpf (0-5); URINE BILIRUBIN NEGATIVE (NEGATIVE); URINE BLOOD NEGATIVE (NEGATIVE); URINE CLARITY SLIGHTY-CLOUDY (Clear); URINE COLOR AMBER (YELLOW); URINE GLUCOSE (UA) NEG (Normal); URINE LEUKOCYTE ESTERASE NEG Leu/uL (Negative); URINE PROTEIN NEGATIVE (NEGATIVE); URINE UROBILINOGEN 0.2-1.0 mg/dL (0.2-1.0)
[2017-08-19] MEDS ORDERED: Propofol 10 mg/ml Inj (20 ML) ONE ×2 (10:15→13:05)
[2017-08-19] MEDS ORDERED: Midazolam 2 MG/2 ML VIAL ONE (10:15)
[2017-08-19] MEDS ORDERED: Lidocaine 2% MPF (5 ml) Inj ONE (10:15)
[2017-08-19] MEDS ORDERED: Bupivacaine HCl 0.5% PF (30 ml) Inj ONE (10:16)
[2017-08-19] MEDS ORDERED: Lidocaine 2% Jelly (5 ml) TOP ONE (10:18)
[2017-08-19] MEDS ORDERED: Succinylcholine 200 mg/10 ml Inj IV ONE (10:20)
[2017-08-19] MEDS ORDERED: Thrombin Topical 5,000 Int Units Spray Kit ONE (10:29)
[2017-08-19] MEDS ORDERED: Absorbable Gelatin Sponge Size 100 ONE (10:29)
[2017-08-19] MEDS ORDERED: Bupivacaine 0.5% Inj(30mL) ONE (10:29)
[2017-08-19] MEDS ORDERED: Bacitracin Ointment 30 GM TUBE ONE (10:29)
[2017-08-19] MEDS ORDERED: Bupivacaine HCl 0.25% PF (30 ml) Inj ONE (10:55)
--- NOTE | 2017-08-19 11:16 | RAD ---
HISTORY: preop COMPARISON: 03/09/2017. FINDINGS: LUNGS: The lungs are well inflated and clear. PLEURA: No significant pleural effusion identified, no pneumothorax apparent. CARDIOVASCULAR: Normal. OSSEOUS STRUCTURES: There are old fracture deformities in the left posterior 7th, 8th and 9th ribs. There is an old nondisplaced fracture in the right lateral 9th rib. . VISUALIZED UPPER ABDOMEN: Normal. OTHER FINDINGS: None. IMPRESSION: No active pulmonary disease.
[2017-08-19] MEDS ORDERED: Lactated Ringer's 1,000 ML IV ONE (11:30)
--- NOTE | 2017-08-19 11:47 | RAD ---
PROCEDURE: Left Knee Radiographs. HISTORY: Pain. COMPARISON: 03/09/2017 FINDINGS: BONES: A prior impacted/ comminuted fracture of the proximal tibia with varus angulation deformity is noted. Medial and lateral tibial orthopedic plates with multiple screws for treatment are again present. The plates and screws appear intact. The proximal fibular and apparent tibial osteotomy changes are renoted. Compared to the 03/09/2017 study and earlier studies mild mottled bone mineralization along the medial and lateral subchondral femoral condyles is noted. The distracted opening of the lateral femoral tibial compartment is fairly similar. Verus orientation is accentuated on the current exam. JOINTS: Arthrosis in part is inferred correlate clinically regarding bone mineralization changes is recommended. JOINT EFFUSION: Present OTHER FINDINGS: There is increased soft tissue density projecting inferior to the patellar pole on the current exam this is separate from the inferred overlying bandaging cause here is well. Correlate clinically IMPRESSION: Interval changes as noted above. Correlate clinically. No hardware breaks or gross failure appreciated
--- NOTE | 2017-08-19 11:59 | CP.PCM.CON ---
History of Present Illness - History of Present Illness History of Present Illness: Orthopedic consultation Dr. Cole Patient seen and examined with Dr. Cole 47F s/p Left proximal tibial nonunion ORIF 02/27/17, presents with open wound and exposed hardware. Patient has been consistently non compliant with non weight bearing precautions, and did not follow up in a timely fashion at any time post op. Patient is complaining of left knee pain. She says it has been open for months. Patient had been seeing Dr. Mcgill as outpatient. Risks/benefits/alternatives explained to patient by Dr. Cole, with attempt to remove hardware and eradicate infection. Possibility of need for amputation in future discussed with patient. Patient verbalized understanding. Smoking cessation advised. Review of Systems - Review of Systems All systems: reviewed and no additional remarkable complaints except - Musculoskeletal Musculoskeletal: As Per HPI - Integumentary Integumentary: As Per HPI Past Patient History - Infectious Disease Hx of Infectious Diseases: MRSA - Tetanus Immunizations Tetanus Immunization: Unknown - Past Medical History & Family History Past Medical History?: Yes Past Family History: Reviewed and not pertinent - Past Social History Smoking Status: Heavy Smoker > 10 Cigarettes Daily - CARDIAC Hx Cardiac Disorders: Yes Hx Hypertension: Yes Other/Comment: IRREGULAR HEARTBEAT - PULMONARY Hx Respiratory Disorders: Yes Hx Chronic Obstructive Pulmonary Disease (COPD): Yes Other/Comment: HX OF PNEUMONIA - NEUROLOGICAL Hx Neurological Disorder: No - HEENT Hx HEENT Problems: Yes Other/Comment: RETINA - RENAL Hx Chronic Kidney Disease: No - ENDOCRINE/METABOLIC Hx Endocrine Disorders: Yes Other/Comment: adrenal insufficiency - HEMATOLOGICAL/ONCOLOGICAL Hx Blood Disorders: Yes Hx AIDS: No Hx Anemia: Yes Hx Human Immunodeficiency Virus (HIV): No - INTEGUMENTARY Hx Dermatological Problems: No - MUSCULOSKELETAL/RHEUMATOLOGICAL Hx Musculoskeletal Disorders: Yes Hx Arthritis: Yes Hx Back Pain: Yes Hx Falls: Yes Hx Osteoarthritis: Yes Other/Comment: MUSCLE WEAKNESS .LIMIT JOINT MOTION .RIGHT HAND WEAKNESS - GASTROINTESTINAL Hx Gastrointestinal Disorders: No Other/Comment: HX OF CONSTIPATION - GENITOURINARY/GYNECOLOGICAL Hx Genitourinary Disorders: No - PSYCHIATRIC Hx Psychophysiologic Disorder: Yes Hx Anxiety: Yes Hx Depression: Yes Hx Emotional Abuse: No Hx Physical Abuse: No Hx Substance Use: No - SURGICAL HISTORY Hx Surgeries: Yes Hx Arthroscopy: Yes (RIGHT KNEE) Hx Musculoskeletal Surgery: Yes (Left knee ORIF for Malunion Fracture Tibia) Other/Comment: SX FOR BOWEL OBSTRUCTION - ANESTHESIA Hx Anesthesia: Yes Hx Anesthesia Reactions: No Hx Malignant Hyperthermia: No Has any member of the family had a problem w/ anesthesia?: No Meds Allergies/Adverse Reactions: Allergies Allergy/AdvReac Type Severity Reaction Status Date / Time No Known Allergies Allergy Verified 08/19/17 13:07 Physical Exam - Constitutional Appears: Well, No Acute Distress - Head Exam Head Exam: ATRAUMATIC - Extremities Exam Additional comments: Left lex4 inch dehisence of entire medial wound. Entire medial tibial plate exposed. Tibia visible, patella and quad visible. No patellar tendon visible. Large amount of green drainage noted. +DP/PT pulses, calves soft NT neg homans. Grossly infected. Severe varus deformity to knee. - Neurological Exam Neurological exam: Alert, Oriented x3 Results - Vital Signs Recent Vital Signs: Last Vital Signs Temp 98.8 F 08/19/17 08:53 Pulse 93 H 08/19/17 08:53 Resp 20 08/19/17 08:53 BP 121/77 08/19/17 08:53 Pulse Ox 100 08/19/17 08:53 - Labs Result Diagrams: 08/19/17 06:45 08/19/17 06:45 Labs: Laboratory Results - last 24 hr 08/19/17 08/19/17 08/19/17 06:45 06:45 06:45 WBC 19.5 H RBC 3.82 Hgb 11.6 L Hct 35.5 MCV 93.0 MCH 30.4 MCHC 32.6 L RDW 16.5 H Plt Count 724 H D MPV 6.9 L Neut % (Auto) 79.3 H Lymph % (Auto) 13.2 L [place] % (Auto) 6.6 Eos % (Auto) 0.3 Baso % (Auto) 0.6 Neut # (Auto) 15.5 H Lymph # (Auto) 2.6 [place] # (Auto) 1.3 H Eos # (Auto) 0.1 Baso # (Auto) 0.1 PT 9.7 L INR 0.9 APTT 32.8 Sodium 140 Potassium 4.2 Chloride 106 Carbon Dioxide 22 Anion Gap 16 BUN 11 Creatinine 0.5 L Est GFR ( Amer) > 60 Est GFR (Non-Af Amer) > 60 Random Glucose 103 Calcium 9.1 Total Bilirubin 0.3 AST 14 D ALT 23 Alkaline Phosphatase 82 Total Protein 6.6 Albumin 3.3 L Globulin 3.2 Albumin/Globulin Ratio 1.0 Urine Color Urine Clarity Urine pH Ur Specific [place] Urine Protein Urine Glucose (UA) Urine Ketones Urine Blood Urine Nitrate Urine Bilirubin Urine Urobilinogen Ur Leukocyte Esterase Urine RBC (Auto) Urine Microscopic WBC Ur Squamous Epith Cells 08/19/17 09:44 WBC RBC Hgb Hct MCV MCH MCHC RDW Plt Count MPV Neut % (Auto) Lymph % (Auto) [place] % (Auto) Eos % (Auto) Baso % (Auto) Neut # (Auto) Lymph # (Auto) [place] # (Auto) Eos # (Auto) Baso # (Auto) PT INR APTT Sodium Potassium Chloride Carbon Dioxide Anion Gap BUN Creatinine Est GFR ( Amer) Est GFR (Non-Af Amer) Random Glucose Calcium Total Bilirubin AST ALT Alkaline Phosphatase Total Protein Albumin Globulin Albumin/Globulin Ratio Urine Color Negra Urine Clarity Slighty-cloudy Urine pH 5.0 Ur Specific [place] 1.025 Urine Protein Negative Urine Glucose (UA) Neg Urine Ketones Trace Urine Blood Negative Urine Nitrate Negative Urine Bilirubin Negative Urine Urobilinogen 0.2-1.0 Ur Leukocyte Esterase Neg Urine RBC (Auto) 2 Urine Microscopic WBC 3 Ur Squamous Epith Cells 4 Assessment & Plan (1) Exposed orthopaedic hardware Assessment and Plan: OR for hardware removal and wound vac application plastic surgery consult as per Dr. Cole NPO for OR labs reviewed, patient wiht elevated WBC chronically platelets also elevated, likely reactive due to infection ID consult pedning repeat xrays d/w Dr. Cole, agrees with above Status: Acute (2) Open wound of left lower leg Status: Acute (3) Wound dehiscence Status: Acute
[2017-08-19] MEDS ORDERED: Sevoflurane - Inhalation Anesthetic Liq (250 ml) ONE (12:25)
[2017-08-19] MEDS ORDERED: Phenylephrine 10 mg/ml Inj ONE (12:58)
--- NOTE | 2017-08-19 13:36 | RAD ---
PROCEDURE: Radiographs of the left tibia and fibula. HISTORY: s/p ORIF COMPARISON: 02/25/2017. TECHNIQUE: Frontal and lateral views obtained. FINDINGS: BONES: Compared to prior exam there is nondisplaced minimally comminuted fracture distal tibial metaphysis to epiphysis. Most of this comminuted fracture component vertically oriented paralleling the line axis of the tibia. In addition there is mild horizontally projecting patchy sclerosis at this approximate same level compatible with a subacute healing response to an interval more horizontally oriented trabecular microfracture here. Overall generalized osteopenia elsewhere about the distal left tibia and fibula is noted. Proximal tibial extensive hardware, lateral femoral tibial joint space asymmetrical distance is noted on the prior left knee same-day x-ray report left osteotomy changes noted. Evaluation for the comminuted fracture and aligns are obscured by the overlying hardware. Correlate clinically JOINT SPACES: As above OTHER FINDINGS: None. IMPRESSION: Proximal hardware, lateral joint space asymmetrical increased distance and relative varus orientation are referenced in the left knee same-day x-ray report. Interval appreciation of a comminuted not nondisplaced distal tibial mostly metaphyseal fractures -fracture stages are probably of varying stages those more subacute to chronic with sclerotic healing response suggested. The hospital's out patient's surgical center was called my name was left with nurse Mary at 1:27 p.m.. The purpose of the call with was 2 to convey the changes (please check the report) in the distal tibia- to ensure findings were known via either the physician or the ordering PA . .
--- NOTE | 2017-08-19 13:42 | PCM.ANESB3 ---
Femoral Nerve Block - Femoral Nerve Block Date of Procedure: 08/19/17 Anesthesiologist: Jose M Hernandez Pre-Procedure Diagnosis: Hardware left tibia Post-Procedure Diagnosis: Hardware left tibia Procedure Performed: Femoral Nerve Block Left - Procedure Femoral Nerve Block: The procedure was explained to the patient that it is for the post-operative pain management. Consent was obtained after a thorough discussion with the patient regarding the benefits and possible complications of local anesthetic block of the femoral nerve at the inguinal crease area. The patient was brought to the operating room and standard monitors were applied. Time-out was held with the circulating nurse to confirm the correct surgery and the appropriate block. After applying oxygen by nasal cannula and administering IV Sedation, patient was placed in supine position with fully extended lower extremities and the groin exposed. The femoral artery was then carefully palpated. The ultrasound transducer was then applied to this area in the transverse plane and the femoral nerve was visualized lateral to the femoral artery and underneath the fascia iliaca. After thorough identification, the inguinal crease area was prepped with Betadine solution three times and 1 % Lidocaine was injected subcutaneously for topical anesthesia. At this point, a #22 gauge Stimuplex 2-inch needle was inserted immediately lateral to the femoral artery pulse at the inguinal crease and advanced perpendicularly. The needle was inserted to the ultrasound transducer in-plane towards the femoral nerve in a [id number] direction. Needle advancement was performed carefully under direct ultrasound visualization. Nerve stimulator was used and twitch of the quadriceps muscle was obtained at current of _.4____ MA. After negative aspiration, _15____cc of _.25____% __bupivacaine was injected . . Under ultrasound guidance the local anesthetics were observed spreading below fascia iliaca and around the femoral nerve. The needle was removed intact and sterile dressing was applied. The patient had stable vital signs, was conscious and in no apparent distress. The patient tolerated the femoral nerve block well with stable vital signs and was prepared for subsequent surgery.
--- NOTE | 2017-08-19 13:46 | PCM.ANESB2 ---
Popliteal Nerve Block - Popliteal Nerve Block Date of Procedure: 08/19/17 Anesthesiologist: Jose M Hernandez M.D> Pre-Procedure Diagnosis: Hardware left tibia Post-Procedure Diagnosis: Hardware left tibia Procedure Performed: Popliteal Nerve Block Left - Procedure Popliteal Nerve Block: This procedure was explained to the patient that it is for post-operative pain management. Consent was obtained after a thorough discussion with the patient regarding the benefits and possible complications of local anesthetic block of the sciatic nerve at the popliteal level. The patient was brought to the operating room and standard monitors are applied. Time-out was held with the circulating nurse to confirm the correct surgery and the appropriate block. After applying oxygen by nasal cannula and administering IV Sedation, patient's operative leg was gently raised and supported and the groove in between the biceps femoris and vastus lateralis muscles was carefully palpated. The skin approximately 8cm above the popliteal crease was then marked. The ultrasound transducer was then applied to the posterior thigh approximately 8cm above the popliteal crease in the transverse plane and the sciatic nerve before its division was visualized lateral to the popliteal artery and in between the bicep femoris and semimembranosus/semitendinosus muscles. After identification, the lateral portion of the thigh was prepped with Betadine solution three times and Lidocaine 1% was injected subcutaneously for topical anesthesia. At this point, a # 21 gauge Stimuplex insulated 4 inch needle was inserted into pre-marked area and advanced in a perpendicular direction. The needle was inserted above the ultrasound transducer in-plane towards the sciatic nerve in a [id number] direction. Needle advancement was performed carefully under direct ultrasound visualization. Nerve stimulator was used and dorsiflexion of the _left____ foot was elicited at a current of _.4____ MA. After repeated negative aspiration, __15___cc of __.25___ % _Bupivacaine was injected . Under ultrasound guidance the local anesthetics were observed surrounding sciatic nerve . The needle was removed intact and sterile dressing was applied. The patient tolerated the popliteal nerve block well with stable vital signs and was subsequently prepared for the surgery.
[2017-08-19] MEDS: Morphine 4 MG/ML VIAL IVP PRN ×3 (14:10→15:10)
[2017-08-19 14:25] LABS: FLUID TYPE SYNOVIAL FLUID
--- NOTE | 2017-08-19 14:54 | PCM.SURG1 ---
Surgeon's Initial Post Op Note - Surgeon's Notes Surgeon: Brando Cole MD Manager Electrical: Alexandra CARIAS Type of Anesthesia: General Endo Anesthesia Administered By: Essence ELLIOTT Pre-Operative Diagnosis: s/p Left complex proximal tibial osteotomy with bulk allograft and internal fixation Operative Findings: as above Post-Operative Diagnosis: Left leg wound dehiscence with exposed hardware, rule out deep sepsis Operation Performed: Left leg hardware removal (deep), incision and drainage of tibial wound with culture and biopsy, bone biopsy, partial ostecetomy, modified papineau procedure, application of wound VAC, positioning of fluoroscopy and interperetation of radiological imaging Specimen/Specimens Removed: bone, cultures x 16 Estimated Blood Loss: EBL {In ML}: 25 Blood Products Given: N/A Drains Used: Wound Vac Post-Op Condition: Good Date of Surgery/Procedure: 08/19/17 Time of Surgery/Procedure: 11:30 (incision time-12:25)
[2017-08-19 15:39] LABS: SF GROSS APPEARANCE CLOUDY (CLEAR); SYNOVIAL FLUID MONO/MACROPHAGE 5 % (0-0)
[2017-08-19 15:43] LABS: SF GROSS APPEARANCE BLOODY (CLEAR); SYNOVIAL FLUID COMMENT CLOUDY; SYNOVIAL FLUID MONO/MACROPHAGE 2 % (0-0)
--- NOTE | 2017-08-19 16:30 | RAD ---
PROCEDURE: Radiographs of the left tibia and fibula. HISTORY: s/p hardware removal COMPARISON: Left knee 08/19/2017 10:40 a.m. TECHNIQUE: Frontal and lateral views obtained. FINDINGS: BONES: The medial tibial hardware plate and medial entering screws of been removed. The lateral plating and screws appear similar. Less distraction of the lateral femoral tibial compartment noted. Fibular and tibial osteotomy changes noted The distal tibial metaphyseal appearance is compatible with a healing nondisplaced fracture site ; the healing sclerosis is horizontally oriented. Residual oblique -vertical lucencies of a nondisplaced comminuted fracture here also inferred without similar sclerotic healing response. Similar appearance with the 08/19/2017 10:40 a.m. study JOINT SPACES: Intrinsic knee arthrosis inferred. Excluding the sclerosis, ankle juxta-articular osteopenia suggested OTHER FINDINGS: None. IMPRESSION: Interval medial hardware removal. Less distraction lateral femoral tibial compartment. Less varus orientation Ankle findings as above
[2017-08-19] MEDS ORDERED: Patient's Own Med (Oxycodone [Oxycodone Immediate Release Tab] 15 mg) PO SCH (17:00)
--- NOTE | 2017-08-19 17:05 | RAD ---
PROCEDURE: HISTORY: As above COMPARISON: None TECHNIQUE: Total fluoroscopic time utilized during the procedure: 8 .6 seconds ; 0.25 mGy cm 2 FINDINGS: Submitted images from the current procedure: 2 Please refer to the physician's notes performing the procedure. IMPRESSION: Less than 1 hour fluoroscopic time utilized during performance of the procedure
--- NOTE | 2017-08-19 17:14 | CP.PCM.HP ---
History of Present Illness - History of Present Illness History of Present Illness: This is a 46 year old lady with history of left tibial fracture with malunion, s /p ORIF of the left proximal tibia on 02/27/2017, with history of cellulitis of the left lower leg, also with history of COPD and tobacco abuse, essential hypertension, noncompliance with medication, hypothyroidism, Bill syndrome, neuropathy, constipation, who presented to the hospital with open left leg wound and exposed hardware. The patient has been noncompliant with non weight bearing precautions and has not been following up with Dr. Cole as recommended. The patient stated that the wound had been open for months. The patient was subsequently taken to the OR for hardware removal which was performed today. The patient is being admitted to med/surg under the hospitalist service postoperatively for IV antibiotics and wound care. The patient currently admits to left leg pain. She denies chest pain, shortness of breath, diarrhea. Admitted to some nausea earlier.No other complaints. Present on Admission - Present on Admission Any Indicators Present on Admission: No History of DVT/PE: No History of Uncontrolled Diabetes: No Review of Systems - Review of Systems Review of Systems: A 12 point review of systems was conducted and found to be negative other than what was mentioned in the HPI. Past Patient History - Infectious Disease Hx of Infectious Diseases: MRSA - Tetanus Immunizations Tetanus Immunization: Unknown - Past Medical History & Family History Past Medical History?: Yes Past Family History: Reviewed and not pertinent - Past Social History Smoking Status: Heavy Smoker > 10 Cigarettes Daily - CARDIAC Hx Cardiac Disorders: Yes Hx Hypertension: Yes Other/Comment: IRREGULAR HEARTBEAT - PULMONARY Hx Respiratory Disorders: Yes Hx Chronic Obstructive Pulmonary Disease (COPD): Yes Other/Comment: HX OF PNEUMONIA - NEUROLOGICAL Hx Neurological Disorder: No - HEENT Hx HEENT Problems: Yes Other/Comment: RETINA - RENAL Hx Chronic Kidney Disease: No - ENDOCRINE/METABOLIC Hx Endocrine Disorders: Yes Other/Comment: adrenal insufficiency - HEMATOLOGICAL/ONCOLOGICAL Hx Blood Disorders: Yes Hx AIDS: No Hx Anemia: Yes Hx Human Immunodeficiency Virus (HIV): No - INTEGUMENTARY Hx Dermatological Problems: No - MUSCULOSKELETAL/RHEUMATOLOGICAL Hx Musculoskeletal Disorders: Yes Hx Arthritis: Yes Hx Back Pain: Yes Hx Falls: Yes Hx Osteoarthritis: Yes Other/Comment: MUSCLE WEAKNESS .LIMIT JOINT MOTION .RIGHT HAND WEAKNESS - GASTROINTESTINAL Hx Gastrointestinal Disorders: No Other/Comment: HX OF CONSTIPATION - GENITOURINARY/GYNECOLOGICAL Hx Genitourinary Disorders: No - PSYCHIATRIC Hx Psychophysiologic Disorder: Yes Hx Anxiety: Yes Hx Depression: Yes Hx Emotional Abuse: No Hx Physical Abuse: No Hx Substance Use: No - SURGICAL HISTORY Hx Surgeries: Yes Hx Arthroscopy: Yes (RIGHT KNEE) Hx Musculoskeletal Surgery: Yes (Left knee ORIF for Malunion Fracture Tibia) Other/Comment: SX FOR BOWEL OBSTRUCTION - ANESTHESIA Hx Anesthesia: Yes Hx Anesthesia Reactions: No Hx Malignant Hyperthermia: No Has any member of the family had a problem w/ anesthesia?: No Meds Allergies/Adverse Reactions: Allergies Allergy/AdvReac Type Severity Reaction Status Date / Time No Known Allergies Allergy Verified 08/19/17 13:07 Physical Exam - Additional Findings Additional findings: Physical exam: Constitutional- cooperative, awake, alert. Appears older than stated age. Head- NCAT, PERRL Eye- PERRL, EOMI ENT- normal exam, MMM. Neck- normal inspection, supple, no JVD Respiratory- CTAB, no wheezes, no rales, scattered rhonchi. Cardiovascular- RRR, +S1, +S2 no MRG GI/Abdominal- normal bowel sounds, soft, no mass, no hsm Skin- warm, dry Extremities Exam- + Left leg in knee immobilizer. + Wound vac. normal capillary refill, normal inspection Neurological Exam- alert, awake, oriented Psych- normal mood, normal affect Results - Vital Signs Recent Vital Signs: Last Vital Signs Temp 98.8 F 08/19/17 08:53 Pulse 93 H 08/19/17 08:53 Resp 20 08/19/17 08:53 BP 121/77 08/19/17 08:53 Pulse Ox 100 08/19/17 08:53 - Labs Result Diagrams: 08/19/17 06:45 08/19/17 06:45 Labs: Laboratory Results - last 24 hr 08/19/17 08/19/17 08/19/17 06:45 06:45 06:45 WBC 19.5 H RBC 3.82 Hgb 11.6 L Hct 35.5 MCV 93.0 MCH 30.4 MCHC 32.6 L RDW 16.5 H Plt Count 724 H D MPV 6.9 L Neut % (Auto) 79.3 H Lymph % (Auto) 13.2 L [place] % (Auto) 6.6 Eos % (Auto) 0.3 Baso % (Auto) 0.6 Neut # (Auto) 15.5 H Lymph # (Auto) 2.6 [place] # (Auto) 1.3 H Eos # (Auto) 0.1 Baso # (Auto) 0.1 PT 9.7 L INR 0.9 APTT 32.8 Sodium 140 Potassium 4.2 Chloride 106 Carbon Dioxide 22 Anion Gap 16 BUN 11 Creatinine 0.5 L Est GFR ( Amer) > 60 Est GFR (Non-Af Amer) > 60 Random Glucose 103 Calcium 9.1 Total Bilirubin 0.3 AST 14 D ALT 23 Alkaline Phosphatase 82 Total Protein 6.6 Albumin 3.3 L Globulin 3.2 Albumin/Globulin Ratio 1.0 Urine Color Urine Clarity Urine pH Ur Specific [place] Urine Protein Urine Glucose (UA) Urine Ketones Urine Blood Urine Nitrate Urine Bilirubin Urine Urobilinogen Ur Leukocyte Esterase Urine RBC (Auto) Urine Microscopic WBC Ur Squamous Epith Cells Fluid Type 08/19/17 08/19/17 08/19/17 09:44 14:00 14:00 WBC RBC Hgb Hct MCV MCH MCHC RDW Plt Count MPV Neut % (Auto) Lymph % (Auto) [place] % (Auto) Eos % (Auto) Baso % (Auto) Neut # (Auto) Lymph # (Auto) [place] # (Auto) Eos # (Auto) Baso # (Auto) PT INR APTT Sodium Potassium Chloride Carbon Dioxide Anion Gap BUN Creatinine Est GFR ( Amer) Est GFR (Non-Af Amer) Random Glucose Calcium Total Bilirubin AST ALT Alkaline Phosphatase Total Protein Albumin Globulin Albumin/Globulin Ratio Urine Color Negra Urine Clarity Slighty-cloudy Urine pH 5.0 Ur Specific [place] 1.025 Urine Protein Negative Urine Glucose (UA) Neg Urine Ketones Trace Urine Blood Negative Urine Nitrate Negative Urine Bilirubin Negative Urine Urobilinogen 0.2-1.0 Ur Leukocyte Esterase Neg Urine RBC (Auto) 2 Urine Microscopic WBC 3 Ur Squamous Epith Cells 4 Fluid Type Synovial fluid Synovial fluid Assessment & Plan - Assessment and Plan (Free Text) Plan: This is a 46 year old lady with history of left tibial fracture with malunion, s /p ORIF of the left proximal tibia on 02/27/2017, with history of cellulitis of the left lower leg, also with history of COPD and tobacco abuse, essential hypertension, noncompliance with medication, hypothyroidism, Bill syndrome, neuropathy, constipation, who presented to the hospital with open left leg wound and exposed hardware. Had removal of hardware today 08/19/2017. Admitted postoperatively for IV antibiotics and postop care and monitoring. Removal of hardware of the left leg due to open wound and infection - Admit to med/surg postoperatively - Consultation with Dr. Corado to guide antibiotic therapy - leukocytosis possibly secondary to steroids, pt is afebrile - Ortho consult: Dr Cole -pain mgt -PT/OT (3) History of Cellulitis of left lower leg treated on previous admission -Cont Vancomycin and Cefepime IV to complete 1 month as rec by Dr Corado on previous admission (4) Bipolar disorder -continue psych meds -no suicidal ideations or depression Status: Chronic (5) COPD (chronic obstructive pulmonary disease) -pt currently asymptomatic - Duoneb prn - pt active smoker Status: Chronic (6) Hypertension Continue Amlodipine and Lisinopril (home meds) Will monitor BP closely Status: Chronic (7) Hypothyroidism Continue Levothyroxine 100 mcg daily Status: Chronic (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 Underweight BMI=16 12) DVT proph SCD for now
--- NOTE | 2017-08-19 18:21 | CP.PCM.PN ---
Subjective - Date & Time of Evaluation Date of Evaluation: 08/19/17 Time of Evaluation: 18:18 - Subjective Subjective: I D NOTE PATIENT KN0WN FROM PAST ADMISSION SURGERY DONE TODAY:LEFT LEG HARDWARE REMOVAL ALONG c I &D OF TIBIAL WOUND c culture & biopsy continue VANCOMYCIN/MAXIPEME WE AWAIT NEW CULTURE RESULTS Objective - Vital Signs/Intake and Output Vital Signs (last 24 hours): Temp Pulse Resp BP Pulse Ox 97.4 F L 107 H 22 123/77 100 08/19/17 16:10 08/19/17 16:10 08/19/17 16:10 08/19/17 16:10 08/19/17 16:10 Intake and Output: 08/19/17 08/19/17 06:59 18:59 Intake Total 700 Output Total 350 Balance 350 - Medications Medications: Current Medications Acetaminophen (Tylenol 325mg Tab) 325 mg PO Q8 PRN PRN Reason: Pain, moderate (4-7) Baclofen (Lioresal) 20 mg PO TID [facility] Gabapentin (Neurontin) 600 mg PO TID [facility] Hydrocortisone (Cortef) 20 mg PO BID [facility] Hydromorphone HCl (Dilaudid 0.2 Mg/Ml Credit Adjuster) 0 mg IV PRN PRN; Protocol PRN Reason: Pain, severe (8-10) Cefepime HCl 1 gm/ Sodium (Chloride) 100 mls @ 100 mls/hr IVPB Q12 G[facility] PRN Reason: Protocol Vancomycin HCl 1 gm/ Sodium (Chloride) 250 mls @ 125 mls/hr IVPB Q12 [facility] PRN Reason: Protocol Lisinopril (Zestril) 20 mg PO DAILY [facility] Lorazepam (Ativan) 1 mg PO BID [facility] Meperidine HCl (Demerol) 12.5 mg IVP Q5M PRN PRN Reason: Shivering/Rigor Last Admin: 08/19/17 13:55 Dose: 12.5 mg Nicotine (Nicoderm Cq) 1 patch TD DAILY [facility] Ondansetron HCl (Zofran Inj) 4 mg IVP Q6 PRN PRN Reason: Nausea/Vomiting Pantoprazole Sodium (Protonix Ec Tab) 40 mg PO DAILY [facility] Polyethylene Glycol (Miralax) 17 gm PO DAILY [facility] Quetiapine Fumarate (Seroquel) 50 mg PO TID [facility] Tramadol HCl (Ultram) 50 mg PO TID [facility] Trazodone HCl (Desyrel) 100 mg PO HS [facility]AT[facility] - Labs Labs: 08/19/17 06:45 08/19/17 06:45 PT 9.7 Seconds (9.8-13.1) L 08/19/17 06:45 INR 0.9 (0.9-1.2) 08/19/17 06:45 APTT 32.8 Seconds (25.6-37.1) 08/19/17 06:45
--- NOTE | 2017-08-19 19:30 | CP.PCM.CON ---
History of Present Illness - History of Present Illness History of Present Illness: THE PATIENT IS A 47 YEAR OLD FEMALE WITH AN OLD TIBIAL FRACTURE WITH MALUNION WHO HAD ORIF OF THE LEFT TIBIA LAST YEAR WITH SUBSEQUENT SURICAL SITE INFECTION THAT WAS TREATED. SHE NOW COMES IN WITH DEHISCENCE OF THE LEFT SURGICAL SITE WOUND WITH EXPOSED HARDWARE FOR MONTHS ANS WAS BROUGHT TO THE OR BY DR MANRIQUEZ. SHE ALSO HAS A HISTORY OF HYPERTENSION, COPD FROM SMOKING, HYPOTHYROIDISM, RICHARDSON'S SYNDROME AND BIPOLAR DISEASE. CARDIOLOGY WAS ASKED TO FOLLOW HER. SHE DENIES CHEST PAIN OR SOB. Past Patient History - Infectious Disease Hx of Infectious Diseases: MRSA - Tetanus Immunizations Tetanus Immunization: Unknown - Past Medical History & Family History Past Medical History?: Yes Past Family History: Reviewed and not pertinent - Past Social History Smoking Status: Heavy Smoker > 10 Cigarettes Daily - CARDIAC Hx Cardiac Disorders: Yes Hx Hypertension: Yes Other/Comment: IRREGULAR HEARTBEAT - PULMONARY Hx Respiratory Disorders: Yes Hx Chronic Obstructive Pulmonary Disease (COPD): Yes Other/Comment: HX OF PNEUMONIA - NEUROLOGICAL Hx Neurological Disorder: No - HEENT Hx HEENT Problems: Yes Other/Comment: RETINA - RENAL Hx Chronic Kidney Disease: No - ENDOCRINE/METABOLIC Hx Endocrine Disorders: Yes Other/Comment: adrenal insufficiency - HEMATOLOGICAL/ONCOLOGICAL Hx Blood Disorders: Yes Hx AIDS: No Hx Anemia: Yes Hx Human Immunodeficiency Virus (HIV): No - INTEGUMENTARY Hx Dermatological Problems: No - MUSCULOSKELETAL/RHEUMATOLOGICAL Hx Musculoskeletal Disorders: Yes Hx Arthritis: Yes Hx Back Pain: Yes Hx Falls: Yes Hx Osteoarthritis: Yes Other/Comment: MUSCLE WEAKNESS .LIMIT JOINT MOTION .RIGHT HAND WEAKNESS - GASTROINTESTINAL Hx Gastrointestinal Disorders: No Other/Comment: HX OF CONSTIPATION - GENITOURINARY/GYNECOLOGICAL Hx Genitourinary Disorders: No - PSYCHIATRIC Hx Psychophysiologic Disorder: Yes Hx Anxiety: Yes Hx Depression: Yes Hx Emotional Abuse: No Hx Physical Abuse: No Hx Substance Use: No - SURGICAL HISTORY Hx Surgeries: Yes Hx Arthroscopy: Yes (RIGHT KNEE) Hx Musculoskeletal Surgery: Yes (Left knee ORIF for Malunion Fracture Tibia) Other/Comment: SX FOR BOWEL OBSTRUCTION - ANESTHESIA Hx Anesthesia: Yes Hx Anesthesia Reactions: No Hx Malignant Hyperthermia: No Has any member of the family had a problem w/ anesthesia?: No Meds Allergies/Adverse Reactions: Allergies Allergy/AdvReac Type Severity Reaction Status Date / Time No Known Allergies Allergy Verified 08/19/17 13:07 - Medications Medications: Current Medications Acetaminophen (Tylenol 325mg Tab) 325 mg PO Q8 PRN PRN Reason: Pain, moderate (4-7) Baclofen (Lioresal) 20 mg PO TID [facility] Last Admin: 08/19/17 18:21 Dose: 20 mg Gabapentin (Neurontin) 600 mg PO TID [facility] Last Admin: 08/19/17 18:21 Dose: 600 mg Hydrocortisone (Cortef) 20 mg PO BID [facility] Last Admin: 08/19/17 18:20 Dose: 20 mg Hydromorphone HCl (Dilaudid 0.2 Mg/Ml Pre Sales Systems Engineer) 0 mg IV PRN PRN; Protocol PRN Reason: Pain, severe (8-10) Cefepime HCl 1 gm/ Sodium (Chloride) 100 mls @ 100 mls/hr IVPB Q12 [facility] PRN Reason: Protocol Vancomycin HCl 1 gm/ Sodium (Chloride) 250 mls @ 125 mls/hr IVPB Q12 [facility] PRN Reason: Protocol Lisinopril (Zestril) 20 mg PO DAILY [facility] Lorazepam (Ativan) 1 mg PO BID [facility] Last Admin: 08/19/17 18:19 Dose: 1 mg Meperidine HCl (Demerol) 12.5 mg IVP Q5M PRN PRN Reason: Shivering/Rigor Last Admin: 08/19/17 13:55 Dose: 12.5 mg Nicotine (Nicoderm Cq) 1 patch TD DAILY [facility] Last Admin: 08/19/17 18:32 Dose: 1 patch Ondansetron HCl (Zofran Inj) 4 mg IVP Q6 PRN PRN Reason: Nausea/Vomiting Pantoprazole Sodium (Protonix Ec Tab) 40 mg PO DAILY [facility] Polyethylene Glycol (Miralax) 17 gm PO DAILY [facility] Quetiapine Fumarate (Seroquel) 50 mg PO TID [facility] Trazodone HCl (Desyrel) 100 mg PO [facility] Physical Exam - Respiratory Exam Respiratory Exam: Clear to Auscultation Bilateral - Cardiovascular Exam Cardiovascular Exam: REGULAR RHYTHM, +S1, +S2 - Extremities Exam Additional comments: LLE WITH SURGICAL DRESSINGS RLE WITHOUT EDEMA - Additional Findings Additional findings: EKG NSR WBC 19.5 K OR NOTES REVIEWED Results - Vital Signs Recent Vital Signs: Last Vital Signs Temp 97.4 F L 08/19/17 16:10 Pulse 107 H 08/19/17 16:10 Resp 22 08/19/17 16:10 BP 123/77 08/19/17 16:10 Pulse Ox 100 08/19/17 16:10 - Labs Result Diagrams: 08/19/17 06:45 08/19/17 06:45 Labs: Laboratory Results - last 24 hr 08/19/17 08/19/17 08/19/17 06:45 06:45 06:45 WBC 19.5 H RBC 3.82 Hgb 11.6 L Hct 35.5 MCV 93.0 MCH 30.4 MCHC 32.6 L RDW 16.5 H Plt Count 724 H D MPV 6.9 L Neut % (Auto) 79.3 H Lymph % (Auto) 13.2 L [place] % (Auto) 6.6 Eos % (Auto) 0.3 Baso % (Auto) 0.6 Neut # (Auto) 15.5 H Lymph # (Auto) 2.6 [place] # (Auto) 1.3 H Eos # (Auto) 0.1 Baso # (Auto) 0.1 PT 9.7 L INR 0.9 APTT 32.8 Sodium 140 Potassium 4.2 Chloride 106 Carbon Dioxide 22 Anion Gap 16 BUN 11 Creatinine 0.5 L Est GFR ( Amer) > 60 Est GFR (Non-Af Amer) > 60 Random Glucose 103 Calcium 9.1 Total Bilirubin 0.3 AST 14 D ALT 23 Alkaline Phosphatase 82 Total Protein 6.6 Albumin 3.3 L Globulin 3.2 Albumin/Globulin Ratio 1.0 Urine Color Urine Clarity Urine pH Ur Specific [place] Urine Protein Urine Glucose (UA) Urine Ketones Urine Blood Urine Nitrate Urine Bilirubin Urine Urobilinogen Ur Leukocyte Esterase Urine RBC (Auto) Urine Microscopic WBC Ur Squamous Epith Cells Fluid Type Synovial WBC Synovial RBC Synovial Neutrophils Synovial Lymphocytes Synov Monos/Macrophage Synovial Fluid Comment 08/19/17 08/19/17 08/19/17 09:44 14:00 14:00 WBC RBC Hgb Hct MCV MCH MCHC RDW Plt Count MPV Neut % (Auto) Lymph % (Auto) [place] % (Auto) Eos % (Auto) Baso % (Auto) Neut # (Auto) Lymph # (Auto) [place] # (Auto) Eos # (Auto) Baso # (Auto) PT INR APTT Sodium Potassium Chloride Carbon Dioxide Anion Gap BUN Creatinine Est GFR ( Amer) Est GFR (Non-Af Amer) Random Glucose Calcium Total Bilirubin AST ALT Alkaline Phosphatase Total Protein Albumin Globulin Albumin/Globulin Ratio Urine Color Negra Urine Clarity Slighty-cloudy Urine pH 5.0 Ur Specific [place] 1.025 Urine Protein Negative Urine Glucose (UA) Neg Urine Ketones Trace Urine Blood Negative Urine Nitrate Negative Urine Bilirubin Negative Urine Urobilinogen 0.2-1.0 Ur Leukocyte Esterase Neg Urine RBC (Auto) 2 Urine Microscopic WBC 3 Ur Squamous Epith Cells 4 Fluid Type Synovial fluid Synovial fluid Synovial WBC 17.0 24.0 Synovial RBC 5445.0 H 8550.0 H Synovial Neutrophils 32.0 H 36.0 H Synovial Lymphocytes 13.0 H 9.0 H Synov Monos/Macrophage 5 H 2 H Synovial Fluid Comment Oudy Cloudy Assessment & Plan - Assessment and Plan (Free Text) Assessment: PRIOR ORIF OF LEFT TIBIA AND NOW WITH WOUND DEHISCENCE AND EXPOSURE OF SURGICAL HARDWARE WITH SURGICAL REMOVAL OF HARDWARE AND I+D OF TIBIAL WOUND HYPERTENSION BIPOLAR DISEASE COPD Plan: ID EVALUATION AND IV ANTIBIOTICS WOUND CARE CONTINUE LISINOPRIL.
[2017-08-19] MEDS: Cefepime 1 GM in Sodium Chloride 0.9% 100 ML IVPB SCH (21:10)
[2017-08-19] MEDS ORDERED: MORPHINE PCA IV ONE (21:37)
--- NOTE | 2017-08-19 22:15 | OP ---
PROCEDURE DATE: 08/19/2017 PREOPERATIVE DIAGNOSES: Status post complex left proximal tibial osteotomy and open reduction and internal fixation with bone grafting, wound dehiscence, rule out deep sepsis. POSTOPERATIVE DIAGNOSES: Status post complex left proximal tibial osteotomy and open reduction and internal fixation with bone grafting, wound dehiscence, rule out deep sepsis. PROCEDURE: 1. Hardware removal, deep, left tibia. 2. Debridement of tibia (Virgil procedure). 3. Excision of skin, subcutaneous tissue, and muscle. 4. Application of wound VAC. SURGEON: Brando Cole MD ELECTRIC SWITCH TESTER: ANNABELLE Ulrich, certified registered nursing intellectual property legal assistant. TYPE OF ANESTHESIA: General endotracheal anesthesia. ANESTHESIA ADMINISTERED BY: Dr. Lowry. COMPLICATIONS: No complications. DRAINS: One wound VAC drain. OPERATIVE INDICATIONS: Kyleigh Fay is a woman well known to my practice, who underwent a proximal tibial osteotomy and bone grafting for a severe, greater than 85 degree varus deformity, after tibial plateau fracture. The patient had an established nonunion for 2 years. The patient was brought to presentation to me in the late summer by her Dominic Kapoor. The grave nature of the situation was discussed with the patient. The fracture was close to 2 years old. [place] and nobody would get involved with it and the patient was ambulating with severe 75 degree varus deformity. She no longer withstand the discomfort. Pros, cons, risks and benefits of the complex osteotomy were discussed. The concept of bone grafting was discussed. The concept of possible mechanical failure, infection, nonunion, sepsis, thromboembolic disease, even amputation was discussed. The patient wished the surgery to be accomplished, can no longer live in that way. The patient at this point in time, presents with an exposed plate with evidence of wound dehiscence. The patient has been followed by Dr. Remington Mcgill. Dr. Mcgill had debrided the wound and had applied a wound VAC. The advise at that point was to remove the hardware. The consolidation on the fracture was allowed to occur. Although, it is not completely healed, there is enough healing to stabilize for the removal of the medial plate. So, the patient is admitted at this point in time for hardware removal, application of wound VAC, then referral through Infectious Disease for possible deep sepsis, and then to Dr. Mcgill for a definitive plastic surgical coverage. Dr. Mcgill has been following the patient. Possibility of mechanical failure, infection, thromboembolic disease, nerve injury, secondary or tertiary surgery was discussed. Possibility of amputation is discussed. The patient has been totally noncompliant, has been problematic during the entire course of her hospital course. She was noncompliant with her weightbearing status as is evidenced by the tendency to recurrence of deformity. OPERATIVE PROCEDURE: After having obtained informed consent in the above fashion; after having identified side, site, and procedure, and a critical pause/time-out; after satisfactory induction of the anesthetic, the patient identified as Kyleigh Fay in the supine position with all bony prominences well padded. Lower extremity was prepped and draped in the usual fashion for lower extremity surgery. No tourniquet is employed. At this point in time, the wound was thoroughly irrigated and using #15 blade, the incision is carried around the wound edges, skin, subcutaneous tissue, and proximally some muscle from the quadriceps tendon. The knee joint is identified. The plate is identified on the medial tibial plateau. The excision of skin, subcutaneous tissue, and muscle having been accomplished, irrigation and debridement having been accomplished, the deep hardware is exposed and is removed using the appropriate screwdriver; although, hardware was removed, at this point in time, there is a question of deep sepsis. At this point in time, a modified Virgil procedure is accomplished using a chi and the chi is carried down to bleeding bone. The bone graft was found to essentially have consolidated approximately 80%, not completely. Although, hardware having been removed, the construct is stable in flexion and extension. The wound was thoroughly irrigated at this point in time. The wound VAC is applied. The wound VAC material was cut to the size of the dehiscence. This having been accomplished, the completion of the wound VAC is accomplished from superior to inferior. It should be noted that irrigation and debridement having been accomplished, aerobic, anaerobic, AFB, and fungal cultures from the tibia were obtained as well as bone biopsy. Bone biopsy was accomplished in the area of the bone graft and the possibility that some graft may be biopsied discussed that is noted. So the finding of the vascular process may be rendered on pathology. In any event, 6 weeks of IV antibiotics will be carried out. Possibly of flap closure was discussed with Dr. Mcgill postoperatively and again, discussed with the patient possibility of amputation as this is a very serious and grave problem. Chadwick Hardy compression dressing and knee immobilizer was applied. The patient was transferred from the operating table to the stretcher having tolerated the procedure well. Brando Cole MD
[2017-08-20 07:38] LABS: BLOOD UREA NITROGEN 11 mg/dl (7-17); CALCIUM 8.3 mg/dL (8.4-10.2); GFR AFRICAN-AMERICAN > 60; GFR NON-AFRICAN AMERICAN > 60
[2017-08-20 07:41] LABS: HEMOGLOBIN 8.7 g/dL (12.0-16.0); MEAN CELL VOLUME 93.3 fl (81.0-99.0); MEAN CORPUSCULAR HGB CONC 32.2 g/dL (33.0-37.0); RBC 2.91 Mil/uL (3.80-5.20); RED CELL DISTRIBUTION WIDTH 16.6 % (11.5-14.5); WHITE BLOOD COUNT 17.2 K/uL (4.8-10.8)
[2017-08-20] MEDS: Pantoprazole 40 mg EC Tab PO SCH (09:20)
[2017-08-20] MEDS: Cefepime 1 GM in Sodium Chloride 0.9% 100 ML IVPB SCH ×2 (09:23→18:44)
[2017-08-20] MEDS: POLYETHYLENE GLYCOL 3350 17 GM/Dose PACKET PO SCH (09:24)
--- NOTE | 2017-08-20 09:36 | CP.PCM.PN ---
Subjective - Date & Time of Evaluation Date of Evaluation: 08/20/17 Time of Evaluation: 16:58 - Subjective Subjective: Patient states pain is severe, but morphine helps a little. Denies CP/SOB/ dizziness, denies numbness/tingling Objective - Vital Signs/Intake and Output Vital Signs (last 24 hours): Temp Pulse Resp BP Pulse Ox 99 F 91 H 20 112/77 100 08/20/17 09:05 08/20/17 09:05 08/20/17 09:05 08/20/17 09:05 08/20/17 09:05 - Medications Medications: Current Medications Acetaminophen (Tylenol 325mg Tab) 325 mg PO Q8 PRN PRN Reason: Pain, moderate (4-7) Baclofen (Lioresal) 20 mg PO TID [facility] Last Admin: 08/20/17 09:20 Dose: 20 mg Gabapentin (Neurontin) 600 mg PO TID [facility] Last Admin: 08/20/17 09:20 Dose: 600 mg Hydrocortisone (Cortef) 20 mg PO BID [facility] Last Admin: 08/20/17 09:19 Dose: 20 mg Cefepime HCl 1 gm/ Sodium (Chloride) 100 mls @ 100 mls/hr IVPB Q12 [facility] PRN Reason: Protocol Last Admin: 08/20/17 09:23 Dose: 100 mls/hr Vancomycin HCl 1 gm/ Sodium (Chloride) 250 mls @ 125 mls/hr IVPB Q12 [facility] PRN Reason: Protocol Last Admin: 08/19/17 23:14 Dose: 125 mls/hr Lisinopril (Zestril) 20 mg PO DAILY [facility] Lorazepam (Ativan) 1 mg PO BID [facility] Last Admin: 08/19/17 18:19 Dose: 1 mg Meperidine HCl (Demerol) 12.5 mg IVP Q5M PRN PRN Reason: Shivering/Rigor Last Admin: 08/19/17 13:55 Dose: 12.5 mg Morphine Sulfate (Morphine Coil Winder 1 Mg/Ml) 30 mg IV Q4 PRN; Protocol PRN Reason: Pain, moderate (4-7) Stop: 08/20/17 15:28 Morphine Sulfate (Morphine) 2 mg IVP Q4 PRN PRN Reason: Pain, severe (8-10) Nicotine (Nicoderm Cq) 1 patch TD DAILY [facility] Last Admin: 08/20/17 09:21 Dose: 1 patch Ondansetron HCl (Zofran Inj) 4 mg IVP Q6 PRN PRN Reason: Nausea/Vomiting Oxycodone HCl (Oxycodone Immediate Release Tab) 10 mg PO Q6 PRN PRN Reason: Pain, moderate (4-7) Pantoprazole Sodium (Protonix Ec Tab) 40 mg PO DAILY [facility] Last Admin: 08/20/17 09:20 Dose: 40 mg Polyethylene Glycol (Miralax) 17 gm PO DAILY [facility] Last Admin: 08/20/17 09:24 Dose: 17 gm Quetiapine Fumarate (Seroquel) 50 mg PO TID [facility] Trazodone HCl (Desyrel) 100 mg PO HS [facility] Last Admin: 08/19/17 21:51 Dose: 100 mg - Labs Labs: 08/20/17 05:30 08/20/17 05:30 PT 9.7 Seconds (9.8-13.1) L 08/19/17 06:45 INR 0.9 (0.9-1.2) 08/19/17 06:45 APTT 32.8 Seconds (25.6-37.1) 08/19/17 06:45 - Extremities Exam Additional comments: LLE: wound vac intact, +ROM ankle/toes, sensation intact +DFP/PT puless calvees soft NT negh omans TTP left distal tibia, but tender to entrire tibia Assessment and Plan (1) Exposed orthopaedic hardware Assessment & Plan: D/c planning on IV abx as per ID ortho stable for d/c patient to f/u with plastics as outpatient [facility] DR. Remington Mcgill in [place], no longer than 1 week f/u Dr. Cole in office in 1 week continue wound vac at rehab d/w Dr. Cole, agrees with above noted xryas with sclerosis to distal tibia. possible looser lines/insuffiency fx vs osteomalacia. Patient is non weight bearing, no further immobilization needed at this time per Dr. Cole Status: Acute (2) Open wound of left lower leg Status: Acute (3) Wound dehiscence Status: Acute Radiology Interpretation - Radiology Interpretation #3 Interpretation: Patient Name / ID : MARY Brown / [id number] Exam Date : 08/19/2017 15:45:59 ( Approved ) Study Comment : Sex / Age : F / 47Y Creator : Yuliet Lebron Dictator : Yuliet Lebron Manager Payment : Magnetic Tape Typewriter Operator : Yuliet Lebron Approver2 : Report Date : 08/19/2017 16:29:21 My Comment : PROCEDURE: Radiographs of the left tibia and fibula. HISTORY: s/p hardware removal COMPARISON: Left knee 08/19/2017 10:40 a.m. TECHNIQUE: Frontal and lateral views obtained. FINDINGS: BONES: The medial tibial hardware plate and medial entering screws of been removed. The lateral plating and screws appear similar. Less distraction of the lateral femoral tibial compartment noted. Fibular and tibial osteotomy changes noted The distal tibial metaphyseal appearance is compatible with a healing nondisplaced fracture site ; the healing sclerosis is horizontally oriented. Residual oblique -vertical lucencies of a nondisplaced comminuted fracture here also inferred without similar sclerotic healing response. Similar appearance with the 08/19/2017 10:40 a.m. study JOINT SPACES: Intrinsic knee arthrosis inferred. Excluding the sclerosis, ankle juxta- articular osteopenia suggested OTHER FINDINGS: None. IMPRESSION: Interval medial hardware removal. Less distraction lateral femoral tibial compartment. Less varus orientation Ankle findings as above
[2017-08-20] MEDS: Morphine 4 MG/ML VIAL IVP PRN ×3 (09:42→18:33)
--- NOTE | 2017-08-20 11:06 | CP.PCM.PN ---
Subjective - Date & Time of Evaluation Date of Evaluation: 08/20/17 Time of Evaluation: 10:30 - Subjective Subjective: NO CHEST PAIN OR SOB ONLY COMPLAINT IS LEFT KNEE SURGICAL SITE PAIN Objective - Vital Signs/Intake and Output Vital Signs (last 24 hours): Temp Pulse Resp BP Pulse Ox 99 F 91 H 20 117/72 100 08/20/17 09:05 08/20/17 09:05 08/20/17 09:05 08/20/17 09:52 08/20/17 09:05 - Medications Medications: Current Medications Acetaminophen (Tylenol 325mg Tab) 325 mg PO Q8 PRN PRN Reason: Pain, moderate (4-7) Baclofen (Lioresal) 20 mg PO TID [facility] Last Admin: 08/20/17 09:20 Dose: 20 mg Gabapentin (Neurontin) 600 mg PO TID [facility] Last Admin: 08/20/17 09:20 Dose: 600 mg Hydrocortisone (Cortef) 20 mg PO BID [facility] Last Admin: 08/20/17 09:19 Dose: 20 mg Cefepime HCl 1 gm/ Sodium (Chloride) 100 mls @ 100 mls/hr IVPB Q12 [facility] PRN Reason: Protocol Last Admin: 08/20/17 09:23 Dose: 100 mls/hr Vancomycin HCl 1 gm/ Sodium (Chloride) 250 mls @ 125 mls/hr IVPB Q12 [facility] PRN Reason: Protocol Last Admin: 08/20/17 09:47 Dose: 125 mls/hr Lisinopril (Zestril) 20 mg PO DAILY [facility] Last Admin: 08/20/17 09:52 Dose: 20 mg Lorazepam (Ativan) 1 mg PO BID [facility] Last Admin: 08/20/17 09:42 Dose: 1 mg Meperidine HCl (Demerol) 12.5 mg IVP Q5M PRN PRN Reason: Shivering/Rigor Last Admin: 08/19/17 13:55 Dose: 12.5 mg Morphine Sulfate (Morphine Director Of Land 1 Mg/Ml) 30 mg IV Q4 PRN; Protocol PRN Reason: Pain, moderate (4-7) Stop: 08/20/17 15:28 Morphine Sulfate (Morphine) 2 mg IVP Q4 PRN PRN Reason: Pain, severe (8-10) Last Admin: 08/20/17 09:42 Dose: 2 mg Nicotine (Nicoderm Cq) 1 patch TD DAILY [facility] Last Admin: 08/20/17 09:21 Dose: 1 patch Ondansetron HCl (Zofran Inj) 4 mg IVP Q6 PRN PRN Reason: Nausea/Vomiting Oxycodone HCl (Oxycodone Immediate Release Tab) 10 mg PO Q6 PRN PRN Reason: Pain, moderate (4-7) Pantoprazole Sodium (Protonix Ec Tab) 40 mg PO DAILY [facility] Last Admin: 08/20/17 09:20 Dose: 40 mg Polyethylene Glycol (Miralax) 17 gm PO DAILY [facility] Last Admin: 08/20/17 09:24 Dose: 17 gm Quetiapine Fumarate (Seroquel) 50 mg PO TID [facility] Trazodone HCl (Desyrel) 100 mg PO HS [facility] Last Admin: 08/19/17 21:51 Dose: 100 mg - Labs Labs: 08/20/17 05:30 08/20/17 05:30 PT 9.7 Seconds (9.8-13.1) L 08/19/17 06:45 INR 0.9 (0.9-1.2) 08/19/17 06:45 APTT 32.8 Seconds (25.6-37.1) 08/19/17 06:45 - Respiratory Exam Respiratory Exam: Clear to Ausculation Bilateral - Cardiovascular Exam Cardiovascular Exam: REGULAR RHYTHM, +S1, +S2 - Extremities Exam Additional comments: LLE IN IMMOBILIZER RLE WITHOUT EDEMA MIGUELANGEL'S SIGN NEGATIVE Assessment and Plan - Assessment and Plan (Free Text) Assessment: LEFT KNEE SURGERY WITH REMOVAL OF HARDWARE AND I+D HYPERTENSION Plan: CONTINUE LISINOPRIL AND IV ANTIBIOTICS
--- NOTE | 2017-08-20 13:47 | CP.PCM.PN ---
Subjective - Date & Time of Evaluation Date of Evaluation: 08/20/17 Time of Evaluation: 12:00 - Subjective Subjective: Patient was seen and examined today. She is complaining of pain to the surgical site. No other complaints. Denies chest pain, sob, lethargy, abdominal pain, n/v /d. Objective - Vital Signs/Intake and Output Vital Signs (last 24 hours): Temp Pulse Resp BP Pulse Ox 99 F 91 H 20 117/72 100 08/20/17 09:05 08/20/17 09:05 08/20/17 09:05 08/20/17 09:52 08/20/17 09:05 - Medications Medications: Current Medications Acetaminophen (Tylenol 325mg Tab) 325 mg PO Q8 PRN PRN Reason: Pain, moderate (4-7) Baclofen (Lioresal) 20 mg PO TID [facility] Last Admin: 08/20/17 09:20 Dose: 20 mg Gabapentin (Neurontin) 600 mg PO TID [facility] Last Admin: 08/20/17 09:20 Dose: 600 mg Hydrocortisone (Cortef) 20 mg PO BID [facility] Last Admin: 08/20/17 09:19 Dose: 20 mg Cefepime HCl 1 gm/ Sodium (Chloride) 100 mls @ 100 mls/hr IVPB Q12 [facility] PRN Reason: Protocol Last Admin: 08/20/17 09:23 Dose: 100 mls/hr Vancomycin HCl 1 gm/ Sodium (Chloride) 250 mls @ 125 mls/hr IVPB Q12 [facility] PRN Reason: Protocol Last Admin: 08/20/17 09:47 Dose: 125 mls/hr Lisinopril (Zestril) 20 mg PO DAILY [facility] Last Admin: 08/20/17 09:52 Dose: 20 mg Lorazepam (Ativan) 1 mg PO BID [facility] Last Admin: 08/20/17 09:42 Dose: 1 mg Meperidine HCl (Demerol) 12.5 mg IVP Q5M PRN PRN Reason: Shivering/Rigor Last Admin: 08/19/17 13:55 Dose: 12.5 mg Morphine Sulfate (Morphine Coat Agent 1 Mg/Ml) 30 mg IV Q4 PRN; Protocol PRN Reason: Pain, moderate (4-7) Stop: 08/20/17 15:28 Morphine Sulfate (Morphine) 2 mg IVP Q4 PRN PRN Reason: Pain, severe (8-10) Last Admin: 08/20/17 09:42 Dose: 2 mg Nicotine (Nicoderm Cq) 1 patch TD DAILY [facility] Last Admin: 08/20/17 09:21 Dose: 1 patch Ondansetron HCl (Zofran Inj) 4 mg IVP Q6 PRN PRN Reason: Nausea/Vomiting Oxycodone HCl (Oxycodone Immediate Release Tab) 10 mg PO Q6 PRN PRN Reason: Pain, moderate (4-7) Pantoprazole Sodium (Protonix Ec Tab) 40 mg PO DAILY [facility] Last Admin: 08/20/17 09:20 Dose: 40 mg Polyethylene Glycol (Miralax) 17 gm PO DAILY [facility] Last Admin: 08/20/17 09:24 Dose: 17 gm Quetiapine Fumarate (Seroquel) 50 mg PO TID [facility] Trazodone HCl (Desyrel) 100 mg PO HS [facility] Last Admin: 08/19/17 21:51 Dose: 100 mg - Labs Labs: 08/20/17 05:30 08/20/17 05:30 PT 9.7 Seconds (9.8-13.1) L 08/19/17 06:45 INR 0.9 (0.9-1.2) 08/19/17 06:45 APTT 32.8 Seconds (25.6-37.1) 08/19/17 06:45 - Additional Findings Additional findings: Physical exam: Constitutional- cooperative, awake, alert. Appears older than stated age. Head- NCAT, PERRL Eye- PERRL, EOMI ENT- normal exam, MMM. Neck- normal inspection, supple, no JVD Respiratory- CTAB, no wheezes, no rales, scattered rhonchi. Cardiovascular- RRR, +S1, +S2 no MRG GI/Abdominal- normal bowel sounds, soft, no mass, no hsm Skin- warm, dry Extremities Exam- + Left leg in knee immobilizer. + Wound vac. normal capillary refill, normal inspection Neurological Exam- alert, awake, oriented Psych- normal mood, normal affect Assessment and Plan - Assessment and Plan (Free Text) Plan: This is a 46 year old lady with history of left tibial fracture with malunion, s /p ORIF of the left proximal tibia on 02/27/2017, with history of cellulitis of the left lower leg, also with history of COPD and tobacco abuse, essential hypertension, noncompliance with medication, hypothyroidism, Bill syndrome, neuropathy, constipation, who presented to the hospital with open left leg wound and exposed hardware. Had removal of hardware today 08/19/2017. Admitted postoperatively for IV antibiotics and postop care and monitoring. Removal of hardware of the left leg due to open wound and infection - Admit to med/surg postoperatively - Consultation with Dr. Corado to guide antibiotic therapy - leukocytosis possibly secondary to steroids, pt is afebrile - Ortho consult: Dr Cole -kim mgt -PT/OT (3) History of Cellulitis of left lower leg treated on previous admission -Cont Vancomycin and Cefepime IV to complete 1 month [address] rec [address] Dr Corado on previous admission (4) Bipolar disorder -continue psych meds -no suicidal ideations or depression Status: Chronic (5) COPD (chronic obstructive pulmonary disease) -pt currently asymptomatic - Duoneb prn - pt active smoker Status: Chronic (6) Hypertension Continue Amlodipine and Lisinopril (home meds) Will monitor BP closely Status: Chronic (7) Hypothyroidism Continue Levothyroxine 100 mcg daily Status: Chronic (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 Underweight BMI=16 12) DVT proph SCD for now
[2017-08-20] MEDS ORDERED: Lidocaine Hydrochloride 1% 10 ML ONE (16:18)
--- NOTE | 2017-08-20 16:33 | PCM.SURG1 ---
Surgeon's Initial Post Op Note - Surgeon's Notes Surgeon: Alan Jarrett MD Occup Ther: None Type of Anesthesia: Local Pre-Operative Diagnosis: infection Operative Findings: patent right brachial/basilic veins, ?axilliary region obstruction? patent left basilic vein. catheter length: 42 cm. catheter tip: cavoatrial junction Post-Operative Diagnosis: same Operation Performed: LUE PICC Insertion Specimen/Specimens Removed: n/a Estimated Blood Loss: EBL {In ML}: 5 Date of Surgery/Procedure: 08/20/17 Time of Surgery/Procedure: 16:00
--- NOTE | 2017-08-20 17:12 | VASCULAR ---
PROCEDURE: PERIPHERALLY INSERTED CENTRAL VENOUS CATHETER INSERTION CLINICAL HISTORY: 47-year-old female requiring halfway intravenous antibiotics is referred to Interventional Radiology for PICC insertion. COMPARISON: None. PROCEDURE: 1. Focused ultrasound of the right and left upper extremity vasculature. 2. Ultrasound-guided access. 3. Insertion of peripherally inserted central venous catheter. 4. Fluoroscopic localization of catheter tip. PRE-PROCEDURE FINDINGS: 1. Patent right brachial and basilic veins. Patent left basilic vein. POST-PROCEDURE FINDINGS: 1. Placement of 4 Romanian single-lumen PICC. 2. Catheter length: 42 cm. 3. Catheter tip at cavoatrial junction. INTERVENTIONAL RADIOLOGIST: Alan Jarrett M.D. (the attending was present for the entire procedure) ANESTHESIA: None. MEDICATION: Lidocaine 1% for local subcutaneous analgesia. COMPLICATIONS: None. RADIATION DOSE: Fluoroscopy Time: 90.2 seconds Cumulative Dose: 4.30 mGy PROCEDURE DESCRIPTION AND FINDINGS: The risks, benefits, alternatives and possible complications of the procedure were fully discussed; all questions were answered and informed consent was obtained. The patient was brought into the interventional suite and a pre-procedure 'time-out' was performed. The patient was placed on the fluoroscopy table in the supine position. The right upper extremity was prepped and draped in the usual sterile fashion. Maximum sterile barrier precautions were maintained throughout the entire procedure. Preliminary ultrasound images of the right upper extremity vasculature demonstrate patency of the right basilic vein. Following subcutaneous infiltration of 1% lidocaine for local analgesia, under ultrasound guidance, a 21-gauge needle was advanced into the right basilic vein with real-time visualization of needle entry. The ultrasound images were permanently recorded and submitted to the PACS. A 0.018 guidewire could not be advanced centrally. Following subcutaneous infiltration of 1% lidocaine for local analgesia, under ultrasound guidance, a 21-gauge needle was advanced into the right brachial vein with real-time visualization of needle entry. The ultrasound images were permanently recorded and submitted to the PACS. A 0.018 guidewire could not be advanced centrally. Preliminary ultrasound images of the left upper extremity vasculature demonstrate patency of the left basilic vein. Following subcutaneous infiltration of 1% lidocaine for local analgesia, under ultrasound guidance, a 21-gauge needle was advanced into the left basilic vein with real-time visualization of needle entry. The ultrasound images were permanently recorded and submitted to the PACS. advanced centrally to the cavoatrial junction. A 4.5 Romanian peel-away sheath was advanced over the guidewire. After obtaining length measurement, a 4 Romanian single-lumen PICC was placed with the tip of the catheter at the cavoatrial junction. The total length of the catheter is 42 cm. The hub of the PICC was secured to the skin using a sterile adhesive bandage. The patient tolerated the procedure well without immediate post-procedure complications and was transferred back to the floor in stable condition. IMPRESSION: UNSUCCESSFUL INSERTION OF RIGHT UPPER EXTREMITY PICC. GUIDEWIRE COULD NOT BE ADVANCED CENTRALLY. AXILLARY REGION SCARRING IS POSSIBLE. SUCCESSFUL INSERTION OF LEFT UPPER EXTREMITY PICC. PICC OK TO USE.
[2017-08-20] MEDS: Cholecalciferol 1,000 INTLU TAB PO SCH (18:43)
[2017-08-21] MEDS: Cefepime 1 GM in Sodium Chloride 0.9% 100 ML IVPB SCH ×3 (00:13→18:00)
[2017-08-21] MEDS: Morphine 4 MG/ML VIAL IVP PRN ×5 (00:17→16:25)
[2017-08-21 05:03] LABS: HEMOGLOBIN 8.5 g/dL (12.0-16.0); MEAN CELL VOLUME 92.6 fl (81.0-99.0); MEAN CORPUSCULAR HEMOGLOBIN 29.7 pg (27.0-31.0); MEAN CORPUSCULAR HGB CONC 32.1 g/dL (33.0-37.0); RBC 2.88 Mil/uL (3.80-5.20); RED CELL DISTRIBUTION WIDTH 16.6 % (11.5-14.5); WHITE BLOOD COUNT 18.6 K/uL (4.8-10.8)
[2017-08-21 05:14] LABS: BLOOD UREA NITROGEN 11 mg/dl (7-17); CALCIUM 8.5 mg/dL (8.4-10.2); GFR AFRICAN-AMERICAN > 60; GFR NON-AFRICAN AMERICAN > 60
[2017-08-21] MEDS: POLYETHYLENE GLYCOL 3350 17 GM/Dose PACKET PO SCH (08:39)
[2017-08-21] MEDS: Pantoprazole 40 mg EC Tab PO SCH (08:39)
[2017-08-21] MEDS: Cholecalciferol 1,000 INTLU TAB PO SCH (08:40)
[2017-08-21 08:49] VITALS: O2SAT 96
[2017-08-21] MEDS: oxyCODONE 10 mg Immediate Release Tab PO PRN ×2 (11:16→18:48)
--- NOTE | 2017-08-21 11:16 | CP.PCM.PN ---
Subjective - Date & Time of Evaluation Date of Evaluation: 08/21/17 Time of Evaluation: 08:30 - Subjective Subjective: Patient was seen and examined OOB to chair comfortable. Pain controlled. No new complaints. Objective - Vital Signs/Intake and Output Vital Signs (last 24 hours): Temp Pulse Resp BP Pulse Ox 98.9 F 102 H 20 142/87 96 08/21/17 08:47 08/21/17 08:47 08/21/17 08:47 08/21/17 08:47 08/21/17 08:47 - Medications Medications: Current Medications Acetaminophen (Tylenol 325mg Tab) 325 mg PO Q8 PRN PRN Reason: Pain, moderate (4-7) Baclofen (Lioresal) 20 mg PO TID [facility] Last Admin: 08/21/17 08:39 Dose: 20 mg Cholecalciferol (Vitamin D) 2,000 intlu PO DAILY [facility] Last Admin: 08/21/17 08:40 Dose: 2,000 intlu Gabapentin (Neurontin) 600 mg PO TID [facility] Last Admin: 08/21/17 08:39 Dose: 600 mg Hydrocortisone (Cortef) 20 mg PO BID [facility] Last Admin: 08/21/17 08:39 Dose: 20 mg Vancomycin HCl 1 gm/ Sodium (Chloride) 250 mls @ 125 mls/hr IVPB Q12 [facility] PRN Reason: Protocol Last Admin: 08/20/17 20:31 Dose: 125 mls/hr Cefepime HCl 1 gm/ Sodium (Chloride) 100 mls @ 100 mls/hr IVPB Q8H [facility] PRN Reason: Protocol Last Admin: 08/21/17 10:49 Dose: 100 mls/hr Lisinopril (Zestril) 20 mg PO DAILY [facility] Last Admin: 08/21/17 08:40 Dose: 20 mg Lorazepam (Ativan) 1 mg PO BID [facility] Last Admin: 08/21/17 08:09 Dose: 1 mg Meperidine HCl (Demerol) 12.5 mg IVP Q5M PRN PRN Reason: Shivering/Rigor Last Admin: 08/19/17 13:55 Dose: 12.5 mg Morphine Sulfate (Morphine) 2 mg IVP Q4 PRN PRN Reason: Pain, severe (8-10) Last Admin: 08/21/17 08:38 Dose: 2 mg Nicotine (Nicoderm Cq) 1 patch TD DAILY [facility] Last Admin: 08/21/17 08:39 Dose: 1 patch Ondansetron HCl (Zofran Inj) 4 mg IVP Q6 PRN PRN Reason: Nausea/Vomiting Oxycodone HCl (Oxycodone Immediate Release Tab) 10 mg PO Q6 PRN PRN Reason: Pain, moderate (4-7) Pantoprazole Sodium (Protonix Ec Tab) 40 mg PO DAILY [facility] Last Admin: 08/21/17 08:39 Dose: 40 mg Polyethylene Glycol (Miralax) 17 gm PO DAILY [facility] Last Admin: 08/21/17 08:39 Dose: 17 gm Quetiapine Fumarate (Seroquel) 50 mg PO TID [facility] Last Admin: 08/21/17 08:40 Dose: 50 mg Trazodone HCl (Desyrel) 100 mg PO HS [facility] Last Admin: 08/20/17 23:00 Dose: Not Given - Labs Labs: 08/21/17 04:56 08/21/17 04:56 PT 9.7 Seconds (9.8-13.1) L 08/19/17 06:45 INR 0.9 (0.9-1.2) 08/19/17 06:45 APTT 32.8 Seconds (25.6-37.1) 08/19/17 06:45 - Extremities Exam Additional comments: L knee: wound VAC intact with mild serosang drainage, knee imm intact sensation intact motor intact EHL/FHL pedal pulses intact comp soft/NT Assessment and Plan (1) Exposed orthopaedic hardware Assessment & Plan: POD #2 L tibia hardware removal -pain control -PT/OT -NWB LLE -abx as per ID -continue wound VAC treatment -ok to d/c to home from ortho standpoint -patient will need VNS at home for VAC and medication management -f/u with Dr. Broderick Mcgill, plastic surgery [facility] -above d/w Dr. Cole in agreement Status: Acute
--- NOTE | 2017-08-21 11:30 | CP.PCM.PN ---
Subjective - Date & Time of Evaluation Date of Evaluation: 08/21/17 Time of Evaluation: 10:30 - Subjective Subjective: NO COMPLAINTS OF CHEST PAIN OR SOB Objective - Vital Signs/Intake and Output Vital Signs (last 24 hours): Temp Pulse Resp BP Pulse Ox 98.9 F 102 H 20 142/87 96 08/21/17 08:47 08/21/17 08:47 08/21/17 08:47 08/21/17 08:47 08/21/17 08:47 - Medications Medications: Current Medications Acetaminophen (Tylenol 325mg Tab) 325 mg PO Q8 PRN PRN Reason: Pain, moderate (4-7) Baclofen (Lioresal) 20 mg PO TID [facility] Last Admin: 08/21/17 08:39 Dose: 20 mg Cholecalciferol (Vitamin D) 2,000 intlu PO DAILY [facility] Last Admin: 08/21/17 08:40 Dose: 2,000 intlu Gabapentin (Neurontin) 600 mg PO TID [facility] Last Admin: 08/21/17 08:39 Dose: 600 mg Hydrocortisone (Cortef) 20 mg PO BID [facility] Last Admin: 08/21/17 08:39 Dose: 20 mg Vancomycin HCl 1 gm/ Sodium (Chloride) 250 mls @ 125 mls/hr IVPB Q12 [facility] PRN Reason: Protocol Last Admin: 08/20/17 20:31 Dose: 125 mls/hr Cefepime HCl 1 gm/ Sodium (Chloride) 100 mls @ 100 mls/hr IVPB Q8H [facility] PRN Reason: Protocol Last Admin: 08/21/17 10:49 Dose: 100 mls/hr Lisinopril (Zestril) 20 mg PO DAILY [facility] Last Admin: 08/21/17 08:40 Dose: 20 mg Lorazepam (Ativan) 1 mg PO BID [facility] Last Admin: 08/21/17 08:09 Dose: 1 mg Meperidine HCl (Demerol) 12.5 mg IVP Q5M PRN PRN Reason: Shivering/Rigor Last Admin: 08/19/17 13:55 Dose: 12.5 mg Morphine Sulfate (Morphine) 2 mg IVP Q4 PRN PRN Reason: Pain, severe (8-10) Last Admin: 08/21/17 08:38 Dose: 2 mg Nicotine (Nicoderm Cq) 1 patch TD DAILY [facility] Last Admin: 08/21/17 08:39 Dose: 1 patch Ondansetron HCl (Zofran Inj) 4 mg IVP Q6 PRN PRN Reason: Nausea/Vomiting Oxycodone HCl (Oxycodone Immediate Release Tab) 10 mg PO Q6 PRN PRN Reason: Pain, moderate (4-7) Last Admin: 08/21/17 11:16 Dose: 10 mg Pantoprazole Sodium (Protonix Ec Tab) 40 mg PO DAILY [facility] Last Admin: 08/21/17 08:39 Dose: 40 mg Polyethylene Glycol (Miralax) 17 gm PO DAILY [facility] Last Admin: 08/21/17 08:39 Dose: 17 gm Quetiapine Fumarate (Seroquel) 50 mg PO TID [facility] Last Admin: 08/21/17 08:40 Dose: 50 mg Trazodone HCl (Desyrel) 100 mg PO HS [facility] Last Admin: 08/20/17 23:00 Dose: Not Given - Labs Labs: 08/21/17 04:56 08/21/17 04:56 PT 9.7 Seconds (9.8-13.1) L 08/19/17 06:45 INR 0.9 (0.9-1.2) 08/19/17 06:45 APTT 32.8 Seconds (25.6-37.1) 08/19/17 06:45 - Respiratory Exam Respiratory Exam: Clear to Ausculation Bilateral - Cardiovascular Exam Cardiovascular Exam: REGULAR RHYTHM, +S1, +S2 Assessment and Plan - Assessment and Plan (Free Text) Assessment: S/P REMOVAL OF LEFT KNEE HARDWARE AND I+D HYPERTENSION Plan: PICC LINE INSERTED CONTINUE LISINOPRIL AND ANTIBIOTICS
--- NOTE | 2017-08-21 12:24 | CP.PCM.HP ---
Past Patient History - Infectious Disease Hx of Infectious Diseases: MRSA - Tetanus Immunizations Tetanus Immunization: Unknown - Past Medical History & Family History Past Medical History?: Yes Past Family History: Reviewed and not pertinent - Past Social History Smoking Status: Heavy Smoker > 10 Cigarettes Daily - CARDIAC Hx Cardiac Disorders: Yes Hx Hypertension: Yes Other/Comment: IRREGULAR HEARTBEAT - PULMONARY Hx Respiratory Disorders: Yes Hx Chronic Obstructive Pulmonary Disease (COPD): Yes Other/Comment: HX OF PNEUMONIA - NEUROLOGICAL Hx Neurological Disorder: No - HEENT Hx HEENT Problems: Yes Other/Comment: RETINA - RENAL Hx Chronic Kidney Disease: No - ENDOCRINE/METABOLIC Hx Endocrine Disorders: Yes Other/Comment: adrenal insufficiency - HEMATOLOGICAL/ONCOLOGICAL Hx Blood Disorders: Yes Hx AIDS: No Hx Anemia: Yes Hx Human Immunodeficiency Virus (HIV): No - INTEGUMENTARY Hx Dermatological Problems: No - MUSCULOSKELETAL/RHEUMATOLOGICAL Hx Musculoskeletal Disorders: Yes Hx Arthritis: Yes Hx Back Pain: Yes Hx Falls: Yes Hx Osteoarthritis: Yes Other/Comment: MUSCLE WEAKNESS .LIMIT JOINT MOTION .RIGHT HAND WEAKNESS - GASTROINTESTINAL Hx Gastrointestinal Disorders: No Other/Comment: HX OF CONSTIPATION - GENITOURINARY/GYNECOLOGICAL Hx Genitourinary Disorders: No - PSYCHIATRIC Hx Psychophysiologic Disorder: Yes Hx Anxiety: Yes Hx Depression: Yes Hx Emotional Abuse: No Hx Physical Abuse: No Hx Substance Use: No - SURGICAL HISTORY Hx Surgeries: Yes Hx Arthroscopy: Yes (RIGHT KNEE) Hx Musculoskeletal Surgery: Yes (Left knee ORIF for Malunion Fracture Tibia) Other/Comment: SX FOR BOWEL OBSTRUCTION - ANESTHESIA Hx Anesthesia: Yes Hx Anesthesia Reactions: No Hx Malignant Hyperthermia: No Has any member of the family had a problem w/ anesthesia?: No Meds Home Medications: Home Medication List Medication Instructions Recorded Confirmed Type Cefepime 1gm in NS 50ml [Maxipime 1 gm IV Q8 #126 bag 08/21/17 Rx 1gm] Vancomycin/0.9 % Sod Chloride 1 gm IV Q12 #84 plast..bag 08/21/17 Rx [Vancomycin 1 G/100Ml-0.9% NaCl] Allergies/Adverse Reactions: Allergies Allergy/AdvReac Type Severity Reaction Status Date / Time No Known Allergies Allergy Verified 08/19/17 13:07 Results - Vital Signs Recent Vital Signs: Last Vital Signs Temp 98.9 F 08/21/17 08:47 Pulse 102 H 08/21/17 08:47 Resp 20 08/21/17 08:47 BP 142/87 08/21/17 08:47 Pulse Ox 96 08/21/17 08:47 - Labs Result Diagrams: 08/21/17 04:56 08/21/17 04:56 Labs: Laboratory Results - last 24 hr 08/20/17 08/21/17 08/21/17 05:00 04:56 04:56 WBC 18.6 H RBC 2.88 L Hgb 8.5 L Hct 26.6 L MCV 92.6 MCH 29.7 MCHC 32.1 L RDW 16.6 H Plt Count 581 H Sodium 143 Potassium 3.9 Chloride 109 H Carbon Dioxide 24 Anion Gap 14 BUN 11 Creatinine 0.6 L Est GFR ( Amer) > 60 Est GFR (Non-Af Amer) > 60 Random Glucose 131 H Calcium 8.5 25-OH Vitamin D Total < 12.8 L
--- NOTE | 2017-08-21 12:36 | CP.PCM.DIS ---
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 continue IV Vanco and Cefepime for 6 weeks as per ID (2) Hypertension Status: Chronic Comment: BP stable. 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 Hospital Course - Lab Results Lab Results: Micro Results 08/19/17 13:30 Knee - Left Gram Stain - Final 08/19/17 13:30 Knee - Left Wound Culture - Final Enterobacter Cloacae Ssp Cloac Klebsiella Pneumoniae Ssp Pneu Methicillin Resistant S Aureus 08/19/17 13:30 Knee - Left Gram Stain - Final 08/19/17 13:30 Knee - Left Wound Culture - Final Enterobacter Cloacae Ssp Cloac Klebsiella Pneumoniae Ssp Pneu Methicillin Resistant S Aureus 08/19/17 13:30 Knee - Left Gram Stain - Final 08/19/17 13:30 Knee - Left Wound Culture - Final Enterobacter Cloacae Ssp Cloac Klebsiella Pneumoniae Ssp Pneu Methicillin Resistant S Aureus 08/19/17 13:30 Knee - Left Gram Stain - Final 08/19/17 13:30 Knee - Left Wound Culture - Final Enterobacter Cloacae Ssp Cloac Klebsiella Pneumoniae Ssp Pneu Methicillin Resistant S Aureus 08/19/17 13:20 Body Fluid - Knee-Left Gram Stain - Final 08/19/17 13:20 Body Fluid - Knee-Left Body Fluid Culture - Final Enterobacter Cloacae Ssp Cloac Klebsiella Pneumoniae Ssp Pneu Methicillin Resistant S Aureus 08/19/17 13:30 Knee - Left Gram Stain - Final 08/19/17 13:30 Knee - Left Wound Culture - Final Enterobacter Cloacae Ssp Cloac Methicillin Resistant S Aureus Klebsiella Pneumoniae Ssp Pneu 08/19/17 13:20 Body Fluid - Knee-Left Gram Stain - Final 08/19/17 13:20 Body Fluid - Knee-Left Body Fluid Culture - Preliminary Enterobacter Cloacae Ssp Cloac Klebsiella Pneumoniae Ssp Pneu Methicillin Resistant S Aureus 08/19/17 13:30 Knee - Left Gram Stain - Final 08/19/17 13:30 Knee - Left Wound Culture - Preliminary Methicillin Resistant S Aureus 08/19/17 18:00 Blood-Venous Blood Culture - Preliminary NO GROWTH AFTER 24 HOURS 08/19/17 18:30 Blood-Venous Blood Culture - Preliminary NO GROWTH AFTER 24 HOURS 08/19/17 14:00 Other: Please Indicate Mycobacterial Culture - Preliminary 08/19/17 13:30 Knee - Left Gram Stain - Final 08/19/17 13:30 Knee - Left Gram Stain - Final 08/19/17 13:30 Knee - Left Gram Stain - Final 08/19/17 13:30 Knee - Left Gram Stain - Final 08/19/17 13:30 Knee - Left Gram Stain - Final 08/19/17 14:00 Other: Please Indicate Mycobacterial Culture - Preliminary 08/19/17 13:30 Knee - Left Gram Stain - Final 08/19/17 13:30 Knee - Left Gram Stain - Final 08/19/17 13:30 Knee - Left Gram Stain - Final 08/19/17 13:30 Knee - Left Gram Stain - Final 08/19/17 14:00 Knee Left Fungal Culture - Preliminary 08/19/17 14:00 Knee Left Fungal Culture - Preliminary 08/19/17 13:30 Knee - Left Gram Stain - Final 08/19/17 13:30 Knee - Left Gram Stain - Final Most Recent Lab Values WBC 18.6 K/uL (4.8-10.8) H 08/21/17 04:56 RBC 2.88 Mil/uL (3.80-5.20) L 08/21/17 04:56 Hgb 8.5 g/dL (12.0-16.0) L 08/21/17 04:56 Hct 26.6 % (34.0-47.0) L 08/21/17 04:56 MCV 92.6 fl (81.0-99.0) 08/21/17 04:56 MCH 29.7 pg (27.0-31.0) 08/21/17 04:56 MCHC 32.1 g/dL (33.0-37.0) L 08/21/17 04:56 RDW 16.6 % (11.5-14.5) H 08/21/17 04:56 Plt Count 581 K/uL (130-400) H 08/21/17 04:56 MPV 6.9 fl (7.2-11.7) L 08/19/17 06:45 Neut % (Auto) 79.3 % (50.0-75.0) H 08/19/17 06:45 Lymph % (Auto) 13.2 % (20.0-40.0) L 08/19/17 06:45 [place] % (Auto) 6.6 % (0.0-10.0) 08/19/17 06:45 Eos % (Auto) 0.3 % (0.0-4.0) 08/19/17 06:45 Baso % (Auto) 0.6 % (0.0-2.0) 08/19/17 06:45 Neut # (Auto) 15.5 K/uL (1.8-7.0) H 08/19/17 06:45 Lymph # (Auto) 2.6 K/uL (1.0-4.3) 08/19/17 06:45 [place] # (Auto) 1.3 K/uL (0.0-0.8) H 08/19/17 06:45 Eos # (Auto) 0.1 K/uL (0.0-0.7) 08/19/17 06:45 Baso # (Auto) 0.1 K/uL (0.0-0.2) 08/19/17 06:45 PT 9.7 Seconds (9.8-13.1) L 08/19/17 06:45 INR 0.9 (0.9-1.2) 08/19/17 06:45 APTT 32.8 Seconds (25.6-37.1) 08/19/17 06:45 Sodium 143 mmol/l (132-148) 08/21/17 04:56 Potassium 3.9 MMOL/L (3.6-5.0) 08/21/17 04:56 Chloride 109 mmol/L (98-107) H 08/21/17 04:56 Carbon Dioxide 24 mmol/L (22-30) 08/21/17 04:56 Anion Gap 14 (10-20) 08/21/17 04:56 BUN 11 mg/dl (7-17) 08/21/17 04:56 Creatinine 0.6 mg/dl (0.7-1.2) L 08/21/17 04:56 Est GFR ( Amer) > 60 08/21/17 04:56 Est GFR (Non-Af Amer) > 60 08/21/17 04:56 Random Glucose 131 mg/dL (65-105) H 08/21/17 04:56 Calcium 8.5 mg/dL (8.4-10.2) 08/21/17 04:56 Total Bilirubin 0.3 mg/dl (0.2-1.3) 08/19/17 06:45 AST 14 U/L (14-36) D 08/19/17 06:45 ALT 23 U/L (9-52) 08/19/17 06:45 Alkaline Phosphatase 82 U/L (38-126) 08/19/17 06:45 Total Protein 6.6 G/DL (6.3-8.2) 08/19/17 06:45 Albumin 3.3 g/dL (3.5-5.0) L 08/19/17 06:45 Globulin 3.2 gm/dL (2.2-3.9) 08/19/17 06:45 Albumin/Globulin Ratio 1.0 (1.0-2.1) 08/19/17 06:45 25-OH Vitamin D Total < 12.8 NG/ML (30.0-100.0) L 08/20/17 05:00 Urine Color Negra (YELLOW) 08/19/17 09:44 Urine Clarity Slighty-cloudy (Clear) 08/19/17 09:44 Urine pH 5.0 (5.0-8.0) 08/19/17 09:44 Ur Specific [place] 1.025 (1.003-1.030) 08/19/17 09:44 Urine Protein Negative mg/dL (NEGATIVE) 08/19/17 09:44 Urine Glucose (UA) Neg mg/dL (Normal) 08/19/17 09:44 Urine Ketones Trace mg/dL (NEGATIVE) 08/19/17 09:44 Urine Blood Negative (NEGATIVE) 08/19/17 09:44 Urine Nitrate Negative (NEGATIVE) 08/19/17 09:44 Urine Bilirubin Negative (NEGATIVE) 08/19/17 09:44 Urine Urobilinogen 0.2-1.0 mg/dL (0.2-1.0) 08/19/17 09:44 Ur Leukocyte Esterase Neg [place]/uL (Negative) 08/19/17 09:44 Urine RBC (Auto) 2 /hpf (0-3) 08/19/17 09:44 Urine Microscopic WBC 3 /hpf (0-5) 08/19/17 09:44 Ur Squamous Epith Cells 4 /hpf (0-5) 08/19/17 09:44 Fluid Type Synovial fluid 08/19/17 14:00 Synovial WBC 24.0 /mm3 (0.0-150.0) 08/19/17 14:00 Synovial RBC 8550.0 /mm3 (0.0-0.0) H 08/19/17 14:00 Synovial Neutrophils 36.0 % (0-0) H 08/19/17 14:00 Synovial Lymphocytes 9.0 % (0-0) H 08/19/17 14:00 Synov Monos/Macrophage 2 % (0-0) H 08/19/17 14:00 Synovial Fluid Comment Cloudy 08/19/17 14:00 - Hospital Course Hospital Course: 47 yo female with history of HTN and Bill Syndrome came in with open left leg wound and exposed hardware. The wound has been open for months with malunion of the left tibial fracture and cellulitis of the left leg after ORIF in 02/27/2017. Patient had hardware removed surgically on 08/19/2017 and was started on IV Cefepime and Vancomycin. Wound culture grew Enterobacter Cloacae, Klebsiella Pneumoniae and MRSA. As per ID, Dr Corado, patient should continue Vancomycin and Cefepime for 6 weeks. Discharge Exam - Head Exam Head Exam: ATRAUMATIC - Eye Exam Eye Exam: absent: Scleral icterus - ENT Exam ENT Exam: Mucous Membranes Moist - Respiratory Exam Respiratory Exam: absent: Rhonchi, Wheezes, Respiratory Distress - Cardiovascular Exam Cardiovascular Exam: REGULAR RHYTHM, +S1, +S2 - GI/Abdominal Exam GI & Abdominal Exam: Soft. absent: Tenderness - Rectal Exam Rectal Exam: Deferred - Neurological Exam Neurological exam: Alert, Oriented x3 - Psychiatric Exam Psychiatric exam: Normal Affect - Skin Skin Exam: Dry, Intact Discharge Plan - Discharge Medications Prescriptions: Cefepime 1gm in NS 50ml [Maxipime 1gm] 1 gm IV Q8 #126 bag Vancomycin/0.9 % Sod Chloride [Vancomycin 1 G/100Ml-0.9% NaCl] 1 gm IV Q12 #84 plast..bag - Follow Up Plan Condition: GOOD Disposition: HOME/ ROUTINE Instructions: Hardware Removal, Negative Pressure Wound Therapy Additional Instructions: Follow-up with Dr. Cole within 1 week Follow-up with Plastic Surgeon Dr. Remington Mcgill [facility] Referrals: Brando Cole III, MD [Primary Care Provider] -
--- NOTE | 2017-08-21 13:22 | PQF GENQUE ---
Dr. Cole, Please specify the meaning of 'rule out sepsis': after the work up is completed Patient has sepsis: if yes: Please document suspected or confirmed causative organism: if known Please document suspected or confirmed localized infection Please clarify if sepsis is related to a device Please clarify if sepsis was present on admission OR: Sepsis is ruled out Patient had sepsis which is now resolved Other condition (please specify) Clinically unable to determine Unknown Temp.:95.1->96.2->96.6->96. 7 Pulse:93->103->98->101->105 WBC:19.5->17.2->18.6 blood culture x 2: prelim : no growth after 24 hrs. left knee gram stain : Enterobacter Cloacae Ssp cloac, Klebsiella Pneumonia Ssp Pneu, MRSA; wound culture pending H and P: presented to the hospital with open left leg wound and exposed hardware. Had removal of hardware today 08/19/2017. Admitted postoperatively for IV antibiotics and postop care and monitoring. --Removal of hardware of the left leg due to open wound and infection - Consultation with Dr. Corado to guide antibiotic therapy - leukocytosis possibly secondary to steroids, pt is afebrile Consultation with Dr. Corado to guide antibiotic therapy - leukocytosis possibly secondary to steroids, pt is afebrile 08/19 Op Note: Status post complex left proximal tibial osteotomy and open reduction and internal fixation with bone grafting, wound dehiscence, rule out deep sepsis This form is a permanent part of the medical record Clarification of your documentation is requested to better reflect the severity of illness and intensity of treatment of your patient. Indicators present [] Specify: [] [] Specify: [] [] Specify: [] [] Specify: [] Location in the medical record that reflects the above clinical findings: [] Treatment Provided: [] PHYSICIAN'S RESPONSE Based on your medical judgment of the clinical indicators outlined above please clarify the following: [] Practitioner response [] If unable to determine, please check the box, sign and date. Present On Admission (POA) Indicator: [] Present at the time of admission [] Not present at the time of admission [] Clinically Undetermined In responding to this query, please exercise your independent professional judgment. The fact that a question is asked does not imply that any particular answer is desired or expected. Thank you for your clarification on this documentation. If you have any questions please call. * Thank you, Mary Adame RN ext. #[phone] MTDD
[2017-08-21 16:08] VITALS: BP 120/81; PULSE 114; RESP 18; TEMP 99
--- NOTE | 2017-08-21 18:27 | CARD ---
APPROVED REPORT EKG Measurement Heart [id number] TN [id number] <Conclusion> Normal sinus rhythm Possible Left atrial enlargement Borderline ECG
== END 2017-08-21 21:01 | disposition home health service (06) | DRG 908 ==
LOC: H.OPSURG 05:57 → H.MEDSURG1 14:09
PROVIDERS: ADMIT Internal Medicine; ATTEND Orthopaedic Surgery
PROC: 3E0T33Z Introduction of Anti-inflammatory into Peripheral Nerves and Plexi, Percutaneous Approach (ICD-10-PCS; 2017-08-19)
PROC: 0QPH04Z Removal of Internal Fixation Device from Left Tibia, Open Approach (ICD-10-PCS; principal; 2017-08-19 11:15)
PROC: 0QBH0ZX Excision of Left Tibia, Open Approach, Diagnostic (ICD-10-PCS; 2017-08-19 11:15)
PROC: 0KBT0ZZ Excision of Left Lower Leg Muscle, Open Approach (ICD-10-PCS; 2017-08-19 11:15)
PROC: 3E0T3BZ Introduction of Anesthetic Agent into Peripheral Nerves and Plexi, Percutaneous Approach (ICD-10-PCS; 2017-08-19 11:15)
PROC: 02HV33Z Insertion of Infusion Device into Superior Vena Cava, Percutaneous Approach (ICD-10-PCS; 2017-08-20)
PROC: B548ZZA Ultrasonography of Superior Vena Cava, Guidance (ICD-10-PCS; 2017-08-20)
PROC: 3E04329 Introduction of Other Anti-infective into Central Vein, Percutaneous Approach (ICD-10-PCS; 2017-08-20)
DX: T81.32XA Disruption of internal operation (surgical) wound, not elsewhere classified, initial encounter (principal); T81.4XXA Infection following a procedure, initial encounter; S82.192 Other fracture of upper end of left tibia; E27.40 Unspecified adrenocortical insufficiency; Z68.1 Body mass index [BMI] 19.9 or less, adult; A49.02 Methicillin resistant Staphylococcus aureus infection, unspecified site; B96.1 Klebsiella pneumoniae [K. pneumoniae] as the cause of diseases classified elsewhere; Z91.14 Patient's other noncompliance with medication regimen; E31.0 Autoimmune polyglandular failure; E03.9 Hypothyroidism, unspecified; I10 Essential (primary) hypertension; G62.9 Polyneuropathy, unspecified; K59.09 Other constipation; R63.6 Underweight; F31.9 Bipolar disorder, unspecified; J44.9 Chronic obstructive pulmonary disease, unspecified; Z91.19 Patient's noncompliance with other medical treatment and regimen; F17.210 Nicotine dependence, cigarettes, uncomplicated; X58.XXXD Exposure to other specified factors, subsequent encounter; Y83.8 Other surgical procedures as the cause of abnormal reaction of the patient, or of later complication, without mention of misadventure at the time of the procedure; Z87.01 Personal history of pneumonia (recurrent); Y92.9 Unspecified place or not applicable